=== PATIENT | male | born 1975 | race Caucasian/White ===

== ENCOUNTER → 2020-01-31 | Outpatient (CLI) | payer BC, SELFPAY ==
[2020-01-30 16:23] VITALS: BMI 22.6
== END | disposition home or self-care (01) ==
PROVIDERS: Referring Provider Physician Assistant; Visit Provider Physician Assistant
DX: R31.9 Hematuria, unspecified (principal)
CPT/HCPCS: 87077; 87086; 87088; 87186

== ENCOUNTER 2022-05-28 07:07 | Emergency (ER) | payer BC, SELFPAY ==
[2022-05-28 07:08] VITALS: BP 165/107; PULSE 105; RESP 16; TEMP 36.3; O2SAT 99; BMI 23.8
--- NOTE | 2022-05-28 07:16 | CT_ITS ---
STUDY: CT ABDOMEN AND PELVIS WITHOUT CONTRAST REASON FOR EXAM: Male, 46 years old. Kidney Stone RADIATION DOSAGE (If Supplied By Facility): CTDIvol = ( 7.62 ) mGy, DLP = ( 409.10 ) mGycm TECHNIQUE: Transaxial images were obtained from the dome of the diaphragm to the symphysis pubis without oral contrast, and without intravenous contrast. Sagittal and coronal images were reconstructed. Individualized dose optimization techniques were used for this CT. COMPARISON: None. FINDINGS: The visualized lung bases are unremarkable. The visualized portions of the heart are within normal limits. The lack of intravenous contrast limits evaluation of solid visceral organs. Normal liver. Normal gallbladder and extrahepatic biliary system. Normal spleen. Normal pancreas. Normal bilateral adrenal glands. There are nonobstructing right renal calculi measuring up to 3 mm. There is left-sided hydroureteronephrosis secondary to a 3 mm calculus within the distal ureter. There are nonobstructing left renal calculi measuring up to 3 mm. There are left renal cysts. Normal visualized stomach. Normal small intestine. There are multiple colonic diverticula consistent with diverticulosis. The appendix is visualized and appears normal. Normal abdominal aorta. Normal inferior vena cava. Normal retroperitoneum. Normal urinary bladder. There is a small umbilical hernia containing fat. There are diffuse degenerative changes of the visualized lumbar spine. CT/Abdomen/Pelvis without Cont IMPRESSION: Left hydroureteronephrosis secondary to a 3 mm calculus within the distal ureter. Bilateral nonobstructing renal calculi measuring up to 3 mm. Colonic diverticulosis. Degenerative changes of the lumbar spine. Electronically Signed: Terri Solano MD at 8:05 EDT ,
[2022-05-28 07:26] LABS: Absolute Lymphocyte Count 1.07 X10^3/uL (0.83-4.51); Absolute Neutrophil Count 4.3 X10^3/uL (2.0-7.7); Basophil# 0.05 X10^3/uL; Basophil% 0.8 % (0-1); Eosinophil# 0.24 X10^3/uL; Eosinophils% 3.8 % (0-5); Lymphocyte # 1.07 X10^3/ul (0.83-4.51); Lymphocyte % 16.9 % (19-41); Mean Corpuscular Hgb 30.5 pg (27.0-32.0); Mean Corpuscular Volume 89.5 fL (80-94); Mean Platelet Vol. 9.9 fl (6.2-12.0); Monocyte# 0.71 X10^3/uL; Monocyte% 11.2 % (0-10); NRBC Flagged by Analyzer 0 % (0-5); Neutrophil # 4.26 X10^3/uL (2.7-7.7); Neutrophil % 67.1 % (47-70); Platelet Count 250 K/mm3 (150-450); RBC Distribution Width CV 12.7 % (11.6-14.6); RBC Distribution Width SD 41.7 fl (35.1-43.9); Red Blood Count 5.25 M/mm3 (4.6-6.2); White Blood Count 6.3 K/mm3 (4.4-11.0)
[2022-05-28] MEDS: 0.9% Normal Saline 1,000 ML 250 ML IV (07:26)
[2022-05-28] MEDS: Ketorolac 15 MG/ML Vial IV (07:27)
[2022-05-28] MEDS: Ondansetron 4 MG/2 ML Vial IV (07:27)
--- NOTE | 2022-05-28 07:27 | EDS_ITS ---
HPI History of Present Illness Chief Complaint: Flank Pain Detail of Chief Complaint: Acute flank pain that started at 0600. Informant: patient and spouse/S.O. Onset/Context/Timing Onset: Days (Initially intermittent. Patient reports passing nothing stones past 40 hours) Context: Sudden Onset Timing: Intermittent and Waxes and wanes Quality: Sharp Location: Flank Current Severity: Moderate Maximum Severity: Severe Worsened by: Nothing Relieved by: Improves to be low he is on [place] for Associated Symptoms Associated Symptoms: Nausea and vomiting, urgency and dark-colored urine Narrative Narrative: Patient 46-year-old male with history of renal/ureteral calculi. His last ER visit was 4 hours ago. informed that he has passed 9 small stones over the past 40 hours. He does not have a urologist. He does report subjective fever with chills. He does endorse nausea and vomiting. He denies diarrhea. He denies dysuria or decreased urine output. There is no history of trauma. He has not noted a rash. He states this is similar to his prior kidney stones. His pain is located on the left side. It does radiate to the inguinal/groin region. Prior similar symptoms: Yes Recent Illness/Hospitalization: No PFSH PFS Medical History Kidney stones Knee fracture, left Home Medications ondansetron 4 mg disintegrating tablet 4 mg PO Q8H PRN PRN Nausea #10 tabs 05/28/22 [Rx Last Taken Unknown] oxycodone-acetaminophen 5 mg-325 mg tablet 1 tab PO Q6H PRN PRN pain 5 days #20 TABLETS 05/28/22 [Rx Last Taken Unknown] Allergy/AdvReac Type Severity Reaction Status Date / Time acetaminophen [From Vicodin] Allergy Upset Verified 05/28/22 07:10 Stomach hydrocodone [From Vicodin] Allergy Upset Verified 05/28/22 07:10 Stomach Social History (Updated 05/28/22 @ 07:[address] Williams Rodriguez MD) household members: spouse Smoking Status: Never smoker alcohol intake: never substance use type: does not use ROS ROS ED Constitutional Constitutional ED: Reports chills, fever(s) and subjective; Denies sweats or weight loss Eyes Eyes: Denies blurry vision, change in vision or diplopia ENT ENT ED: Denies ear pain, rhinorrhea or sore throat Cardiovascular Cardiovascular: Denies chest pain, palpitations or racing heartbeat Respiratory/Chest Respiratory/Chest: Denies cough, dyspnea or dyspnea on exertion Gastrointestinal Gastrointestinal: Reports abdominal pain and nausea; Denies diarrhea or melena Genitourinary Genitourinary ED: Reports urinary frequency and other Details: Patient does endorse urgency and dark-colored urine. ; Denies dysuria Musculoskeletal Musculoskeletal: Reports back pain; Denies arthralgias, myalgias or neck pain Integumentary Denies Abrasions or rash Neurologic Neurologic: Denies headache(s), paresthesias or weakness Hematologic/Lymphatic Hematologic/Lymphatic: Reports none EXAM Physical Exam Const Vital Signs: 05/28/22 07:08 Temperature 97.4 F L Temperature Source Temporal Pulse Rate 105 H Respiratory Rate 16 Blood Pressure 165/107 H Blood Pressure Mean 126 Pulse Ox 99 Oxygen Delivery Method Room Air Positive well nourished and well developed Constitutional Narrative: Patient appears uncomfortable. General Appearance ED: well developed; Negative for cyanotic, diaphoretic, NAD or pallor HEENT Reports moist mucous membranes HEENT Narrative: Head is atraumatic normocephalic. Ears normal. Nares patent. Mucosa is moist. Uvula is midline. There is no deviation tongue with protrusion. There is no erythema or exudate the posterior pharynx. Eyes PERRL and EOMs intact bilaterally General Eye ED: Negative for pale conjunctiva or scleral icterus Neck no lymphadenopathy, supple and no JVD Resp normal respiratory effort and clear to auscultation bilaterally Cardio regular rate, regular rhythm, S1 normal heart sound, S2 normal heart sound and no murmurs GI normal to inspection, nondistended, normoactive bowel sounds, non-tender, non- distended and no masses; Negative for hepatosplenomegaly Back/Spine General Back: CVA tenderness left Cervical Spine: Negative for cervical spine tenderness Thoracic Spine / Upper Back: Negative for thoracic spinal tenderness Lumbar Spine / Lower Back: Negative for lumbar spinal tenderness Extremity normal to inspection General Extremety ED: Negative for edema or tenderness General Extremity: Negative for edema Neuro oriented x3, CN's II-XII intact bilaterally and no sensory deficits noted Sensorium / Orientation: alert Psych mental status grossly normal Skin no rashes or lesions noted, no wounds and skin turgor normal General Skin Exam: Negative for jaundice or pallor MDM MDM MDM Narrative Medical decision making narrative: In light of the fact the patient's has passed 9 small stones in the past 40 hours and now has severe left flank pain with dark-colored urine concern patient has obstructing stone. Because he reports subjective fever with chills need to evaluate for infection. If he has infected urine with obstructing stone patient will need urgent urologic follow-up/admission. Therefore will obtain CT of the abdomen pelvis with out contrast. CBC was obtained to assess white count differential. Basic metabolic panel to assess renal function and calcium. UA to rule out urinary tract infection. Patient was medicated with IV Toradol and Zofran for his pain and nausea. Patient took a Percocet tablet at 0600. If there is no improvement will administer IV morphine. Patient's blood pressure is elevated. He does not have history of hypertension. Suspect this is due to his pain. Lab Data Attestation: I reviewed the patient's lab results. Lab results narrative: Creatinine is slightly elevated 1.40 with a GFR 58. Patient has been taking anti-inflammatories for his pain over the past several days. He was instructed to stop. He was instructed to follow-up with his primary care physician to have creatinine reassessed if unable to see Dr. Brown within the next 5 to 7 days. CBC and differential is normal. H&H is normal. Labs: Laboratory Results - last 24 hr 05/28/22 05/28/22 05/28/22 07:20 07:20 07:30 WBC 6.3 RBC 5.25 Hgb 16.0 Hct 47.0 MCV 89.5 MCH 30.5 MCHC 34.0 RDW Std Deviation 41.7 RDW Coeff of Giuseppe 12.7 Plt Count 250 MPV 9.9 Immature Gran % (Auto) 0.200 Neut % (Auto) 67.1 Lymph % (Auto) 16.9 L [place] % (Auto) 11.2 H Eos % (Auto) 3.8 Baso % (Auto) 0.8 Absolute Neuts (auto) 4.3 Absolute Lymphs (auto) 1.07 Nucleated RBC % 0 Sodium 139 Potassium 3.7 Chloride 104 Carbon Dioxide 27.0 Anion Gap 8 BUN 16 Creatinine 1.40 H Estim Creat Clear Calc 71.60 Est GFR (MDRD) Af Amer 70 Est GFR (MDRD) Non-Af 58 L BUN/Creatinine Ratio 11.4 Glucose 117 H Calcium 8.8 Urine Color Yellow Urine Clarity Clear Urine pH 5.0 Ur Specific [place] 1.025 Urine Protein 100 H Urine Glucose (UA) Normal Urine Ketones 150 A* Urine Occult Blood 150 H Urine Nitrite Negative Urine Bilirubin Negative Urine Urobilinogen Normal Ur Leukocyte Esterase Negative Urine RBC 0-5 SEEN Urine WBC 0-5 SEEN Ur Squamous Epith Cells 0 SEEN Urine Bacteria 0 SEEN Fine Granular Casts 0-5 SEEN Urine Mucus 0 SEEN Radiography Diagnostic Testing: Clinical Impression(s) from Imaging Studies Abdomen/Pelvis CT 05/28/22 07:16 IMPRESSION: Left hydroureteronephrosis secondary to a 3 mm calculus within the distal ureter. Bilateral nonobstructing renal calculi measuring up to 3 mm. Colonic diverticulosis. Degenerative changes of the lumbar spine. Electronically Signed: Terri Solano MD at 8:05 EDT Reading Location ID and State: [facility] / [place] Tel , Service support , Discharge Plan Triage Chief Complaint: Flank Pain ED Provider: Williams Rodriguez Dx/Rx/DC Orders Clinical Impression: Hydronephrosis concurrent with and due to calculi of kidney and ureter, Elevated serum creatinine, Dehydration, mild, Elevated blood pressure reading Instructions: ED Hypertension, To Be Confirmed, ED Renal Insufficiency, ED Kidney Stone w/ Colic Prescriptions: New oxycodone-acetaminophen [oxycodone-acetaminophen] 5-325 mg tablet 1 tab PO Q6H PRN PRN (Reason: pain) 5 Days Qty: 20 0RF ondansetron [ondansetron] 4 mg tablet,disintegrating 4 mg PO Q8H PRN PRN (Reason: Nausea) Qty: 10 0RF Primary Care Provider: Care Physician,No Primary Referrals: Nelson Brown MD [Med Staff - Active Staff] - 5-7 Days Carolyn Drake DO [Med Staff - Art Dealer] - 5-7 Days Care Physician,No Primary [Primary Care Provider] - Activity Restrictions/Additional Instructions: Return if you have a temperature greater than 100, unable to eat or drink anything or pain is not controlled by medication prescribed. Do not take any ibuprofen or Aleve because your creatinine is elevated. You are referred to Dr. Drake because you do not have a doctor and needs your blood pressure reassessed and additional blood work. Disposition Disposition: Home, Self Care
[2022-05-28 07:36] LABS: Bacteria 0 SEEN /hpf (None Seen); Mucous, Urine 0 SEEN /hpf (<or=2+); Squamous Epithelial Cells - UA 0 SEEN /hpf (0-5)
[2022-05-28 07:37] LABS: Color, Urine Yellow (Yellow); Glucose, Dipstick Normal (Normal); Leukocyte Esterase-Dipstick Negative /ul (Negative); Nitrite-Dipstick Negative (Negative); Occult Blood-Urine 150 /ul (Negative); Protein-Dipstick 100 mg/dl (Negative); Specific Gravity, Urine 1.025 (1.002-1.030); Urine Bilirubin Dipstick Negative (Negative); Urine Clarity Clear (Clear); Urine Urobilinogen Normal (Normal)
[2022-05-28 07:40] LABS: Ketone-Dipstick 150 mg/dl (Negative)
[2022-05-28 07:46] LABS: Red Blood Cells-Urine 0-5 SEEN /hpf (0-5); White Blood Cells 0-5 SEEN /hpf (0-5)
[2022-05-28 07:47] LABS: Fine Granular Cast- Urine 0-5 SEEN /lpf (0-5)
[2022-05-28 07:48] LABS: Anion Gap 8 (5-15); BUN 16 mg/dL (7-18); BUN/Creat Ratio 11.4 RATIO (10-20); Calcium,Total 8.8 mg/dL (8.5-10.1); Chloride 104 mmol/L (98-107); EST Glomerular Filtration Rate 58 mL/min (>60); Est Glom Filt Rate - Afr Amer 70 mL/min (>60); Glucose 117 mg/dL (74-106); Potassium 3.7 mmol/L (3.5-5.1); Sodium Level 139 mmol/L (136-145)
[2022-05-28 08:58] VITALS: BP 140/92; RESP 16; O2SAT 98
== END 2022-05-28 09:00 | disposition home or self-care (01) ==
PROVIDERS: Emergency Provider Emergency Medicine; Visit Provider Emergency Medicine
DX: N13.2 Hydronephrosis with renal and ureteral calculous obstruction (principal); R03.0 Elevated blood-pressure reading, without diagnosis of hypertension; E86.0 Dehydration; Z87.442 Personal history of urinary calculi
CPT/HCPCS: 74176; 80048; 81001; 85025; 96361; 96374; 96375; 99283; J7030; A4216; J2405

== ENCOUNTER → 2022-06-03 | Outpatient (CLI) | payer BC, SELFPAY ==
[2022-07-23 15:53] LABS: Source Not Provided
== END | disposition home or self-care (01) ==
LOC: LABSPEC 16:17
PROVIDERS: Visit Provider Urology
DX: N20.1 Calculus of ureter (principal)
CPT/HCPCS: 82360

== ENCOUNTER 2025-02-16 10:31 | Emergency (ER) | payer OTHER, SELFPAY ==
[2025-02-16 10:32] VITALS: BP 145/111; BP 156/105; PULSE 100; PULSE 107; RESP 20; RESP 22; TEMP 36.6; O2SAT 100; O2SAT 98; BMI 24.5
[2025-02-16 10:53] LABS: Absolute Neutrophil Count 10.5 X10^3/uL (2.0-7.7); Basophil# 0.04 X10^3/uL; Basophil% 0.4 % (0-1); Hematocrit 48.3 % (40-54); Lymphocyte % 3.5 % (19-41); Mean Corp Hgb Conc 35.2 g/dL (32-36); Mean Corpuscular Hgb 30.4 pg (27.0-32.0); Mean Corpuscular Volume 86.4 fL (80-94); Mean Platelet Vol. 10.1 fl (6.2-12.0); Monocyte# 0.43 X10^3/uL; Monocyte% 3.8 % (0-10); NRBC Flagged by Analyzer 0 % (0-5); Neutrophil # 10.47 X10^3/uL (2.7-7.7); Neutrophil % 92.2 % (47-70); POSITIVE DIFFERENTIAL YES; Platelet Count 241 K/mm3 (150-450); RBC Distribution Width CV 12.3 % (11.6-14.6); RBC Distribution Width SD 39.2 fl (35.1-43.9); Red Blood Count 5.59 M/mm3 (4.6-6.2); White Blood Count 11.4 K/mm3 (4.4-11.0)
[2025-02-16 11:37] LABS: ALB/GLOB Ratio 1.5 RATIO (0.9-2.4); AST(SGOT) 31 U/L (<=37); Alanine Aminotransfer ALT/SGPT 18 U/L (<=46); Albumin, Serum 4.6 g/dL (3.5-5.0); Alkaline Phosphatase 107 U/L (40-129); Anion Gap 15 (5-15); BUN 17 mg/dL (4-19); BUN/Creat Ratio 12.3 RATIO (10-20); Calcium,Total 8.9 mg/dL (7.6-11.0); Carbon Dioxide 22.7 mmol/L (21.0-32.0); Chloride 99 mmol/L (98-108); Creatinine, Serum 1.38 mg/dL (0.70-1.20); EST Glomerular Filtration Rate 62 (>60); Estimated Creatinine Clearance 70.29 ml/min (50-250); Globulin 3.1 g/dL (2.2-4.2); Glucose 138 mg/dL (70-99); Potassium 4.1 mmol/L (3.3-5.1); Protein, Total 7.7 g/dL (5.9-8.4); Sodium Level 137 mmol/L (133-145); Total Bilirubin 0.75 mg/dL (0.00-1.30)
--- NOTE | 2025-02-16 11:39 | EDS_ITS ---
HPI History of Present Illness Chief Complaint: Flank Pain Narrative Narrative: 49-year-old male who denies significant past medical history except for previous ureterolithiasis 5 years ago presents with right flank pain that feels similar to his previous kidney stone. He states he followed up with urology, and has not had a problem since. Around 1:00 this morning, approximately 10-1/2 hours ago, he experienced right flank pain. [place] like his pain was moving downward. He had a brief radiation to his right testicle. Since then he has been having nausea and vomiting. He vomited 9-10 times without any blood in his emesis. He has mild dysuria and pressure even after urinating. No exacerbating or alleviating factors. His pain was sudden onset. He attempted to take Excedrin for it but vomited his medication back up. He denies any hematuria, no fevers or chills. [facility] Medical History Kidney stones Knee fracture, left Home Medications ?Medication ?Instructions ?Recorded ?Last Taken ?Type ondansetron 4 mg disintegrating 4 mg PO Q8H PRN PRN Na usea #10 tabs 05/28/22 Unknown Rx tablet oxycodone-acetaminophen 5 mg-325 1 tab PO Q6H PRN PRN pain 5 days 05/28/22 Unknown Rx mg tablet #20 TABLETS ketorolac 10 mg tablet 10 mg PO TID PRN pain 5 days #15 02/16/25 Unknown Rx tabs oxycodone-acetaminophen 5 mg-325 1 tab PO Q6H PRN pain 3 days #12 02/16/25 Unknown Rx mg tablet (Percocet) tabs tamsulosin 0.4 mg capsule (Flomax) 0.4 mg PO DAILY #10 caps 02/16/25 Unknown Rx Allergy/AdvReac Type Severity Reaction Status Date / Time acetaminophen (From Vicodin) Allergy Upset Verified 02/16/25 10:32 Stomach hydrocodone (From Vicodin) Allergy Upset Verified 02/16/25 10:32 Stomach Social History household members: spouse Smoking Status: Never smoker alcohol intake: never substance use type: does not use ROS ROS ED ROS Narrative Review of systems positive for right flank pain similar to previous ureterolithiasis. Positive nausea and vomiting, no hematemesis. Mild dysuria. No hematuria. No fevers or chills. No exacerbating or alleviating factors to his pain. EXAM Physical Exam Narrative Exam Narrative: Afebrile. Vital signs noted. Nontoxic-appearing. Cardiovascular examination reveals mild tachycardia, lungs clear to auscultation bilaterally. Abdomen soft and nontender with normal active bowel sounds, no guarding or rebound. Neurological examination nonfocal, nonlateralizing. Able to ambulate to and from restroom. Const Vital Signs: 02/16/25 10:32 02/16/25 10:32 02/16/25 11:54 Temperature 98 F Temperature Source Temporal Pulse Rate 107 H 100 60 Respiratory Rate 20 H 22 H 16 Blood Pressure 145/111 H 156/105 H 162/97 H Blood Pressure Mean 122 122 118 Pulse Ox 98 100 100 Oxygen Delivery Method Room Air Room Air Room Air 02/16/25 12:00 02/16/25 13:00 02/16/25 14:17 Temperature 98.2 F Temperature Source Pulse Rate 74 78 72 Respiratory Rate 18 16 16 Blood Pressure 156/98 H 145/91 H 145/78 H Blood Pressure Mean 117 109 100 Pulse Ox 100 97 97 Oxygen Delivery Method Room Air Room Air MDM MDM MDM Narrative Medical decision making narrative: Differential diagnosis includes but vomited to ureterolithiasis versus pyelonephritis versus lower suspicion this history and physical does not support this. Review of his laboratory work shows slight elevation of his white count at 11.4 with hemoglobin slightly hemoconcentrated at 17.0, hematocrit 48.3, BUN of 17 and creatinine slightly elevated at 1.38. LFTs are grossly unremarkable. I do feel CT imaging is indicated. He was administered a bolus of normal saline as well as ketorolac, ondansetron, and morphine. Urinalysis was obtained and reviewed and while there is 50 glucose in 150 ketones, negative for nitrites with 0 WBCs. I do not feel antibiotics are indicated. Review of the CT radiology report does show a 2 mm obstructing stone at the ureterovesicular junction causing moderate hydronephrosis and ureteronephrosis. There is perinephric stranding present. Repeat examination at approximately 1350 shows him resting comfortably and his pain has improved significantly. At this point in time, I do feel he can be discharged with prescriptions for Toradol, Percocet, and Flomax to follow-up with urology as an outpatient. Return instructions to the emergency department were reviewed. Patient and his mother are comfortable with the plan. Disposition is discharged home in stable condition. History & Record Review Discussion w/independent historian: Patient Additional record(s) reviewed:: Prior ED visit (Seen for ureteral stone in 2021) Lab Data Attestation: I reviewed the patient's lab results. Labs: Laboratory Results - last 24 hr 02/16/25 02/16/25 10:45 11:56 WBC 11.4 H RBC 5.59 Hgb 17.0 H Hct 48.3 MCV 86.4 MCH 30.4 MCHC 35.2 RDW Std Deviation 39.2 RDW Coeff of Giuseppe 12.3 Plt Count 241 MPV 10.1 Immature Gran % (Auto) 0.100 Neut % (Auto) 92.2 H Lymph % (Auto) 3.5 L [place] % (Auto) 3.8 Eos % (Auto) 0.0 Baso % (Auto) 0.4 Absolute Neuts (auto) 10.5 H Absolute Lymphs (auto) 0.40 L Nucleated RBC % 0 Sodium 137 Potassium 4.1 Chloride 99 Carbon Dioxide 22.7 Anion Gap 15 BUN 17 Creatinine 1.38 H Estim Creat Clear Calc 70.29 Est GFR (MDRD) Non-Af 62 BUN/Creatinine Ratio 12.3 Glucose 138 H Calcium 8.9 Total Bilirubin 0.75 AST 31 ALT 18 Alkaline Phosphatase 107 Total Protein 7.7 Albumin 4.6 Globulin 3.1 Albumin/Globulin Ratio 1.5 Urine Color Yellow Urine Clarity Clear Urine pH 6.0 Ur Specific [place] 1.020 Urine Protein 100 H Urine Glucose (UA) 50 H Urine Ketones 150 A* Urine Occult Blood 25 H Urine Nitrite Negative Urine Bilirubin Negative Urine Urobilinogen Normal Ur Leukocyte Esterase Negative Urine RBC 0 SEEN Urine WBC 0 SEEN Ur Squamous Epith Cells 0 SEEN Urine Bacteria 0 SEEN Urine Mucus 0 SEEN Radiography Diagnostic Testing: Clinical Impression(s) from Imaging Studies Abdomen/Pelvis CT 02/16/25 12:33 IMPRESSION: 2 mm obstructive stone at the right UVJ with associated upstream moderate hydroureteronephrosis with extensive perinephric stranding. Prominent mesenteric lymph nodes with diffuse mesenteric stranding may reflect panniculitis. Reading Location: [facility] Discharge Plan Triage Chief Complaint: Flank Pain ED Provider: Hector Chacko Dx/Rx/DC Orders Clinical Impression: Ureterolithiasis, Right flank pain, Hydroureteronephrosis Instructions: ED Kidney Stone with Pain Prescriptions: New oxycodone-acetaminophen [Percocet] 5-325 mg tablet 1 tab PO Q6H PRN (Reason: pain) 3 Days Qty: 12 0RF ketorolac 10 mg tablet 10 mg PO TID PRN (Reason: pain) 5 Days Qty: 15 0RF tamsulosin [Flomax] 0.4 mg capsule 0.4 mg PO DAILY Qty: 10 0RF No Action oxycodone-acetaminophen [oxycodone-acetaminophen] 5-325 mg tablet 1 tab PO Q6H PRN PRN (Reason: pain) 5 Days Qty: 20 0RF ondansetron [ondansetron] 4 mg tablet,disintegrating 4 mg PO Q8H PRN PRN (Reason: Nausea) Qty: 10 0RF Primary Care Provider: Care Physician,No Primary Referrals: Nelson Brown MD [Med Staff - Active Staff] - 1 Week Care Physician,No Primary [Primary Care Provider] - Activity Restrictions/Additional Instructions: Medication as directed. Follow-up with urology within the next week. Return to the emergency department with fever, inability to take medications, increased pain while on medication, new or worsening symptoms. Print Language: Bahamian Disposition Disposition: Home, Self Care Discharge Date/Time: 02/16/25 14:18
[2025-02-16] MEDS: Ondansetron 4 MG/2 ML Vial IV (11:50)
[2025-02-16] MEDS: Morphine 4 MG/ML Syringe IV (11:50)
[2025-02-16] MEDS: Ketorolac 15 MG/ML Vial IV (11:50)
[2025-02-16] MEDS: 0.9% Normal Saline (1000mL) 1,000 ML 999 ML IV (11:51)
[2025-02-16 11:54] VITALS: BP 162/97; PULSE 60; RESP 16; O2SAT 100
[2025-02-16 12:00] VITALS: BP 156/98; PULSE 74; RESP 18; O2SAT 100
[2025-02-16 12:04] LABS: Bacteria 0 SEEN /hpf (None Seen); Mucous, Urine 0 SEEN /hpf (<or=2+); Red Blood Cells-Urine 0 SEEN /hpf (0-5); Squamous Epithelial Cells - UA 0 SEEN /hpf (0-5); White Blood Cells 0 SEEN /hpf (0-5)
[2025-02-16 12:11] LABS: Color, Urine Yellow (Yellow); Glucose, Dipstick 50 mg/dl (Normal); Leukocyte Esterase-Dipstick Negative /ul (Negative); Nitrite-Dipstick Negative (Negative); Occult Blood-Urine 25 /ul (Negative); Protein-Dipstick 100 mg/dl (Negative); Urine Bilirubin Dipstick Negative (Negative); Urine Clarity Clear (Clear); Urine Urobilinogen Normal (Normal)
[2025-02-16 12:18] LABS: Ketone-Dipstick 150 mg/dl (Negative)
--- OUTSIDE RECORDS SUMMARY | 2025-02-16 12:19 | XMS RPT_ITS | CCD ---
Author Organization [facility] Inform ion Partnership [facility] Care Team Providers Care Packager Name Role Phone Care Physician, No Primary Primary Care Unava ilable Nelson Brown Attending Unavailable Williams Rodriguez Attending Unavailable Care Physician, No Primary Primary Care Unava ilable Unavailable Primary Care Provider UnavailRadha Robles DO Primary Care Provider Allergies Allergy Classification Reported Allergen(s) Allergy Type Date of Onset Reaction(s) Facility (2 sources) Acetaminophen Drug Allergy 2 Upset Stomach [facility] Work Phone: (2 sources) HYDROcodone Drug Allergy 2 Upset Stomach [facility] Work Phone: (1 source) Acetaminophen Drug Allergy 2 [facility] Repository (1 source) HYDROcodone Drug Allergy 2 [facility] Repository (4 sources) Acetaminophen / HYDROcodone Drug Allergy 8 GI Upset [facility] Medications Current Medications Medication Drug Class(es) Dates Sig (Normalized) Sig (Original) acetaminophen 325 mg / oxyCODONE hydrochloride 5 mg oral tablet (2 sources) Opioid Agonist Start: 05-28-2022 take 1 tablet by mouth every six hours as needed Oxycodone-Acetami nophen Active 1 TABLET PO EVERY 6 HOURS NEEDED 22 01May 28, 2022 ondansetron 4 mg disintegrating oral tablet (2 sources) Serotonin-3 Receptor Antagonist Start: 05-28-2022 take 4 mg by mouth every eight hours as needed Ondansetron Active 4 MG PO EVERY 8 HOURS NEEDED May 28, 2022 12:00am Completed/Discontinued Medications Medication Drug Class(es) Dates Sig (Normalized) Sig (Original) [id number] 200 actuat albuterol 0.09 mg/actuat metered dose inhaler (5 sources) beta2-Adrenergic Agonist Start: 12-20-2022 take 2 puff(s) by inhalation every six hours as needed for wheezing albuterol HFA (PROVENTIL HFA, VENTOLIN HFA) 90 mcg/actuation inhaler Indications: Wheezing INHALE 2 PUFFS INSTRUCTED EVERY 6 HOURS NEEDED FOR WHEEZING/SHORTNES S OF BREATH. 8.5 Each 1 12/20/2022 Active Start: 09-20-2022 End: 12-20-2022 take 2 puff(s) by inhalation every six hours as needed for wheezing albuterol HFA (PROVENTIL HFA, VENTOLIN HFA) 90 mcg/actuation inhaler Indications: Wheezing Inhale 2 Puffs as instructed every 6 hours as needed for wheezing/shortness of breath. 18 g 1 09/20/2022 12/20/2022 Discontinued Start: 08-06-2022 take 2 puff(s) by in halation every six hours as needed for wheezing albuterol HFA (PROVENTIL HFA, VENTOLIN HFA) 90 mcg/actuation inhaler Indications: Wheezing Inhale 2 Puffs as instructed every 6 hours as needed for wheezing/shortness of breath. 18 g 1 08/06/2022 Active Comment on above: Inhale 2 Puffs as in structed every 6 hours as needed for wheezing/shortness of breath. breath-actuated 120 actuat beclomethasone dipropionate 0.04 mg/actuat metered dose inhaler (3 sources) Corticosteroid Start : 09-20 take 2 puff(s) by inhalation twice daily beclomethasone (QVAR REDIHALER) 40 mcg/actuation inhaler Inhale 2 Puffs as instructed twice daily. 1 Each 2 09/20/2022 Active Comment on above: Inhale 2 Puffs as in structed twice daily. Budesonide / formoterol (3 sources) Corticosteroid, beta2-Adrenergic Agonist Start : 10-07 take 2 puff(s) by inhalation twice daily budesonide-formotero l (SYMBICORT) 80-4.5 mcg/actuation inhaler Inhale 2 Puffs as instructed twice daily. 1 Each 0 10/07/2022 Active Comment on above: Inhale 2 Puffs as in structed twice daily. cetirizine HCl/pseudoephedrine (ZYRTEC-D ORAL) (1 source) cetirizine HCl/pseudoephedrine (ZYRTEC-D ORAL) Take by mouth. 0 Active Comment on above: Take by mouth. diphenhydrAMINE hydrochloride 25 mg oral tablet (1 source) Histamine-1 Receptor Antagonist take 1 tablet by mouth every six hours as needed diphenhydrAMINE (BENADRYL ALLERGY) 25 mg tablet Take 25 mg by mouth every 6 hours as needed. 0 Active Comment on above: Take 25 mg by mouth every 6 hours as needed. fluticasone propionate 0.05 mg/actuat metered dose nasal spray (4 sources) Corticosteroid Start : 08-06 take 1 spray(s) nasal route once daily fluticasone (FLONASE ALLERGY RELIEF) 50 mcg/actuation nasal spray Indications: Sinus congestion Use 1 [place] in each nostril once daily. 18.2 mL 1 08/06/2022 Active Comment on above: Use 1 [place] in each nostril once daily. naphazoline hydrochloride 0.25 mg/ml / pheniramine maleate 3 mg/ml ophthalmic solution (1 source) Start : 06-20 End: 08-06 naphazoline-pheniram ine eye drops (NAPHCON-A) 0.025-0.3 % ophthalmic solution Use 1 Drop in both eyes every 4 hours as needed. 1 Bottle 0 06/20/2016 08/06/2022 Discontinued (Course of therapy completed) Comment on above: Use 1 Drop in both e yes every 4 hours as needed. Problems Active Problems Problem Classification Problem Date Documented Date Episodic/Chronic Abdominal pain (1 source) Unspecified abdominal pain; Translations: [Unspecified abdominal pain] Onset: 06-01-2022 Episodic Calculus of urinary tract (1 source) Calculus of ureter; Translations: [Calculus of ureter] Onset: 06-09-2022 Episodic Fluid and electrolyte disorders (2 sources) Mild dehydration; Translations: [Dehydration] Episodic Genitourinary symptoms and ill-defined conditions (2 sources) Blood in urine; Translations: [Hematuria, unspecified] Episodic Osteoarthritis (4 sources) Osteoarthritis of left knee joint; Translations: [Unilateral primary osteoarthritis, left knee] Onset: 06-07-2012 06-07-2012 Chronic Other circulatory disease (2 sources) Elevated blood pressure; Translations: [Elevated blood-pressure reading, without diagnosis of hypertension] Episodic Other diseases of kidney and ureters (2 sources) Hydronephrosis co-occurrent and due to calculus of kidney and ureter; Translations: [Hydronephrosis with renal and ureteral calculous obstruction] Episodic Other lower respiratory disease (2 sources) Wheezing; Translations: [Wheezing] Episodic Other screening for suspected conditions (not mental disorders or infectious disease) (2 sources) Serum creatinine raised; Translations: [Other specified abnormal findings of blood chemistry] Episodic Other upper respiratory disease (1 source) Congestion of nasal sinus; Translations: [Nasal congestion] Episodic Past or Other Problems Problem Classification Problem Date Documented Da te Episodic/Chronic Contraceptive and procreative management (5 sources) Patient encounter status; Translations: [Encounter for sterilization] Onset: 12-29-2017 12-29-2017 Episodic Other circulatory disease (4 sources) Tightness in throat; Translations: [Other specified symptoms and signs involving the circulatory and respiratory systems] Onset: 04-24-2012 04-24-2012 Episodic Other non-traumatic joint disorders (4 sources) Pain in left knee; Translations: [Pain in joint, lower leg] Onset: 04-24-2012 04-24-2012 Episodic Results Test Name Value Interpretation Reference Range Facility [facility] 11-07-2023 [facility] Telephone ([facility]) ----- BRITTA SUTHERLAND ([id number]) 1975 M Date Time Provider Department 11/07/23 RADHA FLOYD [facility] During your visit today, we recorded the following information about you: Radha Mario 11/07/2023 5:22 PM Signed 1st attempt to reschedule Britta's 11/22/23 Dr. Floyd appointment, I left a voicemail and sent a [employer] message. Please note: He is not a new patient, he is established, and if he needs to discuss refills for asthma medications, he can see Annamaria sooner than Dr. Floyd's next available appointment, if he wishes. Radha FabianoIndio Avila 11/09/2023 8:58 AM Signed 2nd attempt left jamey Indio Tian 11/11/2023 9:43 AM Signed 3rd attempt,left VM Allergies As of Date: 11/07/2023 Noted Allergy Reaction HYDROCODONE-ACETAMINOPHEN 11/29/2017 8 - GI Upset Date Reviewed: 09/20/2022 Reviewed by: Maile Sneed MA - Fully Assessed Reason for Visit: Appointment [[id number]] Prescriptions as of 11/11/2023 - albuterol HFA (PROVENTIL HFA, VENTOLIN HFA) 90 mcg/actuation inhaler INHALE 2 PUFFS INSTRUCTED EVERY 6 HOURS NEEDED FOR WHEEZING/SHORTNESS OF BREATH. - budesonide-formoterol (SYMBICORT) 80-4.5 mcg/actuation inhaler Inhale 2 Puffs as instructed twice daily. - beclomethasone (QVAR REDIHALER) 40 mcg/actuation inhaler Inhale 2 Puffs as instructed twice daily. - fluticasone (FLONASE ALLERGY RELIEF) 50 mcg/actuation nasal spray Use 1 [place] in each nostril once daily. Problem List As Of Date 11/07/2023 Noted Resolved Throat Tightness [R09.89] 04/24/2012 Left knee pain [M25.562] 04/24/2012 Bodies, loose, joint, knee [M23.40] 05/26/2012 2012 Degenerative arthritis of left knee [M17.12] 06/07/2012 Encounter for sterilization [Z30.2] 12/29/2017 Encounter Status:Closed by INDIO TIAN on 11/09/23 Normal [facility] Calculi, Urinary w / Photoon 07-23-2022 COMMENT Normal [facility] Comment on above: Result Comment: Keri masters questions regarding Calculi Analysis contact [facility] at: [phone]. Performed By: #### L 3650.0100 #### [facility] [place], [address] Result Comment: Calc jeffery report will follow via computer, mail or erecting engineer delivery. Disclaimer Normal [facility] Comment on above: Result Comment: This test was developed and its performance characteristics determined by [employer]. It has not been cleared or approved by the Food and Drug Administration. Performed By: #### L 3650.0100 #### [facility] [address] [place], [address] PHOTO Normal [facility] Comment on above: Result Comment: Rosa Maria vance will follow under a separate cover. Performed By: #### L 0.0100 #### [facility] [address] [place], [address] . [facility] Comment on above: Result Comment: Perc entage (Represents the % composition) Performed By: #### L 0.0 #### [facility] [address] [place], [address] CA OXAL MONOHYD 100 % Normal [facility] Comment on above: Performed By: #### L 0.0100 #### [facility] [address] [place], [address] WEIGHT 8 mg [facility] Comment on above: Performed By: #### L 0.0100 #### [facility] [address] [place], [address] Color (U) Brown Normal [facility] Comment on above: Performed By: #### L 0.0100 #### [facility] [address] [place], [address] SIZE 3x3 mm Normal [facility] Comment on above: Result Comment: Veto medina piece received. Performed By: #### L 3650.0100 #### [facility] [address] [place], [address] SOURCE Not Provided [facility] Comment on above: Performed By: #### L 3650.0100 #### [facility] [address] [place], [address] Abdomen/Pelvis without Conto n 05-28-2022 Abdomen/Pelvis without Cont [facility] [address] [place] [address] Abdomen/Pelvis without Cont MR#: [id number] Acct: [id number] Name: BRITTA SUTHERLAND Rep #: [id number] : 1975 M 46 From: Terri Solano MD PCP: Care Physician,No Primary Status: REG ER Study: Abdomen/Pelvis without Cont Date of Exam: 05/07 11/24 Exam# [id number] Ordering Dr: Williams Rodriguez MD STUDY: CT ABDOMEN AND PELVIS WITHOUT CONTRAST REASON FOR EXAM: Male, 46 years old. Kidney Stone RADIATION DOSAGE (If Supplied By Facility): CTDIvol = ( 7.62 ) mGy, DLP = ( 409.10 ) mGycm TECHNIQUE: Transaxial images were obtained from the dome of the diaphragm to the symphysis pubis without oral contrast, and without intravenous contrast. Sagittal and coronal images were reconstructed. Individualized dose optimization techniques were used for this CT. COMPARISON: None. FINDINGS: The visualized lung bases are unremarkable. The visualized portions of the heart are within normal limits. The lack of intravenous contrast limits evaluation of solid visceral organs. Normal liver. Normal gallbladder and extrahepatic biliary system. Normal spleen. Normal pancreas. Normal bilateral adrenal glands. There are nonobstructing right renal calculi measuring up to 3 mm. There is left-sided hydroureteronephrosis secondary to a 3 mm calculus within the distal ureter. There are nonobstructing left renal calculi measuring up to 3 mm. There are left renal cysts. Normal visualized stomach. Normal small intestine. There are multiple colonic diverticula consistent with diverticulosis. The appendix is visualized and appears normal. Normal abdominal aorta. Normal inferior vena cava. Normal retroperitoneum. Normal urinary bladder. There is a small umbilical hernia containing fat. There are diffuse degenerative changes of the visualized lumbar spine. CT/Abdomen/Pelvis without Cont IMPRESSION: Left hydroureteronephrosis secondary to a 3 mm calculus within the distal ureter. Bilateral nonobstructing renal calculi measuring up to 3 mm. Colonic diverticulosis. Degenerative changes of the lumbar spine. Electronically Signed: Terri Solano MD at 8:05 EDT , CC: Dr. Williams Rodriguez MD; No Primary Care Physician Nurse Anesthesia Program Director: Signed Normal [facility] Absolute lymphocyte counton 05-28-2022 Lymphocytes Auto (Unsp spec) [#/Vol] 1.07 10*3/uL 0.83-4.51 [facility] Work Phone: Basic Metabolic Profile (BMP )on 05-28-2022 BUN/CRE 11.4 RATIO Normal 10-20 [facility] Comment on above: Performed By: #### L 100.0100, L500.2500 #### [facility] [address] [place], [address] CA,Total 8.8 mg/dL Normal 8.5-10.1 [facility] Comment on above: Performed By: #### L 100.0100, L500.2500 #### [facility] [address] [place], [address] Chloride [Moles/Vol] 104 mmol/L Normal 98-107 [facility] Comment on above: Performed By: #### L 100.0100, L500.2500 #### [facility] [address] [place], [address] CO2 [Moles/Vol] 27.0 mmol/L Normal 21.0-32.0 [facility] Comment on above: Performed By: #### L 100.0100, L500.2500 #### [facility] [address] [place], [address] Creatinine [Mass/Vol] 1.40 mg/dL High 0.70-1.30 [facility] Comment on above: Result Comment: The validity of the calculated GFR GFRAA in patients over 70 years has not been determined. Clinical correlation is essential. Performed By: #### L 100.0100, L500.2500 #### [facility] [address] [place], [address] ECRCL 71.60 ml/min Normal [facility] Comment on above: Performed By: #### L 100.0100, L500.2500 #### [facility] [address] [place], [address] EST GFR - AA 70 mL/min Normal >60 [facility] Comment on above: Result Comment: Afri can Barbadian GFR Calc Performed By: #### L 100.0100, L500.2500 #### [facility] [address] [place], [address] GAP 8 Normal 5-15 [facility] Comment on above: Performed By: #### L 100.0100, L500.2500 #### [facility] [address] [place], [address] GFR/1.73 sq M.predicted among non-blacks MDRD (S/P/Bld) [Vol rate/Area] 58 mL/min/{1.73_m2} Low >60 [facility] Comment on above: Result Comment: Non- GFR Calc Performed By: #### L 100.0100, L500.2500 #### [facility] [address] [place], [address] Glucose [Mass/Vol] 117 mg/dL High 74-106 [facility] Comment on above: Result Comment: Fast ing Glucose result from 100 to 125 mg/dL suggests IMPAIRED HOMEOSTASIS per A.D.A. criteria. Performed By: #### L 100.0100, L500.2500 #### [facility] [address] [place], [address] Potassium [Moles/Vol] 3.7 mmol/L Normal 3.5-5.1 [facility] Comment on above: Performed By: #### L 100.0100, L500.2500 #### [facility] [address] [place], [address] Sodium [Moles/Vol] 139 mmol/L Normal 136-145 [facility] Comment on above: Performed By: #### L 100.0100, L500.2500 #### [facility] [address] [place], [address] Urea nitrogen [Mass/Vol] 16 mg/dL Normal 7-18 [facility] Comment on above: Performed By: #### L 100.0100, L500.2500 #### [facility] [address] [place], [address] Basophil percentageon 05-28- 2021 Basophil percentage 0-5 SEEN /hpf 0-5 [facility] Work Phone: Basophils/100 WBC (Bld) 0.8 % 0-1 [facility] Work Phone: Chloride [Moles/Vol] 104 mmol/L 98-107 [facility] Work Phone: Eosinophils/100 WBC (Bld) 3.8 % 0-5 [facility] Work Phone: Glucose [Mass/Vol] 117 mg/dL 74-106 [facility] Work Phone: Comment on above: Fasting Glucose resu lt from 100 to 125 mg/dL suggests IMPAIRED HOMEOSTASIS per A.D.A. criteria. Neutrophils (Bld) [#/Vol] 4.3 10*3/uL 2.0-7.7 [facility] Work Phone: Neutrophils/100 WBC (Bld) 67.1 % 47-70 [facility] Work Phone: Potassium [Moles/Vol] 3.7 mmol/L 3.5-5.1 [facility] Work Phone: Sodium [Moles/Vol] 139 mmol/L 136-145 [facility] Work Phone: WBC (Bld) [#/Vol] 6.3 10*3/uL 4.4-11.0 [facility] Work Phone: Bilirubin Test strip Ql (U)o n 05-28-2022 Bilirubin Ql (U) Negative Negative [facility] Work Phone: Blood erythrocytes count (nu mber/volume)on 05-28-2022 RBC (Bld) [#/Vol] 5.25 10*6/uL 4.6-6.2 [facility] Work Phone: Blood hemoglobin measurement (mass/volume)on 05-28-2022 Hemoglobin (Bld) [Mass/Vol] 16.0 g/dL 13.0-16.5 [facility] Work Phone: Blood lymphocytes/100 leukoc yteson 05-28-2022 Lymphocytes/100 WBC (Bld) 16.9 % 19-41 [facility] Work Phone: Blood monocytes/100 leukocyt eson 05-28-2022 Monocytes/100 WBC (Bld) 11.2 % 0-10 [facility] Work Phone: Blood platelet mean volumeon 05-28-2022 Platelet mean volume (Bld) [Entitic vol] 9.9 fL 6.2-12.0 [facility] Work Phone: CBC W/Diff, Automatedon 05-07 Absolute Lymph 1.07 X10 3/uL Normal 0.83-4.51 [facility] Comment on above: Performed By: #### L 100.0100, L500.2500 #### [facility] [place], [address] Absolute Neut 4.3 X10 3/uL Normal 2.0-7.7 [facility] Comment on above: Performed By: #### L 100.0100, L500.2500 #### [facility] [address] [place], [address] Basophils/100 WBC (Bld) 0.8 % Normal 0-1 [facility] Comment on above: Performed By: #### L 100.0100, L500.2500 #### [facility] [address] [place], [address] Eosinophils/100 WBC (Bld) 3.8 % Normal 0-5 [facility] Comment on above: Performed By: #### L 100.0100, L500.2500 #### [facility] [address] [place], [address] Erythrocyte distribution width (RBC) [Ratio] 12.7 % Normal 11.6-14.6 [facility] Comment on above: Performed By: #### L 100.0100, L500.2500 #### [facility] [address] [place], [address] Hematocrit (Bld) [Volume fraction] 47.0 % Normal 40-54 [facility] Comment on above: Performed By: #### L 100.0100, L500.2500 #### [facility] [address] [place], [address] Hemoglobin (Bld) [Mass/Vol] 16.0 g/dL Normal 13.0-16.5 [facility] Comment on above: Performed By: #### L 100.0100, L500.2500 #### [facility] [address] [place], [address] IG% 0.200 Normal 0.0-0.9 [facility] Comment on above: Result Comment: IG% - Immature Granulocytes (promyelocytes, myelocytes and metamyelocytes) > 1% indicates that a LEFT SHIFT is Present. Performed By: #### L 100.0100, L500.2500 #### [facility] [address] [place], [address] Lymphocytes/100 WBC (Bld) 16.9 % Low 19-41 [facility] Comment on above: Performed By: #### L 100.0100, L500.2500 #### [facility] [address] [place], [address] MCH (RBC) [Entitic mass] 30.5 pg Normal 27.0-32.0 [facility] Comment on above: Performed By: #### L 100.0100, L500.2500 #### [facility] [address] [place], [address] MCHC (RBC) [Mass/Vol] 34.0 g/dL Normal 32-36 [facility] Comment on above: Performed By: #### L 100.0100, L500.2500 #### [facility] [address] [place], [address] MCV (RBC) [Entitic vol] 89.5 fL Normal 80-94 [facility] Comment on above: Performed By: #### L 100.0100, L500.2500 #### [facility] [address] [place], [address] Monocytes/100 WBC (Bld) 11.2 % High 0-10 [facility] Comment on above: Performed By: #### L 100.0100, L500.2500 #### [facility] [address] [place], [address] Neutrophils/100 WBC (Bld) 67.1 % Normal 47-70 [facility] Comment on above: Performed By: #### L 100.0100, L500.2500 #### [facility] [address] [place], [address] Nucleated RBC (Bld) [#/Vol] 0 10*3/uL Normal 0-5 [facility] Comment on above: Performed By: #### L 100.0100, L500.2500 #### [facility] [address] [place], [address] Platelet mean volume (Bld) [Entitic vol] 9.9 fL Normal 6.2-12.0 [facility] Comment on above: Performed By: #### L 100.0100, L500.2500 #### [facility] [address] [place], [address] Platelets (Bld) [#/Vol] 250 10*3/uL Normal 150-450 [facility] Comment on above: Performed By: #### L 100.0100, L500.2500 #### [facility] [address] [place], [address] RBC (Bld) [#/Vol] 5.25 10*6/uL Normal 4.6-6.2 [facility] Comment on above: Performed By: #### L 100.0100, L500.2500 #### [facility] [address] [place], [address] RDW SD 41.7 fl Normal 35.1-43.9 [facility] Comment on above: Performed By: #### L 100.0100, L500.2500 #### [facility] [address] [place], [address] WBC (Bld) [#/Vol] 6.3 10*3/uL Normal 4.4-11.0 [facility] Comment on above: Performed By: #### L 100.0100, L500.2500 #### [facility] [address] [place], [address] Determination of erythrocyte mean corpuscular volume (MCV)on 05-28-2022 MCV (RBC) [Entitic vol] 89.5 fL 80-94 [facility] Work Phone: Emergency Department Summary on 05-28-2022 Emergency Department Summary [facility] Medical Records Department [address] [place] [address] Emergency Department Summary 05/28/22 MR#: [id number] Acct: [id number] Name: BRITTA SUTHERLAND Rep #: [id number] : 1975 46 From: Williams Rodriguez MD PCP: Care Physician,No Primary Status:REG ER Location: ED HPI History of Present Illness Chief Complaint: Flank Pain Detail of Chief Complaint: Acute flank pain that started at 0600. Informant: patient and spouse/S.O. Onset/Context/Timing Onset: Days (Initially intermittent. Patient reports passing nothing stones past 40 hours) Context: Sudden Onset Timing: Intermittent and Waxes and wanes Quality: Sharp Location: Flank Current Severity: Moderate Maximum Severity: Severe Worsened by: Nothing Relieved by: Improves to be low he is on [place] for Associated Symptoms Associated Symptoms: Nausea and vomiting, urgency and dark-colored urine Narrative Narrative: Patient 46-year-old male with history of renal/ureteral calculi. His last ER visit was 4 hours ago. informed that he has passed 9 small stones over the past 40 hours. He does not have a urologist. He does report subjective fever with chills. He does endorse nausea and vomiting. He denies diarrhea. He denies dysuria or decreased urine output. There is no history of trauma. He has not noted a rash. He states this is similar to his prior kidney stones. His pain is located on the left side. It does radiate to the inguinal/groin region. Prior similar symptoms: Yes Recent Illness/Hospitalization: No PFSH PFSH Medical History Kidney stones Knee fracture, left Home Medications ondansetron 4 mg disintegrating tablet 4 mg PO Q8H PRN PRN Nausea #10 tabs 05/28/22 [Rx Last Taken Unknown] oxycodone-acetaminophen 5 mg-325 mg tablet 1 tab PO Q6H PRN PRN pain 5 days #20 TABLETS 05/28/22 [Rx Last Taken Unknown] Allergy/AdvReac Type Severity Reaction Status Date / Time acetaminophen [From Vicodin] Allergy Upset Verified 05/28/22 07:10 Stomach hydrocodone [From Vicodin] Allergy Upset Verified 05/28/22 07:10 Stomach Social History (Updated 05/28/22 @ 07:[address] Williams Rodriguez MD) household members: spouse Smoking Status: Never smoker alcohol intake: never substance use type: does not use ROS ROS ED Constitutional Constitutional ED: Reports chills, fever(s) and subjective; Denies sweats or weight loss Eyes Eyes: Denies blurry vision, change in vision or diplopia ENT ENT ED: Denies ear pain, rhinorrhea or sore throat Cardiovascular Cardiovascular: Denies chest pain, palpitations or racing heartbeat Respiratory/Chest Respiratory/Chest: Denies cough, dyspnea or dyspnea on exertion Gastrointestinal Gastrointestinal: Reports abdominal pain and nausea; Denies diarrhea or melena Genitourinary Genitourinary ED: Reports urinary frequency and other Details: Patient does endorse urgency and dark-colored urine. ; Denies dysuria Musculoskeletal Musculoskeletal: Reports back pain; Denies arthralgias, myalgias or neck pain Integumentary Denies Abrasions or rash Neurologic Neurologic: Denies headache(s), paresthesias or weakness Hematologic/Lymphatic Hematologic/Lymphatic: Reports none EXAM Physical Exam Const Vital Signs: 05/28/22 07:08 Temperature 97.4 F L Temperature Source Temporal Pulse Rate 105 H Respiratory Rate 16 Blood Pressure 165/107 H Blood Pressure Mean 126 Pulse Ox 99 Oxygen Delivery Method Room Air Positive well nourished and well developed Constitutional Narrative: Patient appears uncomfortable. General Appearance ED: well developed; Negative for cyanotic, diaphoretic, NAD or pallor HEENT Reports moist mucous membranes HEENT Narrative: Head is atraumatic normocephalic. Ears normal. Nares patent. Mucosa is moist. Uvula is midline. There is no deviation tongue with protrusion. There is no erythema or exudate the posterior pharynx. Eyes PERRL and EOMs intact bilaterally General Eye ED: Negative for pale conjunctiva or scleral icterus Neck no lymphadenopathy, supple and no JVD Resp normal respiratory effort and clear to auscultation bilaterally Cardio regular rate, regular rhythm, S1 normal heart sound, S2 normal heart sound and no murmurs GI normal to inspection, nondistended, normoactive bowel sounds, non-tender, non-distended and no masses; Negative for hepatosplenomegaly Back/Spine General Back: CVA tenderness left Cervical Spine: Negative for cervical spine tenderness Thoracic Spine / Upper Back: Negative for thoracic spinal tenderness Lumbar Spine / Lower Back: Negative for lumbar spinal tenderness Extremity normal to inspection General Extremety ED: Negative for edema or tenderness General Extremity: Negative for edema Neuro oriente (more content not included)... Normal [facility] Hematocrit Auto (Bld) [Volum e fraction]on 05-28-2022 Hematocrit (Bld) [Volume fraction] 47.0 % 40-54 [facility] Work Phone: Ketones Test strip Ql (U)on 05-28-2022 Ketones Ql (U) 150 mg/dl Negative [facility] Work Phone: Comment on above: CRITICAL VALUE *[id number] Jakob Toribio.RESULTS READ BACK BY SAME. Laboratory - Chemistry and C hemistry - challengeon 05-28-2022 CO2 [Moles/Vol] 27.0 mmol/L 21.0-32.0 [facility] Work Phone: Urea nitrogen/Creatinine [Mass ratio] 11.4 mg/mg 10-20 [facility] Work Phone: Laboratory - Hematology and Cell countson 05-28-2022 Erythrocyte distribution width (RBC) [Entitic vol] 41.7 fL 35.1-43.9 [facility] Work Phone: Erythrocyte distribution width (RBC) [Ratio] 12.7 % 11.6-14.6 [facility] Work Phone: Immature granulocytes/100 WBC (Bld) 0.200 % 0.0-0.9 [facility] Work Phone: Comment on above: IG% - Immature Granu locytes (promyelocytes, myelocytes and metamyelocytes) > 1% indicates that a LEFT SHIFT is Present. MCH (RBC) [Entitic mass] 30.5 pg 27.0-32.0 [facility] Work Phone: Nucleated RBC/100 WBC (Bld) [Ratio] 0 % 0-5 [facility] Work Phone: MCHC Auto (RBC) [Mass/Vol]on 05-28-2022 MCHC (RBC) [Mass/Vol] 34.0 g/dL 32-36 [facility] Work Phone: Mucus LM Ql (Urine sed)on Mucus Ql (Urine sed) 0 SEEN /hpf [facility] Work Phone: Nitrite Test strip Ql (U)on 05-28-2022 Nitrite Ql (U) Negative Negative [facility] Work Phone: No Panel Informationon 05-28 Estimated Creatinine Clearance Calc 71.60 ml/min [facility] Work Phone: Estimated GFR (MDRD) Amer 70 mL/min >60 [facility] Work Phone: Comment on above: GFR Calc Estimated GFR (MDRD) Non-Af Amer 58 mL/min >60 [facility] Work Phone: Comment on above: Non- GFR Calc Platelets bldon 05-28-2022 Platelets (Bld) [#/Vol] 250 10*3/uL 150-450 [facility] Work Phone: Protein Test strip Ql (U)on 05-28-2022 Protein Ql (U) 100 mg/dl Negative [facility] Work Phone: Serum or plasma calcium dayana urement (mass/volume)on 05-28-2022 Calcium [Mass/Vol] 8.8 mg/dL 8.5-10.1 [facility] Work Phone: Serum or plasma creatinine m easurement (mass/volume)on 05-28-2022 Creatinine [Mass/Vol] 1.40 mg/dL 0.70-1.30 [facility] Work Phone: Comment on above: The validity of the calculated GFR & GFRAA in patients over 70 years has not been determined. Clinical correlation is essential. Serum or plasma urea nitroge n measurement (mass/volume)on 05-28-2022 Urea nitrogen [Mass/Vol] 16 mg/dL 7-18 [facility] Work Phone: Squamous epithelial cells de tection in urine sediment by light microscopyon 05-28-2022 Epithelial cells.squamous LM Ql (Urine sed) 0 SEEN /hpf 0-5 [facility] Work Phone: Thin prep Papanicolaou smear with manual screeningon 05-28-2022 Thin prep Papanicolaou smear with manual screening 8 5-15 [facility] Work Phone: Urinalysis, Completeon 05-28 CAST,FINE GRAN 0-5 SEEN Normal 0-5 [facility] Comment on above: Order Comment: CLEAN CATCH Performed By: #### L [id number] #### [facility] [address] [place], [address] RBC 0-5 SEEN Normal 0-5 [facility] Comment on above: Order Comment: CLEAN CATCH Performed By: #### L [id number] #### [facility] [address] [place], [address] WBC 0-5 SEEN Normal 0-5 [facility] Comment on above: Order Comment: CLEAN CATCH Performed By: #### L [id number] #### [facility] [address] [place], [address] BACTERIA 0 SEEN Normal None Seen [facility] Comment on above: Order Comment: CLEAN CATCH Performed By: #### L [id number] #### [facility] [address] [place], [address] EPI,SQUAMOUS 0 SEEN Normal 0-5 [facility] Comment on above: Order Comment: CLEAN CATCH Performed By: #### L [id number] #### [facility] [address] [place], [address] Mucus Ql (Urine sed) 0 SEEN Normal [facility] Comment on above: Order Comment: CLEAN CATCH Performed By: #### L [id number] #### [facility] [place], [address] Urine blood detectionon 05-07 RBC Ql (U) 150 /ul Negative [facility] Work Phone: RBC Ql (U) 0-5 SEEN /hpf 0-5 [facility] Work Phone: Urine clarityon 05-28-2022 Clarity (U) Clear Clear [facility] Work Phone: Urine color determinationon 05-28-2022 Color (U) Yellow Yellow [facility] Work Phone: Urine glucose detectionon Glucose Ql (U) Normal mg/dl Normal [facility] Work Phone: Urine leukocyte esterase det ection by dipstickon 05-28-2022 Leukocyte esterase Test strip Ql (U) Negative Negative [facility] Work Phone: Urine pHon 05-28-2022 pH (U) 5.0 [pH] 5.0 - 8.0 [facility] Work Phone: Urine sediment bacteria coun t by microscopy (number/high power field)on 05-28-2022 Bacteria LM.HPF (Urine sed) [#/Area] 0 /[HPF] None Seen [facility] Work Phone: Urine sediment fine granular cast count by microscopy (number/low power field)on 05-28-2022 Fine Granular Casts LM.LPF (Urine sed) [#/Area] 0-5 SEEN /lpf 0-5 [facility] Work Phone: Urine specific gravity measu rementon 05-28-2022 Specific gravity (U) [Rel density] 1.025 1.002-1.030 [facility] Work Phone: Urobilinogen Auto test strip Ql (U)on 05-28-2022 Urobilinogen Ql (U) Normal mg/dl Normal [facility] Work Phone: [facility] BR[facility] ([id number]) 1975 MDate Time Provider Eavoqokfob76/26/18 LISETTE BELL During your visit today, we recorded the following information about you:Meseret Frazier Cma 07/31/2018 8:36 AM SignedPt's called for results of 07/21/18 post vas screening. Please advise.Meseret Bell DO, MBA 07/31/2018 4:53 PM SignedSpoke to patients , no sperm notedAllergies As of Date: 07/31/2018 Noted Allergy ReactionHYDROCODONE-ACETA MINOPHEN 11/29/2017 8 - GI UpsetDate Reviewed: 12/29/2017Reviewed by: Vilma Souza CMA - Fully AssessedReason for Visit: Results [95]Prescriptions as of 07/31/2018 Sig: NAPHAZOLINE 0.025 %-PHENIRAMI* Use 1 Drop in both eyes every* Patient not taking: Reported on 10/31/2017Problem List As Of Date 07/31/2018 Noted Resolved Throat Tightness [R68.89] INVALID FOR* Left knee pain [M25.562] INVALID FOR* Bodies, loose, joint, knee [M23.40] INVALID FOR*2012 Degenerative arthritis of left knee [M17.12] INVALID FOR* Encounter for sterilization [Z30.2] INVALID FOR* Status:Closed by LISETTE BELL on 07/31/18 [facility] Eh 05-11-2018 CNPN Telephone (AKURFL) BRITTA SUTHERLAND ([id number]) 1975 MDate Time Provider Department05/11/18 LISETTE BELL During your visit today, we recorded the following information about you:Shayna Jewel [facility] 05/11/2018 1:53 PM Signedpts called, she would like to know if he is ejaculating to much and that'swhy he still has some sperm showing?Please adviseChrisalex Bell DO, MBA 05/11/2018 2:09 PM SignedNo it is not from ejaculating too muchWe will have to wait the full 6 months from the vasectomy before making anydecisions or changesChrisalex Holloway [facility] 05/11/2018 4:18 PM SignedSpoke to pts and advised.Shayna Holloway CmaAllergies As of Date: 05/11/2018 Noted Allergy ReactionHYDROCODONE-ACETA MINOPHEN 11/29/2017 8 - GI UpsetDate Reviewed: 12/29/2017Reviewed by: Vilma Souza BROADCAST SUPERVISOR - Fully AssessedReason for Visit: question [Other]Prescriptions as of 05/11/2018 Sig: NAPHAZOLINE 0.025 %-PHENIRAMI* Use 1 Drop in both eyes every* Patient not taking: Reported on 10/31/2017Problem List As Of Date 05/11/2018 Noted Resolved Throat Tightness [R68.89] INVALID FOR* Left knee pain [M25.562] INVALID FOR* Bodies, loose, joint, knee [M23.40] INVALID FOR*2012 Degenerative arthritis of left knee [M17.12] INVALID FOR* Encounter for sterilization [Z30.2] INVALID FOR* Status:Closed by LISETTE BELL on 05/11/18 [facility] Eh 05-09-2018 CNPN Telephone (MICHAEL) BRITTA SUTHERLAND ([id number]) 1975 MDate Time Provider Department05/09/18 LISETTE BELL During your visit today, we recorded the following information about you:Shayna Holloway [facility] 05/09/2018 8:51 AM Signed----- Message from Lisette Bell sent at 05/09/2018 1:26 AM EDT -----Patient still has sperm present but they are not motile. I believe he is ok,but I will check with my colleagues in fertility department. Please let himAngelo Holloway [facility] 05/09/2018 9:19 AM SignedSpoke to pts and advised dr bell will speak with a fertilityspecialist that he knows and find out why sperm are still there.We will get back with them as soon as possible.Shayna Holloway [facility] 05/09/2018 4:31 PM SignedSpoke to , advised that you will call her this evening.Thanks,Shayna Bell DO, MBA 05/10/2018 9:24 AM AddendumI spoke to [place] recommend a repeat post as specimen in 6 months according to AUApostvasectomy guidelinesVasectomy was on 12/29/17.Will need to have recheck on or after 06/30/18 (6 months post vasectomy)The ideal result is <100,000 non-motile sperm on post vasectomy specimenI spoke to the patient's and the patient last night, recommendation is tocontinue protection/precautions at this time.Lisette Bell DO, MBAJayram Krishnan, DO, MBA 05/10/2018 9:24 AM SignedAddended by: LISETTE BELL on: 05/10/2018 09:24 AM Modules accepted: OrdersAllergies As of Date: 05/09/2018 Noted Allergy ReactionHYDROCODONE-ACETA MINOPHEN 11/29/2017 8 - GI UpsetDate Reviewed: 12/29/2017Reviewed by: Vilma Souza CMA - Fully AssessedReason for Visit: Results [95]Primary Visit Diagnosis:Encounter for sterilization [Z30.2]Order(s):POST VASEC SCREEN [SQSEPOST] Order #: [id number]: 1 FUTUREPrescriptions as of 05/09/2018 Sig: NAPHAZOLINE 0.025 %-PHENIRAMI* Use 1 Drop in both eyes every* Patient not taking: Reported on 10/31/2017Problem List As Of Date 05/09/2018 Noted Resolved Throat Tightness [R68.89] INVALID FOR* Left knee pain [M25.562] INVALID FOR* Bodies, loose, joint, knee [M23.40] INVALID FOR*2012 Degenerative arthritis of left knee [M17.12] INVALID FOR* Encounter for sterilization [Z30.2] INVALID FOR* Status:Closed by SHAYNA HOLLOWAY CMA on 05/09/18 [facility] CNPSveta 05-04-2018 CNPN Telephone (AKURFL) BRITTA SUTHERLAND ([id number]) 1975 MDate Time Provider Department05/04/18 LISETTE BELL During your visit today, we recorded the following information about you:Dora Ojeda Cma 05/04/2018 1:33 PM SignedPt called asking for semen analysis results from 05/01/18 - Pt went took lab -results in [facility] Lynette Bell DO, MBA 05/04/2018 3:43 PM SignedNo motile sperm seen. He has sperm present, but they are not motileTherefore he is clearedMayuri Huerta Cma 05/05/2018 8:38 AM SignedPt called the office. Notified.Mayuri Del Angel As of Date: 05/04/2018 Noted Allergy ReactionHYDROCODONE-ACETA MINOPHEN 11/29/2017 8 - GI UpsetDate Reviewed: 12/29/2017Reviewed by: Vilma Souza BROADCAST SUPERVISOR - Fully AssessedReason for Visit: Results [95]Prescriptions as of 05/04/2018 Sig: NAPHAZOLINE 0.025 %-PHENIRAMI* Use 1 Drop in both eyes every* Patient not taking: Reported on 10/31/2017Problem List As Of Date 05/04/2018 Noted Resolved Throat Tightness [R68.89] INVALID FOR* Left knee pain [M25.562] INVALID FOR* Bodies, loose, joint, knee [M23.40] INVALID FOR*2012 Degenerative arthritis of left knee [M17.12] INVALID FOR* Encounter for sterilization [Z30.2] INVALID FOR* Status:Closed by LISETTE BELL on 05/04/18 [facility] Vital Signs Date Time Vital Sign Value Performing Clinician Cecilia burdick 08-06-2022 14:41-0500 Body height 182.9 cm Annamaria Magallon DETAIL TECHNICIAN.TOWER CLEANER Work Phone: [facility] 08-06-2022 14:41-0500 Body temperature 97.7 [degF] Annamaria Garrisonter DETAIL TECHNICIAN.TOWER CLEANER Work Phone: [facility] 08-06-2022 14:41-0500 Body weight 78.16 kg Annamaria Sherita DETAIL TECHNICIAN.TOWER CLEANER Work Phone: [facility] 08-06-2022 14:41-0500 Diastolic blood pressure 92 mm[Hg] Annamaria Sherita DETAIL TECHNICIAN.TOWER CLEANER Work Phone: [facility] 08-06-2022 14:41-0500 Heart rate 100 /min Annamaria Sherita DETAIL TECHNICIAN.TOWER CLEANER Work Phone: [facility] 08-06-2022 14:41-0500 SaO2% (BldA) [Mass fraction] 95 % Annamaria Sherita DETAIL TECHNICIAN.TOWER CLEANER Work Phone: [facility] 08-06-2022 14:41-0500 Systolic blood pressure 127 mm[Hg] Annamaria Magallon DETAIL TECHNICIAN.TOWER CLEANER Work Phone: [facility] 05-28-2022 08:58-0400 Diastolic blood pressure 92 mm[Hg] [facility] Work Phone: 05-28-2022 08:58-0400 Respiratory rate 16 /min [facility] Work Phone: 05-28-2022 08:58-0400 SaO2% (BldA) [Mass fraction] 98 % [facility] Work Phone: 05-28-2022 08:58-0400 Systolic blood pressure 140 mm[Hg] [facility] Work Phone: 05-28-2022 07:08-0400 Body height 182.88 cm [facility] Work Phone: 05-28-2022 07:08-0400 Body mass index (BMI) [Ratio] 23.8 kg/m2 [facility] Work Phone: 05-28-2022 07:08-0400 Body temperature 97.4 [degF] [facility] Work Phone: 05-28-2022 07:08-0400 Body weight 79.83 kg [facility] Work Phone: 05-28-2022 07:08-0400 Heart rate 105 /min [facility] Work Phone: Encounters Encounter Date Encounter Type Care Provider Facility Start: 11-07-2023 Telephone encounter Radha Floyd DO Work Phone: [facility] Comment on above: Appointment Start: 12-19-2022 Refill Radha Everett [employer] Work Phone: [facility] Comment on above: Refill Request Start: 10-07-2022 Telephone encounter Radha Everett [employer] Phone: [facility] [place] Comment on above: Medication Problem Start: 08-06-2022 End: 08-06-2022 Patient encounter procedure Annamariadanuta Magallon APRN.CNP Work Phone: [facility] Comment on above: Wheezing (Primary Dx ); Sinus congestion; Encounter to establish care Start: 06-03-2022 End: 06-03-2022 Patient encounter procedure [facility], Specimen Start: 06-03-2022 End: 06-03-2022 ambulatory No Primary Care Physician [facility] Work Phone: Start: 05-28-2022 End: 05-28-2022 Emergency department patient visit Williams Rodriguez Facility:[facility] Start: 05-28-2022 End: 05-28-2022 Emergency department patient visit [facility] Procedures Date Procedure Procedure Detail Performing Clinician Start: 05-28-2022 CT of abdomen and pe lvis without contrast Plan of Treatment Date Care Activity Detail Author Start: 09-05-2023 Depression Assessment Depression Assessment [facility] Start: 05-06-2023 Influenza vaccination [facility] Start: 09-05-2022 DEPRESSION ASSESSMENT DEPRESSION ASSESSMENT [facility] Start: 05-06-2022 Influenza vaccination INFLUENZA (#1) [facility] Start: 09-05-2021 DEPRESSION ASSESSMENT DEPRESSION ASSESSMENT [facility] Start: 2019 COLOGUARD (FIT-DNA) COLOGUARD (FIT-DNA) [facility] Start: 2019 Colonoscopy COLONOSCOPY [facility] Start: 2019 COLORECTAL CANCER SCREENING COLORECTAL CANCER SCREENING [facility] Start: [address] COLONOGRAPHY [facility] Start: 2019 DIABETES SCREEN DIABETES SCREEN [facility] Start: 2019 Diabetes Screening Diabetes Screening [facility] Start: 2019 FECAL OCCULT BLOOD FECAL OCCULT BLOOD [facility] Start: 2019 Screening for malignant neoplasm of colon [facility] Start: 2019 SIGMOIDOSCOPY SIGMOIDOSCOPY [facility] Start: 2009 Lipid panel Lipid Screening [facility] Start: 2009 LIPID SCREEN LIPID SCREEN [facility] Start: 1993 Urine microalbumin profile [facility] Start: 1992 HEPATITIS C SCREENING HEPATITIS C SCREENING [facility] Start: 1992 Hepatitis C screening Hepatitis C Screening [facility] Start: 1992 HIV SCREENING HIV SCREENING [facility] Start: 1992 HIV screening HIV Screening [facility] Start: 02-14-1975 COVID-19 VACCINE (#1) COVID-19 VACCINE (#1) [facility] Start: 1975 HEPATITIS B (1 of 3 - 3-dose series) HEPATITIS B (1 of 3 - 3-dose series) [facility] Start: 1975 Hepatitis B Vaccine (1 of 3 - 3-dose series) Hepatitis B Vaccine (1 of 3 - 3-dose series) [facility] Calculus analysis [facility] Work Phone: Measurement of weigh t of calculus [facility] Work Phone: Origin of Stone [facility] Work Phone: Patient Education ED Hypertensio n, To Be Confirmed ED Renal Insufficiency ED Kidney Stone w/ Colic [facility] Work Phone: Patient referral [facility] Work Phone: Specimen color determination [facility] Work Phone: [facility] Immunizations Immunization Date Immunization Notes Care Provider Armando villalobos 10-31-2017 influenza virus vacc ine, unspecified formulation Radha Floyd DO Work Phone: [facility] Payers Date Payer Category Payer Self-pay [id number] 2022 Unknown [id number] 2015 Unknown [employer] PPO OOS [id number] 2015-Present [phone] [address] [place] [address] PPO [id number] Unknown [id number] Unknown [id number] Social History Date Type Detail Facility Start: 05-28-2022 Tobacco smoking stat us NHIS Unknown if ever smoked [facility] Work Phone: Start: 1975 Sex Assigned At Male W [facility] Work Phone: Start: 04-11-2012 Tobacco smoking stat us NHIS Never smoked tobacco [facility] Start: 04-11-2012 Tobacco use and exposure Smoke less tobacco non-user [facility] Start: 08-06-2022 End: 09-20-2022 Alcohol intake Current non-drinker of alcohol (finding) [facility] Start: 08-06-2022 History SDOH Alcohol Frequency 1 [facility] Start: 08-06-2022 History SDOH Alcohol Std Drinks 0 [facility] Start: 08-06-2022 History SDOH Social Connections Phone 2 [facility] Start: 08-06-2022 History SDOH Social Connections Get Together 3 [facility] Start: 08-06-2022 History SDOH Physica l Activity MPS 4 [facility] Start: 08-06-2022 History SDOH Financial 5 [facility] Start: 1975 Sex Assigned At Not on file [facility] Start: 07-27-2022 End: 08-06-2022 Exposure to SARS-CoV-2 (event) Not sure [facility] Start: 08-05-2022 End: 09-19-2022 History of Social function [facility] Start: 08-05-2022 End: 09-19-2022 Social connection and isolation panel [facility] Do you belong to any clubs or organizations such as scientology groups, unions, fraternal or athletic groups, or school groups? No [facility] Are you now , , , , never or living with a partner? [facility] How often to you hav e a drink containing alcohol? Never [facility] How many standard dr inks containing alcohol do you have on a typical day? Patient does not drink [facility] Do you feel stress - tense, restless, nervous, or anxious, or unable to sleep at night because your mind is troubled all the time - these days [OSQ] Only a little [facility] (I/We) worried semaj er (my/our) food would run out before (I/we) got money to buy more. Never true [facility] [facility] Clinical Notes 05-26-2012 to 11-09-2023 Telephone Encounter - Indio Tian - 11/09/2023 8:58 AM ESTTelephone Encounter - Radha Mario - 11/07/2023 5:21 PM ESTAddendum Note - Radha Floyd DO - 10/07/2022 1:40 PM EST Note Date & Type Note Facility 11-09-2023 Miscellaneous Notes Formattin g of this note might be different from the original. 2nd attempt left vm 1st attempt to reschedule Britta's 11/22/23 Dr. Floyd appointment, I left a voicemail and sent a [employer] message. Please note: He is not a new patient, he is established, and if he needs to discuss refills for asthma medications, he can see Annamaria sooner than Dr. Floyd's next available appointment, if he wishes. Radha Mario documented in this encounter [facility] 10-07-2022 Miscellaneous Notes Addended by: RADHA FLOYD on: 10/07/2022 01:40 PM Modules accepted: Orders Not sure if symbicort is cheaper but I called it in calling the QVAR is too expensive, is there an alternative that can be sent in? Thanks documented in this encounter [facility] 08-06-2022 History of Presen t illness Narrative Images from the original note were not included. This note was created using [employer]. Subjective Britta Sutherland is a 46 year old male. Patient presents with: Establish Care: Cough, wheezing, SOB, congestion Sinus congestion and wheezing for the last 6 months Continually worsened over the past 6 months Mother has same problems, she has been diagnosed with allergies and asthma Coughing up a scant amount of clear sputum Wheezing is worse in the evening but occurs throughout day Minimal sinus pressure C/o itchy, watery eyes that become red and irritated with rubbing Takes zyrtec most days, states it helps States all symptoms typically occur on a daily basis Denies fever or chills. No chest pain, heart palpitations or syncope. Is feeling better today. The history is provided by the patient and the spouse. No spanish language lecturer was used. Review of Systems Constitutional: Negative for appetite change, chills, diaphoresis, fatigue and fever. HENT: Positive for congestion, postnasal drip and sinus pressure. Negative for ear pain, rhinorrhea, sinus pain, sneezing and sore throat. Improved Eyes: Positive for redness and itching. Respiratory: Positive for cough, shortness of breath and wheezing. Negative for chest tightness. Improved Cardiovascular: Negative for chest pain, palpitations and leg swelling. Gastrointestinal: Negative for abdominal pain, blood in stool, constipation, diarrhea, nausea and vomiting. Genitourinary: Negative. Musculoskeletal: Negative. Skin: Negative for rash. Neurological: Negative for dizziness, syncope, weakness, light-headedness, numbness and headaches. Hematological: Negative. Psychiatric/Behavioral: Negative for dysphoric mood, self-injury, sleep disturbance and suicidal ideas. The patient is not nervous/anxious. All other systems reviewed and are negative. Objective BP 127/92 Pulse 100 Temp 36.5 C (97.7 F) (Tympanic) Ht 182.9 cm (6') Wt 78.2 kg (172 lb 4.8 oz) SpO2 95% BMI 23.37 kg/m History reviewed. No pertinent past medical history. PAST SURGICAL HISTORY Procedure Laterality Date PAST SURGICAL HISTORY OF wisdom teeth extracted PAST SURGICAL HISTORY OF Left 2012 left knee surgery Current Outpatient Medications on File Prior to Visit Medication Sig cetirizine HCl/pseudoephedrine (ZYRTEC-D ORAL) Take by mouth. diphenhydrAMINE (BENADRYL ALLERGY) 25 mg tablet Take 25 mg by mouth every 6 hours as needed. naphazoline-pheniramine eye drops (NAPHCON-A) 0.025-0.3 % ophthalmic solution Use 1 Drop in both eyes every 4 hours as needed. (Patient not taking: No sig reported) No current facility-administered medications on file prior to visit. Physical Exam Vitals and nursing note reviewed. Constitutional: General: He is awake. He is not in acute distress. Appearance: Normal appearance. He is well-developed and normal weight. He is not ill-appearing. HENT: Head: Normocephalic. Right Ear: Hearing, ear canal and external ear normal. No swelling or tenderness. A middle ear effusion is present. There is no impacted cerumen. Tympanic membrane is not perforated, erythematous or bulging. Left Ear: Hearing, ear canal and external ear normal. No swelling or tenderness. A middle ear effusion is present. There is no impacted cerumen. Tympanic membrane is not perforated, erythematous or bulging. Ears: Comments: Cloudy fluid behind bilateral TM Nose: Nose normal. No congestion or rhinorrhea. Mouth/Throat: Lips: [place]. Mouth: Mucous membranes are moist. Pharynx: Oropharynx is clear. Uvula midline. Eyes: General: Lids are normal. Extraocular Movements: Extraocular movements intact. Conjunctiva/sclera: Conjunctivae normal. Pupils: Pupils are equal, round, and reactive to light. Cardiovascular: Rate and Rhythm: Normal rate and regular rhythm. Pulses: Normal pulses. Heart sounds: Normal heart sounds. Pulmonary: Effort: Pulmonary effort is normal. No respiratory distress. Breath sounds: No decreased air movement. Wheezing present. No decreased breath sounds, rhonchi or rales. Comments: Intermittent inspiratory wheezes in all lung babb. Moving good air Musculoskeletal: General: No swelling. Normal range of motion. Cervical back: Full passive range of motion without pain and normal range of motion. Right lower leg: No edema. Left lower leg: No edema. Lymphadenopathy: Cervical: No cervical adenopathy. Skin: General: Skin is warm. Capillary Refill: Capillary refill takes less than 2 seconds. Findings: No rash. Neurological: General: No focal deficit present. Mental Status: He is alert and oriented to person, place, and time. Mental status is at baseline. Cranial Nerves: No cranial nerve deficit. Sensory: Sensation is intact. No sensory deficit. Motor: Motor function is intact. No weakness. Coordination: Coordination is intact. Gait: Gait is intact. Gait normal. Psychiatric: Attention and Perception: Attention and perception normal. Mood and Affect: Mood and affect normal. Speech: Speech normal. Behavior: Behavior normal. Behavior is cooperative. Thought Content: Thought content normal. Thought content does not include homicidal or suicidal ideation. Cognition and Memory: Cognition and memory normal. Judgment: Judgment normal. ASSESSMENT/PLAN: 1. Wheezing - ICD9: 786.07, ICD10: R06.2 (primary diagnosis) - ALBUTEROL SULFATE HFA 90 MCG/ACTUATION AEROSOL INHALER, discussed use and side effects - ED if severe, discussed red flag symptoms and when to be evaluated in the ED. Pt VU. 2. Sinus congestion - ICD9: 478.19, ICD10: R09.81 - Continue taking zyrtec daily - FLUTICASONE PROPIONATE 50 MCG/ACTUATION NASAL SPRAY,SUSPENSION, discussed use and side effects 3. Encounter to establish care - ICD9: V65.8, ICD10: Z76.89 - establishing care with Dr. Floyd- appt made Follow up as needed or sooner if new or worsening symptoms. Terrance Russ TEACHING PROVIDER (Physician/PA/DETAIL TECHNICIAN) NOTE OF PERSONAL INVOLVEMENT IN CARE: I have personally seen and examined the patient and performed the medical decision-making components. I have reviewed the Advanced Practice Registered Nurse (DETAIL TECHNICIAN) Student's documentation and verified the findings in the note as written. Any additions or changes are noted in bold/italics. Signature: Annamaria Magallon CNP Date: 08/06/2022 Time: 4:11 PM documented in this encounter [facility] 05-26-2012 History of Past i llness Narrative Problem Noted Date Resolved Date Bodies, loose, joint, knee 05/26/201208/16 documented as of this encounter (statuses as of 08/06/2022) [facility] History of Past illness Narrative* Problem Noted Date Resolved Date Bodies, loose, joint, knee 05/26/201208/16 documented as of this encounter (statuses as of 10/07/2022) [facility] History of Past illness Narrative* Problem Noted Date Resolved Date Bodies, loose, joint, knee 05/26/201208/16 documented as of this encounter (statuses as of 12/20/2022) [facility] History of Past illness Narrative* Problem Noted Date Diagnosed Date Resolved Date Bodies, loose, joint, knee 05/26/2012 1 10/17/2011 documented as of this encounter (statuses as of 11/09/2023) [facility] noteNo assessment information availableWKind[facility] Work Phone: Evaluation note* Diagnosis Wheezing- Primary Sinus congestion Other diseases of nasal cavity and sinuses Encounter to establish care Other reasons for seeking consultation [facility]zing [facility] Additional Instructions Return if you have a temperature greater than 100, unable to eat or drink anything or pain is not controlled by medication prescribed. Do not take any ibuprofen or Aleve because your creatinine is elevated. You are referred to Dr. Drake because you do not have a doctor and needs your blood pressure reassessed and additional blood work.[facility] Work Phone: Summary Purpose Family History No Family History Records FoundNo Family History Records FoundNo Family History Records Found Advance Directives No Advanced Directives Records Found Advance Directive Response Recorded Date/ Time Living Will No May 28, 2022 7:11am Power of Civil Engineering Assistant No May 7:11am Chief Complaint and Reason for Visit Chief Complaint flank pain Additional Source Comments (unrecognized sect ion and content) No Status Records FoundNo Status Records FoundNo Status Records Found INFORMATION SOURCE (unrecogn ized section and content) DATE CREATED AUTHOR 08/14/2018 [facility] DATE CREATED AUTHOR AUTHOR'S ORGANIZ ATION 07/24/2022 [facility] DATE CREATED AUTHOR AUTHOR'S ORGANIZ ATION 11/12/2023 [facility] Goals (unrecognized section and content) Goals may be documented in a n alternate sectionGoals may be documented in an alternate section Source Comments (unrecognize d section and content) In the event this informatio n is protected by the Federal Confidentiality of Alcohol and Drug Abuse Patient Records regulations: The Federal rules restrict any use of the information to criminally investigate or prosecute any alcohol or drug abuse patient.[facility] the event this information is protected by the Federal Confidentiality of Alcohol and Drug Abuse Patient Records regulations: The Federal rules restrict any use of the information to criminally investigate or prosecute any alcohol or drug abuse patient.[facility] the event this information is protected by the Federal Confidentiality of Alcohol and Drug Abuse Patient Records regulations: The Federal rules restrict any use of the information to criminally investigate or prosecute any alcohol or drug abuse patient.[facility] the event this information is protected by the Federal Confidentiality of Alcohol and Drug Abuse Patient Records regulations: The Federal rules restrict any use of the information to criminally investigate or prosecute any alcohol or drug abuse patient.[facility] Reason for Visit (unrecogniz ed section and content) Reason Comments Establish Care Cough, wheezing, SOB , congestion Reason Comments Medication Problem Reason Comments Refill Request Reason Comments Appointment Care Teams (unrecognized sec tion and content) Packager Relationship Specialty Start Date End Date [place] DO Radha [address] [place] [address] PCP - General Family Medicine 11/07/23 FOR RECORDS PERTAINING TO PATIENTS WHO ARE OR HAVE BEEN ENROLLED IN A CHEMICAL DEPENDENCY/SUBSTANCEABUSE PROGRAM, SOME INFORMATION MAY BE OMITTED. This clinical summary was aggregated from multiple sources. Caution should be exercised in using it in the provision of clinical care. This summary normalizes information from multiple sources, and as a consequence, information in this document may materially change the coding, format and clinical context of patient data. In addition, data may be omitted in some cases. CLINICAL DECISIONS SHOULD BE BASED ON THE PRIMARY CLINICAL RECORDS. [facility] [employer] [facility]. provides no warranty or guarantee of the accuracy or completeness of information in this document.
--- NOTE | 2025-02-16 12:33 | CT_ITS ---
PROCEDURE: ABDOMEN/PELVIS WITHOUT CONT 02/16/2025 REASON FOR EXAM: KIDNEY STONE TECHNIQUE: ABDOMEN/PELVIS WITHOUT CONT Noncontrast technique limits evaluation of the abdominal and pelvic viscera. Coronal and Sagittal reconstruction series were provided. One or more dose reduction techniques were used (e.g., Automated exposure control, adjustment of the mA and/or kV according to patient size, use of iterative reconstruction technique). ORAL CONTRAST TYPE: None. COMPARISON: 05/28/2022 FINDINGS: Limited sections of the lung bases demonstrate no focal pulmonary mass. The liver, spleen, pancreas, and both adrenal glands demonstrate no acute findings. The gallbladder is unremarkable. The stomach is unremarkable. The aorta and IVC demonstrate no acute findings. There is no free air, free fluid or intestinal obstruction. The small bowel loops are not dilated. The appendix is not clearly identified, although there are no secondary signs of appendicitis. No bowel obstruction. The pelvic structures are intact. There is no solid pelvic mass. 2 mm obstructive stone at the right UVJ with associated upstream moderate hydroureteronephrosis with extensive perinephric stranding. Scattered tiny nonobstructive stones are noted within bilateral kidneys. 1.9 cm cyst and 3.8 cm cyst within the left kidney. Prominent mesenteric lymph nodes with diffuse mesenteric stranding may reflect panniculitis. The urinary bladder is partially distended. Visualized osseous structures demonstrate no acute abnormality. CT/Abdomen/Pelvis without Cont IMPRESSION: 2 mm obstructive stone at the right UVJ with associated upstream moderate hydro ureteronephrosis with extensive perinephric stranding. Prominent mesenteric lymph nodes with diffuse mesenteric stranding may reflect panniculitis. Reading Location: [id number]
[2025-02-16 13:00] VITALS: BP 145/91; PULSE 78; RESP 16; O2SAT 97
[2025-02-16] MEDS: 0.9% Normal Saline (1000mL) 1,000 ML 250 ML IV (13:24)
[2025-02-16 14:17] VITALS: BP 145/78; PULSE 72; RESP 16; TEMP 36.8; O2SAT 97
== END 2025-02-16 14:18 | disposition home or self-care (01) ==
PROVIDERS: Emergency Provider Emergency Medicine; Visit Provider Emergency Medicine
DX: N13.2 Hydronephrosis with renal and ureteral calculous obstruction (principal)
CPT/HCPCS: 74176; 80053; 81001; 85025; 96361; 96374; 96375; 99283; A4216; J2405

== ENCOUNTER 2025-03-20 07:33 | Emergency (ER) | payer OTHER, SELFPAY ==
[2025-03-20 07:33] VITALS: BP 165/108; PULSE 95; RESP 16; TEMP 36.3; O2SAT 99; BMI 24.5
--- NOTE | 2025-03-20 07:40 | CT_ITS ---
EXAM: CT Abdomen and Pelvis Without Intravenous Contrast CLINICAL INDICATION: KIDNEY STONE TECHNIQUE: Axial computed tomography images of the abdomen and pelvis without intravenous contrast. This CT exam was performed using one or more of the following dose reduction techniques: automated exposure control, adjustment of the mA and/or kV according to patient size, and/or use of iterative reconstruction technique. COMPARISON: CT Abdomen Pelvis dated 02/16/2025 small hiatal FINDINGS: LUNG BASES: Unremarkable. No mass. No consolidation. ABDOMEN: LIVER: Hepatomegaly with fatty infiltration. GALLBLADDER AND BILE DUCTS: Unremarkable. No calcified stones. No ductal dilation. PANCREAS: Unremarkable. No ductal dilation. SPLEEN: Unremarkable. No splenomegaly. ADRENALS: Unremarkable. No mass. KIDNEYS AND URETERS: Previously described obstructing 2 mm calculus in the right UVJ has passed. Near-complete resolution of the right hydroureteronephrosis. Decreased right perinephric fat stranding. Left renal cysts. STOMACH AND BOWEL: Unremarkable. No obstruction. No mucosal thickening. PELVIS: APPENDIX: No findings to suggest acute appendicitis. BLADDER: Unremarkable. No stones. REPRODUCTIVE: Unremarkable as visualized. ABDOMEN and PELVIS: INTRAPERITONEAL SPACE: Unremarkable. No free air. No significant fluid collection. BONES/JOINTS: No acute fracture. No dislocation. SOFT TISSUES: Unremarkable. VASCULATURE: Unremarkable. No abdominal aortic aneurysm. LYMPH NODES: Unremarkable. No enlarged lymph nodes. CT/Abdomen/Pelvis without Cont IMPRESSION: 1. Previously described obstructing 2 mm calculus in the right UVJ has passed. Near-complete resolution of the right hydroureteronephrosis. Decreased right perinephric fat stranding. 2. Hepatomegaly with fatty infiltration. Reading Location: [facility]
--- NOTE | 2025-03-20 07:40 | CT_ITS ---
EXAM: CT Abdomen and Pelvis Without Intravenous Contrast CLINICAL INDICATION: KIDNEY STONE TECHNIQUE: Axial computed tomography images of the abdomen and pelvis without intravenous contrast. This CT exam was performed using one or more of the following dose reduction techniques: automated exposure control, adjustment of the mA and/or kV according to patient size, and/or use of iterative reconstruction technique. COMPARISON: CT Abdomen Pelvis dated 02/16/2025 small hiatal FINDINGS: LUNG BASES: Unremarkable. No mass. No consolidation. ABDOMEN: LIVER: Hepatomegaly with fatty infiltration. GALLBLADDER AND BILE DUCTS: Unremarkable. No calcified stones. No ductal dilation. PANCREAS: Unremarkable. No ductal dilation. SPLEEN: Unremarkable. No splenomegaly. ADRENALS: Unremarkable. No mass. KIDNEYS AND URETERS: Previously described obstructing 2 mm calculus in the right UVJ has passed. Near-complete resolution of the right hydroureteronephrosis. Decreased right perinephric fat stranding. Left renal cysts. STOMACH AND BOWEL: Unremarkable. No obstruction. No mucosal thickening. PELVIS: APPENDIX: No findings to suggest acute appendicitis. BLADDER: Unremarkable. No stones. REPRODUCTIVE: Unremarkable as visualized. ABDOMEN and PELVIS: INTRAPERITONEAL SPACE: Unremarkable. No free air. No significant fluid collection. BONES/JOINTS: No acute fracture. No dislocation. SOFT TISSUES: Unremarkable. VASCULATURE: Unremarkable. No abdominal aortic aneurysm. LYMPH NODES: Unremarkable. No enlarged lymph nodes. CT/Abdomen/Pelvis without Cont IMPRESSION: 1. Previously described obstructing 2 mm calculus in the right UVJ has passed. Near-complete resolution of the right hydroureteronephrosis. Decreased right perinephric fat stranding. 2. Hepatomegaly with fatty infiltration. Reading Location[facility]
[2025-03-20 08:12] LABS: Mucous, Urine 0 SEEN /hpf (<or=2+); Squamous Epithelial Cells - UA 0 SEEN /hpf (0-5)
[2025-03-20 08:14] LABS: Hematocrit 45.1 % (40-54); Hemoglobin 15.5 g/dL (13.0-16.5); Immature Granulocytes Count 0.030 X10^3/uL (0.0-0.0); Mean Corp Hgb Conc 34.4 g/dL (32-36); Mean Corpuscular Volume 87.6 fL (80-94); Mean Platelet Vol. 9.9 fl (6.2-12.0); NRBC Flagged by Analyzer 0 % (0-5); Platelet Count 205 K/mm3 (150-450); RBC Distribution Width CV 12.3 % (11.6-14.6); RBC Distribution Width SD 39.5 fl (35.1-43.9); Red Blood Count 5.15 M/mm3 (4.6-6.2); White Blood Count 8.4 K/mm3 (4.4-11.0)
[2025-03-20 08:16] LABS: Color, Urine Yellow (Yellow); Glucose, Dipstick Normal (Normal); Ketone-Dipstick Negative (Negative); Leukocyte Esterase-Dipstick Negative /ul (Negative); Nitrite-Dipstick Negative (Negative); Occult Blood-Urine 150 /ul (Negative); Protein-Dipstick 15 mg/dl (Negative); Specific Gravity, Urine 1.015 (1.002-1.030); Urine Bilirubin Dipstick Negative (Negative)
[2025-03-20 08:30] LABS: Red Blood Cells-Urine 0-5 SEEN /hpf (0-5)
[2025-03-20 08:49] LABS: Anion Gap 10 (5-15); BUN 19 mg/dL (4-19); BUN/Creat Ratio 10.7 RATIO (10-20); Calcium,Total 8.5 mg/dL (7.6-11.0); Carbon Dioxide 25.2 mmol/L (21.0-32.0); Chloride 102 mmol/L (98-108); Estimated Creatinine Clearance 54.19 ml/min (50-250); Glucose 113 mg/dL (70-99); Potassium 4.1 mmol/L (3.3-5.1)
--- NOTE | 2025-03-20 09:14 | EX.ED.DYSGE1 ---
HPI History of Present Illness Chief Complaint: Flank Pain Detail of Chief Complaint: Left flank pain that is moved to the right lower back near the posterior ozuna Informant: patient Onset/Context/Timing Onset: Days (Approximately 1.5 days ago) Context: Sudden Onset Timing: Continuous and Waxes and wanes Quality: Pain Location: Left posterior iliac spine Current Severity: 8/10 Maximum Severity: Severe Worsened by: Nothing Relieved by: Better with oxycodone that he was prescribed with prior stone Associated Symptoms Associated Symptoms: No fever or chills. No vomiting. No urinary symptoms other than urgency Narrative Narrative: Patient is a 49-year-old male. He has history of renal and ureterolithiasis. He was seen here approximately 1 month ago. He was noted to have an obstructing right ureteral stone with hydronephrosis on the right. He was referred to Dr. Brown. He not follow-up with Dr. Brown since he passed it. He was prescribed Zofran and oxycodone. He also was prescribed ketorolac and Flomax. Patient's only past medical history is renal/ureteral stone. He has no other history. Is not have a doctor. He denies fever, chills night sweats. He denies abdominal pain. He denies vomiting or diarrhea. He denies testicular pain or swelling. Prior similar symptoms: Yes Recent Illness/Hospitalization: No PFSH PFSH Medical History Kidney stones Knee fracture, left Home Medications ?Medication ?Instructions ?Recorded ?Last Taken ?Type oxycodone-acetaminophen 5 mg-325 1 tab PO Q6H PRN pain 3 days #12 02/16/25 Unknown Rx mg tablet (Percocet) tabs oxycodone-acetaminophen 5 mg-325 1 tab PO Q6H PRN PRN pain 5 days 03/20/25 Unknown Rx mg tablet #20 TABLETS Allergy/AdvReac Type Severity Reaction Status Date / Time acetaminophen (From Vicodin) Allergy Upset Verified 03/20/25 07:36 Stomach hydrocodone (From Vicodin) Allergy Upset Verified 03/20/25 07:36 Stomach Social History household members: spouse Smoking Status: Never smoker alcohol intake: never substance use type: does not use ROS ROS ED Constitutional Constitutional ED: Denies chills, fever(s), subjective or sweats Cardiovascular Cardiovascular: Denies chest pain or palpitations Respiratory/Chest Respiratory/Chest: Denies cough, dyspnea or dyspnea on exertion Gastrointestinal Gastrointestinal: Reports nausea; Denies abdominal pain, diarrhea or vomiting Genitourinary Genitourinary ED: Reports other Details: Urgency ; Denies dysuria, hematuria or urinary frequency Musculoskeletal Musculoskeletal: Reports back pain; Denies arthralgias or myalgias Integumentary Denies rash Neurologic Neurologic: Denies paresthesias Hematologic/Lymphatic Hematologic/Lymphatic: Reports systems reviewed and no addt'l complaints, except as documented EXAM Physical Exam Const Vital Signs: 03/20/25 07:33 03/20/25 09:33 Temperature 97.4 F L Temperature Source Temporal Pulse Rate 95 87 Respiratory Rate 16 16 Blood Pressure 165/108 H 134/95 H Blood Pressure Mean 127 108 Pulse Ox 99 99 Oxygen Delivery Method Room Air Room Air Positive well nourished and well developed Constitutional Narrative: Patient appears uncomfortable. General Appearance ED: well developed; Negative for pallor HEENT Reports moist mucous membranes HEENT Narrative: Head is atraumatic no cephalic. Ears normal. Nares patent Eyes PERRL and EOMs intact bilaterally General Eye ED: Negative for scleral icterus Neck no lymphadenopathy, supple and no JVD Chest Wall inspection of chest normal and palpation of chest normal Resp normal respiratory effort and clear to auscultation bilaterally Cardio regular rate, regular rhythm, S1 normal heart sound, S2 normal heart sound and no murmurs GI normal to inspection, nondistended, normoactive bowel sounds, non-tender, non-distended and no masses; Negative for hepatosplenomegaly Back/Spine no CVA tenderness Back/Spine Narrative: Inspection of the back is normal. Extremity normal to inspection Neuro oriented x3 and CN's II-XII intact bilaterally Sensorium / Orientation: alert Psych mental status grossly normal Skin no rashes or lesions noted, no wounds and skin turgor normal General Skin Exam: Negative for jaundice or pallor MDM MDM MDM Narrative Medical decision making narrative: Differential diagnosis is renal ureterolithiasis, need to rule out infection, prior records indicate patient has bilateral stones in his kidneys. Doubt this to be musculoskeletal. Since he is on no anticoagulant doubt retroperitoneal hematoma. Blood work was obtained since his last creatinine was elevated. Prior to reviewing his prior records he was medicated with 15 mg acuter [place]. History & Record Review Additional record(s) reviewed:: Prior ED visit and Prior labs Lab Data Attestation: I reviewed the patient's lab results. Lab results narrative: CBC is unremarkable. BMP is remarkable for BUN of 19 and a creatinine of 1.79 with an estimated GFR 46. Urinalysis is remarkable for occult blood and 0-5 RBCs otherwise negative. Labs: Laboratory Results - last 24 hr 03/20/25 08:02 WBC 8.4 RBC 5.15 Hgb 15.5 Hct 45.1 MCV 87.6 MCH 30.1 MCHC 34.4 RDW Std Deviation 39.5 RDW Coeff of Giuseppe 12.3 Plt Count 205 MPV 9.9 Immature Gran % (Auto) 0.400 Neut % (Auto) 78.2 H Lymph % (Auto) 9.1 L [place] % (Auto) 9.8 Eos % (Auto) 2.0 Baso % (Auto) 0.5 Absolute Neuts (auto) 6.6 Absolute Lymphs (auto) 0.76 L Nucleated RBC % 0 Sodium 138 Potassium 4.1 Chloride 102 Carbon Dioxide 25.2 Anion Gap 10 BUN 19 Creatinine 1.79 H Estim Creat Clear Calc 54.19 Est GFR (MDRD) Non-Af 46 L BUN/Creatinine Ratio 10.7 Glucose 113 H Calcium 8.5 Urine Color Yellow Urine Clarity Clear Urine pH 6.0 Ur Specific [place] 1.015 Urine Protein 15 H Urine Glucose (UA) Normal Urine Ketones Negative Urine Occult Blood 150 H Urine Nitrite Negative Urine Bilirubin Negative Urine Urobilinogen Normal Ur Leukocyte Esterase Negative Urine RBC 0-5 SEEN Urine WBC 0-5 SEEN Ur Squamous Epith Cells 0 SEEN Urine Bacteria 0 SEEN Urine Mucus 0 SEEN Radiography Diagnostic Testing: Clinical Impression(s) from Imaging Studies Abdomen/Pelvis CT 03/20/25 07:40 IMPRESSION: 1. Previously described obstructing 2 mm calculus in the right UVJ has passed. Near-complete resolution of the right hydroureteronephrosis. Decreased right perinephric fat stranding. 2. Hepatomegaly with fatty infiltration. Reading Location: [facility] Review of CT reveals bilateral renal calculi. He has an obstructing distal left ureteral stone. Awaiting formal read by radiologist. Patient was made aware of his laboratory salts and CAT scan results. He was made aware that I am awaiting for radiology read. He states his pain has resolved. Treatment and Re-Evaluation :: Patient was made aware results. He was referred to arsalan anderson to follow-up for his elevated blood pressure and elevated creatinine and Dr. Brown regarding the obstructing ureteral stone. Discharge Plan Triage Chief Complaint: Flank Pain ED Provider: Williams Rodriguez Dx/Rx/DC Orders Clinical Impression: Hydronephrosis with urinary obstruction due to ureteral calculus, Bilateral renal stones, Acute renal insufficiency, Elevated blood-pressure reading without diagnosis of hypertension Instructions: ED Hypertension, To Be Confirmed, ED Renal Insufficiency, ED Kidney Stone with Pain Prescriptions: New oxycodone-acetaminophen 5-325 mg tablet 1 tab PO Q6H PRN PRN (Reason: pain) 5 Days Qty: 20 0RF No Action oxycodone-acetaminophen [Percocet] 5-325 mg tablet 1 tab PO Q6H PRN (Reason: pain) 3 Days Qty: 12 0RF Primary Care Provider: Care Physician,No Primary Referrals: Yousuf Woods MD [Med Staff - Active Staff] - 1 Week Nelson Brown MD [Med Staff - Active Staff] - 5-7 Days Care Physician,No Primary [Primary Care Provider] - Activity Restrictions/Additional Instructions: You need to follow-up with Dr. Woods to evaluate your blood pressure and kidney function. You are referred to Dr. Brown for follow-up regarding your kidney stones and obstructing ureteral stone. Print Language: Yakut Disposition Disposition: Home, Self Care
[2025-03-20 09:33] VITALS: BP 134/95; PULSE 87; RESP 16; O2SAT 99
[2025-03-20 10:47] VITALS: BP 136/94; PULSE 84; RESP 16; TEMP 36.7; O2SAT 100
--- OUTSIDE RECORDS SUMMARY | 2025-03-20 18:58 | XMS RPT_ITS | CCD ---
Author Organization [facility] Care Team Providers Care Lead Miner Name Role Phone Unavailable Primary Care Provider Unavailabl e Radha Floyd DO Primary Care Provider [phone] Care Physician, No Primary Primary Care Provider Unavailable Hector Chacko MD Emergency Provider Hector Chacko Attending Unavailable Care Physician, No Primary Primary Care Unava ilable Hector Chacko MD Attending Provider Dr. Williams Rodriguez MD Emergency Provider [phone] Allergies Allergy Classification Reported Allergen(s) Allergy Type Date of Onset Reaction(s) Facility (4 sources) Acetaminophen Drug Allergy 2 Upset Stomach [facility] (4 sources) HYDROcodone Drug Allergy 2 Upset Stomach [facility] (4 sources) Acetaminophen / HYDROcodone Drug Allergy 8 GI Upset [facility] (1 source) Acetaminophen Drug Allergy 5 [facility] (1 source) HYDROcodone Drug Allergy 5 [facility] Medications Current Medications Medication Drug Class(es) Dates Sig (Normalized) Sig (Original) acetaminophen 325 mg / oxyCODONE hydrochloride 5 mg oral tablet (7 sources) Opioid Agonist Start: 03-20-2025 take 1 tablet by mouth every six hours as needed for pain Oxycodone-Acetaminop hen 5-325 mg tablet Active 1 {tbl} PO EVERY 6 HOURS NEEDED as needed for pain 20 5 0 March 20, 2025 Hydronephrosis with urinary obstruction due to ureteral calculus Acute renal insufficiency Hydronephrosis with renal and ureteral calculous obstruction Disorder of kidney and ureter, unspecified Start: 05-28-2022 End: 03-20-2025 take 1 tablet by mouth every six hours as needed for pain Oxycodone-Acetaminophen (Percocet) 5-325 mg tablet Active 1 {tbl} PO EVERY 6 HOURS as needed for pain 12 3 0 February 16, 2025 Hydroureteronephrosis Calculus of ureter Unspecified hydronephrosis Calculus of ureter Start: 05-28-2022 take 1 tablet by vivek th every six hours as needed Oxycodone-Acetaminophen Active 1 TABLET PO EVERY 6 HOURS NEEDED 20 5 May 28, 2022 Completed/Discontinued Medications Medication Drug Class(es) Dates Sig (Normalized) Sig (Original) [id number] 200 actuat albuterol 0.09 mg/actuat metered dose [...] nasal spray Indications: Sinus congestion Use 1 [place] in each nostril once daily. 18.2 mL 1 08/06/2022 Active Comment on above: Use 1 [place] in each nostril once daily. ketorolac tromethamine 10 mg oral tablet (2 sources) Nonsteroidal Anti-inflammatory Drug, Cyclooxygenase Inhibitor Start : 02-16 End: 03-20 take 1 tablet by mouth three times daily as needed for pain Ketorolac 10 mg tablet Discontinued 10 mg PO THREE TIMES A DAY as needed for pain 15 5 0 February 16, 2025 12:00am March 20, 2025 8:00am naphazoline hydrochloride 0.25 mg/ml / pheniramine maleate 3 mg/ml ophthalmic solution (1 source) Start : 06-20 End: 08-06 naphazoline-pheniram ine eye drops (NAPHCON-A) 0.025-0.3 % ophthalmic solution Use 1 Drop in both eyes every 4 hours as needed. 1 Bottle 0 06/20/2016 08/06/2022 Discontinued (Course of therapy completed) Comment on above: Use 1 Drop in both e yes every 4 hours as needed. ondansetron 4 mg disintegrating oral tablet (4 sources) Serotonin-3 Receptor Antagonist Start : 05-28 End: 03-20 take 1 tablet by mouth every eight hours as needed for nausea Ondansetron 4 mg tablet,disintegratin g Discontinued 4 mg PO EVERY 8 HOURS NEEDED as needed for Nausea May 28, 2022 12:00am March 20, 2025 8:00am tamsulosin hydrochloride 0.4 mg oral capsule (2 sources) alpha-Adrenergic Brandon Start : 02-16 End: 03-20 take 1 capsule by mouth once daily Tamsulosin (Flomax) 0.4 mg capsule Discontinued 0.4 mg PO DAILY February 16, 2025 12:00am March 20, 2025 8:01am Problems Active Problems Problem Classification Problem Date Documented Date Episodic/Chronic Abdominal pain (3 sources) Right flank pain; Translations: [Unspecified abdominal pain] Onset: 02-16-2025 Episodic Calculus of urinary tract (3 sources) Ureteric stone; Translations: [Calculus of ureter] 02-16-2025 Episodic Fluid and electrolyte disorders (4 sources) Mild dehydration; Translations: [Dehydration] 06-05-2022 Episodic Genitourinary symptoms and ill-defined conditions (4 sources) Blood in urine; Translations: [Hematuria, unspecified] 01-30-2020 Episodic Osteoarthritis (4 sources) Osteoarthritis of left knee joint; Translations: [Unilateral primary osteoarthritis, left knee] Onset: 2 06-07-2012 Chronic Other circulatory disease (4 sources) Elevated blood pressure; Translations: [Elevated blood-pressure reading, without diagnosis of hypertension] 06-05-2022 Episodic Other circulatory disease (1 source) Elevated blood-pressure reading without diagnosis of hypertension; Translations: [Elevated blood-pressure reading, without diagnosis of hypertension] 03-20-2025 Episodic Other diseases of kidney and ureters (4 sources) Hydronephrosis co-occurrent and due to calculus of kidney and ureter; Translations: [Hydronephrosis with renal and ureteral calculous obstruction] 06-05-2022 Episodic Other diseases of kidney and ureters (2 sources) Hydroureteronephrosis ; Translations: [Unspecified hydronephrosis] 02-16-2025 Episodic Other diseases of kidney and ureters (1 source) Acute renal insufficiency; Translations: [Disorder of kidney and ureter, unspecified] 03-20-2025 Episodic Other diseases of kidney and ureters (1 source) Hydronephrosis with renal and ureteral calculous obstruction; Translations: [Hydronephrosis with urinary obstruction due to ureteral calculus] 03-20-2025 Episodic Other lower respiratory disease (2 sources) Wheezing; Translations: [Wheezing] Episodic Other screening for suspected conditions (not mental disorders or infectious disease) (4 sources) Serum creatinine raised; Translations: [Other specified abnormal findings of blood chemistry] 06-05-2022 Episodic Other upper respiratory disease (1 source) [...] Test Name Value Interpretation Reference Range Facility Absolute lymphocyte countOrd ered By: Williams Rodriguez on 03-20-2025 Lymphocytes Auto (Unsp spec) [#/Vol] 0.76 10*3/uL Low 0.83-4.51 [facility] Absolute neutrophil countOrd ered By: Williams Rodriguez on 03-20-2025 Neutrophils (Bld) [#/Vol] 6.6 10*3/uL 2.0-7.7 [facility] Anion gap in Serum or Plasma Ordered By: Williams Rodriguez on 03-20-2025 Anion gap [Moles/Vol] 10 mmol/L 5-15 [facility] Automated lymphocyte count a s percentage of total leukocytesOrdered By: Williams Rodriguez on 03-20-2025 Lymphocytes/100 WBC Auto (Unsp spec) 9.1 % Low 19-41 [facility] BUN/creatinine ratioOrdered By: Williamsjr Rodriguez on 03-20-2025 Urea nitrogen/Creatinine [Mass ratio] 10.7 mg/mg 10-20 [facility] Basophil percentageOrdered B y: Williams Rodriguez on 03-20-2025 Basophils/100 WBC (Bld) 0.5 % 0-1 [facility] Bilirubin Test strip Ql (U)O rdered By: Williams Rodriguez on 03-20-2025 Bilirubin Ql (U) Negative Negative [facility] Carbon dioxide, total [Moles /volume] in Central venous bloodOrdered By: Williams Rodriguez on 03-20-2025 CO2 [Moles/Vol] 25.2 mmol/L 21.0-32.0 [facility] Chloride assayOrdered By: jr Rodriguez on 03-20-2025 Chloride [Moles/Vol] 102 mmol/L 98-108 [facility] Eosinophil percentageOrdered By: Williamsjr Rodriguez on 03-20-2025 Eosinophils/100 WBC (Bld) 2.0 % 0-5 [facility] Erythrocyte distribution wid th ratioOrdered By: Williamsjr Rodriguez on 03-20-2025 Erythrocyte distribution width (RBC) [Ratio] 12.3 % 11.6-14.6 [facility] Erythrocyte distribution wid th standard deviationOrdered By: Williamsjr Rodriguez on 03-20-2025 Erythrocyte distribution width (RBC) [Ratio] 39.5 fl 35.1-43.9 [facility] Glomerular filtration rate ( GFR) estimation/1.73 sq m using serum, plasma, or whole bOrdered By: Williamsjr Rodriguez on 03-20-2025 GFR/1.73 sq M.predicted among non-blacks MDRD (S/P/Bld) [Vol rate/Area] 46 mL/min/{1.73_m2} Low >60 [facility] Comment on above: mL/min/1.73m2 CKD-EP I Creatinine Equation (2020) Hematocrit Auto (Bld) [Volum e fraction]Ordered By: Williams Rodriguez on 03-20-2025 Hematocrit (Bld) [Volume fraction] 45.1 % 40-54 [facility] Hemoglobin measurementOrdere d By: Williams Rodriguez on 03-20-2025 Hemoglobin (Bld) [Mass/Vol] 15.5 g/dL 13.0-16.5 [facility] Immature granulocytes/100 WB C Auto (Bld)Ordered By: Williams Rodriguez on 03-20-2025 Immature granulocytes/100 WBC (Bld) 0.400 % 0.0-0.9 [facility] Comment on above: IG% - Immature Granu locytes (promyelocytes, myelocytes and metamyelocytes) > 1% indicates that a LEFT SHIFT is Present. Ketones Test strip Ql (U)Ord ered By: Williams Rodriguez on 03-20-2025 Ketones Ql (U) Negative Negative [facility] MCV (mean corpuscular volume ) determinationOrdered By: Williams Rodriguez on 03-20-2025 MCV (RBC) [Entitic vol] 87.6 fL 80-94 [facility] Mean corpuscular hemoglobin (MCH) determinationOrdered By: Williams Rodriguez on 03-20-2025 MCH (RBC) [Entitic mass] 30.1 pg 27.0-32.0 [facility] Mean corpuscular hemoglobin concentration (MCHC) determinationOrdered By: Williams Rodriguez on 03-20-2025 MCHC (RBC) [Mass/Vol] 34.4 g/dL 32-36 [facility] Mean platelet volume determi nationOrdered By: Williams Rodriguez on 03-20-2025 Platelet mean volume (Bld) [Entitic vol] 9.9 fL 6.2-12.0 [facility] Microscopic analysis of urin e for red blood cells (RBC)Ordered By: Williams Rodriguez on 03-20-2025 Microscopic analysis of urine for red blood cells (RBC) 0-5 SEEN /hpf 0-5 [facility] Monocyte percentageOrdered B y: Williams Rodriguez on 03-20-2025 Monocytes/100 WBC (Bld) 9.8 % 0-10 [facility] Mucus LM Ql (Urine sed)Order ed By: Williams Rodriguez on 03-20-2025 Mucus Ql (Urine sed) 0 SEEN /hpf [facility] Neutrophil percentageOrdered By: Williams Rodriguez on 03-20-2025 Neutrophils/100 WBC (Bld) 78.2 % High 47-70 [facility] Nitrite Test strip Ql (U)Ord ered By: Williams Rodriguez on 03-20-2025 Nitrite Ql (U) Negative Negative [facility] Nucleated red blood cell per centageOrdered By: Williams Rodriguez on 03-20-2025 Nucleated RBC/100 WBC (Bld) [Ratio] 0 % 0-5 [facility] Platelet countOrdered By: Dangelo Rodriguez on 03-20-2025 Platelets (Bld) [#/Vol] 205 10*3/uL 150-450 [facility] Potassium measurement (mass/ volume)Ordered By: Williams Rodriguez on 03-20-2025 Potassium (Unsp spec) [Mass/Vol] 4.1 mmol/L 3.3-5.1 [facility] Protein Test strip Ql (U)Ord ered By: Williams Rodriguez on 03-20-2025 Protein Ql (U) 15 mg/dl High Negative [facility] RBC Auto (Bld) [#/Vol]Ordere d By: Williams Rodriguez on 03-20-2025 RBC (Bld) [#/Vol] 5.15 10*6/uL 4.6-6.2 [facility] Serum creatinine measurement (mass/volume)Ordered By: Williams Rodriguez on 03-20-2025 Creatinine [Mass/Vol] 1.79 mg/dL High 0.70-1.20 [facility] Serum glucose measurement (m ass/volume)Ordered By: Williams Rodriguez on 03-20-2025 Glucose [Mass/Vol] 113 mg/dL High 70-99 [facility] Serum or plasma calcium dayana urement (mass/volume)Ordered By: Williams Rodriguez on 03-20-2025 Calcium [Mass/Vol] 8.5 mg/dL 7.6-11.0 [facility] Serum or plasma urea nitroge n measurement (mass/volume)Ordered By: Williams Rodriguez on 03-20-2025 Urea nitrogen [Mass/Vol] 19 mg/dL 4-19 [facility] Sodium levelOrdered By: Williams Rodriguez on 03-20-2025 Sodium [Moles/Vol] 138 mmol/L 133-145 [facility] Squamous epithelial cells de tection in urine sediment by light microscopyOrdered By: Williams Rodriguez on 03-20-2025 Epithelial cells.squamous LM Ql (Urine sed) 0 SEEN /hpf 0-5 [facility] Urine clarityOrdered By: Williams Rodriguez on 03-20-2025 Clarity (U) Clear Clear [facility] Urine color determinationOrd ered By: Williams Rodriguez on 03-20-2025 Color (U) Yellow Yellow [facility] Urine glucose detectionOrder ed By: Williams Rodriguez on 03-20-2025 Glucose Ql (U) Normal mg/dl Normal [facility] Urine leukocyte esterase det ection by dipstickOrdered By: Williams Rodriguez on 03-20-2025 Leukocyte esterase Test strip Ql (U) Negative Negative [facility] Urine pHOrdered By: Williams norris on 03-20-2025 pH (U) 6.0 [pH] 5.0 - 8.0 [facility] Urine sediment bacteria coun t by microscopy (number/high power field)Ordered By: Williams Rodriguez on 03-20-2025 Bacteria LM.HPF (Urine sed) [#/Area] 0 /[HPF] None Seen [facility] Urine specific gravity measu rementOrdered By: Williams Rodriguez on 03-20-2025 Specific gravity (U) [Rel density] 1.015 1.002-1.030 [facility] Urine urobilinogen measureme ntOrdered By: Williams Rodriguez on 03-20-2025 Urobilinogen Ql (U) Normal mg/dl Normal [facility] White blood cell (WBC) count Ordered By: Williams Rodriguez on 03-20-2025 WBC (Bld) [#/Vol] 8.4 10*3/uL 4.4-11.0 [facility] White blood cell countOrdere d By: Williams Rodriguez on 03-20-2025 White blood cell count 0-5 SEEN /hpf 0-5 [facility] Abdomen/Pelvis without Conto n 02-16-2025 Abdomen/Pelvis without Cont [facility] [address] [place] [address] Abdomen/Pelvis without Cont MR#: [id number] Acct: [id number] Name: BRITTA SUTHERLAND Rep #: [id number] : 1975 M 49 From: [facility] PCP: Care Physician,No Primary Status: REG ER Study: Abdomen/Pelvis without Cont Date of Exam: 02/03 12/28 Exam# [id number] Ordering Dr: Hector Chacko MD PROCEDURE: ABDOMEN/PELVIS WITHOUT CONT 02/16/2025 REASON FOR EXAM: KIDNEY STONE TECHNIQUE: ABDOMEN/PELVIS WITHOUT CONT Noncontrast technique limits evaluation of the abdominal and pelvic viscera. Coronal and Sagittal reconstruction series were provided. One or more dose reduction techniques were used (e.g., Automated exposure control, adjustment of the mA and/or kV according to patient size, use of iterative reconstruction technique). ORAL CONTRAST TYPE: None. COMPARISON: 05/28/2022 FINDINGS: Limited sections of the lung bases demonstrate no focal pulmonary mass. The liver, spleen, pancreas, and both adrenal glands demonstrate no acute findings. The gallbladder is unremarkable. The stomach is unremarkable. The aorta and IVC demonstrate no acute findings. There is no free air, free fluid or intestinal obstruction. The small bowel loops are not dilated. The appendix is not clearly identified, although there are no secondary signs of appendicitis. No bowel obstruction. The pelvic structures are intact. There is no solid pelvic mass. 2 mm obstructive stone at the right UVJ with associated upstream moderate hydroureteronephrosis with extensive perinephric stranding. Scattered tiny nonobstructive stones are noted within bilateral kidneys. 1.9 cm cyst and 3.8 cm cyst within the left kidney. Prominent mesenteric lymph nodes with diffuse mesenteric stranding may reflect panniculitis. The urinary bladder is partially distended. Visualized osseous structures demonstrate no acute abnormality. CT/Abdomen/Pelvis without Cont IMPRESSION: 2 mm obstructive stone at the right UVJ with associated upstream moderate hydroureteronephrosis with extensive perinephric stranding. Prominent mesenteric lymph nodes with diffuse mesenteric stranding may reflect panniculitis. Reading Location: [facility] CC: Dr. Hector Chacko MD; No Primary Care Physician [employer] Pro: Signed Normal [facility] Absolute lymphocyte countOrd ered By: ED PROVIDER on 02-16-2025 Lymphocytes Auto (Unsp spec) [#/Vol] 0.40 10*3/uL Low 0.83-4.51 [facility] Absolute neutrophil countOrd ered By: ED PROVIDER on 02-16-2025 Neutrophils (Bld) [#/Vol] 10.5 10*3/uL High 2.0-7.7 [facility] Anion gap in Serum or Plasma Ordered By: Hector Chacko on 02-16-2025 Anion gap [Moles/Vol] 15 mmol/L 5-15 [facility] Automated lymphocyte count a s percentage of total leukocytesOrdered By: ED PROVIDER on 02-16-2025 Lymphocytes/100 WBC Auto (Unsp spec) 3.5 % Low 19-41 [facility] BUN/creatinine ratioOrdered By: Hector Chacko on 02-16-2025 Urea nitrogen/Creatinine [Mass ratio] 12.3 mg/mg 10-20 [facility] Basophil percentageOrdered B y: ED PROVIDER on 02-16-2025 Basophils/100 WBC (Bld) 0.4 % 0-1 [facility] Bilirubin Test strip Ql (U)O rdered By: Hector Chacko on 02-16-2025 Bilirubin Ql (U) Negative Negative [facility] Bilirubin, totalOrdered By: Hector Chacko on 02-16-2025 Bilirubin [Mass/Vol] 0.75 mg/dL 0.00-1.30 [facility] CBC W/Diff, Automatedon 02-03 Absolute Lymph 0.40 X10 3/uL Low 0.83-4.51 [facility] Comment on above: Performed By: #### L 100.0100, L500.4050 #### [facility] [address] [place], [address] Absolute Neut 10.5 X10 3/uL High 2.0-7.7 [facility] Comment on above: Performed By: #### L 100.0100, L500.4050 #### [facility] [address] [place], [address] Basophils/100 WBC (Bld) 0.4 % Normal 0-1 [facility] Comment on above: Performed By: #### L 100.0100, L500.4050 #### [facility] [address] [place], [address] Eosinophils/100 WBC (Bld) 0.0 % Normal 0-5 [facility] Comment on above: Performed By: #### L 100.0100, L500.4050 #### [facility] [address] [place], [address] Erythrocyte distribution width (RBC) [Ratio] 12.3 % Normal 11.6-14.6 [facility] Comment on above: Performed By: #### L 100.0100, L500.4050 #### [facility] [address] [place], [address] Hematocrit (Bld) [Volume fraction] 48.3 % Normal 40-54 [facility] Comment on above: Performed By: #### L 100.0100, L500.4050 #### [facility] [address] [place], [address] Hemoglobin (Bld) [Mass/Vol] 17.0 g/dL High 13.0-16.5 [facility] Comment on above: Performed By: #### L 100.0100, L500.4050 #### [facility] [address] [place], [address] IG% 0.100 Normal 0.0-0.9 [facility] Comment on above: Result Comment: IG% - Immature Granulocytes (promyelocytes, myelocytes and metamyelocytes) > 1% indicates that a LEFT SHIFT is Present. Performed By: #### L 100.0100, L500.4050 #### [facility] [address] [place], [address] Lymphocytes/100 WBC (Bld) 3.5 % Low 19-41 [facility] Comment on above: Performed By: #### L 100.0100, L500.4050 #### [facility] [address] [place], [address] MCH (RBC) [Entitic mass] 30.4 pg Normal 27.0-32.0 [facility] Comment on above: Performed By: #### L 100.0100, L500.4050 #### [facility] [address] [place], [address] MCHC (RBC) [Mass/Vol] 35.2 g/dL Normal 32-36 [facility] Comment on above: Performed By: #### L 100.0100, L500.4050 #### [facility] [address] [place], [address] MCV (RBC) [Entitic vol] 86.4 fL Normal 80-94 [facility] Comment on above: Performed By: #### L 100.0100, L500.4050 #### [facility] [address] [place], [address] Monocytes/100 WBC (Bld) 3.8 % Normal 0-10 [facility] Comment on above: Performed By: #### L 100.0100, L500.4050 #### [facility] [address] [place], [address] Neutrophils/100 WBC (Bld) 92.2 % High 47-70 [facility] Comment on above: Performed By: #### L 100.0100, L500.4050 #### [facility] [address] [place], [address] Nucleated RBC (Bld) [#/Vol] 0 10*3/uL Normal 0-5 [facility] Comment on above: Performed By: #### L 100.0100, L500.4050 #### [facility] [address] [place], [address] Platelet mean volume (Bld) [Entitic vol] 10.1 fL Normal 6.2-12.0 [facility] Comment on above: Performed By: #### L 100.0100, L500.4050 #### [facility] [address] [place], [address] Platelets (Bld) [#/Vol] 241 10*3/uL Normal 150-450 [facility] Comment on above: Performed By: #### L 100.0100, L500.4050 #### [facility] [address] [place], [address] RBC (Bld) [#/Vol] 5.59 10*6/uL Normal 4.6-6.2 [facility] Comment on above: Performed By: #### L 100.0100, L500.4050 #### [facility] [address] [place], [address] RDW SD 39.2 fl Normal 35.1-43.9 [facility] Comment on above: Performed By: #### L 100.0100, [id number] #### [facility] [address] [place], [address] WBC (Bld) [#/Vol] 11.4 10*3/uL High 4.4-11.0 [facility] Comment on above: Performed By: #### L 100.0100, L500.4050 #### [facility] [address] [place], [address] Carbon dioxide, total [Moles /volume] in Central venous bloodOrdered By: Hector Chacko on 02-16-2025 CO2 [Moles/Vol] 22.7 mmol/L 21.0-32.0 [facility] Chloride assayOrdered By: Delonte Chacko on 02-16-2025 Chloride [Moles/Vol] 99 mmol/L 98-108 [facility] Comprehensive Metabolic Prof ilon 02-16-2025 Albumin [Mass/Vol] 4.6 g/dL Normal 3.5-5.0 [facility] Comment on above: Performed By: #### L 100.0100, L500.4050 #### [facility] [address] [place], [address] Albumin/Globulin [Mass ratio] 1.5 {ratio} Normal 0.9-2.4 [facility] Comment on above: Performed By: #### L 100.0100, L500.4050 #### [facility] [address] [place], [address] ALK PHOS 107 U/L Normal 40-129 [facility] Comment on above: Performed By: #### L 100.0100, L500.4050 #### [facility] [address] [place], [address] ALT [Catalytic activity/Vol] 18 U/L Normal <=46 [facility] Comment on above: Performed By: #### L 100.0100, L500.4050 #### [facility] [address] [place], [address] AST [Catalytic activity/Vol] 31 U/L Normal <=37 [facility] Comment on above: Performed By: #### L 100.0100, L500.4050 #### [facility] [address] [place], [address] Bilirubin [Mass/Vol] 0.75 mg/dL Normal 0.00-1.30 [facility] Comment on above: Performed By: #### L 100.0100, L500.4050 #### [facility] [address] [place], [address] BUN/CRE 12.3 RATIO Normal 10-20 [facility] Comment on above: Performed By: #### L 100.0100, L500.4050 #### [facility] [address] [place], [address] Calcium [Mass/Vol] 8.9 mg/dL Normal 7.6-11.0 [facility] Comment on above: Performed By: #### L 100.0100, [id number] #### [facility] [address] [place], [address] Chloride [Moles/Vol] 99 mmol/L Normal 98-108 [facility] Comment on above: Performed By: #### L 100.0100, [id number] #### [facility] [address] [place], [address] CO2 [Moles/Vol] 22.7 mmol/L Normal 21.0-32.0 [facility] Comment on above: Performed By: #### L 100.0100, [id number] #### [facility] [address] [place], [address] Creatinine [Mass/Vol] 1.38 mg/dL High 0.70-1.20 [facility] [facility] Comment on above: Performed By: #### L 100.0100, L500.4050 #### [facility] [address] [place], [address] ECRCL 70.29 ml/min Normal 50-250 [facility] Comment on above: Performed By: #### L 100.0100, L500.4050 #### [facility] [address] [place], [address] GAP 15 Normal 5-15 [facility] Comment on above: Performed By: #### L 100.0100, L500.4050 #### [facility] [address] [place], [address] GFR/1.73 sq M.predicted among non-blacks MDRD (S/P/Bld) [Vol rate/Area] 62 mL/min/{1.73_m2} Normal >60 [facility] Comment on above: Result Comment: mL/m in/1.73m2 CKD-EPI Creatinine Equation (2020) Performed By: #### L 100.0100, L500.4050 #### [facility] [address] [place], [address] Globulin (S) [Mass/Vol] 3.1 g/dL Normal 2.2-4.2 [facility] Comment on above: Performed By: #### L 100.0100, L500.4050 #### [facility] [address] [place], [address] Glucose [Mass/Vol] 138 mg/dL High 70-99 [facility] Comment on above: Performed By: #### L 100.0100, L500.4050 #### [facility] [address] [place], [address] Potassium [Moles/Vol] 4.1 mmol/L Normal 3.3-5.1 [facility] Comment on above: Performed By: #### L 100.0100, L500.4050 #### [facility] [address] [place], [address] Sodium [Moles/Vol] 137 mmol/L Normal 133-145 [facility] Comment on above: Performed By: #### L 100.0100, L500.4050 #### [facility] [address] [place], [address] T PROT 7.7 g/dL Normal 5.9-8.4 [facility] Comment on above: Performed By: #### L 100.0100, L500.4050 #### [facility] [address] [place], [address] Urea nitrogen [Mass/Vol] 17 mg/dL Normal 4-19 [facility] Comment on above: Performed By: #### L 100.0100, L500.4050 #### [facility] [address] [place], [address] Emergency Department Summary on 02-16-2025 Emergency Department Summary [facility] Medical Records Department [address] [place] [address] Emergency Department Summary 02/16/25 MR#: [id number] Acct: [id number] Name: BRITTA SUTHERLAND Rep #: [id number] : 1975 49 From: Hector Chacko MD PCP: Care Physician,No Primary Status:DEP ER Location: ED HPI History of Present Illness Chief Complaint: Flank Pain Narrative Narrative: 49-year-old male who denies significant past medical history except for previous ureterolithiasis 5 years ago presents with right flank pain that feels similar to his previous kidney stone. He states he followed up with urology, and has not had a problem since. Around 1:00 this morning, approximately 10-1/2 hours ago, he experienced right flank pain. [place] like his pain was moving downward. He had a brief radiation to his right testicle. Since then he has been having nausea and vomiting. He vomited 9-10 times without any blood in his emesis. He has mild dysuria and pressure even after urinating. No exacerbating or alleviating factors. His pain was sudden onset. He attempted to take Excedrin for it but vomited his medication back up. He denies any hematuria, no fevers or chills. [facility] Medical History Kidney stones Knee fracture, left Home Medications ???Medication ???Instructions ???Recorded ???Last Taken ???Type ondansetron 4 mg disintegrating 4 mg PO Q8H PRN PRN Nausea #10 tab s 05/28/22 Unknown Rx tablet oxycodone-acetaminophen 5 mg-325 1 tab PO Q6H PRN PRN pain 5 days 0 05/28/22 Unknown Rx mg tablet #20 TABLETS ketorolac 10 mg tablet 10 mg PO TID PRN pain 5 days #15 0 02/16/25 Unknown Rx tabs oxycodone-acetaminophen 5 mg-325 1 tab PO Q6H PRN pain 3 days #12 0 02/16/25 Unknown Rx mg tablet (Percocet) tabs tamsulosin 0.4 mg capsule (Flomax) 0.4 mg PO DAILY #10 caps 5 Unknown Rx Allergy/AdvReac Type Severity Reaction Status Date / Time acetaminophen (From Vicodin) Allergy Upset Verified 02/16/25 10:32 Stomach hydrocodone (From Vicodin) Allergy Upset Verified 02/16/25 10:32 Stomach Social History household members: spouse Smoking Status: Never smoker alcohol intake: never substance use type: does not use ROS ROS ED ROS Narrative Review of systems positive for right flank pain similar to previous ureterolithiasis. Positive nausea and vomiting, no hematemesis. Mild dysuria. No hematuria. No fevers or chills. No exacerbating or alleviating factors to his pain. EXAM Physical Exam Narrative Exam Narrative: Afebrile. Vital signs noted. Nontoxic-appearing. Cardiovascular examination reveals mild tachycardia, lungs clear to auscultation bilaterally. Abdomen soft and nontender with normal active bowel sounds, no guarding or rebound. Neurological examination nonfocal, nonlateralizing. Able to ambulate to and from restroom. Const Vital Signs: 02/16/25 10:32 02/16/25 10:32 02/16/25 11:54 Temperature 98 F Temperature Source Temporal Pulse Rate 107 H 100 60 Respiratory Rate 20 H 22 H 16 Blood Pressure 145/111 H 156/105 H 162/97 H Blood Pressure Mean 122 122 118 Pulse Ox 98 100 100 Oxygen Delivery Method Room Air Room Air Room Air 02/16/25 12:00 02/16/25 13:00 02/16/25 14:17 Temperature 98.2 F Temperature Source Pulse Rate 74 78 72 Respiratory Rate 18 16 16 Blood Pressure 156/98 H 145/91 H 145/78 H Blood Pressure Mean 117 109 100 Pulse Ox 100 97 97 Oxygen Delivery Method Room Air Room Air MDM MDM MDM Narrative Medical decision making narrative: Differential diagnosis includes but vomited to ureterolithiasis versus pyelonephritis versus lower suspicion this history and physical does not support this. Review of his laboratory work shows slight elevation of his white count at 11.4 with hemoglobin slightly hemoconcentrated at 17.0, hematocrit 48.3, BUN of 17 and creatinine slightly elevated at 1.38. LFTs are grossly unremarkable. I do feel CT imaging is indicated. He was administered a bolus of normal saline as well as ketorolac, ondansetron, and morphine. Urinalysis was obtained and reviewed and while there is 50 glucose in 150 ketones, negative for nitrites with 0 WBCs. I do not feel antibiotics are indicated. Review of the CT radiology report does show a 2 mm obstructing stone at the ureterovesicular junction causing moderate hydronephrosis and ureteronephrosis. There is perinephric stranding present. Repeat examination at approximately 1350 shows him resting comfortably and his pain has improved significantly. At this point in time, I do feel he can be discharged with prescriptions for Toradol, Percocet, and Flomax to follow-up with urology as an outpatient. Return instruct (more content not included)... Normal [facility] Eosinophil percentageOrdered By: ED PROVIDER on 02-16-2025 Eosinophils/100 WBC (Bld) 0.0 % 0-5 [facility] Erythrocyte distribution wid th ratioOrdered By: ED PROVIDER on 02-16-2025 Erythrocyte distribution width (RBC) [Ratio] 12.3 % 11.6-14.6 [facility] Erythrocyte distribution wid th standard deviationOrdered By: ED PROVIDER on 02-16-2025 Erythrocyte distribution width (RBC) [Ratio] 39.2 fl 35.1-43.9 [facility] Glomerular filtration rate ( GFR) estimation/1.73 sq m using serum, plasma, or whole bOrdered By: Hector Chacko on 02-16-2025 GFR/1.73 sq M.predicted among non-blacks MDRD (S/P/Bld) [Vol rate/Area] 62 mL/min/{1.73_m2} >60 [facility] Comment on above: mL/min/1.73m2 CKD-EP I Creatinine Equation (2020) Hematocrit Auto (Bld) [Volum e fraction]Ordered By: ED PROVIDER on 02-16-2025 Hematocrit (Bld) [Volume fraction] 48.3 % 40-54 [facility] Hemoglobin measurementOrdere d By: ED PROVIDER on 02-16-2025 Hemoglobin (Bld) [Mass/Vol] 17.0 g/dL High 13.0-16.5 [facility] Immature granulocytes/100 WB C Auto (Bld)Ordered By: ED PROVIDER on 02-16-2025 Immature granulocytes/100 WBC (Bld) 0.100 % 0.0-0.9 [facility] Comment on above: IG% - Immature Granu locytes (promyelocytes, myelocytes and metamyelocytes) > 1% indicates that a LEFT SHIFT is Present. Ketones Test strip Ql (U)Ord ered By: Hector Chacko on 02-16-2025 Ketones Ql (U) 150 mg/dl Abnormal Negative [facility] Comment on above: CRITICAL VALUE *H Laboratory - Chemistry and C hemistry - challengeOrdered By: Hector Chacko on 02-16-2025 AST [Catalytic activity/Vol] 31 U/L <38 [facility] MCV (mean corpuscular volume ) determinationOrdered By: ED PROVIDER on 02-16-2025 MCV (RBC) [Entitic vol] 86.4 fL 80-94 [facility] Mean corpuscular hemoglobin (MCH) determinationOrdered By: ED PROVIDER on 02-16-2025 MCH (RBC) [Entitic mass] 30.4 pg 27.0-32.0 [facility] Mean corpuscular hemoglobin concentration (MCHC) determinationOrdered By: ED PROVIDER on 02-16-2025 MCHC (RBC) [Mass/Vol] 35.2 g/dL 32-36 [facility] Mean platelet volume determi nationOrdered By: ED PROVIDER on 02-16-2025 Platelet mean volume (Bld) [Entitic vol] 10.1 fL 6.2-12.0 [facility] Microscopic analysis of urin e for red blood cells (RBC)Ordered By: Hector Chacko on 02-16-2025 Microscopic analysis of urine for red blood cells (RBC) 0 SEEN /hpf 0-5 [facility] Monocyte percentageOrdered B y: ED PROVIDER on 02-16-2025 Monocytes/100 WBC (Bld) 3.8 % 0-10 [facility] Mucus LM Ql (Urine sed)Order ed By: Hector Chacko on 02-16-2025 Mucus Ql (Urine sed) 0 SEEN /hpf [facility] Neutrophil percentageOrdered By: ED PROVIDER on 02-16-2025 Neutrophils/100 WBC (Bld) 92.2 % High 47-70 [facility] Nitrite Test strip Ql (U)Ord ered By: Hector Chacko on 02-16-2025 Nitrite Ql (U) Negative Negative [facility] Nucleated red blood cell per centageOrdered By: ED PROVIDER on 02-16-2025 Nucleated RBC/100 WBC (Bld) [Ratio] 0 % 0-5 [facility] Platelet countOrdered By: ED PROVIDER on 02-16-2025 Platelets (Bld) [#/Vol] 241 10*3/uL 150-450 [facility] Potassium measurement (mass/ volume)Ordered By: Hector Chacko on 02-16-2025 Potassium (Unsp spec) [Mass/Vol] 4.1 mmol/L 3.3-5.1 [facility] Protein Test strip Ql (U)Ord ered By: Hector Chacko on 02-16-2025 Protein Ql (U) 100 mg/dl High Negative [facility] RBC Auto (Bld) [#/Vol]Ordere d By: ED PROVIDER on 02-16-2025 RBC (Bld) [#/Vol] 5.59 10*6/uL 4.6-6.2 [facility] Serum creatinine measurement (mass/volume)Ordered By: Hector Chacko on 02-16-2025 Creatinine [Mass/Vol] 1.38 mg/dL High 0.70-1.20 [facility] Serum globulin measurementOr dered By: Hector Chacko on 02-16-2025 Globulin (S) [Mass/Vol] 3.1 g/dL 2.2-4.2 [facility] Serum glucose measurement (m ass/volume)Ordered By: Hector Chacko on 02-16-2025 Glucose [Mass/Vol] 138 mg/dL High 70-99 [facility] Serum or plasma alanine roper otransferase (ALT) measurementOrdered By: Hector Chacko on 02-16-2025 ALT [Catalytic activity/Vol] 18 U/L <47 [facility] Serum or plasma albumin dayana urement (mass/volume)Ordered By: Hector Chacko on 02-16-2025 Albumin [Mass/Vol] 4.6 g/dL 3.5-5.0 [facility] Serum or plasma albumin/glob ulin mass ratioOrdered By: Hector Chacko on 02-16-2025 Albumin/Globulin [Mass ratio] 1.5 {ratio} 0.9-2.4 [facility] Serum or plasma alkaline juli sphatase measurementOrdered By: Hector Chacko on 02-16-2025 ALP [Catalytic activity/Vol] 107 U/L 40-129 [facility] Serum or plasma calcium dayana urement (mass/volume)Ordered By: Hector Chacko on 02-16-2025 Calcium [Mass/Vol] 8.9 mg/dL 7.6-11.0 [facility] Serum or plasma urea nitroge n measurement (mass/volume)Ordered By: Hector Chacko on 02-16-2025 Urea nitrogen [Mass/Vol] 17 mg/dL 4-19 [facility] Sodium levelOrdered By: Hector Chacko on 02-16-2025 Sodium [Moles/Vol] 137 mmol/L 133-145 [facility] Squamous epithelial cells de tection in urine sediment by light microscopyOrdered By: Hector Chacko on 02-16-2025 Epithelial cells.squamous LM Ql (Urine sed) 0 SEEN /hpf 0-5 [facility] Total proteinOrdered By: Preeti Chacko on 02-16-2025 Protein [Mass/Vol] 7.7 g/dL 5.9-8.4 [facility] Urinalysis, Completeon 02-16 BACTERIA 0 SEEN Normal None Seen [facility] Comment on above: Order Comment: CRITI ADY VALUE CALLED TO bladimir kwong 02/16/25 [place]. RESULTS READ BACK BY same. BUSINESS QUALITY ASSURANCE ANALYST TO SPECIFY Performed By: #### L 400.0001 #### [facility] [address] [place], [address] EPI,SQUAMOUS 0 SEEN Normal 0-5 [facility] Comment on above: Order Comment: CRITI ADY VALUE CALLED TO bladimir kwong 02/16/25 1218 Erin Michaels. RESULTS READ BACK BY same. BUSINESS QUALITY ASSURANCE ANALYST TO SPECIFY Performed By: #### L 400.0001 #### [facility] [address] [place], [address] Mucus Ql (Urine sed) 0 SEEN Normal [facility] Comment on above: Order Comment: CRITI ADY VALUE CALLED TO bladimir [facility] 02/16/25 1218 Erinmonika Michaels. RESULTS READ BACK BY same. BUSINESS QUALITY ASSURANCE ANALYST TO SPECIFY Performed By: #### L 400.0001 #### [facility] [address] [place], [address] RBC 0 SEEN Normal 0-5 [facility] Comment on above: Order Comment: [facility] 1218 Erin Brando. RESULTS READ BACK BY same. BUSINESS QUALITY ASSURANCE ANALYST TO SPECIFY Performed By: #### L 400.0001 #### [facility] [address] [place], [address] WBC 0 SEEN Normal 0-5 [facility] Comment on above: Order Comment: [facility]I ADY VALUE [facility] Erin Michaels. RESULTS READ BACK BY same. BUSINESS QUALITY ASSURANCE ANALYST TO SPECIFY Performed By: #### L 400.0001 #### [facility] [address] [place], [address] Urine clarityOrdered By: Preeti Chacko on 02-16-2025 Clarity (U) Clear Clear [facility] Urine color determinationOrd ered By: Hector Chacko on 02-16-2025 Color (U) Yellow Yellow [facility] Urine glucose detectionOrder ed By: Hector Chacko on 02-16-2025 Glucose Ql (U) 50 mg/dl High Normal [facility] Urine leukocyte esterase det ection by dipstickOrdered By: Hector Chacko on 02-16-2025 Leukocyte esterase Test strip Ql (U) Negative Negative [facility] Urine pHOrdered By: Hector dahl on 02-16-2025 pH (U) 6.0 [pH] 5.0 - 8.0 [facility] Urine sediment bacteria coun t by microscopy (number/high power field)Ordered By: Hector Chacko on 02-16-2025 Bacteria LM.HPF (Urine sed) [#/Area] 0 /[HPF] None Seen [facility] Urine specific gravity measu rementOrdered By: Hector Chacko on 02-16-2025 Specific gravity (U) [Rel density] 1.020 1.002-1.030 [facility] Urine urobilinogen measureme ntOrdered By: Hector Chacko on 02-16-2025 Urobilinogen Ql (U) Normal mg/dl Normal [facility] White blood cell (WBC) count Ordered By: ED PROVIDER on 02-16-2025 WBC (Bld) [#/Vol] 11.4 10*3/uL High 4.4-11.0 [facility] White blood cell countOrdere d By: Hector Chacko on 02-16-2025 White blood cell count 0 SEEN /hpf 0-5 [facility] CNPNon 11-07-2023 CNPN Telephone (MedabilWADS) -------- BRITTA SUTHERLAND ([id number]) 1975 M Date Time Provider Department 11/07/23 RADHA FLOYD FMWADS During your visit today, we recorded the following information about you: Radha Mario 11/07/2023 5:22 PM Signed 1st attempt to reschedule Britta's 11/22/23 Dr. Floyd appointment, I left a voicemail and sent a [place] [employer] message. Please note: He is not a new patient, he is established, and if he needs to discuss refills for asthma medications, he can see Annamaria sooner than Dr. Floyd's next available appointment, if he wishes. Indio Donnelly 11/09/2023 8:58 AM Signed 2nd attempt left Indio Gil 11/11/2023 9:43 AM Signed 3rd attempt,left VM Allergies As of Date: 11/07/2023 Noted Allergy Reaction HYDROCODONE-ACETAMINOPHE N 11/29/2017 8 - GI Upset Date Reviewed: [...] RELIEF) 50 mcg/actuation nasal spray Use 1 [place] in each nostril once daily. Problem List As Of Date 11/07/2023 Noted Resolved Throat Tightness [R09.89] 04/24/2012 Left knee pain [M25.562] 04/24/2012 Bodies, loose, joint, knee [M23.40] 05/26/2012 2012 Degenerative arthritis of left knee [M17.12] 06/07/2012 Encounter for sterilization [Z30.2] 12/29/2017 Encounter Status:Closed by INDIO TIAN on 11/09/23 Normal [facility] Absolute lymphocyte counton 05-28-2022 Lymphocytes Auto (Unsp spec) [#/Vol] 1.07 10*3/uL 0.83-4.51 [facility] Work Phone: Basophil percentageon 2021 Basophil percentage 0-5 SEEN /hpf 0-5 [facility] Work Phone: Basophils/100 WBC (Bld) 0.8 % 0-1 [facility] Work Phone: Chloride [Moles/Vol] 104 mmol/L 98-107 [facility] Work Phone: Eosinophils/100 WBC (Bld) 3.8 % 0-5 [facility] Work Phone: Glucose [Mass/Vol] 117 mg/dL 74-106 [facility] Work Phone: Comment on above: Fasting Glucose resu lt from 100 to 125 mg/dL suggests IMPAIRED HOMEOSTASIS per A.D.A. criteria. Neutrophils (Bld) [#/Vol] 4.3 10*3/uL 2.0-7.7 [facility] Work Phone: Neutrophils/100 WBC (Bld) 67.1 % 47-70 [facility] Work Phone: Potassium [Moles/Vol] 3.7 mmol/L 3.5-5.1 [facility] Work Phone: Sodium [Moles/Vol] 139 mmol/L 136-145 [facility] Work Phone: WBC (Bld) [#/Vol] 6.3 10*3/uL 4.4-11.0 [facility] Work Phone: Bilirubin Test strip Ql (U)o n 05-28-2022 Bilirubin Ql (U) Negative Negative [facility] Work Phone: Blood erythrocytes count (nu mber/volume)on 05-28-2022 RBC (Bld) [#/Vol] 5.25 10*6/uL 4.6-6.2 [facility] Work Phone: [phone] Blood hemoglobin measurement (mass/volume)on 05-28-2022 Hemoglobin (Bld) [Mass/Vol] 16.0 g/dL 13.0-16.5 [facility] Work Phone: Blood lymphocytes/100 leukoc yteson 05-28-2022 Lymphocytes/100 WBC (Bld) 16.9 % 19-41 [facility] Work Phone: Blood monocytes/100 leukocyt eson 05-28-2022 Monocytes/100 WBC (Bld) 11.2 % 0-10 [facility] Work Phone: Blood platelet mean volumeon 05-28-2022 Platelet mean volume (Bld) [Entitic vol] 9.9 fL 6.2-12.0 [facility] Work Phone: Determination of erythrocyte mean corpuscular volume (MCV)on 05-28-2022 MCV (RBC) [Entitic vol] 89.5 fL 80-94 [facility] Work Phone: Hematocrit Auto (Bld) [Volum e fraction]on 05-28-2022 Hematocrit (Bld) [Volume fraction] 47.0 % 40-54 [facility] Work Phone: Ketones Test strip Ql (U)on 05-28-2022 Ketones Ql (U) 150 mg/dl Negative [facility] Work Phone: Comment on above: CRITICAL VALUE * 0739 Jakob Toribio.RESULTS READ BACK BY SAME. Laboratory - Chemistry and C hemistry - challengeon 05-28-2022 CO2 [Moles/Vol] 27.0 mmol/L 21.0-32.0 [facility] Work Phone: Urea nitrogen/Creatinine [Mass ratio] 11.4 mg/mg 10-20 [facility] Work Phone: Laboratory - Hematology and Cell countson 05-28-2022 Erythrocyte distribution width (RBC) [Entitic vol] 41.7 fL 35.1-43.9 [facility] Work Phone: Erythrocyte distribution width (RBC) [Ratio] 12.7 % 11.6-14.6 [facility] Work Phone: Immature granulocytes/100 WBC (Bld) 0.200 % 0.0-0.9 [facility] Work Phone: Comment on above: IG% - Immature Granu locytes (promyelocytes, myelocytes and metamyelocytes) > 1% indicates that a LEFT SHIFT is Present. MCH (RBC) [Entitic mass] 30.5 pg 27.0-32.0 [facility] Work Phone: Nucleated RBC/100 WBC (Bld) [Ratio] 0 % 0-5 [facility] Work Phone: MCHC Auto (RBC) [Mass/Vol]on 05-28-2022 MCHC (RBC) [Mass/Vol] 34.0 g/dL 32-36 [facility] Work Phone: Mucus LM Ql (Urine sed)on Mucus Ql (Urine sed) 0 SEEN /hpf [facility] Work Phone: Nitrite Test strip Ql (U)on 05-28-2022 Nitrite Ql (U) Negative Negative [facility] Work Phone: No Panel Informationon 05-28 Estimated Creatinine Clearance Calc 71.60 ml/min [facility] Work Phone: Estimated GFR (MDRD) Amer 70 mL/min >60 [facility] Work Phone: Comment on above: GFR Calc Estimated GFR (MDRD) Non-Af Amer 58 mL/min >60 [facility] Work Phone: Comment on above: Non- GFR Calc Platelets bldon 05-28-2022 Platelets (Bld) [#/Vol] 250 10*3/uL 150-450 [facility] Work Phone: Protein Test strip Ql (U)on 05-28-2022 Protein Ql (U) 100 mg/dl Negative [facility] Work Phone: Serum or plasma calcium dayana urement (mass/volume)on 05-28-2022 Calcium [Mass/Vol] 8.8 mg/dL 8.5-10.1 [facility] Work Phone: Serum or plasma creatinine m easurement (mass/volume)on 05-28-2022 Creatinine [Mass/Vol] 1.40 mg/dL 0.70-1.30 [facility] Work Phone: Comment on above: The validity of the calculated GFR & GFRAA in patients over 70 years has not been determined. Clinical correlation is essential. Serum or plasma urea nitroge n measurement (mass/volume)on 05-28-2022 Urea nitrogen [Mass/Vol] 16 mg/dL 7-18 [facility] Work Phone: Squamous epithelial cells de tection in urine sediment by light microscopyon 05-28-2022 Epithelial cells.squamous LM Ql (Urine sed) 0 SEEN /hpf 0-5 [facility] Work Phone: Thin prep Papanicolaou smear with manual screeningon 05-28-2022 Thin prep Papanicolaou smear with manual screening 8 5-15 [facility] Work Phone: Urine blood detectionon 05-07 RBC Ql (U) 150 /ul Negative [facility] Work Phone: [phone] RBC Ql (U) 0-5 SEEN /hpf 0-5 [facility] Work Phone: [phone] Urine clarityon 05-28-2022 Clarity (U) Clear Clear [facility] Work Phone: [phone] Urine color determinationon 05-28-2022 Color (U) Yellow Yellow [facility] Work Phone: Urine glucose detectionon Glucose Ql (U) Normal mg/dl Normal [facility] Work Phone: Urine leukocyte esterase det ection by dipstickon 05-28-2022 Leukocyte esterase Test strip Ql (U) Negative Negative [facility] Work Phone: Urine pHon 05-28-2022 pH (U) 5.0 [pH] 5.0 - 8.0 [facility] Work Phone: Urine sediment bacteria coun t by microscopy (number/high power field)on 05-28-2022 Bacteria LM.HPF (Urine sed) [#/Area] 0 /[HPF] None Seen [facility] Work Phone: Urine sediment fine granular cast count by microscopy (number/low power field)on 05-28-2022 Fine Granular Casts LM.LPF (Urine sed) [#/Area] 0-5 SEEN /lpf 0-5 [facility] Work Phone: Urine specific gravity measu rementon 05-28-2022 Specific gravity (U) [Rel density] 1.025 1.002-1.030 [facility] Work Phone: Urobilinogen Auto test strip Ql (U)on 05-28-2022 Urobilinogen Ql (U) Normal mg/dl Normal [facility] Work Phone: CNPNon 07-31-2018 CNPN Telephone (UROLAE) Kike SUTHERLAND ([id number]) 1975 MDate Time Provider Adittpteop23/26/18 LISETTE BELL During your visit today, we recorded the following information about you:Meseret Frazier Cma 07/31/2018 8:36 AM SignedPt's called for results of 07/21/18 post vas screening. Please advise.Meseret Bell DO, MBA 07/31/2018 4:53 PM SignedSpoke to patients , no sperm notedAllergies As of Date: 07/31/2018 Noted Allergy ReactionHYDROCODONE-ACET AMINOPHEN 11/29/2017 8 - GI UpsetDate Reviewed: 12/29/2017Reviewed [...] FOR* Status:Closed by LISETTE BELL on 07/31/18 [facility] Eh 05-11-2018 CNPN Telephone (AKURFHira) Kike SUTHERLAND ([id number]) 1975 MDate Time Provider Department05/11/18 LISETTE BELL During your visit today, we recorded the following information about you:Shayna Jewel [facility] 05/11/2018 1:53 PM Signedpts called, she would like to know if he is ejaculating to much and that'swhy he still has some sperm showing?Please adviseChrisalex Bell DO, MBA 05/11/2018 2:09 PM SignedNo it is not from ejaculating too muchWe will have to wait the full 6 months from the vasectomy before making anydecisions or changesChrisalex Holloway [facility] 05/11/2018 4:18 PM SignedSpoke to pts and advised.Shayna Jewel CmaAllergies As of Date: 05/11/2018 Noted Allergy ReactionHYDROCODONE-ACET AMINOPHEN 11/29/2017 8 - GI UpsetDate Reviewed: 12/29/2017Reviewed by: Vilma Souza [facility] - Fully AssessedReason for Visit: question [Other]Prescriptions [...] FOR* Status:Closed by LISETTE BELL on 05/11/18 [facility] Eh 05-09-2018 CNPN Telephone (AKURFL) Kike SUTHERLAND ([id number]) 1975 MDate Time Provider Department05/09/18 LISETTE BELL During your visit today, we recorded the following information about you:Shayna Holloway [facility] 05/09/2018 8:51 AM Signed----- Message from Lisette Bell sent at 05/09/2018 1:26 AM EDT -----Patient still has sperm present but they are not motile. I believe he is ok,but I will check with my colleagues in fertility department. Please let himknowDeirdre Holloway [facility] 05/09/2018 9:19 AM SignedSpoke to pts and advised dr bell will speak with a fertilityspecialist that he knows and find out why sperm are still there.We will get back with them as soon as possible.Shayna Holloway [facility] 05/09/2018 4:31 PM SignedSpoke to , advised that you will call her this evening.Thanks,Shayna Bell DO, MBA 05/10/2018 9:24 AM AddendumI spoke to fertility dept in [facility] recommend a repeat post as specimen in [...] OrdersAllergies As of Date: 05/09/2018 Noted Allergy ReactionHYDROCODONE-ACET AMINOPHEN 11/29/2017 8 - GI UpsetDate Reviewed: 12/29/2017Reviewed by: Vilma Souza CMA - Fully AssessedReason for Visit: Results [95]Primary Visit Diagnosis:Encounter for sterilization [Z30.2]Order(s):POST VASEC SCREEN [SQSEPOST] Order #: [id number]: 1 FUTUREPrescriptions as of 05/09/2018 Sig: NAPHAZOLINE [...] Status:Closed by SHAYNA HOLLOWAY CMA on 05/09/18 [facility] Eh 05-04-2018 CNPN Telephone (AKDINH) Kike SUTHERLAND ([id number]) 1975 MDate Time Provider Department05/04/18 LISETTE BELL During your visit today, we recorded the following information about you:Dora Ojeda Cma 05/04/2018 1:33 PM SignedPt called asking for semen analysis results from 05/01/18 - Pt went took lab -results in [facility] Lynette Bell DO, MBA 05/04/2018 3:43 PM SignedNo motile sperm seen. He has sperm present, but they are not motileTherefore he is clearedMayuri Huerta Cma 05/05/2018 8:38 AM SignedPt called the office. Notified.Mayuri Bradley CmaAllergies As of Date: 05/04/2018 Noted Allergy ReactionHYDROCODONE-ACET AMINOPHEN 11/29/2017 8 - GI UpsetDate Reviewed: 12/29/2017Reviewed by: Vilma Souza BIBLICAL LANGUAGES PROFESSOR - Fully AssessedReason for Visit: Results [95]Prescriptions [...] FOR* Status:Closed by LISETTE BELL on 05/04/18 Normal [facility] Vital Signs Date Time Vital Sign Value Performing Clinician Cecilia burdick 03-20-2025 10:47-0400 Body temperature 98.1 [degF] No Primary Care Physician [facility] 03-20-2025 10:47-0400 Diastolic blood pressure 94 mm[Hg] No Primary Care Physician [facility] 03-20-2025 10:47-0400 Heart rate 84 /min No Primary Care Physician [facility] 03-20-2025 10:47-0400 Respiratory rate 16 /min No Primary Care Physician [facility] 03-20-2025 10:47-0400 SaO2% (BldA) [Mass fraction] 100 % No Primary Care Physician [facility] 03-20-2025 10:47-0400 Systolic blood pressure 136 mm[Hg] No Primary Care Physician [facility] 03-20-2025 07:33-0400 Body height 182.88 cm No Primary Care Physician [facility] 03-20-2025 07:33-0400 Body mass index (BMI) [Ratio] 24.5 kg/m2 No Primary Care Physician [facility] 03-20-2025 07:33-0400 Body weight 81.87 kg No Primary Care Physician [facility] 02-16-2025 14:17-0400 Body temperature 98.2 [degF] No Primary Care Physician [facility] 02-16-2025 14:17-0400 Diastolic blood pressure 78 mm[Hg] No Primary Care Physician [facility] 02-16-2025 14:17-0400 Heart rate 72 /min No Primary Care Physician [facility] 02-16-2025 14:17-0400 Respiratory rate 16 /min No Primary Care Physician [facility] 02-16-2025 14:17-0400 SaO2% (BldA) [Mass fraction] 97 % No Primary Care Physician [facility] 02-16-2025 14:17-0400 Systolic blood pressure 145 mm[Hg] No Primary Care Physician [facility] 02-16-2025 10:32-0400 Body height 182.88 cm No Primary Care Physician [facility] 02-16-2025 10:32-0400 Body mass index (BMI) [Ratio] 24.5 kg/m2 No Primary Care Physician [facility] 02-16-2025 10:32-0400 Body weight 82.1 kg No Primary Care Physician [facility] 08-06-2022 14:41-0500 Body height 182.9 cm Annamaria Magallon INDUSTRIAL RADIOGRAPHER.ALGOLOGY TEACHER Work Phone: [facility] 08-06-2022 14:41-0500 Body temperature 97.7 [degF] Annamaria Sherita INDUSTRIAL RADIOGRAPHER.ALGOLOGY TEACHER Work Phone: [facility] 08-06-2022 14:41-0500 Body weight 78.16 kg Annamaria Sherita INDUSTRIAL RADIOGRAPHER.ALGOLOGY TEACHER Work Phone: [facility] 08-06-2022 14:41-0500 Diastolic blood pressure 92 mm[Hg] Annamaria Sherita INDUSTRIAL RADIOGRAPHER.ALGOLOGY TEACHER Work Phone: [facility] 08-06-2022 14:41-0500 Heart rate 100 /min Annamaria Sherita INDUSTRIAL RADIOGRAPHER.ALGOLOGY TEACHER Work Phone: [facility] 08-06-2022 14:41-0500 SaO2% (BldA) [Mass fraction] 95 % Annamaria Magallon INDUSTRIAL RADIOGRAPHER.ALGOLOGY TEACHER Work Phone: [facility] 08-06-2022 14:41-0500 Systolic blood pressure 127 mm[Hg] Annamaria Magallon INDUSTRIAL RADIOGRAPHER.ALGOLOGY TEACHER Work Phone: [facility] 05-28-2022 08:58-0400 Diastolic blood pressure 92 mm[Hg] [facility] Work Phone: 05-28-2022 08:58-0400 Respiratory rate 16 /min [facility] Work Phone: 05-28-2022 08:58-0400 SaO2% (BldA) [Mass fraction] 98 % [facility] Work Phone: 05-28-2022 08:58-0400 Systolic blood pressure 140 mm[Hg] [facility] Work Phone: 05-28-2022 07:08-0400 Body height 182.88 cm [facility] Work Phone: 05-28-2022 07:08-0400 Body mass index (BMI) [Ratio] 23.8 kg/m2 [facility] Work Phone: 05-28-2022 07:08-0400 Body temperature 97.4 [degF] [facility] Work Phone: 05-28-2022 07:08-0400 Body weight 79.83 kg [facility] Work Phone: 05-28-2022 07:08-0400 Heart rate 105 /min [facility] Work Phone: Encounters Encounter Date Encounter Type Care Provider Facility Start: 03-20-2025 End: 03-20-2025 Emergency department patient visit No Primary Care Physician -Emergency Department Work Phone: Start: 02-16-2025 End: 02-16-2025 Emergency department patient visit No Primary Care Physician -Emergency Department Work Phone: Start: 11-07-2023 Telephone encounter Radha Floyd DO Work Phone: Family Medicine Comment on above: Appointment Start: 12-19-2022 Refill Radha Floyd DO Work Phone: [facility] [place] Comment on above: Refill Request Start: 10-07-2022 Telephone encounter Radha Floyd DO Work Phone: [facility] Comment on above: Medication Problem Start: 08-06-2022 End: 08-06-2022 Patient encounter procedure Annamaria Magallon INDUSTRIAL RADIOGRAPHER.ALGOLOGY TEACHER Work Phone: Family Medicine Comment on above: Wheezing (Primary Dx ); Sinus congestion; Encounter to establish care Start: 06-03-2022 End: 06-03-2022 ambulatory [facility] Work Phone: Start: 06-03-2022 End: 06-03-2022 Patient encounter procedure [facility]-Laboratory, Specimen Start: 05-28-2022 End: 05-28-2022 Emergency department patient visit [facility]-Emergency Department Procedures Date Procedure Procedure Detail Performing Clinician Start: 03-20-2025 Estimated creatinine clearance No Primary Care Physician Start: 03-20-2025 Urnls dip stick/tabl et reagent auto microscopy No Primary Care Physician Start: 03-20-2025 CT of abdomen and pe lvis without contrast No Primary Care Physician Start: 02-16-2025 CT of abdomen and pe lvis without contrast No Primary Care Physician Start: 02-16-2025 Urnls dip stick/tabl et reagent auto microscopy No Primary Care Physician Start: 02-16-2025 Estimated creatinine clearance No Primary Care Physician Start: 05-28-2022 CT of abdomen and pe lvis without contrast Plan of Treatment Date Care Activity Detail Author Start: 03-20-2025 [facility] Start: 02-16-2025 [facility] Start: 09-05-2023 Depression Assessment Depression Assessment [facility] Start: 05-06-2023 Influenza vaccination [facility] Start: 09-05-2022 DEPRESSION ASSESSMENT DEPRESSION ASSESSMENT [facility] Start: 05-06-2022 Influenza vaccination INFLUENZA (#1) [facility] Start: 09-05-2021 DEPRESSION ASSESSMENT DEPRESSION ASSESSMENT [facility] Start: 2019 COLOGUARD (FIT-DNA) COLOGUARD (FIT-DNA) [facility] Start: 2019 Colonoscopy COLONOSCOPY [facility] Start: 2019 COLORECTAL CANCER SCREENING COLORECTAL CANCER SCREENING [facility] Start: [address] COLONOGRAPHY [facility] Start: 2019 DIABETES SCREEN DIABETES SCREEN [facility] Start: 2019 Diabetes Screening Diabetes Screening [facility] Start: 2019 FECAL OCCULT BLOOD FECAL OCCULT BLOOD [facility] Start: 2019 Screening for malignant neoplasm of colon [facility] Start: 2019 SIGMOIDOSCOPY SIGMOIDOSCOPY [facility] Start: 2009 Lipid panel Lipid Screening [facility] Start: 2009 LIPID SCREEN LIPID SCREEN [facility] Start: 1993 Urine microalbumin profile [facility] Start: 1992 HEPATITIS C SCREENING HEPATITIS C SCREENING [facility] Start: 1992 Hepatitis C screening Hepatitis C Screening [facility] Start: 1992 HIV SCREENING HIV SCREENING [facility] Start: 1992 HIV screening HIV Screening [facility] Start: 02-14-1975 COVID-19 VACCINE (#1) COVID-19 VACCINE (#1) [facility] Start: 1974 HEPATITIS B (1 of 3 - 3-dose series) HEPATITIS B (1 of 3 - 3-dose series) [facility] Start: 1974 Hepatitis B Vaccine (1 of 3 - 3-dose series) Hepatitis B Vaccine (1 of 3 - 3-dose series) [facility] Calculus analysis [facility] Work Phone: Measurement of weigh t of calculus [facility] Work Phone: Origin of [facility] Work Phone: Patient Education [facility] Work Phone: Patient referral [facility] Work Phone: Specimen color determination [facility] Work Phone: [facility] Immunizations Immunization Date Immunization Notes Care Provider Armando villalobos 10-31-2017 influenza virus vacc ine, unspecified formulation Radha Floyd DO Work Phone: [facility] Payers Date Payer Category Payer Private Health Insurance [id number] 2025 Self-pay [id number] 2015 Unknown [employer] BLUE CARD PPO OOS [id number] 2015-Present [phone] [address] [place] [address] PPO [id number] Unknown [id number] Unknown [id number] Social History Date Type Detail Facility Start: 05-28-2022 Tobacco smoking stat us DCIS Unknown if ever smoked [facility] Work Phone: Start: 1975 Sex Assigned At Male W [facility] Start: 04-11-2012 End: 03-20-2025 Tobacco smoking status DCIS Never smoked tobacco [facility] Start: 04-11-2012 Tobacco use and exposure Smoke less tobacco non-user [facility] Start: 08-06-2022 End: 09-20-2022 Alcohol intake Current non-drinker of alcohol (finding) [facility] Start: 08-06-2022 History SDOH Alcohol Frequency 1 [facility] Start: 08-06-2022 History SDOH Alcohol Std Drinks 0 [facility] Start: 08-06-2022 History SDOH Social Connections Phone 2 [facility] Start: 08-06-2022 History SDOH Social Connections Get Together 3 [facility] Start: 08-06-2022 History SDOH Physica l Activity MPS 4 [facility] Start: 08-06-2022 History SDOH Financial 5 [facility] Start: 1975 Sex Assigned At Not on file [facility] Start: 07-27-2022 End: 08-06-2022 Exposure to SARS-CoV-2 (event) Not sure [facility] Start: 08-05-2022 End: 09-19-2022 History of Social function [facility] Start: 08-05-2022 End: 09-19-2022 Social connection and isolation panel [facility] Do you belong to any clubs or organizations such as roman catholic groups, unions, fraternal or athletic groups, or school groups? No [facility] Are you now , , , , never or living with a partner? [facility] How often to you hav e a drink containing alcohol? Never [facility] How many standard dr inks containing alcohol do you have on a typical day? Patient does not drink [facility] Do you feel stress - tense, restless, nervous, or anxious, or unable to sleep at night because your mind is troubled all the time - these days [OSQ] Only a little [facility] (I/We) worried [facility] (my/our) food would run out before (I/we) got money to buy more. Never true [facility] Clinical Notes 05-26-2012 to 03-20-2025 Telephone Encounter - CheyenneJassithony - 11/09/2023 8:58 AM ESTTelephone Encounter - Radha Mario - 11/07/2023 5:21 PM ESTAddendum Note - Radha Floyd DO - 10/07/2022 1:40 PM EST Note Date & Type Note Facility 03-20-2025 Discharge summary [facility] 03-20-2025 Radiology Diagnostic study note [facility] Imaging Services [address], [place] [address] Abdomen/Pelvis without Cont MR#: [id number] Acct: [id number] Name: BRITTA SUTHERLAND Rep #: [id number] : 1975 M 49 From: Renata Rajan MD PCP: Care Physician,No Primary Status: REG ER Study:Abdomen/Pelvis without Cont Date of Exa m: 03/20/25 Exam# [id number] Ordering Dr: Dangelo Rodriguez MD EXAM: CT Abdomen and Pelvis Without Intravenous Contrast CLINICAL INDICATION: KIDNEY STONE TECHNIQUE: Axial computed tomography images of the abdomen and pelvis without intravenous contrast. This CT exam was performed using one or more of the following dose reduction techniques: automated exposure control, adjustment of the mA and/or kV according to patient size, and/or use of iterative reconstruction technique. COMPARISON: CT Abdomen Pelvis dated 02/16/2025 small hiatal FINDINGS: LUNG BASES: Unremarkable. No mass. No consolidation. ABDOMEN: LIVER: Hepatomegaly with fatty infiltration. GALLBLADDER AND BILE DUCTS: Unremarkable. No calcified stones. No ductal dilation. PANCREAS: Unremarkable. No ductal dilation. SPLEEN: Unremarkable. No splenomegaly. ADRENALS: Unremarkable. No mass. KIDNEYS AND URETERS: Previously described obstructing 2 mm calculus in the right UVJ has passed. Near-complete resolution of the right hydroureteronephrosis. Decreased right perinephric fat stranding. Left renal cysts. STOMACH AND BOWEL: Unremarkable. No obstruction. No mucosal thickening. PELVIS: APPENDIX: No findings to suggest acute appendicitis. BLADDER: Unremarkable. No stones. REPRODUCTIVE: Unremarkable as visualized. ABDOMEN and PELVIS: INTRAPERITONEAL SPACE: Unremarkable. No free air. No significant fluid collection. BONES/JOINTS: No acute fracture. No dislocation. SOFT TISSUES: Unremarkable. VASCULATURE: Unremarkable. No abdominal aortic aneurysm. LYMPH NODES: Unremarkable. No enlarged lymph nodes. CT/Abdomen/Pelvis without Cont IMPRESSION: 1. Previously described obstructing 2 mm calculus in the right UVJ has passed. Near-complete resolution of the right hydroureteronephrosis. Decreased right perinephric fat stranding. 2. Hepatomegaly with fatty infiltration. Reading Location: [facility] CC: Dr. Williams Rodriguez MD; No Primary Care Physician ~ [employer] Pro: Signed [facility] 02-16-2025 Radiology Diagnostic study note [facility] Imaging Services [address] [place] [address] Abdomen/Pelvis without Cont MR#: [id number] Acct: [id number] Name: BRITTA SUTHERLAND Rep #: [id number] : 1975 M 49 From: Kemi Bonilla MD PCP: Care Physician,No Primary Status: REG ER Study:Abdomen/Pelvis without Cont Date of Exa m: 02/16/25 Exam# [id number] Ordering Dr: Hector Chacko MD PROCEDURE: ABDOMEN/PELVIS WITHOUT CONT 02/16/2025 REASON FOR EXAM: KIDNEY STONE TECHNIQUE: ABDOMEN/PELVIS WITHOUT CONT Noncontrast technique limits evaluation of the abdominal and pelvic viscera. Coronal and Sagittal reconstruction series were provided. One or more dose reduction techniques were used (e.g., Automated exposure control, adjustment of the mA and/or kV according to patient size, use of iterative reconstruction technique). ORAL CONTRAST TYPE: None. COMPARISON: 05/28/2022 FINDINGS: Limited sections of the lung bases demonstrate no focal pulmonary mass. The liver, spleen, pancreas, and both adrenal glands demonstrate no acute findings. The gallbladder is unremarkable. The stomach is unremarkable. The aorta and IVC demonstrate no acute findings. There is no free air, free fluid or intestinal obstruction. The small bowel loops are not dilated. The appendix is not clearly identified, although there are no secondary signs ofappendicitis. No bowel obstruction. The pelvic structures are intact. There is no solid pelvic mass. 2 mm obstructive stone at the right UVJ with associated upstream moderate hydroureteronephrosis with extensive perinephric stranding. Scattered tiny nonobstructive stones are noted within bilateral kidneys. 1.9 cm cyst and 3.8 cm cyst within the left kidney. Prominent mesenteric lymph nodes with diffuse mesenteric stranding may reflect panniculitis. The urinary bladder is partially distended. Visualized osseous structures demonstrate no acute abnormality. CT/Abdomen/Pelvis without Cont IMPRESSION: 2 mm obstructive stone at the right UVJ with associated upstream moderate hydroureteronephrosis with extensive perinephric stranding. Prominent mesenteric lymph nodes with diffuse mesenteric stranding may reflect panniculitis. Reading Location: [id number] CC: Dr. Hector Chacko MD; No Primary Care Physician ~ [employer] Pro: Signed [facility] 11-09-2023 Miscellaneous Notes 2nd attempt left vm 1st attempt to reschedule Britta's 11/22/23 Dr. Floyd appointment, I left a voicemail and sent a [place] Orders message. Please note: He is not a new patient, he is established, and if he needs to discuss refills for asthma medications, he can see Annamaria sooner than Dr. Floyd's next available appointment, if he wishes. Radha Mario documented in this encounter [facility] 10-07-2022 Miscellaneous Notes Addended by: RADHA FLOYD on: 10/07/2022 01:40 PM Modules accepted: Orders Not sure if symbicort is cheaper but I called it in calling the QVAR is too expensive, is there an alternative that can be sent in? Thanks documented in this encounter [facility] 08-06-2022 History of Present illness Narrative Images from the original note were not included. This note was created using [employer] IO[employer]. Subjective Britta Sutherland is a 46 year [...] by the patient and the spouse. No fine arts instructor was used. Review of Systems Constitutional: Negative [...] normal. No congestion or rhinorrhea. Mouth/Throat: Lips: Toast. Mouth: Mucous membranes are moist. Pharynx: Oropharynx [...] Z76.89 - establishing care with Dr. Floyd- ralpht made Follow up as needed or sooner if new or worsening symptoms. Terrance Russ TEACHING PROVIDER (Physician/PA/INDUSTRIAL RADIOGRAPHER) NOTE OF PERSONAL INVOLVEMENT IN CARE: I have personally seen and examined the patient and performed the medical decision-making components. I have reviewed the Advanced Practice Registered Nurse (INDUSTRIAL RADIOGRAPHER) Student's documentation and verified the findings in the note as written. Any additions or changes are noted in bold/italics. Signature: Annamaria Magallon CNP Date: 08/06/2022 Time: 4:11 PM documented in this encounter [facility] 05-26-2012 History of Past i llness Narrative Problem Noted Date Resolved Date Bodies, loose, joint, knee 05/26/201208/16 documented as of this encounter (statuses as of 08/06/2022) [facility]09-[facility]-2012 History of Past illness Narrative* Problem Noted Date Resolved Date Bodies, loose, joint, knee 05/26/201208/16 documented as of this encounter (statuses as of 10/07/2022) [facility] History of Past illness Narrative* Problem Noted Date Resolved Date Bodies, loose, joint, knee 05/26/201208/16 documented as of this encounter (statuses as of 12/20/2022) [facility] History of Past illness Narrative* Problem Noted Date Diagnosed Date Resolved Date Bodies, loose, joint, knee 05/26/2012 1 10/17/2011 documented as of this encounter (statuses as of 11/09/2023) [facility] Author Williams Rodriguez [facility] Note Date/Time March 20, 2025 10:2 7am [facility] Medical Records Department [address] [place] [address] Emergency Department Summary 03/20/25 MR#: [id number] Acct: [id number] Name: BRITTA SUTHERLAND Rep #:[id number] : 1975 49 From: Williams Rodriguez MD PCP: Care Physician,No Primary Status :REG ER Location: ED HPI History of Present Illness Chief Complaint: Flank Pain Detail of Chief Complaint: Left flank pain that is moved to the right lower backnear the posterior ozuna Informant: patient Onset/Context/Timing Onset: Days (Approximately 1.5 days ago) Context: Sudden Onset Timing: Continuous and Waxes and wanes Quality: Pain Location: Left posterior iliac spine Current Severity: 8/10 Maximum Severity: Severe Worsened by: Nothing Relieved by: Better with oxycodone that he was prescribed with prior stone Associated Symptoms Associated Symptoms: No fever or chills. No vomiting. No urinary symptoms other than urgency Narrative Narrative: Patient is a 49-year-old male. He has history of renal and ureterolithiasis. He was seen here approximately 1 month ago. He was noted to have an obstructingright ureteral stone with hydronephrosis on the right. He was referred to Dr. Brown. He not follow-up with Dr. Brown since he passed it. He was prescribedZofran and oxycodone. He also was prescribed ketorolac and Flomax. Patient's only past medical history is renal/ureteral stone. He has no other history. Isnot have a doctor. He denies fever, chills night sweats. He denies abdominal pain. He denies vomiting or diarrhea. He denies testicular pain or swelling. Prior similar symptoms: Yes Recent Illness/Hospitalization: No PFSH PFSH Medical History Kidney stones Knee fracture, left Home Medications ?Medication ?Instructions ?Recorded ?Last Taken ?Type oxycodone-acetaminophen 5 mg-325 1 tab PO Q6H PRN pain 3 days #12 02/16/25 Unknown Rx mg tablet (Percocet) tabs oxycodone-acetaminophen 5 mg-325 1 tab PO Q6H PRN PRN pain 5 days 03/20/25 Unknown Rx mg tablet #20 TABLETS Allergy/AdvReac Type Severity Reaction Status Date / Time acetaminophen (From Vicodin) Allergy Upset Verified 03/20/25 07:36 Stomach hydrocodone (From Vicodin) Allergy Upset Verified 03/20/25 07:36 Stomach Social History household members: spouse Smoking Status: Never smoker alcohol intake: never substance use type: does not use ROS ROS ED Constitutional Constitutional ED: Denies chills, fever(s), subjective or sweats Cardiovascular Cardiovascular: Denies chest pain or palpitations Respiratory/Chest Respiratory/Chest: Denies cough, dyspnea or dyspnea on exertion Gastrointestinal Gastrointestinal: Reports nausea; Denies abdominal pain, diarrhea or vomiting Genitourinary Genitourinary ED: Reports other Details: Urgency ; Denies dysuria, hematuria or urinary frequency Musculoskeletal Musculoskeletal: Reports back pain; Denies arthralgias or myalgias Integumentary Denies rash Neurologic Neurologic: Denies paresthesias Hematologic/Lymphatic Hematologic/Lymphatic: Reports systems reviewed and no addt'l complaints, exceptas documented EXAM Physical Exam Const Vital Signs: 03/20/25 07:33 03/20/25 09:33 Temperature 97.4 F L Temperature Source Temporal Pulse Rate 95 87 Respiratory Rate 16 16 Blood Pressure 165/108 H 134/95 H Blood Pressure Mean 127 108 Pulse Ox 99 99 Oxygen Delivery Method Room Air Room Air Positive well nourished and well developed Constitutional Narrative: Patient appears uncomfortable. General Appearance ED: well developed; Negative for pallor HEENT Reports moist mucous membranes HEENT Narrative: Head is atraumatic no cephalic. Ears normal. Nares patent Eyes PERRL and EOMs intact bilaterally General Eye ED: Negative for scleral icterus Neck no lymphadenopathy, supple and no JVD Chest Wall inspection of chest normal and palpation of chest normal Resp normal respiratory effort and clear to auscultation bilaterally Cardio regular rate, regular rhythm, S1 normal heart sound, S2 normal heart sound and no murmurs GI normal to inspection, nondistended, normoactive bowel sounds, non-tender, non-distended and no masses; Negative for hepatosplenomegaly Back/Spine no CVA tenderness Back/Spine Narrative: Inspection of the back is normal. Extremity normal to inspection Neuro oriented x3 and CN's II-XII intact bilaterally Sensorium / Orientation: alert Psych mental status grossly normal Skin no rashes or lesions noted, no wounds and skin turgor normal General Skin Exam: Negative for jaundice or pallor MDM MDM MDM Narrative Medical decision making narrative: Differential diagnosis is renal ureterolithiasis, need to rule out infection, prior records indicate patient has bilateral stones in his kidneys. Doubt this to be musculoskeletal. Since he is on no anticoagulant doubt retroperitoneal hematoma. Blood work was obtained since his last creatinine was elevated. Prior to reviewing his prior records he was medicated with 15 mg acuter Wolak. History & Record Review Additional record(s) reviewed:: Prior ED visit and Prior labs Lab Data Attestation: I reviewed the patient's lab results. Lab results narrative: CBC is unremarkable. BMP is remarkable for BUN of 19 and a creatinine of 1.79 with an estimated GFR 46. Urinalysis is remarkable for occult blood and 0-5 RBCs otherwise negative. Labs: Laboratory Results - last 24 hr 03/20/25 08:02 WBC 8.4 RBC 5.15 Hgb 15.5 Hct 45.1 MCV 87.6 MCH 30.1 MCHC 34.4 RDW Std Deviation 39.5 RDW Coeff of Giuseppe 12.3 Plt Count 205 MPV 9.9 Immature Gran % (Auto) 0.400 Neut % (Auto) 78.2 H Lymph % (Auto) 9.1 L Caroline % (Auto) 9.8 Eos % (Auto) 2.0 Baso % (Auto) 0.5 Absolute Neuts (auto) 6.6 Absolute Lymphs (auto) 0.76 L Nucleated RBC % 0 Sodium 138 Potassium 4.1 Chloride 102 Carbon Dioxide 25.2 Anion Gap 10 BUN 19 Creatinine 1.79 H Estim Creat Clear Calc 54.19 Est GFR (MDRD) Non-Af 46 L BUN/Creatinine Ratio 10.7 Glucose 113 H Calcium 8.5 Urine Color Yellow Urine Clarity Clear Urine pH 6.0 Ur Specific Barnard 1.015 Urine Protein 15 H Urine Glucose (UA) Normal Urine Ketones Negative Urine Occult Blood 150 H Urine Nitrite Negative Urine Bilirubin Negative Urine Urobilinogen Normal Ur Leukocyte Esterase Negative Urine RBC 0-5 SEEN Urine WBC 0-5 SEEN Ur Squamous Epith Cells 0 SEEN Urine Bacteria 0 SEEN Urine Mucus 0 SEEN Radiography Diagnostic Testing: Clinical Impression(s) from Imaging Studies Abdomen/Pelvis CT 03/20/25 07:40 IMPRESSION: 1. Previously described obstructing 2 mm calculus in the right UVJ has passed. Near-complete resolution of the right hydroureteronephrosis. Decreased right perinephric fat stranding. 2. Hepatomegaly with fatty infiltration. Reading Location: [facility] Review of CT reveals bilateral renal calculi. He has an obstructing distal leftureteral stone. Awaiting formal read by radiologist. Patient was made aware ofhis laboratory salts and CAT scan results. He was made aware that I am awaitingfor radiology read. He states his pain has resolved. Treatment and Re-Evaluation :: Patient was made aware results. He was referred to arsalan anderson to follow-up for his elevated blood pressure and elevated creatinine and Dr. Brown regarding the obstructing ureteral stone. Discharge Plan Triage Chief Complaint: Flank Pain ED Provider: Williams Rodriguez Dx/Rx/DC Orders Clinical Impression: Hydronephrosis with urinary obstruction due to ureteral calculus, Bilateral renal stones, Acute renal insufficiency, Elevated blood-pressure reading withoutdiagnosis of hypertension Instructions: ED Hypertension, To Be Confirmed, ED Renal Insufficiency, ED Kidney Stone with Pain Prescriptions: New oxycodone-acetaminophen 5-325 mg tablet 1 tab PO Q6H PRN PRN (Reason: pain) 5 Days Qty: 20 0RF No Action oxycodone-acetaminophen [Percocet] 5-325 mg tablet 1 tab PO Q6H PRN (Reason: pain) 3 Days Qty: 12 0RF Primary Care Provider: Care Physician,No Primary Referrals: Yousuf Woods MD [Med Staff - Active Staff] - 1 Week Nelson Brown MD [Med Staff - Active Staff] - 5-7 Days Care Physician,No Primary [Primary Care Provider] - Activity Restrictions/Additional Instructions: You need to follow-up with Dr. Woods to evaluate your blood pressure and kidneyfunction. You are referred to Dr. Brown for follow-up regarding your kidney stones and obstructing ureteral stone. Print Language: Icelandic Disposition Disposition: Home, Self Care What to do if you have Problems For any increased pain, shortness of breath, bleeding, nausea or vomiting, chestpain, or any unexpected problems, contact your Primary Care Provider. Call [facility] ([phone]) or report to the closest Emergency Room. Call 911 if necessary. 03/20/25 1027 <Electronically signed by Williams Rodriguez MD> Cosigner Signature (if applicable): CC: No Primary Care Physician ~ Signed [facility] Work Phone: Evaluation noteNo assessment information available [facility] Work Phone: Evaluation note* Diagnosis Wheezing- Primary Sinus congestion Other diseases of nasal cavity and sinuses Encounter to establish care Other reasons for seeking consultation [facility] Discharge instructions Additional Instructions Return if you have a temperature greater than 100, unable to eat or drink anything or pain is not controlled by medication prescribed. Do not take any ibuprofen or Aleve because your creatinine is elevated. You are referred to Dr. Drake because you do not have a doctor and needs your blood pressure reassessed and additional blood work.[facility] Work Phone: Hospital Discharge instructions Additional Instructions Medication as directed. Follow-up with urology within the next week. Return to the emergency department with fever, inability to take medications, increased pain while on medication, new or worsening symptoms.[facility] Work Phone: Hospital Discharge instructionsAdditional Instructions You need to follow-up with Dr. Woods to evaluate your blood pressure and kidney function. You are referred to Dr. Brown for follow-up regarding your kidney stones and obstructing ureteral stone.[facility] Work Phone: Reason for referral (narrative)No reason for referral information availableWReg[facility] Work Phone: Summary Purpose Family History No Family History Records FoundNo Family History Records FoundNo Family History Records Found Advance Directives Advance Directive Response Recorded Date/ Time Living Will No May 28, 2022 7:11am Power of Patient Portal Concierge No May 7:11am Advance Directive Response Recorded Date/ Time Do you have a Healthcare Power of Patient Portal Concierge? No February 16, 2025 12:00pm Advance Directive Response Recorded Date/ Time Do you have a Healthcare Power of Patient Portal Concierge? No February 16, 2025 12:00pm Do you have a Healthcare Power of Patient Portal Concierge? No March 20, 2025 7:59am Chief Complaint and Reason for Visit Chief Complaint flank pain Chief Complaint Admit Date FLANK February 16, 2025 10:3 1am Chief Complaint Admit Date FLANK February 16, 2025 10:3 1am flank March 20, 2025 7:33 am Additional Source Comments (unrecognized sect ion and content) No Status Records FoundNo Status Records FoundNo Status Records Found INFORMATION SOURCE (unrecogn ized section and content) DATE CREATED AUTHOR 08/14/2018 [facility] DATE CREATED AUTHOR AUTHOR'S ORGANIZ ATION 11/12/2023 [facility] DATE CREATED AUTHOR AUTHOR'S ORGANIZ ATION 02/25/2025 [facility] Goals (unrecognized section and content) Goals may be documented in a n alternate sectionGoals may be documented in an alternate sectionGoals may be documented in an alternate sectionGoals may be documented in an alternate section Source Comments (unrecognize d section and content) In the event this informatio n is protected by the Federal Confidentiality of Alcohol and Drug Abuse Patient Records regulations: The Federal rules restrict any use of the information to criminally investigate or prosecute any alcohol or drug abuse patient.[facility] the event this information is protected by the Federal Confidentiality of Alcohol and Drug Abuse Patient Records regulations: The Federal rules restrict any use of the information to criminally investigate or prosecute any alcohol or drug abuse patient.[facility] Hospital[facility] the event this information is protected by the Federal Confidentiality of Alcohol and Drug Abuse Patient Records regulations: The Federal rules restrict any use of the information to criminally investigate or prosecute any alcohol or drug abuse patient.[facility] Hospital[facility] the event this information is protected by the Federal Confidentiality of Alcohol and Drug Abuse Patient Records regulations: The Federal rules restrict any use of the information to criminally investigate or prosecute any alcohol or drug abuse patient.[facility] Reason for Visit (unrecogniz ed section and content) Reason Comments Establish Care Cough, wheezing, SOB , congestion Reason Comments Medication Problem Reason Comments Refill Request Reason Comments Appointment Care Teams (unrecognized sec tion and content) Lead Miner Relationship Specialty Start Date End Date Radha Floyd DO [address] [place] [address] [place] [address] PCP - General Family Medicine 11/07/23 Team Status: Active Member Role Status Dates No Primary Care Physician Primary Care Provider Active Team Status: Inactive Member Role Status Dates No Primary Care Physician Primary Care Provider Active Start: February 16, 2025 End: February 16, 2025 Hector Chacko MD Emergency Provider Active Star t: February 16, 2025 End: February 16, 2025 Team Status: Active Member Role/Relationship Status Dates No Primary Care Physician Primary Care Provider Active Team Status: Inactive Member Role/Relationship Status Dates No Primary Care Physician Primary Care Provider Active Start: February 16, 2025 End: February 16, 2025 Hector Chacko MD Attending Provider Active Star t: February 16, 2025 End: February 16, 2025 Hector Chacko MD Emergency Provider Active Star t: February 16, 2025 End: February 16, 2025 Team Status: Inactive Member Role/Relationship Status Dates No Primary Care Physician Primary Care Provider Active Start: March 20, 2025 End: March 20, 2025 Dr. Williams Rodriguez MD Emergency Provider Active Sta rt: March 20, 2025 End: March 20, 2025 FOR RECORDS PERTAINING TO PATIENTS WHO ARE [...] BE BASED ON THE PRIMARY CLINICAL RECORDS. [facility] [employer] [facility]. provides no warranty or guarantee of the accuracy or completeness of information in this document.
--- OUTSIDE RECORDS SUMMARY | 2025-03-20 18:58 | XMS RPT_ITS | CCD ---
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 Williams Rodriguez MD Emergency Provider Allergies Allergy Classification Reported Allergen(s) Allergy Type Date of Onset Reaction(s) Facility (4 sources) Acetaminophen Drug Allergy 2 Upset Stomach [facility] (4 sources) HYDROcodone Drug Allergy 2 Upset Stomach [facility] (4 sources) Acetaminophen / HYDROcodone Drug Allergy 8 GI Upset [facility] (1 source) Acetaminophen Drug Allergy 5 [facility] Repository (1 source) HYDROcodone Drug Allergy 5 [facility] Repository Medications Current Medications Medication Drug Class(es) [...] Drug Class(es) Dates Sig (Normalized) Sig (Original) [id number] 200 actuat albuterol 0.09 mg/actuat metered dose [...] spray Indications: Sinus congestion Use 1 [place] in each nostril once daily. 18.2 mL 1 08/06/2022 Active Comment on above: Use 1 [place] in each nostril once daily. ketorolac tromethamine [...] (Unsp spec) [#/Vol] 0.76 10*3/uL Low 0.83-4.51 [facility] Absolute neutrophil countOrd ered By: Williams Rodriguez on 03-20-2025 Neutrophils (Bld) [#/Vol] 6.6 10*3/uL 2.0-7.7 [facility] Anion gap in Serum or Plasma Ordered By: Williams Rodriguez on 03-20-2025 Anion gap [Moles/Vol] 10 mmol/L 5-15 [facility] Automated lymphocyte count a s percentage of total leukocytesOrdered By: Williams Rodriguez on 03-20-2025 Lymphocytes/100 WBC Auto (Unsp spec) 9.1 % Low 19-41 [facility] BUN/creatinine ratioOrdered By: Williamsjr Rodriguez on 03-20-2025 Urea nitrogen/Creatinine [Mass ratio] 10.7 mg/mg 10-20 [facility] Basophil percentageOrdered B y: Williams Rodriguez on 03-20-2025 Basophils/100 WBC (Bld) 0.5 % 0-1 [facility] Bilirubin Test strip Ql (U)O rdered By: Williams Rodriguez on 03-20-2025 Bilirubin Ql (U) Negative Negative [facility] Carbon dioxide, total [Moles /volume] in Central venous bloodOrdered By: Williams Rodriguez on 03-20-2025 CO2 [Moles/Vol] 25.2 mmol/L 21.0-32.0 [facility] Chloride assayOrdered By: jr Rodriguez on 03-20-2025 Chloride [Moles/Vol] 102 mmol/L 98-108 [facility] Eosinophil percentageOrdered By: Williamsjr Rodriguez on 03-20-2025 Eosinophils/100 WBC (Bld) 2.0 % 0-5 [facility] Erythrocyte distribution wid th ratioOrdered By: Williamsjr Rodriguez on 03-20-2025 Erythrocyte distribution width (RBC) [Ratio] 12.3 % 11.6-14.6 [facility] Erythrocyte distribution wid th standard deviationOrdered By: Williamsjr Rodriguez on 03-20-2025 Erythrocyte distribution width (RBC) [Ratio] 39.5 fl 35.1-43.9 [facility] Glomerular filtration rate ( GFR) estimation/1.73 sq m using serum, plasma, or whole bOrdered By: Williamsjr Rodriguez on 03-20-2025 GFR/1.73 sq M.predicted among non-blacks MDRD (S/P/Bld) [Vol rate/Area] 46 mL/min/{1.73_m2} Low >60 [facility] Comment on above: mL/min/1.73m2 CKD-EP I Creatinine Equation (2020) Hematocrit Auto (Bld) [Volum e fraction]Ordered By: Williams Rodriguez on 03-20-2025 Hematocrit (Bld) [Volume fraction] 45.1 % 40-54 [facility] Hemoglobin measurementOrdere d By: Williams Rodriguez on 03-20-2025 Hemoglobin (Bld) [Mass/Vol] 15.5 g/dL 13.0-16.5 [facility] Immature granulocytes/100 WB C Auto (Bld)Ordered By: Williams Rodriguez on 03-20-2025 Immature granulocytes/100 WBC (Bld) 0.400 % 0.0-0.9 [facility] Comment on above: IG% - Immature Granu locytes (promyelocytes, myelocytes and metamyelocytes) > 1% indicates that a LEFT SHIFT is Present. Ketones Test strip Ql (U)Ord ered By: Williams Rodriguez on 03-20-2025 Ketones Ql (U) Negative Negative [facility] MCV (mean corpuscular volume ) determinationOrdered By: Williams Rodriguez on 03-20-2025 MCV (RBC) [Entitic vol] 87.6 fL 80-94 [facility] Mean corpuscular hemoglobin (MCH) determinationOrdered By: Williams Rodriguez on 03-20-2025 MCH (RBC) [Entitic mass] 30.1 pg 27.0-32.0 [facility] Mean corpuscular hemoglobin concentration (MCHC) determinationOrdered By: Williams Rodriguez on 03-20-2025 MCHC (RBC) [Mass/Vol] 34.4 g/dL 32-36 [facility] Mean platelet volume determi nationOrdered By: Williams Rodriguez on 03-20-2025 Platelet mean volume (Bld) [Entitic vol] 9.9 fL 6.2-12.0 [facility] Microscopic analysis of urin e for red blood cells (RBC)Ordered By: Williams Rodriguez on 03-20-2025 Microscopic analysis of urine for red blood cells (RBC) 0-5 SEEN /hpf 0-5 [facility] Monocyte percentageOrdered B y: Williams Rodriguez on 03-20-2025 Monocytes/100 WBC (Bld) 9.8 % 0-10 [facility] Mucus LM Ql (Urine sed)Order ed By: Williams Rodriguez on 03-20-2025 Mucus Ql (Urine sed) 0 SEEN /hpf [facility] Neutrophil percentageOrdered By: Williams Rodriguez on 03-20-2025 Neutrophils/100 WBC (Bld) 78.2 % High 47-70 [facility] Nitrite Test strip Ql (U)Ord ered By: Williams Rodriguez on 03-20-2025 Nitrite Ql (U) Negative Negative [facility] Nucleated red blood cell per centageOrdered By: Williams Rodriguez on 03-20-2025 Nucleated RBC/100 WBC (Bld) [Ratio] 0 % 0-5 [facility] Platelet countOrdered By: Dangelo Rodriguez on 03-20-2025 Platelets (Bld) [#/Vol] 205 10*3/uL 150-450 [facility] Potassium measurement (mass/ volume)Ordered By: Williams Rodriguez on 03-20-2025 Potassium (Unsp spec) [Mass/Vol] 4.1 mmol/L 3.3-5.1 [facility] Protein Test strip Ql (U)Ord ered By: Williams Rodriguez on 03-20-2025 Protein Ql (U) 15 mg/dl High Negative [facility] RBC Auto (Bld) [#/Vol]Ordere d By: Williams Rodriguez on 03-20-2025 RBC (Bld) [#/Vol] 5.15 10*6/uL 4.6-6.2 [facility] Serum creatinine measurement (mass/volume)Ordered By: Williams Rodriguez on 03-20-2025 Creatinine [Mass/Vol] 1.79 mg/dL High 0.70-1.20 [facility] Serum glucose measurement (m ass/volume)Ordered By: Williams Rodriguez on 03-20-2025 Glucose [Mass/Vol] 113 mg/dL High 70-99 [facility] Serum or plasma calcium dayana urement (mass/volume)Ordered By: Williams Rodriguez on 03-20-2025 Calcium [Mass/Vol] 8.5 mg/dL 7.6-11.0 [facility] Serum or plasma urea nitroge n measurement (mass/volume)Ordered By: Williams Rodriguez on 03-20-2025 Urea nitrogen [Mass/Vol] 19 mg/dL 4-19 [facility] Sodium levelOrdered By: Williams Rodriguez on 03-20-2025 Sodium [Moles/Vol] 138 mmol/L 133-145 [facility] Squamous epithelial cells de tection in urine sediment by light microscopyOrdered By: Williams Rodriguez on 03-20-2025 Epithelial cells.squamous LM Ql (Urine sed) 0 SEEN /hpf 0-5 [facility] Urine clarityOrdered By: Williams Rodriguez on 03-20-2025 Clarity (U) Clear Clear [facility] Urine color determinationOrd ered By: Williams Rodriguez on 03-20-2025 Color (U) Yellow Yellow [facility] Urine glucose detectionOrder ed By: Williams Rodriguez on 03-20-2025 Glucose Ql (U) Normal mg/dl Normal [facility] Urine leukocyte esterase det ection by dipstickOrdered By: Williams Rodriguez on 03-20-2025 Leukocyte esterase Test strip Ql (U) Negative Negative [facility] Urine pHOrdered By: Williams norris on 03-20-2025 pH (U) 6.0 [pH] 5.0 - 8.0 [facility] Urine sediment bacteria coun t by microscopy (number/high power field)Ordered By: Williams Rodriguez on 03-20-2025 Bacteria LM.HPF (Urine sed) [#/Area] 0 /[HPF] None Seen [facility] Urine specific gravity measu rementOrdered By: Williams Rodriguez on 03-20-2025 Specific gravity (U) [Rel density] 1.015 1.002-1.030 [facility] Urine urobilinogen measureme ntOrdered By: Williams Rodriguez on 03-20-2025 Urobilinogen Ql (U) Normal mg/dl Normal [facility] White blood cell (WBC) count Ordered By: Williams Rodriguez on 03-20-2025 WBC (Bld) [#/Vol] 8.4 10*3/uL 4.4-11.0 [facility] White blood cell countOrdere d By: Williams Rodriguez on 03-20-2025 White blood cell count 0-5 SEEN /hpf 0-5 [facility] Abdomen/Pelvis without Conto n 02-16-2025 Abdomen/Pelvis without Cont [facility] Services [address] [place] [address] Abdomen/Pelvis without Cont MR#: [id number] Acct: [id number] Name: BRITTA SUTHERLAND Rep #: [id number] : 1975 M 49 From: Vane Stokes PCP: Care Physician,No Primary Status: REG ER Study: Abdomen/Pelvis without Cont Date of Exam: 02/03 12/28 Exam# [id number] Ordering Dr: Hector Chacko MD PROCEDURE: ABDOMEN/PELVIS [...] mesenteric stranding may reflect panniculitis. Reading Location: [facility] CC: Dr. Hector Chacko MD; No Primary Care Physician Day Care Home Mother: Signed Normal [facility] Absolute lymphocyte countOrd ered By: ED PROVIDER on 02-16-2025 Lymphocytes Auto (Unsp spec) [#/Vol] 0.40 10*3/uL Low 0.83-4.51 [facility] Absolute neutrophil countOrd ered By: ED PROVIDER on 02-16-2025 Neutrophils (Bld) [#/Vol] 10.5 10*3/uL High 2.0-7.7 [facility] Anion gap in Serum or Plasma Ordered By: Hector Chacko on 02-16-2025 Anion gap [Moles/Vol] 15 mmol/L 5-15 [facility] Automated lymphocyte count a s percentage of total leukocytesOrdered By: ED PROVIDER on 02-16-2025 Lymphocytes/100 WBC Auto (Unsp spec) 3.5 % Low 19-41 [facility] BUN/creatinine ratioOrdered By: Hector Chacko on 02-16-2025 Urea nitrogen/Creatinine [Mass ratio] 12.3 mg/mg 10-20 [facility] Basophil percentageOrdered B y: ED PROVIDER on 02-16-2025 Basophils/100 WBC (Bld) 0.4 % 0-1 [facility] Bilirubin Test strip Ql (U)O rdered By: Hector Chacko on 02-16-2025 Bilirubin Ql (U) Negative Negative [facility] Bilirubin, totalOrdered By: Hector Chacko on 02-16-2025 Bilirubin [Mass/Vol] 0.75 mg/dL 0.00-1.30 [facility] CBC W/Diff, Automatedon 02-03 Absolute Lymph 0.40 X10 3/uL Low 0.83-4.51 [facility] Comment on above: Performed By: #### L 100.0100, L500.4050 #### [facility] [address] [place], [address] Absolute Neut 10.5 X10 3/uL High 2.0-7.7 [facility] Comment on above: Performed By: #### L 100.0100, L500.4050 #### [facility] [address] [place], [address] Basophils/100 WBC (Bld) 0.4 % Normal 0-1 [facility] Comment on above: Performed By: #### L 100.0100, L500.4050 #### [facility] [address] [place], [address] Eosinophils/100 WBC (Bld) 0.0 % Normal 0-5 [facility] Comment on above: Performed By: #### L 100.0100, L500.4050 #### [facility] [address] [place], [address] Erythrocyte distribution width (RBC) [Ratio] 12.3 % Normal 11.6-14.6 [facility] Comment on above: Performed By: #### L 100.0100, L500.4050 #### [facility] [address] [place], [address] Hematocrit (Bld) [Volume fraction] 48.3 % Normal 40-54 [facility] Comment on above: Performed By: #### L 100.0100, L500.4050 #### [facility] [address] [place], [address] Hemoglobin (Bld) [Mass/Vol] 17.0 g/dL High 13.0-16.5 [facility] Comment on above: Performed By: #### L 100.0100, L500.4050 #### [facility] [address] [place], [address] IG% 0.100 Normal 0.0-0.9 [facility] Comment on above: Result Comment: IG% - Immature Granulocytes (promyelocytes, myelocytes and metamyelocytes) > 1% indicates that a LEFT SHIFT is Present. Performed By: #### L 100.0100, L500.4050 #### [facility] [address] [place], [address] Lymphocytes/100 WBC (Bld) 3.5 % Low 19-41 [facility] Comment on above: Performed By: #### L 100.0100, L500.4050 #### [facility] [address] [place], [address] MCH (RBC) [Entitic mass] 30.4 pg Normal 27.0-32.0 [facility] Comment on above: Performed By: #### L 100.0100, L500.4050 #### [facility] [address] [place], [address] MCHC (RBC) [Mass/Vol] 35.2 g/dL Normal 32-36 [facility] Comment on above: Performed By: #### L 100.0100, L500.4050 #### [facility] [address] [place], [address] MCV (RBC) [Entitic vol] 86.4 fL Normal 80-94 [facility] Comment on above: Performed By: #### L 100.0100, L500.4050 #### [facility] [address] [place], [address] Monocytes/100 WBC (Bld) 3.8 % Normal 0-10 [facility] Comment on above: Performed By: #### L 100.0100, L500.4050 #### [facility] [address] [place], [address] Neutrophils/100 WBC (Bld) 92.2 % High 47-70 [facility] Comment on above: Performed By: #### L 100.0100, L500.4050 #### [facility] [address] [place], [address] Nucleated RBC (Bld) [#/Vol] 0 10*3/uL Normal 0-5 [facility] Comment on above: Performed By: #### L 100.0100, L500.4050 #### [facility] [address] [place], [address] Platelet mean volume (Bld) [Entitic vol] 10.1 fL Normal 6.2-12.0 [facility] Comment on above: Performed By: #### L 100.0100, L500.4050 #### [facility] [address] [place], [address] Platelets (Bld) [#/Vol] 241 10*3/uL Normal 150-450 [facility] Comment on above: Performed By: #### L 100.0100, L500.4050 #### [facility] [address] [place], [address] RBC (Bld) [#/Vol] 5.59 10*6/uL Normal 4.6-6.2 [facility] Comment on above: Performed By: #### L 100.0100, L500.4050 #### [facility] [address] [place], [address] RDW SD 39.2 fl Normal 35.1-43.9 [facility] Comment on above: Performed By: #### L 100.0100, L500.4050 #### [facility] [address] [place], [address] WBC (Bld) [#/Vol] 11.4 10*3/uL High 4.4-11.0 [facility] Comment on above: Performed By: #### L 100.0100, L500.4050 #### [facility] [address] [place], [address] Carbon dioxide, total [Moles /volume] in Central venous bloodOrdered By: Hector Chacko on 02-16-2025 CO2 [Moles/Vol] 22.7 mmol/L 21.0-32.0 [facility] Chloride assayOrdered By: Delonte Chacko on 02-16-2025 Chloride [Moles/Vol] 99 mmol/L 98-108 [facility] Comprehensive Metabolic Prof ilon 02-16-2025 Albumin [Mass/Vol] 4.6 g/dL Normal 3.5-5.0 [facility] Comment on above: Performed By: #### L 100.0100, L500.4050 #### [facility] [address] [place], [address] Albumin/Globulin [Mass ratio] 1.5 {ratio} Normal 0.9-2.4 [facility] Comment on above: Performed By: #### L 100.0100, L500.4050 #### [facility] [address] [place], [address] ALK PHOS 107 U/L Normal 40-129 [facility] Comment on above: Performed By: #### L 100.0100, L500.4050 #### [facility] [address] [place], [address] ALT [Catalytic activity/Vol] 18 U/L Normal <=46 [facility] Comment on above: Performed By: #### L 100.0100, L500.4050 #### [facility] [address] [place], [address] AST [Catalytic activity/Vol] 31 U/L Normal <=37 [facility] Comment on above: Performed By: #### L 100.0100, L500.4050 #### [facility] [address] [place], [address] Bilirubin [Mass/Vol] 0.75 mg/dL Normal 0.00-1.30 [facility] Comment on above: Performed By: #### L 100.0100, L500.4050 #### [facility] [address] [place], [address] BUN/CRE 12.3 RATIO Normal 10-20 [facility] Comment on above: Performed By: #### L 100.0100, L500.4050 #### [facility] [address] [place], [address] Calcium [Mass/Vol] 8.9 mg/dL Normal 7.6-11.0 [facility] Comment on above: Performed By: #### L 100.0100, L500.4050 #### [facility] [address] [place], [address] Chloride [Moles/Vol] 99 mmol/L Normal 98-108 [facility] Comment on above: Performed By: #### L 100.0100, L500.4050 #### [facility] [address] [place], [address] CO2 [Moles/Vol] 22.7 mmol/L Normal 21.0-32.0 [facility] Comment on above: Performed By: #### L 100.0100, L500.4050 #### [facility] [address] [place], [address] Creatinine [Mass/Vol] 1.38 mg/dL High 0.70-1.20 [facility] Comment on above: Performed By: #### L 100.0100, L500.4050 #### [facility] [address] [place], [address] ECRCL 70.29 ml/min Normal 50-250 [facility] Comment on above: Performed By: #### L 100.0100, L500.4050 #### [facility] [address] [place], [address] GAP 15 Normal 5-15 [facility] Comment on above: Performed By: #### L 100.0100, L500.4050 #### [facility] [address] [place], [address] GFR/1.73 sq M.predicted among non-blacks MDRD (S/P/Bld) [Vol rate/Area] 62 mL/min/{1.73_m2} Normal >60 [facility] Comment on above: Result Comment: mL/m in/1.73m2 CKD-EPI Creatinine Equation (2020) Performed By: #### L 100.0100, L500.4050 #### [facility] [address] [place], [address] Globulin (S) [Mass/Vol] 3.1 g/dL Normal 2.2-4.2 [facility] Comment on above: Performed By: #### L 100.0100, L500.4050 #### [facility] [address] [place], [address] Glucose [Mass/Vol] 138 mg/dL High 70-99 [facility] Comment on above: Performed By: #### L 100.0100, L500.4050 #### [facility] [address] [place], [address] Potassium [Moles/Vol] 4.1 mmol/L Normal 3.3-5.1 [facility] Comment on above: Performed By: #### L 100.0100, L500.4050 #### [facility] [address] [place], [address] Sodium [Moles/Vol] 137 mmol/L Normal 133-145 [facility] Comment on above: Performed By: #### L 100.0100, L500.4050 #### [facility] [address] [place], [address] T PROT 7.7 g/dL Normal 5.9-8.4 [facility] Comment on above: Performed By: #### L 100.0100, L500.4050 #### [facility] [address] [place], [address] Urea nitrogen [Mass/Vol] 17 mg/dL Normal 4-19 [facility] Comment on above: Performed By: #### L 100.0100, L500.4050 #### [facility] [address] [place], [address] Emergency Department Summary on 02-16-2025 Emergency Department Summary [facility] Medical Records Department [address] [place] [address] Emergency Department Summary 02/16/25 MR#: [id number] Acct: [id number] Name: BRITTA SUTHERLAND Rep #: [id number] : 1975 49 From: Hector Chacko MD [...] hours ago, he experienced right flank pain. [place] like his pain was moving downward. He [...] denies any hematuria, no fevers or chills. [facility] Medical History Kidney stones Knee fracture, left [...] Return instruct (more content not included)... Normal [facility] Eosinophil percentageOrdered By: ED PROVIDER on 02-16-2025 Eosinophils/100 WBC (Bld) 0.0 % 0-5 [facility] Erythrocyte distribution wid th ratioOrdered By: ED PROVIDER on 02-16-2025 Erythrocyte distribution width (RBC) [Ratio] 12.3 % 11.6-14.6 [facility] Erythrocyte distribution wid th standard deviationOrdered By: ED PROVIDER on 02-16-2025 Erythrocyte distribution width (RBC) [Ratio] 39.2 fl 35.1-43.9 [facility] Glomerular filtration rate ( GFR) estimation/1.73 sq m using serum, plasma, or whole bOrdered By: Hector Chacko on 02-16-2025 GFR/1.73 sq M.predicted among non-blacks MDRD (S/P/Bld) [Vol rate/Area] 62 mL/min/{1.73_m2} >60 [facility] Comment on above: mL/min/1.73m2 CKD-EP I Creatinine Equation (2020) Hematocrit Auto (Bld) [Volum e fraction]Ordered By: ED PROVIDER on 02-16-2025 Hematocrit (Bld) [Volume fraction] 48.3 % 40-54 [facility] Hemoglobin measurementOrdere d By: ED PROVIDER on 02-16-2025 Hemoglobin (Bld) [Mass/Vol] 17.0 g/dL High 13.0-16.5 [facility] Immature granulocytes/100 WB C Auto (Bld)Ordered By: ED PROVIDER on 02-16-2025 Immature granulocytes/100 WBC (Bld) 0.100 % 0.0-0.9 [facility] Comment on above: IG% - Immature Granu locytes (promyelocytes, myelocytes and metamyelocytes) > 1% indicates that a LEFT SHIFT is Present. Ketones Test strip Ql (U)Ord ered By: Hector Chacko on 02-16-2025 Ketones Ql (U) 150 mg/dl Abnormal Negative [facility] Comment on above: CRITICAL VALUE *H Laboratory - Chemistry and C hemistry - challengeOrdered By: Hector Chacko on 02-16-2025 AST [Catalytic activity/Vol] 31 U/L <38 [facility] MCV (mean corpuscular volume ) determinationOrdered By: ED PROVIDER on 02-16-2025 MCV (RBC) [Entitic vol] 86.4 fL 80-94 [facility] Mean corpuscular hemoglobin (MCH) determinationOrdered By: ED PROVIDER on 02-16-2025 MCH (RBC) [Entitic mass] 30.4 pg 27.0-32.0 [facility] Mean corpuscular hemoglobin concentration (MCHC) determinationOrdered By: ED PROVIDER on 02-16-2025 MCHC (RBC) [Mass/Vol] 35.2 g/dL 32-36 [facility] Mean platelet volume determi nationOrdered By: ED PROVIDER on 02-16-2025 Platelet mean volume (Bld) [Entitic vol] 10.1 fL 6.2-12.0 [facility] Microscopic analysis of urin e for red blood cells (RBC)Ordered By: Hector Chacko on 02-16-2025 Microscopic analysis of urine for red blood cells (RBC) 0 SEEN /hpf 0-5 [facility] Monocyte percentageOrdered B y: ED PROVIDER on 02-16-2025 Monocytes/100 WBC (Bld) 3.8 % 0-10 [facility] Mucus LM Ql (Urine sed)Order ed By: Hector Chacko on 02-16-2025 Mucus Ql (Urine sed) 0 SEEN /hpf [facility] Neutrophil percentageOrdered By: ED PROVIDER on 02-16-2025 Neutrophils/100 WBC (Bld) 92.2 % High 47-70 [facility] Nitrite Test strip Ql (U)Ord ered By: Hector Chacko on 02-16-2025 Nitrite Ql (U) Negative Negative [facility] Nucleated red blood cell per centageOrdered By: ED PROVIDER on 02-16-2025 Nucleated RBC/100 WBC (Bld) [Ratio] 0 % 0-5 [facility] Platelet countOrdered By: ED PROVIDER on 02-16-2025 Platelets (Bld) [#/Vol] 241 10*3/uL 150-450 [facility] Potassium measurement (mass/ volume)Ordered By: Hector Chacko on 02-16-2025 Potassium (Unsp spec) [Mass/Vol] 4.1 mmol/L 3.3-5.1 [facility] Protein Test strip Ql (U)Ord ered By: Hector Chacko on 02-16-2025 Protein Ql (U) 100 mg/dl High Negative [facility] RBC Auto (Bld) [#/Vol]Ordere d By: ED PROVIDER on 02-16-2025 RBC (Bld) [#/Vol] 5.59 10*6/uL 4.6-6.2 [facility] Serum creatinine measurement (mass/volume)Ordered By: Hector Chacko on 02-16-2025 Creatinine [Mass/Vol] 1.38 mg/dL High 0.70-1.20 [facility] Serum globulin measurementOr dered By: Hector Chacko on 02-16-2025 Globulin (S) [Mass/Vol] 3.1 g/dL 2.2-4.2 [facility] Serum glucose measurement (m ass/volume)Ordered By: Hector Chacko on 02-16-2025 Glucose [Mass/Vol] 138 mg/dL High 70-99 [facility] Serum or plasma alanine roper otransferase (ALT) measurementOrdered By: Hector Chcako on 02-16-2025 ALT [Catalytic activity/Vol] 18 U/L <47 [facility] Serum or plasma albumin dayana urement (mass/volume)Ordered By: Hector Chacko on 02-16-2025 Albumin [Mass/Vol] 4.6 g/dL 3.5-5.0 [facility] Serum or plasma albumin/glob ulin mass ratioOrdered By: Hector Chacko on 02-16-2025 Albumin/Globulin [Mass ratio] 1.5 {ratio} 0.9-2.4 [facility] Serum or plasma alkaline juli sphatase measurementOrdered By: Hector Chacko on 02-16-2025 ALP [Catalytic activity/Vol] 107 U/L 40-129 [facility] Serum or plasma calcium dayana urement (mass/volume)Ordered By: Hector Chacko on 02-16-2025 Calcium [Mass/Vol] 8.9 mg/dL 7.6-11.0 [facility] Serum or plasma urea nitroge n measurement (mass/volume)Ordered By: Hector Chacko on 02-16-2025 Urea nitrogen [Mass/Vol] 17 mg/dL 4-19 [facility] Sodium levelOrdered By: Hector Chacko on 02-16-2025 Sodium [Moles/Vol] 137 mmol/L 133-145 [facility] Squamous epithelial cells de tection in urine sediment by light microscopyOrdered By: Hector Chacko on 02-16-2025 Epithelial cells.squamous LM Ql (Urine sed) 0 SEEN /hpf 0-5 [facility] Total proteinOrdered By: Preeti Chacko on 02-16-2025 Protein [Mass/Vol] 7.7 g/dL 5.9-8.4 [facility] Urinalysis, Completeon 02-16 BACTERIA 0 SEEN Normal None Seen [facility] Comment on above: Order Comment: CRITI ADY VALUE CALLED TO bladimir kwong 02/16/25 Ho Michaels. RESULTS READ BACK BY same. GUNNER'S MATE G TO SPECIFY Performed By: #### L [id number] #### [facility] [address] [place], [address] EPI,SQUAMOUS 0 SEEN Normal 0-5 [facility] Comment on above: Order Comment: CRITI ADY VALUE CALLED TO bladimir kwong 02/16/25 1218 Erin Michaels. RESULTS READ BACK BY same. GUNNER'S MATE G TO SPECIFY Performed By: #### L [id number] #### [facility] [address] [place], [address] Mucus Ql (Urine sed) 0 SEEN Normal [facility] Comment on above: Order Comment: CRITI ADY VALUE CALLED TO bladimir [facility] 02/16/25 1218 Erinmonika Michaels. RESULTS READ BACK BY same. GUNNER'S MATE G TO SPECIFY Performed By: #### L [id number] #### [facility] [address] [place], [address] RBC 0 SEEN Normal 0-5 [facility] Comment on above: Order Comment: CRITI [facility] 1218 Erin Brando. RESULTS READ BACK BY same. GUNNER'S MATE G TO SPECIFY Performed By: #### L [id number] #### [facility] [address] [place], [address] WBC 0 SEEN Normal 0-5 [facility] Comment on above: Order Comment: CRITI ADY VALUE [facility] 02/16[facility]25 [facility] Erin Michaels. RESULTS READ BACK BY same. GUNNER'S MATE G TO SPECIFY Performed By: #### L [id number] #### [facility] [address] [place], [address] Urine clarityOrdered By: Preeti Chacko on 02-16-2025 Clarity (U) Clear Clear [facility] Urine color determinationOrd ered By: Hector Chacko on 02-16-2025 Color (U) Yellow Yellow [facility] Urine glucose detectionOrder ed By: Hector Chacko on 02-16-2025 Glucose Ql (U) 50 mg/dl High Normal [facility] Urine leukocyte esterase det ection by dipstickOrdered By: Hector Chacko on 02-16-2025 Leukocyte esterase Test strip Ql (U) Negative Negative [facility] Urine pHOrdered By: Hector dahl on 02-16-2025 pH (U) 6.0 [pH] 5.0 - 8.0 [facility] Urine sediment bacteria coun t by microscopy (number/high power field)Ordered By: Hector Chacko on 02-16-2025 Bacteria LM.HPF (Urine sed) [#/Area] 0 /[HPF] None Seen [facility] Urine specific gravity measu rementOrdered By: Hector Chacko on 02-16-2025 Specific gravity (U) [Rel density] 1.020 1.002-1.030 [facility] Urine urobilinogen measureme ntOrdered By: Hector Chacko on 02-16-2025 Urobilinogen Ql (U) Normal mg/dl Normal [facility] White blood cell (WBC) count Ordered By: ED PROVIDER on 02-16-2025 WBC (Bld) [#/Vol] 11.4 10*3/uL High 4.4-11.0 [facility] White blood cell countOrdere d By: Hector Chacko on 02-16-2025 White blood cell count 0 SEEN /hpf 0-5 [facility] CNPNon 11-07-2023 CNPN Telephone ([employer]) -------- BRITTA SUTHERLAND ([id number]) 1975 M Date Time Provider Department 11/07/23 RADHA FLOYD FMWADS During your visit today, we recorded the following information about you: Radha Mario 11/07/2023 5:22 PM Signed 1st attempt to reschedule Britta's 11/22/23 Dr. Floyd appointment, I left a voicemail and sent a [employer] message. Please note: He is not a [...] 50 mcg/actuation nasal spray Use 1 [place] in each nostril once daily. Problem List As Of Date 11/07/2023 Noted Resolved Throat Tightness [R09.89] 04/24/2012 Left knee pain [M25.562] 04/24/2012 Bodies, loose, joint, knee [M23.40] 05/26/2012 2012 Degenerative arthritis of left knee [M17.12] 06/07/2012 Encounter for sterilization [Z30.2] 12/29/2017 Encounter Status:Closed by INDIO TIAN on 11/09/23 Normal [facility] Absolute lymphocyte counton 05-28-2022 Lymphocytes Auto (Unsp spec) [#/Vol] 1.07 10*3/uL 0.83-4.51 [facility] Work Phone: Basophil percentageon 2021 Basophil percentage 0-5 SEEN /hpf 0-5 [facility] Work Phone: [phone] Basophils/100 WBC (Bld) 0.8 % 0-1 [facility] Work Phone: Chloride [Moles/Vol] 104 mmol/L 98-107 [facility]: [phone] Eosinophils/100 WBC (Bld) 3.8 % 0-5 [facility] Work Phone: Glucose [Mass/Vol] 117 mg/dL 74-106 [facility] Work Phone: [phone] Comment on above: Fasting Glucose resu lt from 100 to 125 mg/dL suggests IMPAIRED HOMEOSTASIS per A.D.A. criteria. Neutrophils (Bld) [#/Vol] 4.3 10*3/uL 2.0-7.7 [facility] Work Phone: Neutrophils/100 WBC (Bld) 67.1 % 47-70 [facility] Work Phone: Potassium [Moles/Vol] 3.7 mmol/L 3.5-5.1 [facility] Work Phone: Sodium [Moles/Vol] 139 mmol/L 136-145 [facility] Work Phone: WBC (Bld) [#/Vol] 6.3 10*3/uL 4.4-11.0 [facility] Work Phone: Bilirubin Test strip Ql (U)o n 05-28-2022 Bilirubin Ql (U) Negative Negative [facility] Work Phone: Blood erythrocytes count (nu mber/volume)on 05-28-2022 RBC (Bld) [#/Vol] 5.25 10*6/uL 4.6-6.2 [facility] Work Phone: Blood hemoglobin measurement (mass/volume)on 05-28-2022 Hemoglobin (Bld) [Mass/Vol] 16.0 g/dL 13.0-16.5 [facility] Work Phone: Blood lymphocytes/100 leukoc yteson 05-28-2022 Lymphocytes/100 WBC (Bld) 16.9 % 19-41 [facility] Work Phone: Blood monocytes/100 leukocyt eson 05-28-2022 Monocytes/100 WBC (Bld) 11.2 % 0-10 [facility] Work Phone: Blood platelet mean volumeon 05-28-2022 Platelet mean volume (Bld) [Entitic vol] 9.9 fL 6.2-12.0 [facility] Work Phone: Determination of erythrocyte mean corpuscular volume (MCV)on 05-28-2022 MCV (RBC) [Entitic vol] 89.5 fL 80-94 [facility] Work Phone: Hematocrit Auto (Bld) [Volum e fraction]on 05-28-2022 Hematocrit (Bld) [Volume fraction] 47.0 % 40-54 [facility] Work Phone: Ketones Test strip Ql (U)on 05-28-2022 Ketones Ql (U) 150 mg/dl Negative [facility] Work Phone: Comment on above: CRITICAL VALUE * 0739 Jakob Toribio.RESULTS READ BACK BY SAME. Laboratory - Chemistry and C hemistry - challengeon 05-28-2022 CO2 [Moles/Vol] 27.0 mmol/L 21.0-32.0 [facility] Work Phone: Urea nitrogen/Creatinine [Mass ratio] 11.4 mg/mg 10-20 [facility] Work Phone: Laboratory - Hematology and Cell countson 05-28-2022 Erythrocyte distribution width (RBC) [Entitic vol] 41.7 fL 35.1-43.9 [facility] Work Phone: Erythrocyte distribution width (RBC) [Ratio] 12.7 % 11.6-14.6 [facility] Work Phone: Immature granulocytes/100 WBC (Bld) 0.200 % 0.0-0.9 [facility] Work Phone: Comment on above: IG% - Immature Granu locytes (promyelocytes, myelocytes and metamyelocytes) > 1% indicates that a LEFT SHIFT is Present. MCH (RBC) [Entitic mass] 30.5 pg 27.0-32.0 [facility] Work Phone: Nucleated RBC/100 WBC (Bld) [Ratio] 0 % 0-5 [facility] Work Phone: MCHC Auto (RBC) [Mass/Vol]on 05-28-2022 MCHC (RBC) [Mass/Vol] 34.0 g/dL 32-36 [facility] Work Phone: Mucus LM Ql (Urine sed)on Mucus Ql (Urine sed) 0 SEEN /hpf [facility] Work Phone: Nitrite Test strip Ql (U)on 05-28-2022 Nitrite Ql (U) Negative Negative [facility] Work Phone: No Panel Informationon 05-28 Estimated Creatinine Clearance Calc 71.60 ml/min [facility] Work Phone: Estimated GFR (MDRD) Amer 70 mL/min >60 [facility] Work Phone: Comment on above: GFR Calc Estimated GFR (MDRD) Non-Af Amer 58 mL/min >60 [facility] Work Phone: Comment on above: Non- GFR Calc Platelets bldon 05-28-2022 Platelets (Bld) [#/Vol] 250 10*3/uL 150-450 [facility] Work Phone: Protein Test strip Ql (U)on 05-28-2022 Protein Ql (U) 100 mg/dl Negative [facility] Work Phone: Serum or plasma calcium dayana urement (mass/volume)on 05-28-2022 Calcium [Mass/Vol] 8.8 mg/dL 8.5-10.1 [facility] Work Phone: Serum or plasma creatinine m easurement (mass/volume)on 05-28-2022 Creatinine [Mass/Vol] 1.40 mg/dL 0.70-1.30 [facility] Work Phone: Comment on above: The validity of the calculated GFR & GFRAA in patients over 70 years has not been determined. Clinical correlation is essential. Serum or plasma urea nitroge n measurement (mass/volume)on 05-28-2022 Urea nitrogen [Mass/Vol] 16 mg/dL 7-18 [facility] Work Phone: Squamous epithelial cells de tection in urine sediment by light microscopyon 05-28-2022 Epithelial cells.squamous LM Ql (Urine sed) 0 SEEN /hpf 0-5 [facility] Work Phone: Thin prep Papanicolaou smear with manual screeningon 05-28-2022 Thin prep Papanicolaou smear with manual screening 8 5-15 [facility] Work Phone: Urine blood detectionon 05-07 RBC Ql (U) 150 /ul Negative [facility] Work Phone: RBC Ql (U) 0-5 SEEN /hpf 0-5 [facility] Work Phone: Urine clarityon 05-28-2022 Clarity (U) Clear Clear [facility] Work Phone: Urine color determinationon 05-28-2022 Color (U) Yellow Yellow [facility] Work Phone: Urine glucose detectionon Glucose Ql (U) Normal mg/dl Normal [facility] Work Phone: Urine leukocyte esterase det ection by dipstickon 05-28-2022 Leukocyte esterase Test strip Ql (U) Negative Negative [facility] Work Phone: Urine pHon 05-28-2022 pH (U) 5.0 [pH] 5.0 - 8.0 [facility] Work Phone: Urine sediment bacteria coun t by microscopy (number/high power field)on 05-28-2022 Bacteria LM.HPF (Urine sed) [#/Area] 0 /[HPF] None Seen [facility] Work Phone: Urine sediment fine granular cast count by microscopy (number/low power field)on 05-28-2022 Fine Granular Casts LM.LPF (Urine sed) [#/Area] 0-5 SEEN /lpf 0-5 [facility] Work Phone: [phone] Urine specific gravity measu rementon 05-28-2022 Specific gravity (U) [Rel density] 1.025 1.002-1.030 [facility] Work Phone: Urobilinogen Auto test strip Ql (U)on 05-28-2022 Urobilinogen Ql (U) Normal mg/dl Normal [facility] Work Phone: CNPNon 07-31-2018 CNPN Telephone (UROLAE) Kike SUTHERLAND ([id number]) 1975 MDate Time Provider Rqrifrwtdx67/26/18 LISETTE BELL During your visit today, we [...] FOR* Status:Closed by LISETTE BELL on 07/31/18 [facility] Eh 05-11-2018 CNPN Telephone (AKURFHira) Kike SUTHERLAND ([id number]) 1975 MDate Time Provider Department05/11/18 LISETTE BELL During your visit today, we recorded the following information about you:Shayna Jewel [facility] 05/11/2018 1:53 PM Signedpts called, she would like to know if he is ejaculating to much and that'swhy he still has some sperm showing?Please adviseChrisalex Bell DO, MBA 05/11/2018 2:09 PM SignedNo it is not from ejaculating too muchWe will have to wait the full 6 months from the vasectomy before making anydecisions or changesChrisalex Holloway [facility] 05/11/2018 4:18 PM SignedSpoke to pts and advised.Shayna Jewel CmaAllergies As of Date: 05/11/2018 Noted Allergy ReactionHYDROCODONE-ACET AMINOPHEN 11/29/2017 8 - GI UpsetDate Reviewed: 12/29/2017Reviewed by: Vilma Souza [facility] - Fully AssessedReason for Visit: question [Other]Prescriptions [...] FOR* Status:Closed by LISETTE BELL on 05/11/18 [facility] Eh 05-09-2018 CNPN Telephone (AKURFL) Kike SUTHERLAND ([id number]) 1975 MDate Time Provider Department05/09/18 LISETTE BELL During your visit today, we recorded the following information about you:Shayna Holloway [facility] 05/09/2018 8:51 AM Signed----- Message from Lisette Bell sent at 05/09/2018 1:26 AM EDT -----Patient still has sperm present but they are not motile. I believe he is ok,but I will check with my colleagues in fertility department. Please let himknowDeirdre Holloway [facility] 05/09/2018 9:19 AM SignedSpoke to pts and advised dr bell will speak with a fertilityspecialist that he knows and find out why sperm are still there.We will get back with them as soon as possible.Shayna Holloway [facility] 05/09/2018 4:31 PM SignedSpoke to , advised that you will call her this evening.Thanks,Shayna Bell DO, MBA 05/10/2018 9:24 AM AddendumI spoke to fertility dept in [facility] recommend a repeat post as [...] sterilization [Z30.2]Order(s):POST VASEC SCREEN [SQSEPOST] Order #: [id number]: 1 FUTUREPrescriptions as of 05/09/2018 Sig: NAPHAZOLINE [...] Status:Closed by SHAYNA HOLLOWAY CMA on 05/09/18 [facility] Eh 05-04-2018 CNPN Telephone (AKDINH) Kike SUTHERLAND ([id number]) 1975 MDate Time Provider Department05/04/18 LISETTE BELL During your visit today, we recorded the following information about you:Dora Ojeda Cma 05/04/2018 1:33 PM SignedPt called asking for semen analysis results from 05/01/18 - Pt went took lab -results in [facility] Lynette Bell DO, MBA 05/04/2018 3:43 PM SignedNo motile sperm seen. He has sperm present, but they are not motileTherefore he is clearedMayuri Huerta Cma 05/05/2018 8:38 AM SignedPt called the office. Notified.Mayuri Bradley CmaAllergies As of Date: 05/04/2018 Noted Allergy ReactionHYDROCODONE-ACET AMINOPHEN 11/29/2017 8 - GI UpsetDate Reviewed: 12/29/2017Reviewed by: Vilma Souza DATA CONTROL CLERK - Fully AssessedReason for Visit: Results [95]Prescriptions [...] Status:Closed by LISETTE BELL on 05/04/18 Normal [facility] Vital Signs Date Time Vital Sign Value Performing Clinician Cecilia burdick 03-20-2025 10:47-0400 Body temperature 98.1 [degF] No Primary Care Physician [facility] 03-20-2025 10:47-0400 Diastolic blood pressure 94 mm[Hg] No Primary Care Physician [facility] 03-20-2025 10:47-0400 Heart rate 84 /min No Primary Care Physician [facility] 03-20-2025 10:47-0400 Respiratory rate 16 /min No Primary Care Physician [facility] 03-20-2025 10:47-0400 SaO2% (BldA) [Mass fraction] 100 % No Primary Care Physician [facility] 03-20-2025 10:47-0400 Systolic blood pressure 136 mm[Hg] No Primary Care Physician [facility] 03-20-2025 07:33-0400 Body height 182.88 cm No Primary Care Physician [facility] 03-20-2025 07:33-0400 Body mass index (BMI) [Ratio] 24.5 kg/m2 No Primary Care Physician [facility] 03-20-2025 07:33-0400 Body weight 81.87 kg No Primary Care Physician [facility] 02-16-2025 14:17-0400 Body temperature 98.2 [degF] No Primary Care Physician [facility] 02-16-2025 14:17-0400 Diastolic blood pressure 78 mm[Hg] No Primary Care Physician [facility] 02-16-2025 14:17-0400 Heart rate 72 /min No Primary Care Physician [facility] 02-16-2025 14:17-0400 Respiratory rate 16 /min No Primary Care Physician [facility] 02-16-2025 14:17-0400 SaO2% (BldA) [Mass fraction] 97 % No Primary Care Physician [facility] 02-16-2025 14:17-0400 Systolic blood pressure 145 mm[Hg] No Primary Care Physician [facility] 02-16-2025 10:32-0400 Body height 182.88 cm No Primary Care Physician [facility] 02-16-2025 10:32-0400 Body mass index (BMI) [Ratio] 24.5 kg/m2 No Primary Care Physician [facility] 02-16-2025 10:32-0400 Body weight 82.1 kg No Primary Care Physician [facility] 08-06-2022 14:41-0500 Body height 182.9 cm Annamaria Magallon [employer] Work Phone: [facility] 08-06-2022 14:41-0500 Body temperature 97.7 [degF] Annamaria Sherita [employer] ARTIST Work Phone: [facility] 08-06-2022 14:41-0500 Body weight 78.16 kg Annamaria Sherita [employer]VOC[employer] ARTIST Work Phone: [facility] 08-06-2022 14:41-0500 Diastolic blood pressure 92 mm[Hg] Annamaria Sherita [employer]VOCAL ARTIST Work Phone: [facility] 08-06-2022 14:41-0500 Heart rate 100 /min Annamaria Sherita [employer]VOCAL ARTIST Work Phone: [facility] 08-06-2022 14:41-0500 SaO2% (BldA) [Mass fraction] 95 % Annamaria Magallon [employer] ARTIST Work Phone: [facility] 08-06-2022 14:41-0500 Systolic blood pressure 127 mm[Hg] Annamaria Magallon [employer] ARTIST Work Phone: [facility] 05-28-2022 08:58-0400 Diastolic blood pressure 92 mm[Hg] [facility] Work Phone: 05-28-2022 08:58-0400 Respiratory rate 16 /min [facility] Work Phone: 05-28-2022 08:58-0400 SaO2% (BldA) [Mass fraction] 98 % [facility] Work Phone: 05-28-2022 08:58-0400 Systolic blood pressure 140 mm[Hg] [facility] Work Phone: 05-28-2022 07:08-0400 Body height 182.88 cm [facility] Work Phone: 05-28-2022 07:08-0400 Body mass index (BMI) [Ratio] 23.8 kg/m2 [facility] Work Phone: 05-28-2022 07:08-0400 Body temperature 97.4 [degF] [facility] Work Phone: 05-28-2022 07:08-0400 Body weight 79.83 kg [facility] Work Phone: 05-28-2022 07:08-0400 Heart rate 105 /min [facility] Work Phone: Encounters Encounter Date Encounter [...] 12-19-2022 Refill Radha Floyd DO Work Phone: [facility] [place] Comment on above: Refill Request Start: 10-07-2022 Telephone encounter Radha Floyd DO Work Phone: [facility] Comment on above: Medication Problem Start: 08-06-2022 End: 08-06-2022 Patient encounter procedure Annamaria Magallon [employer] Work Phone: [facility] Medicine Comment on above: Wheezing (Primary Dx ); Sinus congestion; Encounter to establish care Start: 06-03-2022 End: 06-03-2022 ambulatory [facility] Work Phone: Start: 06-03-2022 End: 06-03-2022 Patient encounter procedure [facility]-Laboratory, Specimen Start: 05-28-2022 End: 05-28-2022 Emergency department patient visit [facility]Emergency Department Procedures Date Procedure Procedure Detail Performing [...] Date Care Activity Detail Author Start: 03-20-2025 [facility] Start: 02-16-2025 [facility] Start: 09-05-2023 Depression Assessment Depression Assessment [facility] Start: 05-06-2023 Influenza vaccination [facility] Start: 09-05-2022 DEPRESSION ASSESSMENT DEPRESSION ASSESSMENT [facility] Start: 05-06-2022 Influenza vaccination INFLUENZA (#1) [facility] Start: 09-05-2021 DEPRESSION ASSESSMENT DEPRESSION ASSESSMENT [facility] Start: 2019 COLOGUARD (FIT-DNA) COLOGUARD (FIT-DNA) [facility] Start: 2019 Colonoscopy COLONOSCOPY [facility] Start: 2019 COLORECTAL CANCER SCREENING COLORECTAL CANCER SCREENING [facility] Start: [address] COLONOGRAPHY [facility] Start: 2019 DIABETES SCREEN DIABETES SCREEN [facility] Start: 2019 Diabetes Screening Diabetes Screening [facility] Start: 2019 FECAL OCCULT BLOOD FECAL OCCULT BLOOD [facility] Start: 2019 Screening for malignant neoplasm of colon [facility] Start: 2019 SIGMOIDOSCOPY SIGMOIDOSCOPY [facility] Start: 2009 Lipid panel Lipid Screening [facility] Start: 2009 LIPID SCREEN LIPID SCREEN [facility] Start: 1993 Urine microalbumin profile [facility] Start: 1992 HEPATITIS C SCREENING HEPATITIS C SCREENING [facility] Start: 1992 Hepatitis C screening Hepatitis C Screening [facility] Start: 1992 HIV SCREENING HIV SCREENING [facility] Start: 1992 HIV screening HIV Screening [facility] Start: 02-14-1975 COVID-19 VACCINE (#1) COVID-19 VACCINE (#1) [facility] Start: 1974 HEPATITIS B (1 of 3 - 3-dose series) HEPATITIS B (1 of 3 - 3-dose series) [facility] Start: 1974 Hepatitis B Vaccine (1 of 3 - 3-dose series) Hepatitis B Vaccine (1 of 3 - 3-dose series) [facility] Calculus analysis [facility] Work Phone: Measurement of weigh t of calculus [facility] Work Phone: Origin of [facility] Work Phone: Patient Education [facility] Work Phone: Patient referral [facility] Work Phone: Specimen color determination [facility] Work Phone: [facility] Immunizations Immunization Date Immunization Notes Care Provider Armando villalobos 10-31-2017 influenza virus vacc ine, unspecified formulation Radha Floyd DO Work Phone: [facility] Payers Date Payer Category Payer Private Health Insurance [id number] 2025 Self-pay [id number] 2015 Unknown [employer] BLUE CARD PPO OOS [id number] 2015-Present [phone] [address] [place] [address] PPO [id number] Unknown [id number] Social History Date Type Detail Facility Start: 05-28-2022 Tobacco smoking stat us WAIS Unknown if ever smoked [facility] Work Phone: Start: 1975 Sex Assigned At Male [facility] Start: 04-11-2012 End: 03-20-2025 Tobacco smoking status WAIS Never smoked tobacco [facility] Start: 04-11-2012 Tobacco use and exposure Smoke less tobacco non-user [facility] Start: 08-06-2022 End: 09-20-2022 Alcohol intake Current non-drinker of alcohol (finding) [facility] Start: 08-06-2022 History SDOH Alcohol Frequency 1 [facility] Start: 08-06-2022 History SDOH Alcohol Std Drinks 0 [facility] Start: 08-06-2022 History SDOH Social Connections Phone 2 [facility] Start: 08-06-2022 History SDOH Social Connections Get Together 3 [facility] Start: 08-06-2022 History SDOH Physica l Activity MPS 4 [facility] Start: 08-06-2022 History SDOH Financial 5 [facility] Start: 1975 Sex Assigned At Not on file [facility] Start: 07-27-2022 End: 08-06-2022 Exposure to SARS-CoV-2 (event) Not sure [facility] Start: 08-05-2022 End: 09-19-2022 History of Social function [facility] Start: 08-05-2022 End: 09-19-2022 Social connection and isolation panel [facility] Do you belong to any clubs or organizations such as presybeterian groups, unions, fraternal or athletic groups, or school groups? No [facility] Are you now , , , , never or living with a partner? [facility] How often to you hav e a drink containing alcohol? Never [facility] How many standard dr inks containing alcohol do you have on a typical day? Patient does not drink [facility] Do you feel stress - tense, restless, nervous, or anxious, or unable to sleep at night because your mind is troubled all the time - these days [OSQ] Only a little [facility] (I/We) worried [facility] (my/our) food would run out before (I/we) got money to buy more. Never true [facility] Clinical Notes 05-26-2012 to 03-20-2025 Telephone Encounter - CheyenneJassithony - 11/09/2023 8:58 AM ESTTelephone Encounter - Radha Mario - 11/07/2023 5:21 PM ESTAddendum Note - Radha Floyd DO - 10/07/2022 1:40 PM EST Note Date & Type Note Facility 03-20-2025 Discharge summary [facility] 03-20-2025 Radiology Diagnostic study note [facility] Imaging Services [address], [place] [address] Abdomen/Pelvis without Cont MR#: [id number] Acct: [id number] Name: BRITTA SUTHERLAND Rep #: [id number] : 1975 M 49 From: Renata Rajan MD PCP: Care Physician,No Primary Status: REG ER Study:Abdomen/Pelvis without Cont Date of Exa m: 03/20/25 Exam# [id number] Ordering Dr: Dangelo Rodriguez MD EXAM: CT [...] 2. Hepatomegaly with fatty infiltration. Reading Location: [facility] CC: Dr. Williams Rodriguez MD; No Primary Care Physician ~ Day Care Home Mother: Signed [facility] 02-16-2025 Radiology Diagnostic study note [facility] Imaging Services [address] [place] [address] Abdomen/Pelvis without Cont MR#: [id number] Acct: [id number] Name: BRITTA SUTHERLAND Rep #: [id number] : 1975 M 49 From: Kemi Bonilla MD PCP: Care Physician,No Primary Status: REG ER Study:Abdomen/Pelvis without Cont Date of Exa m: 02/16/25 Exam# [id number] Ordering Dr: Hector Chacko MD PROCEDURE: ABDOMEN/PELVIS [...] mesenteric stranding may reflect panniculitis. Reading Location: [id number] CC: Dr. Hector Chacko MD; No Primary Care Physician ~ Day Care Home Mother: Signed [facility] 11-09-2023 Miscellaneous Notes 2nd attempt left vm 1st attempt to reschedule Britta's 11/22/23 Dr. Floyd appointment, I left a voicemail and sent a Metooo message. Please note: He is not a new patient, he is established, and if he needs to discuss refills for asthma medications, he can see Annamaria sooner than Dr. Floyd's next available appointment, if he wishes. Radha Mario documented in this encounter [facility] 10-07-2022 Miscellaneous Notes Addended by: RADHA FLOYD on: 10/07/2022 01:40 PM Modules accepted: Orders Not sure if symbicort is cheaper but I called it in calling the QVAR is too expensive, is there an alternative that can be sent in? Thanks documented in this encounter [facility] 08-06-2022 History of Present illness Narrative Images from the original note were not included. This note was created using [employer]. Subjective Britta Sutherland is a 46 year [...] by the patient and the spouse. No speech language assistant was used. Review of Systems Constitutional: Negative [...] normal. No congestion or rhinorrhea. Mouth/Throat: Lips: [place]. Mouth: Mucous membranes are moist. Pharynx: Oropharynx [...] or worsening symptoms. Terrance Russ TEACHING PROVIDER (Physician/PA/ARMATURE CONNECTOR) NOTE OF PERSONAL INVOLVEMENT IN CARE: I have personally seen and examined the patient and performed the medical decision-making components. I have reviewed the Advanced Practice Registered Nurse (ARMATURE CONNECTOR) Student's documentation and verified the findings in the note as written. Any additions or changes are noted in bold/italics. Signature: Annamaria Magallon CNP Date: 08/06/2022 Time: 4:11 PM documented in this encounter [facility] 05-26-2012 History of Past i llness Narrative Problem Noted Date Resolved Date Bodies, loose, joint, knee 05/26/201208/16 documented as of this encounter (statuses as of 08/06/2022) [facility] History of Past illness Narrative* Problem Noted Date Resolved Date Bodies, loose, joint, knee 05/26/201208/16 documented as of this encounter (statuses as of 10/07/2022) [facility] History of Past illness Narrative* Problem Noted Date Resolved Date Bodies, loose, joint, knee 05/26/201208/16 documented as of this encounter (statuses as of 12/20/2022) [facility] History of Past illness Narrative* Problem Noted Date Diagnosed Date Resolved Date Bodies, loose, joint, knee 05/26/2012 1 10/17/2011 documented as of this encounter (statuses as of 11/09/2023) [facility] Author Williams Rodriguez [facility] Note Date/Time March 20, 2025 10:2 7am [facility] Medical Records Department [address] [place] [address] Emergency Department Summary 03/20/25 MR#: [id number] Acct: [id number] Name: BRITTA SUTHERLAND Rep #:[id number] : 1975 49 From: Williams Rodriguez MD [...] 78.2 H Lymph % (Auto) 9.1 L [place] % (Auto) 9.8 Eos % (Auto) 2.0 [...] Clarity Clear Urine pH 6.0 Ur Specific [place] 1.015 Urine Protein 15 H Urine Glucose [...] 2. Hepatomegaly with fatty infiltration. Reading Location: [facility] Review of CT reveals bilateral renal calculi. [...] stones and obstructing ureteral stone. Print Language: Maori Disposition Disposition: Home, Self Care What to do if you have Problems For any increased pain, shortness of breath, bleeding, nausea or vomiting, chestpain, or any unexpected problems, contact your Primary Care Provider. Call [facility] ([phone]) or report to the closest Emergency Room. Call 911 if necessary. 03/20/25 1027 <Electronically signed by Williams Rodriguez MD> Cosigner Signature (if applicable): CC: No Primary Care Physician ~ Signed [facility] Work Phone: Evaluation noteNo assessment information available [facility] Work Phone: Evaluation note* Diagnosis Wheezing- Primary Sinus congestion Other diseases of nasal cavity and sinuses Encounter to establish care Other reasons for seeking consultation documented [facility] this encounter [facility] Diagnosis Wheezing [facility] Dis[facility] instructions Additional Instructions Return if you have a temperature greater than 100, unable to eat or drink anything or pain is not controlled by medication prescribed. Do not take any ibuprofen or Aleve because your creatinine is elevated. You are referred to Dr. Drake because you do not have a doctor and needs your blood pressure reassessed and additional blood work.[facility] Work Phone: Hospital Discharge instructions Additional Instructions Medication as directed. Follow-up with urology within the next week. Return to the emergency department with fever, inability to take medications, increased pain while on medication, new or worsening symptoms.[facility] Work Phone: Hospital Discharge instructionsAdditional Instructions You need to follow-up with Dr. Woods to evaluate your blood pressure and kidney function. You are referred to Dr. Brown for follow-up regarding your kidney stones and obstructing ureteral stone.[facility] Work Phone: Reason for referral (narrative)No reason for referral information availableWKind[facility] Work Phone: Summary Purpose Family History No Family History Records FoundNo Family History Records FoundNo Family History Records Found Advance Directives Advance Directive Response Recorded Date/ Time Living Will No May 28, 2022 7:11am Power of Leadite Worker No May 7:11am Advance Directive Response Recorded Date/ Time Do you have a Healthcare Power of Leadite Worker? No February 16, 2025 12:00pm Advance Directive Response Recorded Date/ Time Do you have a Healthcare Power of Leadite Worker? No February 16, 2025 12:00pm Do you have a Healthcare Power of Leadite Worker? No March 20, 2025 7:59am Chief Complaint [...] section and content) DATE CREATED AUTHOR 08/14/2018 [facility] DATE CREATED AUTHOR AUTHOR'S ORGANIZ ATION 11/12/2023 [facility] DATE CREATED AUTHOR AUTHOR'S ORGANIZ ATION 02/25/2025 [facility] Goals (unrecognized section and content) Goals [...] or prosecute any alcohol or drug abuse patient.[facility] Hospital[facility] the event this information is protected by the Federal Confidentiality of Alcohol and Drug Abuse Patient Records regulations: The Federal rules restrict any use of the information to criminally investigate or prosecute any alcohol or drug abuse patient.[facility] HospitalIn the event this information is protected by the Federal Confidentiality of Alcohol and Drug Abuse Patient Records regulations: The Federal rules restrict any use of the information to criminally investigate or prosecute any alcohol or drug abuse patient.[facility] HospitalIn the event this information is protected by the Federal Confidentiality of Alcohol and Drug Abuse Patient Records regulations: The Federal rules restrict any use of the information to criminally investigate or prosecute any alcohol or drug abuse patient.[facility] Reason for Visit (unrecogniz ed section and content) Reason Comments Establish Care Cough, wheezing, SOB , congestion Reason Comments Medication Problem Reason Comments Refill Request Reason Comments Appointment Care Teams (unrecognized sec tion and content) 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 [facility] [employer] [facility]. provides no warranty or guarantee of the accuracy or completeness of information in this document.
== END 2025-03-20 10:48 | disposition home or self-care (01) ==
PROVIDERS: Emergency Provider Emergency Medicine; Visit Provider Emergency Medicine
DX: N13.2 Hydronephrosis with renal and ureteral calculous obstruction (principal); R03.0 Elevated blood-pressure reading, without diagnosis of hypertension; M54.50 Low back pain, unspecified; Z79.899 Other long term (current) drug therapy
CPT/HCPCS: 74176; 80048; 81001; 85025; 96374; 99283; A4216

== ENCOUNTER 2025-03-24 04:53 | Emergency (ER) | payer OTHER, SELFPAY ==
[2025-03-24 04:54] VITALS: BP 158/112; PULSE 112; RESP 18; TEMP 36.8; O2SAT 98; BMI 23.9
--- NOTE | 2025-03-24 05:37 | EX.ED.DYSGE1 ---
HPI History of Present Illness Chief Complaint: Flank Pain Informant: patient Narrative Narrative: 49-year-old male was seen here about 4 days ago for similar pain, told he may have a kidney stone, he states the pain continues. He is having episodes of pain and states currently the pain is gone. It is mostly focused in his left low back, sometimes he feels it in his lower mid abdomen. He states he has been nauseated, has had some subjective chills unclear if his had any fevers or not, he denies any dysuria or gross hematuria. No testicular pain. No vomiting. No coughing or shortness of breath. Sometimes the pain is in his left side. No more pain on the right he had a stone a couple months ago there. [facility] Medical History Kidney stones Knee fracture, left Home Medications ?Medication ?Instructions ?Recorded ?Last Taken ?Type oxycodone-acetaminophen 5 mg-325 1 tab PO Q6H PRN pain 3 days #12 02/16/25 03/23/25 Rx mg tablet (Percocet) tabs dicyclomine 20 mg tablet 20 mg PO Q6H PRN PRN abdominal 03/24/25 Unknown Rx discomfort #12 tabs ondansetron 8 mg disintegrating 8 mg PO Q8H PRN nausea and 03/24/25 Unknown Rx tablet vomiting #12 tabs sulfamethoxazole 800 1 tab PO BID #14 TABLETS 03/24/25 Unknown Rx mg-trimethoprim 160 mg tablet Allergy/AdvReac Type Severity Reaction Status Date / Time acetaminophen (From Vicodin) Allergy Upset Verified 03/24/25 04:53 Stomach hydrocodone (From Vicodin) Allergy Upset Verified 03/24/25 04:53 Stomach Social History household members: spouse Smoking Status: Never smoker alcohol intake: never substance use type: does not use ROS ROS ED Constitutional Constitutional ED: Denies chills or fever(s) Eyes Eyes: Denies change in vision or diplopia ENT ENT ED: Denies rhinorrhea or sore throat Cardiovascular Cardiovascular: Denies chest pain or palpitations Respiratory/Chest Respiratory/Chest: Denies cough or dyspnea Gastrointestinal Gastrointestinal: Reports abdominal pain and nausea; Denies diarrhea or vomiting Genitourinary Genitourinary ED: Denies dysuria or hematuria Musculoskeletal Musculoskeletal: Reports back pain; Denies neck pain Integumentary Denies abscess or rash Neurologic Neurologic: Denies headache(s), paresthesias or weakness Psychiatric Psychiatric: Denies anxiety or suicidal thoughts EXAM Physical Exam Const Vital Signs: 03/24/25 04:54 Temperature 98.3 F Temperature Source Temporal Pulse Rate 112 H Respiratory Rate 18 Blood Pressure 158/112 H Blood Pressure Mean 127 Pulse Ox 98 Oxygen Delivery Method Room Air Positive well nourished and well developed General Appearance ED: well developed and NAD HEENT Reports moist mucous membranes normocephalic and atraumatic Eyes PERRL and EOMs intact bilaterally Neck full ROM and supple Resp normal respiratory effort and clear to auscultation bilaterally Cardio regular rate, regular rhythm and no murmurs GI non-tender and non-distended Auscultation: normoactive bowel sounds Palpation: soft Back/Spine no CVA tenderness General Back: other FROM Extremity normal to inspection General Extremety ED: Negative for edema, pulses abnormal or tenderness General Extremity: Negative for edema or pulses abnormal Neuro oriented x3, CN's II-XII intact bilaterally and no sensory deficits noted Sensorium / Orientation: awake and alert Motor Exam: strength 5/5 throughout Skin no rashes or lesions noted and no wounds MDM MDM MDM Narrative Medical decision making narrative: I reviewed the patient's ED chart from 4 days ago, his CT resulted showing no ureterolithiasis or obstructive uropathy and resolution of the stone in the ureter on the right, and no nephrolithiasis. I discussed this with the patient and he seemed confused as this is contrary to what he was told, but I also reviewed the images, and I agree with this interpretation that there are some renal cysts but no evidence of nephrolithiasis, hydronephrosis, or ureterolithiasis. He states he was taking oxycodone but after an hour and a half he would still be having severe pain so he stopped taking that and he stopped taking NSAIDs because his creatinine was elevated. He has not been able to follow-up yet it is Tuesday morning/Tuesday night. He states his urine is discolored and a little orange. Unclear if this is blood or if this is pyelonephritis he is developing, I do not think he needs another repeat CT scan so I am doing blood work and a urinalysis. Currently asymptomatic. Repeating the patient's renal function, it is improved a little. He should still avoid NSAIDs for now. Given his complaints of possible fevers and some chills, I repeated urinalysis which shows 100 leukocyte esterase but 0-5 white blood cells no bacteria. I am sending this for culture and will Rx a short course of antibiotics just in case. Looking back it is CT, it is conceivable that he has a small left UVJ stone just without hydronephrosis which we discussed with him and in February he did have a small left nephrolith that appeared to be gone on the March CT. I do not think it is indicated to repeat his CT, and given that he also states he was having some lower abdominal discomfort that went away after passing flatus, his abdominal pain could be GI related and not due to ureterolithiasis, so I prescribed him dicyclomine to use as needed in addition to some Zofran, and if he actually does have a UVJ stone, it is very small and I would expect him to be able to pass it at some point. I reassured him, since he is not septic and does not have a leukocytosis and has a small UVJ stone at worst, it is still safe to undergo expectant management and follow-up. History & Record Review Additional record(s) reviewed:: Prior ED visit and Other (prior CT abd/pelv) Lab Data Attestation: I reviewed the patient's lab results. Labs: Laboratory Results - last 24 hr 03/24/25 03/24/25 05:44 05:49 WBC 8.7 RBC 4.97 Hgb 15.0 Hct 43.8 MCV 88.1 MCH 30.2 MCHC 34.2 RDW Std Deviation 39.4 RDW Coeff of Giuseppe 12.2 Plt Count 238 MPV 9.9 Immature Gran % (Auto) 0.100 Neut % (Auto) 77.6 H Lymph % (Auto) 9.9 L [place] % (Auto) 10.3 H Eos % (Auto) 1.6 Baso % (Auto) 0.5 Absolute Neuts (auto) 6.8 Absolute Lymphs (auto) 0.86 Nucleated RBC % 0 Sodium 137 Potassium 4.0 Chloride 100 Carbon Dioxide 23.7 Anion Gap 13 BUN 16 Creatinine 1.66 H Estim Creat Clear Calc 58.43 Est GFR (MDRD) Non-Af 50 L BUN/Creatinine Ratio 9.5 L Glucose 116 H Calcium 9.2 Urine Color Yellow Urine Clarity Clear Urine pH 6.0 Ur Specific [place] 1.020 Urine Protein 100 H Urine Glucose (UA) Normal Urine Ketones 50 H Urine Occult Blood 250 H Urine Nitrite Negative Urine Bilirubin Negative Urine Urobilinogen Normal Ur Leukocyte Esterase 100 H Urine RBC 0-5 SEEN Urine WBC 0-5 SEEN Ur Squamous Epith Cells 0 SEEN Urine Bacteria RARE Urine Mucus 0 SEEN Discharge Plan Triage Chief Complaint: Flank Pain ED Provider: Stanley Emanuel Dx/Rx/DC Orders Clinical Impression: Left flank pain, Chills, Intermittent lower abdominal pain Instructions: Abdominal Pain Prescriptions: New dicyclomine 20 mg tablet 20 mg PO Q6H PRN PRN (Reason: abdominal discomfort) Qty: 12 0RF sulfamethoxazole-trimethoprim 800-160 mg tablet 1 tab PO BID Qty: 14 0RF ondansetron 8 mg tablet,disintegrating 8 mg PO Q8H PRN (Reason: nausea and vomiting) Qty: 12 0RF No Action oxycodone-acetaminophen [Percocet] 5-325 mg tablet 1 tab PO Q6H PRN (Reason: pain) 3 Days Qty: 12 0RF Primary Care Provider: Care Physician,No Primary Referrals: Nelson Brown MD [Med Staff - Active Staff] - 10-14 Days if not better Print Language: Slovak Disposition Disposition: Home, Self Care
--- OUTSIDE RECORDS SUMMARY | 2025-03-24 05:39 | XMS RPT_ITS | CCD ---
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 Williams Rodriguez MD Emergency Provider Care Physician, No Primary Primary Care Unava ilable Hector Chacko Attending Unavailable Care Physician, No Primary Primary Care Unava ilable Williams Rodriguez Attending Unavailable Allergies Allergy Classification Reported Allergen(s) Allergy Type Date of Onset Reaction(s) Facility (4 sources) Acetaminophen Drug Allergy 2 Upset Stomach [facility] (4 sources) HYDROcodone Drug Allergy 2 Upset Stomach [facility] (4 sources) Acetaminophen / HYDROcodone Drug Allergy 8 GI Upset [facility] (1 source) Acetaminophen Drug Allergy 5 [facility] Repository (1 source) HYDROcodone Drug Allergy 5 [facility] Repository Medications Current Medications Medication Drug Class(es) [...] Drug Class(es) Dates Sig (Normalized) Sig (Original) [id number] actuat albuterol 0.09 mg/actuat metered dose [...] nasal spray Indications: Sinus congestion Use 1 Driscoll in each nostril once daily. 18.2 mL 1 08/06/2022 Active Comment on above: Use 1 Driscoll in each nostril once daily. ketorolac tromethamine [...] flank pain; Translations: [Unspecified abdominal pain] Onset: 5 02-16-2025 Episodic Calculus of urinary tract (3 [...] of kidney and ureters (2 sources) Hydronephrosis with renal and ureteral calculous obstruction; Translations: [Hydronephrosis with urinary obstruction due to ureteral calculus] Onset: 5 03-20-2025 Episodic Other diseases of kidney and ureters (1 source) Disorder of kidney and ureter, unspecified; Translations: [Disorder of kidney and ureter, unspecified] Onset: Episodic Other lower respiratory disease (2 sources) [...] Test Name Value Interpretation Reference Range Facility Abdomen/Pelvis without Conto n 03-20-2025 Abdomen/Pelvis without Cont [facility] Imaging Services [address] [place], [place] [id number] Abdomen/Pelvis without Cont MR#: [id number] Acct: [id number] Name: BRITTA SUTHERLAND Rep #: [id number] : 1975 M 49 From: Mo Rajan MD PCP: Care Physician,No Primary Status: REG ER Study: Abdomen/Pelvis without Cont Date of Exam: 03/05 02/27 Exam# [id number] Ordering Dr: Williams Rodriguez MD EXAM: CT Abdomen and Pelvis [...] 2. Hepatomegaly with fatty infiltration. Reading Location: [facility] CC: Dr. Williams Rodriguez MD; No Primary Care Physician Road Monkey: Signed Normal [facility] Absolute lymphocyte countOrd ered By: Williams Rodriguez on 03-20-2025 Lymphocytes Auto (Unsp spec) [#/Vol] 0.76 10*3/uL Low 0.83-4.51 [facility] Absolute neutrophil countOrd ered By: Williamsjr Rodriguez on 03-20-2025 Neutrophils (Bld) [#/Vol] 6.6 10*3/uL 2.0-7.7 [facility] Anion gap in Serum or Plasma Ordered By: Williamsjr Rodriguez on 03-20-2025 Anion gap [Moles/Vol] 10 mmol/L 5- [facility] Automated lymphocyte count a s percentage of total leukocytesOrdered By: Williams Rodriguez on 03-20-2025 Lymphocytes/100 WBC Auto (Unsp spec) 9.1 % Low 19-41 [facility] BUN/creatinine ratioOrdered By: Williams Rodriguez on 03-20-2025 Urea nitrogen/Creatinine [Mass ratio] 10.7 mg/mg 10- [facility] Basic Metabolic Profile (BMP )on 03-20-2025 BUN/CRE 10.7 RATIO Normal - [facility] Comment on above: Performed By: #### L 100.0100, L500.2500 #### [facility] Laboratory [address] [place], [address] Calcium [Mass/Vol] 8.5 mg/dL Normal 7.6-11.0 [facility] Comment on above: Performed By: #### L 100.0100, L500.2500 #### [facility] Laboratory [address] [place], [address] Chloride [Moles/Vol] 102 mmol/L Normal 98-108 [facility] Comment on above: Performed By: #### L 100.0100, L500.2500 #### [facility] [address] [place], [address] CO2 [Moles/Vol] 25.2 mmol/L Normal 21.0-32.0 [facility] Comment on above: Performed By: #### L 100.0100, L500.2500 #### [facility] [address] [place], [address] Creatinine [Mass/Vol] 1.79 mg/dL High 0.70-1.20 [facility] Comment on above: Performed By: #### L 100.0100, L500.2500 #### [facility] Laboratory [address] [place], [address] ECRCL 54.19 ml/min Normal 50-250 [facility] Comment on above: Performed By: #### L 100.0100, L500.2500 #### [facility] Laboratory [address] [place], [address] GAP 10 Normal 5-15 [facility] Comment on above: Performed By: #### L 100.0100, L500.2500 #### [facility] [address] [place], [address] GFR/1.73 sq M.predicted among non-blacks MDRD (S/P/Bld) [Vol rate/Area] 46 mL/min/{1.73_m2} Low >60 [facility] Comment on above: Result Comment: mL/m in/1.73m2 CKD-EPI Creatinine Equation (2020) Performed By: #### L 100.0100, L500.2500 #### [facility] Laboratory [address] [place], [address] Glucose [Mass/Vol] 113 mg/dL High 70-99 [facility] Comment on above: Performed By: #### L 100.0100, L500.2500 #### [facility] [address] [place], [address] Potassium [Moles/Vol] 4.1 mmol/L Normal 3.3-5.1 [facility] Comment on above: Performed By: #### L 100.0100, L500.2500 #### [facility] [address] [place], [address] Sodium [Moles/Vol] 138 mmol/L Normal 133-145 [facility] Comment on above: Performed By: #### L 100.0100, L500.2500 #### [facility] [address] [place], [address] Urea nitrogen [Mass/Vol] 19 mg/dL Normal 4-19 [facility] Comment on above: Performed By: #### L 100.0100, L500.2500 #### [facility] [address] [place], [address] Basophil percentageOrdered B y: Williams Rodriguez on 03-20-2025 Basophils/100 WBC (Bld) 0.5 % 0-1 [facility] Bilirubin Test strip Ql (U)O rdered By: Williams Rodriguez on 03-20-2025 Bilirubin Ql (U) Negative Negative [facility] CBC W/Diff, Automatedon 03-05 Absolute Lymph 0.76 X10 3/uL Low 0.83-4.51 [facility] Comment on above: Performed By: #### L 100.0100, L500.2500 #### [facility] [address] [place], [address] Absolute Neut 6.6 X10 3/uL Normal 2.0-7.7 [facility] Comment on above: Performed By: #### L 100.0100, L500.2500 #### [facility] [address] [place], [address] Basophils/100 WBC (Bld) 0.5 % Normal 0-1 [facility] Comment on above: Performed By: #### L 100.0100, L500.2500 #### [facility] [address] [place], [address] Eosinophils/100 WBC (Bld) 2.0 % Normal 0-5 [facility] Comment on above: Performed By: #### L 100.0100, L500.2500 #### [facility] [address] [place], [address] Erythrocyte distribution width (RBC) [Ratio] 12.3 % Normal 11.6-14.6 [facility] Comment on above: Performed By: #### L 100.0100, L500.2500 #### [facility] [address] [place], [address] Hematocrit (Bld) [Volume fraction] 45.1 % Normal 40-54 [facility] Comment on above: Performed By: #### L 100.0100, L500.2500 #### [facility] [address] [place], [address] Hemoglobin (Bld) [Mass/Vol] 15.5 g/dL Normal 13.0-16.5 [facility] Comment on above: Performed By: #### L 100.0100, L500.2500 #### [facility] [address] [place], [address] IG% 0.400 Normal 0.0-0.9 [facility] Comment on above: Result Comment: IG% - Immature Granulocytes (promyelocytes, myelocytes and metamyelocytes) > 1% indicates that a LEFT SHIFT is Present. Performed By: #### L 100.0100, L500.2500 #### [facility] [address] [place], [address] Lymphocytes/100 WBC (Bld) 9.1 % Low 19-41 [facility] Comment on above: Performed By: #### L 100.0100, L500.2500 #### [facility] [address] [place], [address] MCH (RBC) [Entitic mass] 30.1 pg Normal 27.0-32.0 [facility] Comment on above: Performed By: #### L 100.0100, L500.2500 #### [facility] Laboratory [address] [place], [address] MCHC (RBC) [Mass/Vol] 34.4 g/dL Normal 32-36 [facility] Comment on above: Performed By: #### L 100.0100, L500.2500 #### [facility] [address] [place], [address] MCV (RBC) [Entitic vol] 87.6 fL Normal 80-94 [facility] Comment on above: Performed By: #### L 100.0100, L500.2500 #### [facility] [address] [place], [address] Monocytes/100 WBC (Bld) 9.8 % Normal 0-10 [facility] Comment on above: Performed By: #### L 100.0100, L500.2500 #### [facility] [address] [place], [address] Neutrophils/100 WBC (Bld) 78.2 % High 47-70 [facility] Comment on above: Performed By: #### L 100.0100, L500.2500 #### [facility] [address] [place], [address] Nucleated RBC (Bld) [#/Vol] 0 10*3/uL Normal 0-5 [facility] Comment on above: Performed By: #### L 100.0100, L500.2500 #### [facility] [address] [place], [address] Platelet mean volume (Bld) [Entitic vol] 9.9 fL Normal 6.2-12.0 [facility] Comment on above: Performed By: #### L 100.0100, L500.2500 #### [facility] Laboratory [address] [place], [address] Platelets (Bld) [#/Vol] 205 10*3/uL Normal 150-450 [facility] Comment on above: Performed By: #### L 100.0100, L500.2500 #### [facility] Laboratory [address] [place], [address] RBC (Bld) [#/Vol] 5.15 10*6/uL Normal 4.6-6.2 [facility] Comment on above: Performed By: #### L 100.0100, L500.2500 #### [facility] [address] [place], [address] RDW SD 39.5 fl Normal 35.1-43.9 [facility] Comment on above: Performed By: #### L 100.0100, L500.2500 #### [facility] Laboratory [address] [place], [address] WBC (Bld) [#/Vol] 8.4 10*3/uL Normal 4.4-11.0 [facility] Comment on above: Performed By: #### L 100.0100, L500.2500 #### [facility] Laboratory [address] [place], [address] Carbon dioxide, total [Moles /volume] in Central venous bloodOrdered By: Williams Rodriguez on 03-20-2025 CO2 [Moles/Vol] 25.2 mmol/L 21.0-32.0 [facility] Chloride assayOrdered By: Dangelo Rodriguez on 03-20-2025 Chloride [Moles/Vol] 102 mmol/L 98-108 [facility] Emergency Department Summary on 03-20-2025 Emergency Department Summary [facility] Medical Records Department [address] [place] [address] Emergency Department Summary 03/20/25 MR#: [id number] Acct: [id number] Name: BRITTA SUTHERLAND Rep #: [id number] : 1975 49 From: Williams Rodriguez MD PCP: Care Physician,No Primary Status:REG ER Location: ED HPI History of Present Illness Chief Complaint: Flank Pain Detail of Chief Complaint: Left flank pain that is moved to the right lower back near the posterior ozuna Informant: patient Onset/Context/Timing Onset: [...] ago. He was noted to have an obstructing right ureteral stone with hydronephrosis on the right. He was referred to Dr. Brown. He not follow-up with Dr. Brown since he passed it. He was prescribed Zofran and oxycodone. He also was prescribed ketorolac and Flomax. Patient's only past medical history is renal/ureteral stone. He has no other history. Is not have a doctor. He denies fever, chills night sweats. He denies abdominal pain. He denies vomiting or diarrhea. He denies testicular pain or swelling. Prior similar symptoms: Yes Recent Illness/Hospitalization: No PFSH PFS Medical History Kidney stones Knee fracture, left Home Medications ???Medication ???Instructions ???Recorded ???Last Taken ???Type oxycodone-acetaminophen 5 mg-325 1 tab PO Q6H PRN pain 3 days #12 0 02/16/25 Unknown Rx mg tablet (Percocet) tabs oxycodone-acetaminophen 5 mg-325 1 tab PO Q6H PRN PRN pain 5 days 0 03/20/25 Unknown Rx mg tablet #20 TABLETS [...] Reports systems reviewed and no addt'l complaints, except as documented EXAM Physical Exam Const Vital Signs: [...] Narrative Medical decision making narrative: Differential diagnosis (more content not included)... Normal [facility] Eosinophil percentageOrdered By: Williamsjr Rodriguez on 03-20-2025 Eosinophils/100 WBC (Bld) 2.0 % 0-5 [facility] Erythrocyte distribution wid th ratioOrdered By: Williamsjr Rodriguez on 03-20-2025 Erythrocyte distribution width (RBC) [Ratio] 12.3 % 11.6-14.6 [facility] Erythrocyte distribution wid th standard deviationOrdered By: Williamsjr Rodriguez on 03-20-2025 Erythrocyte distribution width (RBC) [Ratio] 39.5 fl 35.1-43.9 [facility] Glomerular filtration rate ( GFR) estimation/1.73 sq m using serum, plasma, or whole bOrdered By: Williamsjr Rodriguez on 03-20-2025 GFR/1.73 sq M.predicted among non-blacks MDRD (S/P/Bld) [Vol rate/Area] 46 mL/min/{1.73_m2} Low >60 [facility] Comment on above: mL/min/1.73m2 CKD-EP I Creatinine Equation (2020) Hematocrit Auto (Bld) [Volum e fraction]Ordered By: Williamsjr Rodriguez on 03-20-2025 Hematocrit (Bld) [Volume fraction] 45.1 % 40-54 [facility] Hemoglobin measurementOrdere d By: Williams Rodriguez on 03-20-2025 Hemoglobin (Bld) [Mass/Vol] 15.5 g/dL 13.0-16.5 [facility] Immature granulocytes/100 WB C Auto (Bld)Ordered By: Williamsjr Rodriguez 03-20-2025 Immature granulocytes/100 WBC (Bld) 0.400 % 0.0-0.9 [facility] Comment on above: IG% - Immature Granu locytes (promyelocytes, myelocytes and metamyelocytes) > 1% indicates that a LEFT SHIFT is Present. Ketones Test strip Ql (U)Ord ered By: Williams Rodriguez 03-20-2025 Ketones Ql (U) Negative Negative [facility] MCV (mean corpuscular volume ) determinationOrdered By: Williams Rodriguez 03-20-2025 MCV (RBC) [Entitic vol] 87.6 fL 80-94 [facility] Mean corpuscular hemoglobin (MCH) determinationOrdered By: Williamsjr Rodriguez 03-20-2025 MCH (RBC) [Entitic mass] 30.1 pg 27.0-32.0 [facility] Mean corpuscular hemoglobin concentration (MCHC) determinationOrdered By: Williamsjr Rodriguez 03-20-2025 MCHC (RBC) [Mass/Vol] 34.4 g/dL 32-36 [facility] Mean platelet volume determi nationOrdered By: Williams Rodriguez on 03-20-2025 Platelet mean volume (Bld) [Entitic vol] 9.9 fL 6.2-12.0 [facility] Microscopic analysis of urin e for red blood cells (RBC)Ordered By: Williams Rodriguez on 03-20-2025 Microscopic analysis of urine for red blood cells (RBC) 0-5 SEEN /hpf 0-5 [facility] Monocyte percentageOrdered B y: Williams Rodriguez on 03-20-2025 Monocytes/100 WBC (Bld) 9.8 % 0-10 [facility] Mucus LM Ql (Urine sed)Order ed By: Williams Rodriguez on 03-20-2025 Mucus Ql (Urine sed) 0 SEEN /hpf [facility] Neutrophil percentageOrdered By: Williams Rodriguez on 03-20-2025 Neutrophils/100 WBC (Bld) 78.2 % High 47-70 [facility] Nitrite Test strip Ql (U)Ord ered By: Williams Rodriguez on 03-20-2025 Nitrite Ql (U) Negative Negative [facility] Nucleated red blood cell per centageOrdered By: Williams Rodriguez on 03-20-2025 Nucleated RBC/100 WBC (Bld) [Ratio] 0 % 0-5 [facility] Platelet countOrdered By: Dangelo Rodriguez on 03-20-2025 Platelets (Bld) [#/Vol] 205 10*3/uL 150-450 [facility] Potassium measurement (mass/ volume)Ordered By: Williams Rodriguez on 03-20-2025 Potassium (Unsp spec) [Mass/Vol] 4.1 mmol/L 3.3-5.1 [facility] Protein Test strip Ql (U)Ord ered By: Williams Rodriguez on 03-20-2025 Protein Ql (U) 15 mg/dl High Negative [facility] RBC Auto (Bld) [#/Vol]Ordere d By: Williams Rodriguez on 03-20-2025 RBC (Bld) [#/Vol] 5.15 10*6/uL 4.6-6.2 [facility] Serum creatinine measurement (mass/volume)Ordered By: Williams Rodriguez on 03-20-2025 Creatinine [Mass/Vol] 1.79 mg/dL High 0.70-1.20 [facility] Serum glucose measurement (m ass/volume)Ordered By: Williams Rodriguez on 03-20-2025 Glucose [Mass/Vol] 113 mg/dL High 70-99 [facility] Serum or plasma calcium dayana urement (mass/volume)Ordered By: Williamsjr Rodriguez on 03-20-2025 Calcium [Mass/Vol] 8.5 mg/dL 7.6-11.0 [facility] Serum or plasma urea nitroge n measurement (mass/volume)Ordered By: Williamsjr Rodriguez on 03-20-2025 Urea nitrogen [Mass/Vol] 19 mg/dL 4-19 [facility] Sodium levelOrdered By: [facility] on 03-20-2025 Sodium [Moles/Vol] 138 mmol/L 133-145 [facility] Squamous epithelial cells de tection in urine sediment by light microscopyOrdered By: Williamsjr Rodriguez on 03-20-2025 Epithelial cells.squamous LM Ql (Urine sed) 0 SEEN /hpf 0-5 [facility] Urinalysis, Completeon 03-20 RBC 0-5 SEEN Normal 0-5 [facility] Comment on above: Order Comment: CLEAN CATCH Performed By: #### L 400.0001 #### [facility] Laboratory [address] [place], [place], [id number] ([address] WBC 0-5 SEEN Normal 0-5 [facility] Comment on above: Order Comment: CLEAN CATCH Performed By: #### L 400.0001 #### [facility] Laboratory [address] [place], [address] BACTERIA 0 SEEN Normal None Seen [facility] Comment on above: Order Comment: CLEAN CATCH Performed By: #### L 400.0001 #### [facility] [address] [place], [address] EPI,SQUAMOUS 0 SEEN Normal 0-5 [facility] Comment on above: Order Comment: CLEAN CATCH Performed By: #### L 400.0001 #### [facility] [address] [place], [place], [id number] Mucus Ql (Urine sed) 0 SEEN Normal [facility] Comment on above: Order Comment: CLEAN CATCH Performed By: #### L 400.0001 #### [facility] [address] [place], [place], [address] Urine clarityOrdered By: Williamsjr Rodriguez on 03-20-2025 Clarity (U) Clear Clear [facility] Urine color determinationOrd ered By: Williams Rodriguez on 03-20-2025 Color (U) Yellow Yellow [facility] Urine glucose detectionOrder ed By: Williams Rodriguez on 03-20-2025 Glucose Ql (U) Normal mg/dl Normal [facility] Urine leukocyte esterase det ection by dipstickOrdered By: Williamsjr Rodriguez on 03-20-2025 Leukocyte esterase Test strip Ql (U) Negative Negative [facility] Urine pHOrdered By: Williamsjr norris on 03-20-2025 pH (U) 6.0 [pH] 5.0 - 8.0 [facility] Urine sediment bacteria coun t by microscopy (number/high power field)Ordered By: Williamsjr Rodriguez on 03-20-2025 Bacteria LM.HPF (Urine sed) [#/Area] 0 /[HPF] None Seen [facility] Urine specific gravity measu rementOrdered By: Williams Rodriguez on 03-20-2025 Specific gravity (U) [Rel density] 1.015 1.002-1.030 [facility] Urine urobilinogen measureme ntOrdered By: Williamsjr Rodriguez on 03-20-2025 Urobilinogen Ql (U) Normal mg/dl Normal [facility] White blood cell (WBC) count Ordered By: Williamsjr Rodriguez on 03-20-2025 WBC (Bld) [#/Vol] 8.4 10*3/uL 4.4-11.0 [facility] White blood cell countOrdere d By: Williams Rodriguez on 03-20-2025 White blood cell count 0-5 SEEN /hpf 0-5 [facility] Abdomen/Pelvis without Conto n 02-16-2025 Abdomen/Pelvis without Cont [facility] Imaging Services [address] [place] [address] Abdomen/Pelvis without Cont MR#: [id number] Acct: [id number] Name: BRITTA SUTHERLAND Rep #: [id number] : 1975 M 49 From: Vane Stokes PCP: Care Physician,No Primary Status: REG ER Study: Abdomen/Pelvis without Cont Date of Exam: 02/03 12/28 Exam# [id number] Ordering Dr: Hector Chacko MD PROCEDURE: ABDOMEN/PELVIS [...] mesenteric stranding may reflect panniculitis. Reading Location: [facility] CC: Dr. Hector Chacko MD; No Primary Care Physician Road Monkey: Signed Normal [facility] Absolute lymphocyte countOrd ered By: ED PROVIDER on 02-16-2025 Lymphocytes Auto (Unsp spec) [#/Vol] 0.40 10*3/uL Low 0.83-4.51 [facility] Absolute neutrophil countOrd ered By: ED PROVIDER on 02-16-2025 Neutrophils (Bld) [#/Vol] 10.5 10*3/uL High 2.0-7.7 [facility] Anion gap in Serum or Plasma Ordered By: Hector Chacko on 02-16-2025 Anion gap [Moles/Vol] 15 mmol/L 5-15 [facility] Automated lymphocyte count a s percentage of total leukocytesOrdered By: ED PROVIDER on 02-16-2025 Lymphocytes/100 WBC Auto (Unsp spec) 3.5 % Low 19-41 [facility] BUN/creatinine ratioOrdered By: Hector Chacko on 02-16-2025 Urea nitrogen/Creatinine [Mass ratio] 12.3 mg/mg 10-20 [facility] Basophil percentageOrdered B y: ED PROVIDER on 02-16-2025 Basophils/100 WBC (Bld) 0.4 % 0-1 [facility] Bilirubin Test strip Ql (U)O rdered By: Hector Chacko on 02-16-2025 Bilirubin Ql (U) Negative Negative [facility] Bilirubin, totalOrdered By: Hector Chacko on 02-16-2025 Bilirubin [Mass/Vol] 0.75 mg/dL 0.00-1.30 [facility] CBC W/Diff, Automatedon 02-03 Absolute Lymph 0.40 X10 3/uL Low 0.83-4.51 [facility] Comment on above: Performed By: #### L 100.0100, L500.4050 #### [facility] Laboratory [address] [place], [address] Absolute Neut 10.5 X10 3/uL High 2.0-7.7 [facility] Comment on above: Performed By: #### L 100.0100, L500.4050 #### [facility] Laboratory [address] [place], [address] Basophils/100 WBC (Bld) 0.4 % Normal 0-1 [facility] Comment on above: Performed By: #### L 100.0100, L500.4050 #### [facility] Laboratory [address] [place], [address] Eosinophils/100 WBC (Bld) 0.0 % Normal 0-5 [facility] Comment on above: Performed By: #### L 100.0100, L500.4050 #### [facility] Laboratory [address] [place], [address] Erythrocyte distribution width (RBC) [Ratio] 12.3 % Normal 11.6-14.6 [facility] Comment on above: Performed By: #### L 100.0100, L500.4050 #### [facility] Laboratory [address] [place], [address] Hematocrit (Bld) [Volume fraction] 48.3 % Normal 40-54 [facility] Comment on above: Performed By: #### L 100.0100, L500.4050 #### [facility] Laboratory [address] [place], [address] Hemoglobin (Bld) [Mass/Vol] 17.0 g/dL High 13.0-16.5 [facility] Comment on above: Performed By: #### L 100.0100, L500.4050 #### [facility] Laboratory [address] [place], [address] IG% 0.100 Normal 0.0-0.9 [facility] Comment on above: Result Comment: IG% - Immature Granulocytes (promyelocytes, myelocytes and metamyelocytes) > 1% indicates that a LEFT SHIFT is Present. Performed By: #### L 100.0100, L500.4050 #### [facility] Laboratory [address] [place], [address] Lymphocytes/100 WBC (Bld) 3.5 % Low 19-41 [facility] Comment on above: Performed By: #### L 100.0100, L500.4050 #### [facility] Laboratory [address] [place], [address] MCH (RBC) [Entitic mass] 30.4 pg Normal 27.0-32.0 [facility] Comment on above: Performed By: #### L 100.0100, L500.4050 #### [facility] Laboratory [address] [place], [address] MCHC (RBC) [Mass/Vol] 35.2 g/dL Normal 32-36 [facility] Comment on above: Performed By: #### L 100.0100, L500.4050 #### [facility] Laboratory [address] [place], [address] MCV (RBC) [Entitic vol] 86.4 fL Normal 80-94 [facility] Comment on above: Performed By: #### L 100.0100, L500.4050 #### [facility] Laboratory [address] [place], [address] Monocytes/100 WBC (Bld) 3.8 % Normal 0-10 [facility] Comment on above: Performed By: #### L 100.0100, L500.4050 #### [facility] Laboratory [address] [place], [address] Neutrophils/100 WBC (Bld) 92.2 % High 47-70 [facility] Comment on above: Performed By: #### L 100.0100, L500.4050 #### [facility] Laboratory [address] [place], [address] Nucleated RBC (Bld) [#/Vol] 0 10*3/uL Normal 0-5 [facility] Comment on above: Performed By: #### L 100.0100, L500.4050 #### [facility] Laboratory [address] [place], [address] Platelet mean volume (Bld) [Entitic vol] 10.1 fL Normal 6.2-12.0 [facility] Comment on above: Performed By: #### L 100.0100, L500.4050 #### [facility] Laboratory [address] [place], [address] Platelets (Bld) [#/Vol] 241 10*3/uL Normal 150-450 [facility] Comment on above: Performed By: #### L 100.0100, L500.4050 #### [facility] Laboratory [address] [place], [address] RBC (Bld) [#/Vol] 5.59 10*6/uL Normal 4.6-6.2 [facility] Comment on above: Performed By: #### L 100.0100, L500.4050 #### [facility] Laboratory [address] [place], [address] RDW SD 39.2 fl Normal 35.1-43.9 [facility] Comment on above: Performed By: #### L 100.0100, L500.4050 #### [facility] Laboratory [address] [place], [address] WBC (Bld) [#/Vol] 11.4 10*3/uL High 4.4-11.0 [facility] Comment on above: Performed By: #### L 100.0100, L500.4050 #### [facility] Laboratory [address] [place], [address] Carbon dioxide, total [Moles /volume] in Central venous bloodOrdered By: Hector Chacko on 02-16-2025 CO2 [Moles/Vol] 22.7 mmol/L 21.0-32.0 [facility] Chloride assayOrdered By: Delonte Chacko on 02-16-2025 Chloride [Moles/Vol] 99 mmol/L 98-108 [facility] Comprehensive Metabolic Prof ilon 02-16-2025 Albumin [Mass/Vol] 4.6 g/dL Normal 3.5-5.0 [facility] Comment on above: Performed By: #### L 100.0100, L500.4050 #### [facility] Laboratory [address] [place], [address] Albumin/Globulin [Mass ratio] 1.5 {ratio} Normal 0.9-2.4 [facility] Comment on above: Performed By: #### L 100.0100, L500.4050 #### [facility] Laboratory [address] [place], [address] ALK PHOS 107 U/L Normal 40-129 [facility] Comment on above: Performed By: #### L 100.0100, L500.4050 #### [facility] Laboratory [address] [place], [address] ALT [Catalytic activity/Vol] 18 U/L Normal <=46 [facility] Comment on above: Performed By: #### L 100.0100, L500.4050 #### [facility] Laboratory [address] [place], [address] AST [Catalytic activity/Vol] 31 U/L Normal <=37 [facility] Comment on above: Performed By: #### L 100.0100, L500.4050 #### [facility] Laboratory [address] [place], [address] Bilirubin [Mass/Vol] 0.75 mg/dL Normal 0.00-1.30 [facility] Comment on above: Performed By: #### L 100.0100, L500.4050 #### [facility] Laboratory [address] [place], [address] BUN/CRE 12.3 RATIO Normal 10-20 [facility] Comment on above: Performed By: #### L 100.0100, L500.4050 #### [facility] Laboratory [address] [place], [address] Calcium [Mass/Vol] 8.9 mg/dL Normal 7.6-11.0 [facility] Comment on above: Performed By: #### L 100.0100, L500.4050 #### [facility] Laboratory [address] [place], [address] Chloride [Moles/Vol] 99 mmol/L Normal 98-108 [facility] Comment on above: Performed By: #### L 100.0100, L500.4050 #### [facility] Laboratory [address] [place], [address] CO2 [Moles/Vol] 22.7 mmol/L Normal 21.0-32.0 [facility] Comment on above: Performed By: #### L 100.0100, L500.4050 #### [facility] Laboratory [address] [place], [address] Creatinine [Mass/Vol] 1.38 mg/dL High 0.70-1.20 [facility] Comment on above: Performed By: #### L 100.0100, L500.4050 #### [facility] Laboratory [address] [place], [address] ECRCL 70.29 ml/min Normal 50-250 [facility] Comment on above: Performed By: #### L 100.0100, L500.4050 #### [facility] Laboratory [address] [place], [address] GAP 15 Normal 5-15 [facility] Comment on above: Performed By: #### L 100.0100, L500.4050 #### [facility] Laboratory [address] [place], [address] GFR/1.73 sq M.predicted among non-blacks MDRD (S/P/Bld) [Vol rate/Area] 62 mL/min/{1.73_m2} Normal >60 [facility] Comment on above: Result Comment: mL/m in/1.73m2 CKD-EPI Creatinine Equation (2020) Performed By: #### L 100.0100, L500.4050 #### [facility] Laboratory [address] [place], [address] Globulin (S) [Mass/Vol] 3.1 g/dL Normal 2.2-4.2 [facility] Comment on above: Performed By: #### L 100.0100, L500.4050 #### [facility] Laboratory [address] [place], [address] Glucose [Mass/Vol] 138 mg/dL High 70-99 [facility] Comment on above: Performed By: #### L 100.0100, L500.4050 #### [facility] Laboratory [address] [place], [address] Potassium [Moles/Vol] 4.1 mmol/L Normal 3.3-5.1 [facility] Comment on above: Performed By: #### L 100.0100, L500.4050 #### [facility] Laboratory [address] [place], [address] Sodium [Moles/Vol] 137 mmol/L Normal 133-145 [facility] Comment on above: Performed By: #### L 100.0100, L500.4050 #### [facility] Laboratory [address] [place], [address] T PROT 7.7 g/dL Normal 5.9-8.4 [facility] Comment on above: Performed By: #### L 100.0100, L500.4050 #### [facility] Laboratory [address] [place], [address] Urea nitrogen [Mass/Vol] 17 mg/dL Normal 4-19 [facility] Comment on above: Performed By: #### L 100.0100, L500.4050 #### [facility] Laboratory [address] [place], [address] Emergency Department Summary on 02-16-2025 Emergency Department Summary [facility] Medical Records Department [address] [place] [address] Emergency Department Summary 02/16/25 MR#: [id number] Acct: [id number] Name: BRITTA SUTHERLAND Rep #: [id number] : 1975 49 From: Hector Chacko MD [...] hours ago, he experienced right flank pain. [place] like his pain was moving downward. He [...] denies any hematuria, no fevers or chills. [facility] Medical History Kidney stones Knee fracture, left [...] Return instruct (more content not included)... Normal [facility] Eosinophil percentageOrdered By: ED PROVIDER on 02-16-2025 Eosinophils/100 WBC (Bld) 0.0 % 0-5 [facility] Erythrocyte distribution wid th ratioOrdered By: ED PROVIDER on 02-16-2025 Erythrocyte distribution width (RBC) [Ratio] 12.3 % 11.6-14.6 [facility] Erythrocyte distribution wid th standard deviationOrdered By: ED PROVIDER on 02-16-2025 Erythrocyte distribution width (RBC) [Ratio] 39.2 fl 35.1-43.9 [facility] Glomerular filtration rate ( GFR) estimation/1.73 sq m using serum, plasma, or whole bOrdered By: Hector Chacko on 02-16-2025 GFR/1.73 sq M.predicted among non-blacks MDRD (S/P/Bld) [Vol rate/Area] 62 mL/min/{1.73_m2} >60 [facility] Comment on above: mL/min/1.73m2 CKD-EP I Creatinine Equation (2020) Hematocrit Auto (Bld) [Volum e fraction]Ordered By: ED PROVIDER on 02-16-2025 Hematocrit (Bld) [Volume fraction] 48.3 % 40-54 [facility] Hemoglobin measurementOrdere d By: ED PROVIDER on 02-16-2025 Hemoglobin (Bld) [Mass/Vol] 17.0 g/dL High 13.0-16.5 [facility] Immature granulocytes/100 WB C Auto (Bld)Ordered By: ED PROVIDER on 02-16-2025 Immature granulocytes/100 WBC (Bld) 0.100 % 0.0-0.9 [facility] Comment on above: IG% - Immature Granu locytes (promyelocytes, myelocytes and metamyelocytes) > 1% indicates that a LEFT SHIFT is Present. Ketones Test strip Ql (U)Ord ered By: Hector Chacko on 02-16-2025 Ketones Ql (U) 150 mg/dl Abnormal Negative [facility] Comment on above: CRITICAL VALUE *H Laboratory - Chemistry and C hemistry - challengeOrdered By: Hector Chacko on 02-16-2025 AST [Catalytic activity/Vol] 31 U/L <38 [facility] MCV (mean corpuscular volume ) determinationOrdered By: ED PROVIDER on 02-16-2025 MCV (RBC) [Entitic vol] 86.4 fL 80-94 [facility] Mean corpuscular hemoglobin (MCH) determinationOrdered By: ED PROVIDER on 02-16-2025 MCH (RBC) [Entitic mass] 30.4 pg 27.0-32.0 [facility] Mean corpuscular hemoglobin concentration (MCHC) determinationOrdered By: ED PROVIDER on 02-16-2025 MCHC (RBC) [Mass/Vol] 35.2 g/dL 32-36 [facility] Mean platelet volume determi nationOrdered By: ED PROVIDER on 02-16-2025 Platelet mean volume (Bld) [Entitic vol] 10.1 fL 6.2-12.0 [facility] Microscopic analysis of urin e for red blood cells (RBC)Ordered By: Hector Chacko on 02-16-2025 Microscopic analysis of urine for red blood cells (RBC) 0 SEEN /hpf 0-5 [facility] Monocyte percentageOrdered B y: ED PROVIDER on 02-16-2025 Monocytes/100 WBC (Bld) 3.8 % 0-10 [facility] Mucus LM Ql (Urine sed)Order ed By: Hector Chacko on 02-16-2025 Mucus Ql (Urine sed) 0 SEEN /hpf [facility] Neutrophil percentageOrdered By: ED PROVIDER on 02-16-2025 Neutrophils/100 WBC (Bld) 92.2 % High 47-70 [facility] Nitrite Test strip Ql (U)Ord ered By: Hector Chacko on 02-16-2025 Nitrite Ql (U) Negative Negative [facility] Nucleated red blood cell per centageOrdered By: ED PROVIDER on 02-16-2025 Nucleated RBC/100 WBC (Bld) [Ratio] 0 % 0-5 [facility] Platelet countOrdered By: ED PROVIDER on 02-16-2025 Platelets (Bld) [#/Vol] 241 10*3/uL 150-450 [facility] Potassium measurement (mass/ volume)Ordered By: Hector Chacko on 02-16-2025 Potassium (Unsp spec) [Mass/Vol] 4.1 mmol/L 3.3-5.1 [facility] Protein Test strip Ql (U)Ord ered By: Hector Chacko on 02-16-2025 Protein Ql (U) 100 mg/dl High Negative [facility] RBC Auto (Bld) [#/Vol]Ordere d By: ED PROVIDER on 02-16-2025 RBC (Bld) [#/Vol] 5.59 10*6/uL 4.6-6.2 [facility] Serum creatinine measurement (mass/volume)Ordered By: Hector Chacko on 02-16-2025 Creatinine [Mass/Vol] 1.38 mg/dL High 0.70-1.20 [facility] Serum globulin measurementOr dered By: Hector Chacko on 02-16-2025 Globulin (S) [Mass/Vol] 3.1 g/dL 2.2-4.2 [facility] Serum glucose measurement (m ass/volume)Ordered By: Hector Chacko on 02-16-2025 Glucose [Mass/Vol] 138 mg/dL High 70-99 [facility] Serum or plasma alanine roper otransferase (ALT) measurementOrdered By: Hector Chacko on 02-16-2025 ALT [Catalytic activity/Vol] 18 U/L <47 [facility] Serum or plasma albumin dayana urement (mass/volume)Ordered By: Hector Chacko on 02-16-2025 Albumin [Mass/Vol] 4.6 g/dL 3.5-5.0 [facility] Serum or plasma albumin/glob ulin mass ratioOrdered By: Hector Chacko on 02-16-2025 Albumin/Globulin [Mass ratio] 1.5 {ratio} 0.9-2.4 [facility] Serum or plasma alkaline juli sphatase measurementOrdered By: Hector Chacko on 02-16-2025 ALP [Catalytic activity/Vol] 107 U/L 40-129 [facility] Serum or plasma calcium dayana urement (mass/volume)Ordered By: Hector Chacko on 02-16-2025 Calcium [Mass/Vol] 8.9 mg/dL 7.6-11.0 [facility] Serum or plasma urea nitroge n measurement (mass/volume)Ordered By: Hector Chacko on 02-16-2025 Urea nitrogen [Mass/Vol] 17 mg/dL 4-19 [facility] Sodium levelOrdered By: Hector Chacko on 02-16-2025 Sodium [Moles/Vol] 137 mmol/L 133-145 [facility] Squamous epithelial cells de tection in urine sediment by light microscopyOrdered By: Hector Chacko on 02-16-2025 Epithelial cells.squamous LM Ql (Urine sed) 0 SEEN /hpf 0-5 [facility] Total proteinOrdered By: Preeti Chacko on 02-16-2025 Protein [Mass/Vol] 7.7 g/dL 5.9-8.4 [facility] Urinalysis, Completeon 02-16 BACTERIA 0 SEEN Normal None Seen [facility] Comment on above: Order Comment: CRITI ADY VALUE CALLED TO bladimir kwong 02/16/25 Ho Michaels. RESULTS READ BACK BY same. AUTOMOTIVE SERVICE PORTER TO SPECIFY Performed By: #### L 400.0001 #### [facility] Laboratory [address] [place], [place], [id number] EPI,SQUAMOUS 0 SEEN Normal 0-5 [facility] Comment on above: Order Comment: CRITI ADY VALUE CALLED TO bladimir kwong 02/16/25 Yaniv8 Erin Michaels. RESULTS READ BACK BY same. AUTOMOTIVE SERVICE PORTER TO SPECIFY Performed By: #### L 400.0001 #### [facility] Laboratory [address] [place], [address] Mucus Ql (Urine sed) 0 SEEN Normal [facility] Comment on above: Order Comment: CRITI ADY VALUE CALLED TO bladimir [facility] 02/16/25 1218 Erinmonika Michaels. RESULTS READ BACK BY same. AUTOMOTIVE SERVICE PORTER TO SPECIFY Performed By: #### L 400.0001 #### [facility] Laboratory [address] [place], [address] RBC 0 SEEN Normal 0-5 [facility] Comment on above: Order Comment: [facility] 1218 Erinmonika Michaels. RESULTS READ BACK BY same. AUTOMOTIVE SERVICE PORTER TO SPECIFY Performed By: #### L 400.0001 #### [facility] Laboratory [address] [place], [address] WBC 0 SEEN Normal 0-5 [facility] Comment on above: Order Comment: CRITI ADY VALUE [facility]25 1218 Erin Michaels. RESULTS READ BACK BY same. AUTOMOTIVE SERVICE PORTER TO SPECIFY Performed By: #### L 400.0001 #### [facility] Laboratory [address] [place], [address] Urine clarityOrdered By: Preeti Chacko on 02-16-2025 Clarity (U) Clear Clear [facility] Urine color determinationOrd ered By: Hector Chacko on 02-16-2025 Color (U) Yellow Yellow [facility] Urine glucose detectionOrder ed By: Hector Chacko on 02-16-2025 Glucose Ql (U) 50 mg/dl High Normal [facility] Urine leukocyte esterase det ection by dipstickOrdered By: Hector Chacko on 02-16-2025 Leukocyte esterase Test strip Ql (U) Negative Negative [facility] Urine pHOrdered By: Hector dahl on 02-16-2025 pH (U) 6.0 [pH] 5.0 - 8.0 [facility] Urine sediment bacteria coun t by microscopy (number/high power field)Ordered By: Hector Chacko on 02-16-2025 Bacteria LM.HPF (Urine sed) [#/Area] 0 /[HPF] None Seen [facility] Urine specific gravity measu rementOrdered By: Hector Chacko on 02-16-2025 Specific gravity (U) [Rel density] 1.020 1.002-1.030 [facility] Urine urobilinogen measureme ntOrdered By: Hector Chacko on 02-16-2025 Urobilinogen Ql (U) Normal mg/dl Normal [facility] White blood cell (WBC) count Ordered By: ED PROVIDER on 02-16-2025 WBC (Bld) [#/Vol] 11.4 10*3/uL High 4.4-11.0 [facility] White blood cell countOrdere d By: Hector Chacko on 02-16-2025 White blood cell count 0 SEEN /hpf 0-5 [facility] CNPNon 11-07-2023 CNPN Telephone ([facility]) -------- BRITTA SUTHERLAND ([id number]) 1975 M Date Time Provider Department 11/07/23 RADHA FLOYD FMWADS During your visit today, we recorded the following information about you: Radha Mario 11/07/2023 5:22 PM Signed 1st attempt to reschedule Britta's 11/22/23 Dr. Floyd appointment, I left a voicemail and sent a [employer] message. Please note: He is not a [...] RELIEF) 50 mcg/actuation nasal spray Use 1 Driscoll in each nostril once daily. Problem List As Of Date 11/07/2023 Noted Resolved Throat Tightness [R09.89] 04/24/2012 Left knee pain [M25.562] 04/24/2012 Bodies, loose, joint, knee [M23.40] 05/26/2012 2012 Degenerative arthritis of left knee [M17.12] 06/07/2012 Encounter for sterilization [Z30.2] 12/29/2017 Encounter Status:Closed by INDIO TIAN on 11/09/23 Normal [facility] Absolute lymphocyte counton 05-28-2022 Lymphocytes Auto (Unsp spec) [#/Vol] 1.07 10*3/uL 0.83-4.51 [facility] Work Phone: Basophil percentageon 2021 Basophil percentage 0-5 SEEN /hpf 0-5 [facility] Work Phone: [phone] Basophils/100 WBC (Bld) 0.8 % 0-1 [facility] Work Phone: Chloride [Moles/Vol] 104 mmol/L 98-107 [facility] Work [facility]: Eosinophils/100 WBC (Bld) 3.8 % 0-5 [facility] Work Phone: Glucose [Mass/Vol] 117 mg/dL 74-106 [facility] Work Phone: Comment on above: Fasting Glucose resu lt from 100 to 125 mg/dL suggests IMPAIRED HOMEOSTASIS per A.D.A. criteria. Neutrophils (Bld) [#/Vol] 4.3 10*3/uL 2.0-7.7 [facility] Work Phone: Neutrophils/100 WBC (Bld) 67.1 % 47-70 [facility] Work Phone: [phone] Potassium [Moles/Vol] 3.7 mmol/L 3.5-5.1 [facility] Work Phone: Sodium [Moles/Vol] 139 mmol/L 136-145 [facility] Work Phone: WBC (Bld) [#/Vol] 6.3 10*3/uL 4.4-11.0 [facility] Work Phone: [phone] Bilirubin Test strip Ql (U)o n 05-28-2022 Bilirubin Ql (U) Negative Negative [facility] Work Phone: Blood erythrocytes count (nu mber/volume)on 05-28-2022 RBC (Bld) [#/Vol] 5.25 10*6/uL 4.6-6.2 [facility] Work Phone: Blood hemoglobin measurement (mass/volume)on 05-28-2022 Hemoglobin (Bld) [Mass/Vol] 16.0 g/dL 13.0-16.5 [facility] Work Phone: Blood lymphocytes/100 leukoc yteson 05-28-2022 Lymphocytes/100 WBC (Bld) 16.9 % 19-41 [facility] Work Phone: Blood monocytes/100 leukocyt eson 05-28-2022 Monocytes/100 WBC (Bld) 11.2 % 0-10 [facility] Work Phone: Blood platelet mean volumeon 05-28-2022 Platelet mean volume (Bld) [Entitic vol] 9.9 fL 6.2-12.0 [facility] Work Phone: Determination of erythrocyte mean corpuscular volume (MCV)on 05-28-2022 MCV (RBC) [Entitic vol] 89.5 fL 80-94 [facility] Work Phone: Hematocrit Auto (Bld) [Volum e fraction]on 05-28-2022 Hematocrit (Bld) [Volume fraction] 47.0 % 40-54 [facility] Work Phone: Ketones Test strip Ql (U)on 05-28-2022 Ketones Ql (U) 150 mg/dl Negative [facility] Work Phone: Comment on above: CRITICAL VALUE * 0739 Jakob Toribio.RESULTS READ BACK BY SAME. Laboratory - Chemistry and C hemistry - challengeon 05-28-2022 CO2 [Moles/Vol] 27.0 mmol/L 21.0-32.0 [facility] Work Phone: Urea nitrogen/Creatinine [Mass ratio] 11.4 mg/mg 10-20 [facility] Work Phone: Laboratory - Hematology and Cell countson 05-28-2022 Erythrocyte distribution width (RBC) [Entitic vol] 41.7 fL 35.1-43.9 [facility] Work Phone: Erythrocyte distribution width (RBC) [Ratio] 12.7 % 11.6-14.6 [facility] Work Phone: Immature granulocytes/100 WBC (Bld) 0.200 % 0.0-0.9 [facility] Work Phone: Comment on above: IG% - Immature Granu locytes (promyelocytes, myelocytes and metamyelocytes) > 1% indicates that a LEFT SHIFT is Present. MCH (RBC) [Entitic mass] 30.5 pg 27.0-32.0 [facility] Work Phone: Nucleated RBC/100 WBC (Bld) [Ratio] 0 % 0-5 [facility] Work Phone: MCHC Auto (RBC) [Mass/Vol]on 05-28-2022 MCHC (RBC) [Mass/Vol] 34.0 g/dL 32-36 [facility] Work Phone: Mucus LM Ql (Urine sed)on Mucus Ql (Urine sed) 0 SEEN /hpf [facility] Work Phone: Nitrite Test strip Ql (U)on 05-28-2022 Nitrite Ql (U) Negative Negative [facility] Work Phone: No Panel Informationon 05-28 Estimated Creatinine Clearance Calc 71.60 ml/min [facility] Work Phone: Estimated GFR (MDRD) Amer 70 mL/min >60 [facility] Work Phone: Comment on above: GFR Calc Estimated GFR (MDRD) Non-Af Amer 58 mL/min >60 [facility] Work Phone: Comment on above: Non- GFR Calc Platelets bldon 05-28-2022 Platelets (Bld) [#/Vol] 250 10*3/uL 150-450 [facility] Work Phone: Protein Test strip Ql (U)on 05-28-2022 Protein Ql (U) 100 mg/dl Negative [facility] Work Phone: Serum or plasma calcium dayana urement (mass/volume)on 05-28-2022 Calcium [Mass/Vol] 8.8 mg/dL 8.5-10.1 [facility] Work Phone: Serum or plasma creatinine m easurement (mass/volume)on 05-28-2022 Creatinine [Mass/Vol] 1.40 mg/dL 0.70-1.30 [facility] Work Phone: Comment on above: The validity of the calculated GFR & GFRAA in patients over 70 years has not been determined. Clinical correlation is essential. Serum or plasma urea nitroge n measurement (mass/volume)on 05-28-2022 Urea nitrogen [Mass/Vol] 16 mg/dL 7-18 [facility] Work Phone: Squamous epithelial cells de tection in urine sediment by light microscopyon 05-28-2022 Epithelial cells.squamous LM Ql (Urine sed) 0 SEEN /hpf 0-5 [facility] Work Phone: Thin prep Papanicolaou smear with manual screeningon 05-28-2022 Thin prep Papanicolaou smear with manual screening 8 5-15 [facility] Work Phone: Urine blood detectionon 05-07 RBC Ql (U) 150 /ul Negative [facility] Work Phone: RBC Ql (U) 0-5 SEEN /hpf 0-5 [facility] Work Phone: Urine clarityon 05-28-2022 Clarity (U) Clear Clear [facility] Work Phone: Urine color determinationon 05-28-2022 Color (U) Yellow Yellow [facility] Work Phone: Urine glucose detectionon Glucose Ql (U) Normal mg/dl Normal [facility] Work Phone: Urine leukocyte esterase det ection by dipstickon 05-28-2022 Leukocyte esterase Test strip Ql (U) Negative Negative [facility] Work Phone: Urine pHon 05-28-2022 pH (U) 5.0 [pH] 5.0 - 8.0 [facility] Work Phone: Urine sediment bacteria coun t by microscopy (number/high power field)on 05-28-2022 Bacteria LM.HPF (Urine sed) [#/Area] 0 /[HPF] None Seen [facility] Work Phone: Urine sediment fine granular cast count by microscopy (number/low power field)on 05-28-2022 Fine Granular Casts LM.LPF (Urine sed) [#/Area] 0-5 SEEN /lpf 0-5 [facility] Work Phone: Urine specific gravity measu rementon 05-28-2022 Specific gravity (U) [Rel density] 1.025 1.002-1.030 [facility] Work Phone: Urobilinogen Auto test strip Ql (U)on 05-28-2022 Urobilinogen Ql (U) Normal mg/dl Normal [facility] Work Phone: CNPNon 07-31-2018 CNPN Telephone (UROLAE) Kike SUTHERLAND ([id number]) 1975 MDate Time Provider [id number]/26/18 LISETTE BELL During your visit today, we [...] by LISETTE BELL on 07/31/18 [facility] Eh 05-11-2018 CNPN Telephone (AKURFL) Kike SUTHERLAND ([id number]) 1975 MDate Time Provider Department05/11/18 LISETTE BELL During your visit today, we recorded the following information about you:Shayna Jewel [facility] 05/11/2018 1:53 PM Signedpts called, she would like to know if he is ejaculating to much and that'swhy he still has some sperm showing?Please adviseChrisalex Bell DO, MBA 05/11/2018 2:09 PM SignedNo it is not from ejaculating too muchWe will have to wait the full 6 months from the vasectomy before making anydecisions or changesChrisalex Holloway [facility] 05/11/2018 4:18 PM SignedSpoke to pts and advised.Shayna Jewel CmaAllergies As of Date: 05/11/2018 Noted Allergy ReactionHYDROCODONE-ACET AMINOPHEN 11/29/2017 8 - GI UpsetDate Reviewed: 12/29/2017Reviewed by: Vilma Souza [facility] - Fully AssessedReason for Visit: question [Other]Prescriptions [...] FOR* Status:Closed by LISETTE BELL on 05/11/18 Normal [facility] CNPNon 05-09-2018 CNPN Telephone (AKURFL) Kike SUTHERLAND ([id number]) 1975 MDate Time Provider Department05/09/18 LISETTE BELL During your visit today, we recorded the following information about you:Shayna Holloway [facility] 05/09/2018 8:51 AM Signed----- Message from Lisette Bell sent at 05/09/2018 1:26 AM EDT -----Patient still has sperm present but they are not motile. I believe he is ok,but I will check with my colleagues in fertility department. Please let himknowDeirdre Holloway [facility] 05/09/2018 9:19 AM SignedSpoke to pts and advised dr bell will speak with a fertilityspecialist that he knows and find out why sperm are still there.We will get back with them as soon as possible.Shayna Holloway [facility] 05/09/2018 4:31 PM SignedSpoke to , advised that you will call her this evening.Thanks,Shayna Bell DO, MBA 05/10/2018 9:24 AM [place] specimen in 6 months according to AUApostvasectomy guidelinesVasectomy was on 12/29/17.Will need to have recheck on or after 06/30/18 (6 months post vasectomy)The ideal result is <100,000 non-motile sperm on post vasectomy specimenI spoke to the patient's and the patient last night, recommendation is tocontinue protection/precautions at this time.Lsiette Bell DO, MBAJayram Krishnan, DO, MBA 05/10/2018 9:24 AM SignedAddended by: LISETTE BELL on: 05/10/2018 09:24 AM Modules accepted: OrdersAllergies As of Date: 05/09/2018 Noted Allergy ReactionHYDROCODONE-ACET AMINOPHEN 11/29/2017 8 - GI UpsetDate Reviewed: 12/29/2017Reviewed by: Vilma Souza CMA - Fully AssessedReason for Visit: Results [95]Primary Visit Diagnosis:Encounter for sterilization [Z30.2]Order(s):POST VASEC SCREEN [SQSEPOST] Order #: [id number]: 1 FUTUREPrescriptions as of 05/09/2018 Sig: NAPHAZOLINE [...] SHAYNA HOLLOWAY CMA on 05/09/18 [facility] Eh 05-04-2018 DONAVANN Telephone (AKURFL) Kike SUTHERLAND ([id number]) 1975 MDate Time Provider Department05/04/18 LISETTE BELL During your visit today, we recorded the following information about you:Dora Ojeda Cma 05/04/2018 1:33 PM SignedPt called asking for semen analysis results from 05/01/18 - Pt went took lab -results in [facility] Lynette Bell DO, MBA 05/04/2018 3:43 PM SignedNo motile sperm seen. He has sperm present, but they are not motileTherefore he is clearedMayuri Huerta Cma 05/05/2018 8:38 AM SignedPt called the office. Notified.Mayuri Huerta CmaAllergies As of Date: 05/04/2018 Noted Allergy ReactionHYDROCODONE-ACET AMINOPHEN 11/29/2017 8 - GI UpsetDate Reviewed: 12/29/2017Reviewed by: Vilma Souza [employer] F[employer]ILITIES RENTAL MANAGER - Fully AssessedReason for Visit: Results [95]Prescriptions [...] Status:Closed by LISETTE BELL on 05/04/18 Normal [facility] Vital Signs Date Time Vital Sign Value Performing Clinician Cecilia burdick 03-20-2025 10:47-0400 Body temperature 98.1 [degF] No Primary Care Physician [facility] 03-20-2025 10:47-0400 Diastolic blood pressure 94 mm[Hg] No Primary Care Physician [facility] 03-20-2025 10:47-0400 Heart rate 84 /min No Primary Care Physician [facility] 03-20-2025 10:47-0400 Respiratory rate 16 /min No Primary Care Physician [facility] 03-20-2025 10:47-0400 SaO2% (BldA) [Mass fraction] 100 % No Primary Care Physician [facility] 03-20-2025 10:47-0400 Systolic blood pressure 136 mm[Hg] No Primary Care Physician [facility] 03-20-2025 07:33-0400 Body height 182.88 cm No Primary Care Physician [facility] 03-20-2025 07:33-0400 Body mass index (BMI) [Ratio] 24.5 kg/m2 No Primary Care Physician [facility] 03-20-2025 07:33-0400 Body weight 81.87 kg No Primary Care Physician [facility] 02-16-2025 14:17-0400 Body temperature 98.2 [degF] No Primary Care Physician [facility] 02-16-2025 14:17-0400 Diastolic blood pressure 78 mm[Hg] No Primary Care Physician [facility] 02-16-2025 14:17-0400 Heart rate 72 /min No Primary Care Physician [facility] 02-16-2025 14:17-0400 Respiratory rate 16 /min No Primary Care Physician [facility] 02-16-2025 14:17-0400 SaO2% (BldA) [Mass fraction] 97 % No Primary Care Physician [facility] 02-16-2025 14:17-0400 Systolic blood pressure 145 mm[Hg] No Primary Care Physician [facility] 02-16-2025 10:32-0400 Body height 182.88 cm No Primary Care Physician [facility] 02-16-2025 10:32-0400 Body mass index (BMI) [Ratio] 24.5 kg/m2 No Primary Care Physician [facility] 02-16-2025 10:32-0400 Body weight 82.1 kg No Primary Care Physician [facility] 08-06-2022 14:41-0500 Body height 182.9 cm Annamaria Magallon [employer] Work Phone: [facility] 08-06-2022 14:41-0500 Body temperature 97.7 [degF] Annamaria Sherita [employer] INTER[employer]ER[employer] Work Phone: [facility] 08-06-2022 14:41-0500 Body weight 78.16 kg Annamaria Sherita [employer] INTERCEPT CONTROLLER[employer] Work Phone: [facility] 08-06-2022 14:41-0500 Diastolic blood pressure 92 mm[Hg] Annamaria Sherita [employer] INTERCEPT CONTROLLER[employer] Work Phone: [facility] 08-06-2022 14:41-0500 Heart rate 100 /min Annamaria Sherita [employer] INTERCEPT [employer] Work Phone: [facility] 08-06-2022 14:41-0500 SaO2% (BldA) [Mass fraction] 95 % Annamaria Magallon [employer] INTER[employer] Work Phone: [facility] 08-06-2022 14:41-0500 Systolic blood pressure 127 mm[Hg] Annamaria Magallon [employer] INTERCEPT [employer] Work Phone: [facility] 05-28-2022 08:58-0400 Diastolic blood pressure 92 mm[Hg] [facility] Work Phone: 05-28-2022 08:58-0400 Respiratory rate 16 /min [facility] Work Phone: 05-28-2022 08:58-0400 SaO2% (BldA) [Mass fraction] 98 % [facility] Work Phone: 05-28-2022 08:58-0400 Systolic blood pressure 140 mm[Hg] [facility] Work Phone: 05-28-2022 07:08-0400 Body height 182.88 cm [facility] Work Phone: 05-28-2022 07:08-0400 Body mass index (BMI) [Ratio] 23.8 kg/m2 [facility] Work Phone: 05-28-2022 07:08-0400 Body temperature 97.4 [degF] [facility] Work Phone: 05-28-2022 07:08-0400 Body weight 79.83 kg [facility] Work Phone: 05-28-2022 07:08-0400 Heart rate 105 /min [facility] Work Phone: Encounters Encounter Date Encounter [...] 12-19-2022 Refill Radha Floyd DO Work Phone: [facility] [place] Comment on above: Refill Request Start: 10-07-2022 Telephone encounter Radha Floyd DO Work Phone: [facility] Comment on above: Medication Problem Start: 08-06-2022 End: 08-06-2022 Patient encounter procedure Annamaria Magallon [employer] Work Phone: Family Medicine Comment on above: Wheezing (Primary Dx ); Sinus congestion; Encounter to establish care Start: 06-03-2022 End: 06-03-2022 ambulatory [facility] Work Phone: Start: 06-03-2022 End: 06-03-2022 Patient encounter procedure [facility]-Laboratory, Specimen Start: 05-28-2022 End: 05-28-2022 Emergency department patient visit [facility]Emergency Department Procedures Date Procedure Procedure Detail Performing [...] Date Care Activity Detail Author Start: 03-20-2025 [facility] Start: 02-16-2025 [facility] Start: 09-05-2023 Depression Assessment Depression Assessment [facility] Start: 05-06-2023 Influenza vaccination [facility] Start: 09-05-2022 DEPRESSION ASSESSMENT DEPRESSION ASSESSMENT [facility] Start: 05-06-2022 Influenza vaccination INFLUENZA (#1) [facility] Start: 09-05-2021 DEPRESSION ASSESSMENT DEPRESSION ASSESSMENT [facility] Start: 2019 COLOGUARD (FIT-DNA) COLOGUARD (FIT-DNA) [facility] Start: 2019 Colonoscopy COLONOSCOPY [facility] Start: 2019 COLORECTAL CANCER SCREENING COLORECTAL CANCER SCREENING [facility] Start: [address] COLONOGRAPHY [facility] Start: 2019 DIABETES SCREEN DIABETES SCREEN [facility] Start: 2019 Diabetes Screening Diabetes Screening [facility] Start: 2019 FECAL OCCULT BLOOD FECAL OCCULT BLOOD [facility] Start: 2019 Screening for malignant neoplasm of colon [facility] Start: 2019 SIGMOIDOSCOPY SIGMOIDOSCOPY [facility] Start: 2009 Lipid panel Lipid Screening [facility] Start: 2009 LIPID SCREEN LIPID SCREEN [facility] Start: 1993 Urine microalbumin profile [facility] Start: 1992 HEPATITIS C SCREENING HEPATITIS C SCREENING [facility] Start: 1992 Hepatitis C screening Hepatitis C Screening [facility] Start: 1992 HIV SCREENING HIV SCREENING [facility] Start: 1992 HIV screening HIV Screening [facility] Start: 02-14-1975 COVID-19 VACCINE (#1) COVID-19 VACCINE (#1) [facility] Start: 1975 HEPATITIS B (1 of 3 - 3-dose series) HEPATITIS B (1 of 3 - 3-dose series) [facility] Start: 1974 Hepatitis B Vaccine (1 of 3 - 3-dose series) Hepatitis B Vaccine (1 of 3 - 3-dose series) [facility] Calculus analysis [facility] Work Phone: Measurement of weigh t of calculus [facility] Work Phone: [facility] Work Phone: Patient Education [facility] Work Phone: Patient referral [facility] Work Phone: Specimen color determination [facility] Work Phone: [facility] Immunizations Immunization Date Immunization Notes Care Provider Armando villalobos 10-31-2017 influenza virus vacc ine, unspecified formulation Radha Floyd DO Work Phone: [facility] Payers Date Payer Category Payer Private Health Insurance [id number] 2025 Self-pay [id number] 2015 Unknown [employer] PPO OOS [id number] 2015-Present [phone] [address] [place] [address] PPO [id number] Unknown [id number] Unknown [id number] Unknown [id number] Social History Date Type Detail Facility Start: 05-28-2022 Tobacco smoking stat [facility] Unknown if ever smoked [facility] Work Phone: Start: 1975 Sex Assigned At Male [facility] Start: 04-11-2012 End: 03-20-2025 Tobacco smoking status VAIS Never smoked tobacco [facility] Start: 04-11-2012 Tobacco use and exposure Smoke less tobacco non-user [facility] Start: 08-06-2022 End: 09-20-2022 Alcohol intake Current non-drinker of alcohol (finding) [facility] Start: 08-06-2022 History SDOH Alcohol Frequency 1 [facility] Start: 08-06-2022 History SDOH Alcohol Std Drinks 0 [facility] Start: 08-06-2022 History SDOH Social Connections Phone 2 [facility] Start: 08-06-2022 History SDOH Social Connections Get Together 3 [facility] Start: 08-06-2022 History SDOH Physica l Activity MPS 4 [facility] Start: 08-06-2022 History SDOH Financial 5 [facility] Start: 1975 Sex Assigned At Not on file [facility] Start: 07-27-2022 End: 08-06-2022 Exposure to SARS-CoV-2 (event) Not sure [facility] Start: 08-05-2022 End: 09-19-2022 History of Social function [facility] Start: 08-05-2022 End: 09-19-2022 Social connection and isolation panel [facility] Do you belong to any clubs or organizations such as adventist groups, unions, fraternal or athletic groups, or school groups? No [facility] Are you now , , , , never or living with a partner? [facility] How often to you hav e a drink containing alcohol? Never [facility] How many standard dr inks containing alcohol do you have on a typical day? Patient does not drink [facility] Do you feel stress - tense, restless, nervous, or anxious, or unable to sleep at night because your mind is troubled all the time - these days [OSQ] Only a little [facility] (I/We) worried the [facility] (my/our) food would run out before (I/we) got money to buy more. Never true [facility] Clinical Notes 05-26-2012 to 03-20-2025 Telephone Encounter - Indio Tian - 11/09/2023 8:58 AM ESTTelephone Encounter - Radha Mario - 11/07/2023 5:21 PM ESTAddendum Note - Radha Floyd DO - 10/07/2022 1:40 PM EST Note Date & Type Note Facility 03-20-2025 Discharge summary [facility] 03-20-2025 Radiology Diagnostic study note [facility] Imaging Services [address] [place] [address] Abdomen/Pelvis without Cont MR#: [id number] Acct: [id number] Name: BRITTA SUTHERLAND Rep #: [id number] : 1975 M 49 From: Renata Rajan MD PCP: Care Physician,No Primary Status: REG ER Study:Abdomen/Pelvis without Cont Date of Exa m: 03/20/25 Exam# [id number] Ordering Dr: Dangelo Rodriguez MD EXAM: CT [...] 2. Hepatomegaly with fatty infiltration. Reading Location: [facility] CC: Dr. Williams Rodriguez MD; No Primary Care Physician ~ Road Monkey: Signed [facility] 02-16-2025 Radiology Diagnostic study note [facility] Imaging Services [address] [place] [address] Abdomen/Pelvis without Cont MR#: [id number] Acct: [id number] Name: BRITTA SUTHERLAND Rep #: [id number] : 1975 M 49 From: Kemi Bonilla MD PCP: Care Physician,No Primary Status: REG ER Study:Abdomen/Pelvis without Cont Date of Exa m: 02/16/25 Exam# [id number] Ordering Dr: Hector Chacko MD PROCEDURE: ABDOMEN/PELVIS [...] mesenteric stranding may reflect panniculitis. Reading Location: [id number] CC: Dr. Hector Chacko MD; No Primary Care Physician ~ Road Monkey: Signed [facility] 11-09-2023 Miscellaneous Notes 2nd attempt left vm 1st attempt to reschedule Britta's 11/22/23 Dr. Floyd appointment, I left a voicemail and sent a [employer] message. Please note: He is not a new patient, he is established, and if he needs to discuss refills for asthma medications, he can see Annamaria sooner than Dr. Floyd's next available appointment, if he wishes. Radha Mario documented in this encounter [facility] 10-07-2022 Miscellaneous Notes Addended by: RADHA FLOYD on: 10/07/2022 01:40 PM Modules accepted: Orders Not sure if symbicort is cheaper but I called it in calling the QVAR is too expensive, is there an alternative that can be sent in? Thanks documented in this encounter [facility] 08-06-2022 History of Present illness Narrative Images from the original note were not included. This note was created using Skadooshriter. Subjective Britta Sutherland is a 46 year [...] by the patient and the spouse. No world language teacher was used. Review of Systems Constitutional: Negative [...] normal. No congestion or rhinorrhea. Mouth/Throat: Lips: [place]. Mouth: Mucous membranes are moist. Pharynx: Oropharynx [...] or worsening symptoms. Terrance Russ TEACHING PROVIDER (Physician/PA/AIR INTERCEPT CONTROLLER) NOTE OF PERSONAL INVOLVEMENT IN CARE: I have personally seen and examined the patient and performed the medical decision-making components. I have reviewed the Advanced Practice Registered Nurse (AIR INTERCEPT CONTROLLER) Student's documentation and verified the findings in the note as written. Any additions or changes are noted in bold/italics. Signature: Annamaria Magallon CNP Date: 08/06/2022 Time: 4:11 PM documented in this encounter [facility] 05-26-2012 History of Past i llness Narrative Problem Noted Date Resolved Date Bodies, loose, joint, knee 05/26/201208/16 documented as of this encounter (statuses as of 08/06/2022) [facility]09-[facility]-2012 History of Past illness Narrative* Problem Noted Date Resolved Date Bodies, loose, joint, knee 05/26/201208/16 documented as of this encounter (statuses as of 10/07/2022) [facility] History of Past illness Narrative* Problem Noted Date Resolved Date Bodies, loose, joint, knee 05/26/201208/16 documented as of this encounter (statuses as of 12/20/2022) [facility] History of Past illness Narrative* Problem Noted Date Diagnosed Date Resolved Date Bodies, loose, joint, knee 05/26/2012 1 10/17/2011 documented as of this encounter (statuses as of 11/09/2023) [facility] Williams Rodriguez [facility] Note Date/Time March 20, 2025 10:2 7am [facility] Medical Records Department [address] [place] [address] Emergency Department Summary 03/20/25 MR#: [id number] Acct: [id number] Name: BRITTA SUTHERLAND Rep #:[id number] : 1975 49 From: Williams Rodriguez MD [...] 78.2 H Lymph % (Auto) 9.1 L [place] % (Auto) 9.8 Eos % (Auto) 2.0 [...] Clarity Clear Urine pH 6.0 Ur Specific [place] 1.015 Urine Protein 15 H Urine Glucose [...] 2. Hepatomegaly with fatty infiltration. Reading Location: [facility] Review of CT reveals bilateral renal [...] stones and obstructing ureteral stone. Print Language: Yoruba Disposition Disposition: Home, Self Care What to do if you have Problems For any increased pain, shortness of breath, bleeding, nausea or vomiting, chestpain, or any unexpected problems, contact your Primary Care Provider. Call [facility] ([phone]) or report to the closest Emergency Room. Call 911 if necessary. 03/20/25 1027 <Electronically signed by Williams Rodriguez MD> Cosigner Signature (if applicable): CC: No Primary Care Physician ~ Signed [facility] Work Phone: Evaluation noteNo assessment information available [facility] Work Phone: Evaluation note* Diagnosis Wheezing- Primary Sinus congestion Other diseases of nasal cavity and sinuses Encounter to establish care Other reasons for seeking consultation documented in this encounter [facility]ezing [facility] Additional Instructions Return if you have a temperature greater than 100, unable to eat or drink anything or pain is not controlled by medication prescribed. Do not take any ibuprofen or Aleve because your creatinine is elevated. You are referred to Dr. Drake because you do not have a doctor and needs your blood pressure reassessed and additional blood work.[facility] Work Phone: Hospital Discharge instructions Additional Instructions Medication as directed. Follow-up with urology within the next week. Return to the emergency department with fever, inability to take medications, increased pain while on medication, new or worsening symptoms.[facility] Work Phone: Hospital Discharge instructionsAdditional Instructions You need to follow-up with Dr. Woods to evaluate your blood pressure and kidney function. You are referred to Dr. Brown for follow-up regarding your kidney stones and obstructing ureteral stone.[facility] Work Phone: Reason for referral (narrative)No reason for referral information availableWOhioHealth [facility] Work Phone: Summary Purpose Family History No Family History Records FoundNo Family History Records FoundNo Family History Records Found Advance Directives No Advanced Directives Records Found Advance Directive Response Recorded Date/ Time Living Will No May 28, 2022 7:11am Power of [employer] Logger No May 7:11am Advance Directive Response Recorded Date/ Time Do you have a Healthcare Power of [employer] Logger? No February 16, 2025 12:00pm Advance Directive Response Recorded Date/ Time Do you have a Healthcare Power of [employer] Logger? No February 16, 2025 12:00pm Do you have a Healthcare Power of [employer] Logger? No March 20, 2025 7:59am Chief Complaint [...] and content) DATE CREATED AUTHOR 08/14/2018 [facility] DATE CREATED AUTHOR AUTHOR'S ORGANIZ ATION 11/12/2023 [facility] DATE CREATED AUTHOR AUTHOR'S ORGANIZ ATION 03/23/2025 [facility] Goals (unrecognized section and content) Goals [...] or prosecute any alcohol or drug abuse patient.[facility] the event this information is protected by the Federal Confidentiality of Alcohol and Drug Abuse Patient Records regulations: The Federal rules restrict any use of the information to criminally investigate or prosecute any alcohol or drug abuse patient.[facility] the event this information is protected by the Federal Confidentiality of Alcohol and Drug Abuse Patient Records regulations: The Federal rules restrict any use of the information to criminally investigate or prosecute any alcohol or drug abuse patient.[facility] the event this information is protected by the Federal Confidentiality of Alcohol and Drug Abuse Patient Records regulations: The Federal rules restrict any use of the information to criminally investigate or prosecute any alcohol or drug abuse patient.[facility] Reason for Visit (unrecogniz ed section and content) Reason Comments Establish Care Cough, wheezing, SOB , congestion Reason Comments Medication Problem Reason Comments Refill Request Reason Comments Appointment Care Teams (unrecognized sec tion and content) [employer] Relationship Specialty Start Date End Date Radha Floyd DO [address] [place], [place] [id number] PCP - General Family Medicine 11/07/23 Team [...] BE BASED ON THE PRIMARY CLINICAL RECORDS. [employer] provides no warranty or guarantee of the accuracy or completeness of information in this document.
[2025-03-24 05:54] LABS: Mucous, Urine 0 SEEN /hpf (<or=2+); Squamous Epithelial Cells - UA 0 SEEN /hpf (0-5)
[2025-03-24 05:57] LABS: Color, Urine Yellow (Yellow); Glucose, Dipstick Normal (Normal); Ketone-Dipstick 50 mg/dl (Negative); Leukocyte Esterase-Dipstick 100 /ul (Negative); Nitrite-Dipstick Negative (Negative); Occult Blood-Urine 250 /ul (Negative); Protein-Dipstick 100 mg/dl (Negative); Specific Gravity, Urine 1.020 (1.002-1.030); Urine Bilirubin Dipstick Negative (Negative)
[2025-03-24 05:57] LABS: Hematocrit 43.8 % (40-54); Hemoglobin 15.0 g/dL (13.0-16.5); Immature Granulocytes Count 0.010 X10^3/uL (0.0-0.0); Mean Corp Hgb Conc 34.2 g/dL (32-36); Mean Corpuscular Volume 88.1 fL (80-94); Mean Platelet Vol. 9.9 fl (6.2-12.0); NRBC Flagged by Analyzer 0 % (0-5); Platelet Count 238 K/mm3 (150-450); RBC Distribution Width CV 12.2 % (11.6-14.6); RBC Distribution Width SD 39.4 fl (35.1-43.9); Red Blood Count 4.97 M/mm3 (4.6-6.2); White Blood Count 8.7 K/mm3 (4.4-11.0)
[2025-03-24 06:05] LABS: Red Blood Cells-Urine 0-5 SEEN /hpf (0-5)
[2025-03-24 06:23] LABS: Anion Gap 13 (5-15); BUN 16 mg/dL (4-19); BUN/Creat Ratio 9.5 RATIO (10-20); Calcium,Total 9.2 mg/dL (7.6-11.0); Carbon Dioxide 23.7 mmol/L (21.0-32.0); Chloride 100 mmol/L (98-108); Estimated Creatinine Clearance 58.43 ml/min (50-250); Glucose 116 mg/dL (70-99); Potassium 4.0 mmol/L (3.3-5.1)
[2025-03-24 06:53] VITALS: BP 146/99; PULSE 86; RESP 18; O2SAT 99
[2025-03-24 07:14] VITALS: BP 146/99; PULSE 86; RESP 18; TEMP 36.7; O2SAT 99
== END 2025-03-24 07:28 | disposition home or self-care (01) ==
PROVIDERS: Emergency Provider Emergency Medicine; Visit Provider Emergency Medicine
DX: R10.32 Left lower quadrant pain (principal); N28.1 Cyst of kidney, acquired; R68.83 Chills (without fever)
CPT/HCPCS: 80048; 81001; 85025; 87086; 99283; A4216

== ENCOUNTER → 2025-06-20 | Outpatient (CLI) | payer OTHER, SELFPAY ==
--- OUTSIDE RECORDS SUMMARY | 2025-06-20 16:34 | XMS RPT_ITS | CCD ---
Author Organization [facility] Care Team Providers Care Top Cager Name Role Phone Unavailable Primary Care Provider Unavailabl e Angealycia Susan CIFUENTES Primary Care Provider [phone] Care Physician, No Primary Primary Care Provider Unavailable Hector Chacko MD Emergency Provider Hector Chacko MD Attending Provider Dr. Williams Rodriguez MD Emergency Provider [phone] Stanley Emanuel MD Emergency Provider Dr. Williams Rodriguez MD Attending Provider Care Physician, No Primary Referring Provider Un available Adrian WIRE PULLER-CEstelita Attending Provider Care Physician, No Primary Primary Care Unava ilable Hector Chacko Attending Unavailable Care Physician, No Primary Primary Care Unava ilable Williams Rodriguez Attending Unavailable Care Physician, No Primary Primary Care Unava ilable Stanley Emanuel Attending Unavailable UngEstelita middleton Attending Unavailable Care Physician, No Primary Referring Unava ilable Care Physician, No Primary Primary Care Unava ilable Allergies Allergy Classification Reported Allergen(s) Allergy Type Date of Onset Reaction(s) Facility (6 sources) Acetaminophen Drug Allergy 2 Upset Stomach [facility] (6 sources) HYDROcodone Drug Allergy 2 Upset Stomach [facility] (4 sources) Acetaminophen / HYDROcodone Drug Allergy 8 GI Upset [facility] (1 source) Acetaminophen Drug Allergy 5 [facility] (1 source) HYDROcodone Drug Allergy 5 [facility] Medications Completed/Discontinued Medications Medication Drug Class(es) Dates Sig (Normalized) Sig (Original) acetaminophen 325 mg / oxyCODONE hydrochloride 5 mg oral tablet (13 sources) Opioid Agonist Start: 05-28-2022 End: 03-24-2025 Oxycodone-Acetaminoph en 5-325 mg tablet Discontinued 1 {tbl} PO EVERY 6 HOURS NEEDED as needed for pain March 20, 2025 March 24, 2025 4:53am Hydronephrosis with urinary obstruction due to ureteral calculus Acute renal insufficiency Hydronephrosis with renal and ureteral calculous obstruction Disorder of kidney and ureter, unspecified Start: 05-28-2022 take 1 tablet by vivek th every six hours as needed Oxycodone-Acetaminophen Active 1 TABLET PO EVERY 6 HOURS NEEDED 22 01May 28, 2022 [id number] 200 actuat albuterol 0.09 mg/actuat metered dose inhaler (5 sources) beta2-Adrenergic Agonist Start: 12-20-2022 take 2 puff(s) by inhalation every six hours as needed for wheezing albuterol HFA (PROVENTIL HFA, VENTOLIN HFA) 90 mcg/actuation inhaler Indications: Wheezing INHALE 2 PUFFS INSTRUCTED EVERY 6 HOURS NEEDED FOR WHEEZING/SHORTNESS OF BREATH. 8.5 Each 1 12/20/2022 Active [...] Active Comment on above: Take by mouth. dicyclomine hydrochloride 20 mg oral tablet (2 sources) Anticholinergic Start : 03-24 End: 03-29 take 1 tablet by mouth every six hours as needed Dicyclomine 20 mg tablet Discontinued 20 mg PO EVERY 6 HOURS NEEDED as needed for abdominal discomfort 12 0 March 24, 2025 12:00am March 29, 2025 3:27pm diphenhydrAMINE hydrochloride 25 mg oral tablet (1 [...] nasal spray Indications: Sinus congestion Use 1 [place] in each nostril once daily. 18.2 mL 1 08/06/2022 Active Comment on above: Use 1 [place] in each nostril once daily. ketorolac tromethamine 10 mg oral tablet (4 sources) Nonsteroidal Anti-inflammatory Drug, Cyclooxygenase Inhibitor Start [...] yes every 4 hours as needed. ondansetron 8 mg disintegrating oral tablet (8 sources) Serotonin-3 Receptor Antagonist Start : 03-24 End: 03-29 take 1 tablet by mouth every eight hours as needed for nausea and vomiting Ondansetron 8 mg tablet,disintegratin g Discontinued 8 mg PO Q8H as needed for nausea and vomiting 12 0 March 24, 2025 12:00am March 29, 2025 3:28pm Start: 05-28-2022 End: 03-20-2025 take 1 tablet by mouth every eight hours as needed for nausea Ondansetron 4 mg tablet,disintegrating Discontinued 4 mg PO EVERY 8 HOURS NEEDED as needed for Nausea 10 May 28, 2022 12:00am March 20, 2025 8:00am sulfamethoxazole 800 mg / trimethoprim 160 mg oral tablet (2 sources) Dihydrofolate Reductase Inhibitor Antibacterial, Sulfonamide Antimicrobial Start: 03-24-2025 End: 03-29-2025 Sulfamethoxazole-Trimethopri m 800-160 mg tablet Discontinued 1 {tbl} PO TWICE A DAY 14 March 24, 2025 12:00am March 29, 2025 3:27pm tamsulosin hydrochloride 0.4 mg oral capsule (4 sources) alpha-Adrenergic Brandon Start: 02-16-2025 End: 03-20-2025 take 1 capsule by mouth once daily Tamsulosin (Flomax) 0.4 mg capsule Discontinued 0.4 mg PO DAILY 10 February 16, 2025 12:00am March 20, 2025 8:01am Problems Active Problems Problem Classification Problem Date Documented Date Episodic/Chronic Abdominal pain (9 sources) Right flank pain; Translations: [Unspecified abdominal pain] Onset: 02-16-2025 Episodic Allergic reactions (1 source) Allergic condition; Translations: [Allergy, unspecified, initial encounter] 03-29-2025 Episodic Asthma (1 source) Asthma; Translations: [Unspecified asthma, uncomplicated] 03-29-2025 Chronic Calculus of urinary tract (7 sources) Ureteric stone; Translations: [Calculus of ureter] 02-16-2025 Episodic Disorders of lipid metabolism (1 source) Hyperlipidemia; Translations: [Hyperlipidemia, unspecified] 03-29-2025 Chronic Essential hypertension (1 source) Hypertensive disorder; Translations: [Essential (primary) hypertension] 03-29-2025 Chronic Fluid and electrolyte disorders (6 sources) Mild dehydration; Translations: [Dehydration] 06-05-2022 Episodic Genitourinary symptoms and ill-defined conditions (6 sources) Blood in urine; Translations: [Hematuria, unspecified] 01-30-2020 Episodic Osteoarthritis (4 sources) Osteoarthritis of left knee joint; Translations: [Unilateral primary osteoarthritis, left knee] Onset: 2 06-07-2012 Chronic Other circulatory disease (6 sources) Elevated blood pressure; Translations: [Elevated blood-pressure reading, without diagnosis of hypertension] 06-05-2022 Episodic Other circulatory disease (3 sources) Elevated blood-pressure reading without diagnosis of hypertension; Translations: [Elevated blood-pressure reading, without diagnosis of hypertension] 03-20-2025 Episodic Other diseases of kidney and ureters (6 sources) Hydronephrosis co-occurrent and due to calculus of kidney and ureter; Translations: [Hydronephrosis with renal and ureteral calculous obstruction] 06-05-2022 Episodic Other diseases of kidney and ureters (4 sources) Hydroureteronephrosis ; Translations: [Unspecified hydronephrosis] 02-16-2025 Episodic Other diseases of kidney and ureters (3 sources) Acute renal insufficiency; Translations: [Disorder of kidney and ureter, unspecified] 03-20-2025 Episodic Other diseases of kidney and ureters (3 sources) Hydronephrosis with renal and ureteral calculous obstruction; Translations: [Hydronephrosis with urinary obstruction due to ureteral calculus] 03-20-2025 Episodic Other lower respiratory disease (2 sources) Wheezing; Translations: [Wheezing] Episodic Other screening for suspected conditions (not mental disorders or infectious disease) (6 sources) Serum creatinine raised; Translations: [Other specified abnormal findings of blood chemistry] 06-05-2022 Episodic Other upper respiratory disease (1 source) Congestion of nasal sinus; Translations: [Nasal congestion] Episodic Residual codes; unclassified (2 sources) Chill; Translations: [Chills (without fever)] 03-24-2025 Episodic Past or Other Problems Problem Classification [...] Test Name Value Interpretation Reference Range Facility Internal Medicine Office Vis itoamara 03-29-2025 Internal Medicine Office Visit [facility] [address] [place] [address] OFFICE VISIT Date of Service: 03/29/25 MR#: [id number] Acct: [id number] Name: BRITTA SUTHERLAND Rep #: [id number] : 1975 Provider: JOSE marmolejo Age/Sex: 49/M Location: [facility] Status: Signed Intake Vital Signs 03/20/25 07:33 03/24/25 04:54 03/29/25 15:29 Height 6 ft 6 ft 6 ft Weight: 173 lb BMI 23.4 BP 126/74 H Blood Pressure Location Lt brachial Position Sitting Respiration 16 Pulse 95 Pulse Source Monitor Temp 96.9 F L Temp Source Temporal Pulse Oximetry (%) 98 Oxygen Delivery Method room air Intake Visit Reasons: [facility] FOLLOW UP - EST IN Chief Complaint: [facility] er kidney stones Door To Door Fundraising Collector Required: No Accompanied by: Self Is patient in pain?: No Allergies acetaminophen (From Vicodin) Allergy (Verified 03/29/25 15:11) Upset Stomach hydrocodone (From Vicodin) Allergy (Verified 03/29/25 15:11) Upset Stomach Medications ???Medication ???Instructions ???Recorded ???Confirmed ???Type oxycodone-acetaminophen 5 mg-325 1 tab PO Q6H PRN pain 3 days #12 0 02/16/25 03/29/25 Rx mg tablet (Percocet) tabs Nurse's Note: passed kidney stones and feeling much relief [facility] Medical History Hyperlipidemia Hypertension Allergies Asthma Kidney stones Knee fracture, left Surgical History H/O vasectomy Family History Other Arthritis Asthma CVA (cerebral vascular accident) Social History (Updated 03/29/25 @ 15:26 by Ariela Renee) adopted: No household members: spouse housing: house service: No current occupational status: employed 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 ) pets and animals: Yes pets and animals: turtle(s) leisure activities: volunteer work and other history of recent travel: Yes out of state: Yes out of country: No sexually active: Yes do you think of yourself as: straight/heterosexual current gender identity: male Smoking Status: Never smoker alcohol intake: never substance use type: does not use diet: low carbohydrate well-balanced diet: rarely or never caffeine: No eating out: 4 or more times/week during the past year weight has: remained stable what type of physical activity do you participate in: none and walking How many days of moderate to strenuous exercise, like a brisk walk, did you do in the last 7 days: 2 frequency: 1-2 times per week duration: 15-30 minutes/day jett/pentecostalism: Jewish seatbelt use: always do you feel safe at home: Yes HPI HPI Chief Complaint: [facility] stones Details: BRITTA SUTHERLAND, is a 49 M who presents to the office today for follow-up from hospital emergency department visit on 03/24/2025. Patient was seen for kidney stones. Patient has history of kidney stones with seeing urology in the past. Previous kidney stone was mostly calcium in composition. Today patient denies any pain denies difficulty urinating denies frequency urgency or dysuria. No nausea vomiting diarrhea. No chest pain no shortness of breath no abdominal pain no diarrhea. Patient's main concern is regarding diet as he states conflicting information from some of the discharge paperwork and information that he has independently looked at on the Internet. ROS Const Constitutional: No body ache, excessive sweating, fatigue, fever(s), frequent falls, headache(s), snoring, weakness, weight change, sleep problems or change in appetite Eyes Eyes: No blurry vision, change in vision, eye pain or Light sensitivity ENT ENT: No abnormal hearing, ear or mastoid pain, tinnitus, nasal congestion, headache(s), neck pain or sore throat Resp Respiratory: No cough, shortness of breath, snoring or wheezing Cardio Cardiology: No chest pain at rest, chest pain with exertion, excessive sweating, shortness of breath, dyspnea on exertion, lightheadedness, orthopnea or palpitations Gastro GI: No abdominal pain, change in bowel habits, constipation, cramping, diarrhea, nausea/dyspepsia or vomiting Genitourinary Male: No burning urination, painful urination, urinary incontinence, urinary frequency or blood in urine Musc Musculoskeletal: No abnormal gait, joint pain, back pain, limited range of motion, neck pain, numbness, stiffness, tingling or Arthritis Skin Skin: No dry skin, redness, lesions, itchy eyes, rash or wounds Neuro Neurology: No abnormal gait, abnormal hearing, abnormal speech, dizziness, weakness, frequent falls, headache(s), memory loss, numbness or tingling Psych Psychiatric: No anxiety, No change in appetite, No depression, No memory loss and No Thoughts of harming yourself/Oth (more content not included)... Normal [facility] Urine Cultureon 03-25-2025 URC Culture exhibits no growth. Normal [facility] Comment on above: Performed By: #### M [id number] #### [facility] [address], [address] Absolute lymphocyte countOrd ered By: Stnaley Emanuel on 03-24-2025 Lymphocytes Auto (Unsp spec) [#/Vol] 0.86 10*3/uL 0.83-4.51 [facility] Absolute neutrophil countOrd ered By: Stanley Emanuel on 03-24-2025 Neutrophils (Bld) [#/Vol] 6.8 10*3/uL 2.0-7.7 [facility] Anion gap in Serum or Plasma Ordered By: Stanley Emanule on 03-24-2025 Anion gap [Moles/Vol] 13 mmol/L 5-15 [facility] Automated lymphocyte count a s percentage of total leukocytesOrdered By: Stanley Emanuel on 03-24-2025 Lymphocytes/100 WBC Auto (Unsp spec) 9.9 % Low 19-41 [facility] BUN/creatinine ratioOrdered By: Stanley Emanuel on 03-24-2025 Urea nitrogen/Creatinine [Mass ratio] 9.5 mg/mg Low 10- [facility] Basic Metabolic Profile (BMP )on 03-24-2025 BUN/CRE 9.5 RATIO Low 10- [facility] Comment on above: Performed By: #### L 100.0100, L500.2500 #### [facility] [address] [place], [address] Calcium [Mass/Vol] 9.2 mg/dL Normal 7.6-11.0 [facility] Comment on above: Performed By: #### L 100.0100, L500.2500 #### [facility] [address] [place], [address] Chloride [Moles/Vol] 100 mmol/L Normal 98-108 [facility] Comment on above: Performed By: #### L 100.0100, L500.2500 #### [facility] [address] [place], [address] CO2 [Moles/Vol] 23.7 mmol/L Normal 21.0-32.0 [facility] Comment on above: Performed By: #### L 100.0100, L500.2500 #### [facility] [address] [place], [address] Creatinine [Mass/Vol] 1.66 mg/dL High 0.70-1.20 [facility] Comment on above: Performed By: #### L 100.0100, L500.2500 #### [facility] [address] [place], [address] ECRCL 58.43 ml/min Normal 50-250 [facility] Comment on above: Performed By: #### L 100.0100, L500.2500 #### [facility] [address] [place], [address] GAP 13 Normal 5-15 [facility] Comment on above: Performed By: #### L 100.0100, L500.2500 #### [facility] [address] [place], [address] GFR/1.73 sq M.predicted among non-blacks MDRD (S/P/Bld) [Vol rate/Area] 50 mL/min/{1.73_m2} Low >60 [facility] Comment on above: Result Comment: mL/m in/1.73m2 CKD-EPI Creatinine Equation (2020) Performed By: #### L 100.0100, L500.2500 #### [facility] [address] [place], [address] Glucose [Mass/Vol] 116 mg/dL High 70-99 [facility] Comment on above: Performed By: #### L 100.0100, L500.2500 #### [facility] [address] [place], [address] Potassium [Moles/Vol] 4.0 mmol/L Normal 3.3-5.1 [facility] Comment on above: Performed By: #### L 100.0100, L500.2500 #### [facility] [address] [place], [address] Sodium [Moles/Vol] 137 mmol/L Normal 133-145 [facility] Comment on above: Performed By: #### L 100.0100, L500.2500 #### [facility] [address] [place], [address] Urea nitrogen [Mass/Vol] 16 mg/dL Normal 4-19 [facility] Comment on above: Performed By: #### L 100.0100, L500.2500 #### [facility] [address] [place], [address] Basophil percentageOrdered B y: Stanley Adelfo on 03-24-2025 Basophils/100 WBC (Bld) 0.5 % 0-1 [facility] Bilirubin Test strip Ql (U)O rdered By: Stanley Emanuel on 03-24-2025 Bilirubin Ql (U) Negative Negative [facility] CBC W/Diff, Automatedon 03-06 Absolute Lymph 0.86 X10 3/uL Normal 0.83-4.51 [facility] Comment on above: Performed By: #### L 100.0100, L500.2500 #### [facility] [address] [place], [address] Absolute Neut 6.8 X10 3/uL Normal 2.0-7.7 [facility] Comment on above: Performed By: #### L 100.0100, L500.2500 #### [facility] [address] [place], [address] Basophils/100 WBC (Bld) 0.5 % Normal 0-1 [facility] Comment on above: Performed By: #### L 100.0100, L500.2500 #### [facility] [address] [place], [address] Eosinophils/100 WBC (Bld) 1.6 % Normal 0-5 [facility] Comment on above: Performed By: #### L 100.0100, L500.2500 #### [facility] [address] [place], [address] Erythrocyte distribution width (RBC) [Ratio] 12.2 % Normal 11.6-14.6 [facility] Comment on above: Performed By: #### L 100.0100, L500.2500 #### [facility] [address] [place], [address] Hematocrit (Bld) [Volume fraction] 43.8 % Normal 40-54 [facility] Comment on above: Performed By: #### L 100.0100, L500.2500 #### [facility] [address] [place], [address] Hemoglobin (Bld) [Mass/Vol] 15.0 g/dL Normal 13.0-16.5 [facility] Comment on above: Performed By: #### L 100.0100, L500.2500 #### [facility] [address] [place], [address] IG% 0.100 Normal 0.0-0.9 [facility] Comment on above: Result Comment: IG% - Immature Granulocytes (promyelocytes, myelocytes and metamyelocytes) > 1% indicates that a LEFT SHIFT is Present. Performed By: #### L 100.0100, L500.2500 #### [facility] [address] [place], [address] Lymphocytes/100 WBC (Bld) 9.9 % Low 19-41 [facility] Comment on above: Performed By: #### L 100.0100, L500.2500 #### [facility] [address] [place], [address] MCH (RBC) [Entitic mass] 30.2 pg Normal 27.0-32.0 [facility] Comment on above: Performed By: #### L 100.0100, L500.2500 #### [facility] [address] [place], [address] MCHC (RBC) [Mass/Vol] 34.2 g/dL Normal 32-36 [facility] Comment on above: Performed By: #### L 100.0100, L500.2500 #### [facility] [address] [place], [address] MCV (RBC) [Entitic vol] 88.1 fL Normal 80-94 [facility] Comment on above: Performed By: #### L 100.0100, L500.2500 #### [facility] [address] [place], [address] Monocytes/100 WBC (Bld) 10.3 % High 0-10 [facility] Comment on above: Performed By: #### L 100.0100, L500.2500 #### [facility] [address] [place], [address] Neutrophils/100 WBC (Bld) 77.6 % High 47-70 [facility] Comment on above: Performed By: #### L 100.0100, L500.2500 #### [facility] [address] [place], [address] Nucleated RBC (Bld) [#/Vol] 0 10*3/uL Normal 0-5 [facility] Comment on above: Performed By: #### L 100.0100, L500.2500 #### [facility] [address] [place], [address] Platelet mean volume (Bld) [Entitic vol] 9.9 fL Normal 6.2-12.0 [facility] Comment on above: Performed By: #### L 100.0100, L500.2500 #### [facility] [address] [place], [address] Platelets (Bld) [#/Vol] 238 10*3/uL Normal 150-450 [facility] Comment on above: Performed By: #### L 100.0100, L500.2500 #### [facility] [address] [place], [address] RBC (Bld) [#/Vol] 4.97 10*6/uL Normal 4.6-6.2 [facility] Comment on above: Performed By: #### L 100.0100, L500.2500 #### [facility] [address] [place], [address] RDW SD 39.4 fl Normal 35.1-43.9 [facility] Comment on above: Performed By: #### L 100.0100, L500.2500 #### [facility] [address] [place], [address] WBC (Bld) [#/Vol] 8.7 10*3/uL Normal 4.4-11.0 [facility] Comment on above: Performed By: #### L 100.0100, L500.2500 #### [facility] [address] [place], [address] Carbon dioxide, total [Moles /volume] in Central venous bloodOrdered By: Stanley Emanuel on 03-24-2025 CO2 [Moles/Vol] 23.7 mmol/L 21.0-32.0 [facility] Chloride assayOrdered By: Addison Emanuel on 03-24-2025 Chloride [Moles/Vol] 100 mmol/L 98-108 [facility] Emergency Department Summary on 03-24-2025 Emergency Department Summary [facility] Medical Records Department [address] [place] [address] Emergency Department Summary 03/24/25 MR#: [id number] Acct: [id number] Name: BRITTA SUTHERLAND Rep #: [id number] : 1975 49 From: Stanley Emanuel MD PCP: Care Physician,No Primary Status:DEP ER Location: ED HPI History of Present Illness Chief Complaint: Flank Pain Informant: patient Narrative Narrative: 49-year-old male was seen here about 4 days ago for similar pain, told he may have a kidney stone, he states the pain continues. He is having episodes of pain and states currently the pain is gone. It is mostly focused in his left low back, sometimes he feels it in his lower mid abdomen. He states he has been nauseated, has had some subjective chills unclear if his had any fevers or not, he denies any dysuria or gross hematuria. No testicular pain. No vomiting. No coughing or shortness of breath. Sometimes the pain is in his left side. No more pain on the right he had a stone a couple months ago there. [facility] Medical History Kidney stones Knee fracture, left Home Medications ???Medication ???Instructions ???Recorded ???Last Taken ???Type oxycodone-acetaminophen 5 mg-325 1 tab PO Q6H PRN pain 3 days #12 0 02/16/25 03/23/25 Rx mg tablet (Percocet) tabs dicyclomine 20 mg tablet 20 mg PO Q6H PRN PRN abdominal Unknown Rx discomfort #12 tabs ondansetron 8 mg disintegrating 8 mg PO Q8H PRN nausea and 5 Unknown Rx tablet vomiting #12 tabs sulfamethoxazole 800 1 tab PO BID #14 TABLETS 03/24/25 Unknown Rx mg-trimethoprim 160 mg tablet Allergy/AdvReac Type Severity Reaction Status Date / Time acetaminophen (From Vicodin) Allergy Upset Verified 03/24/25 04:53 Stomach hydrocodone (From Vicodin) Allergy Upset Verified 03/24/25 04:53 Stomach Social History household members: spouse Smoking Status: Never smoker alcohol intake: never substance use type: does not use ROS ROS ED Constitutional Constitutional ED: Denies chills or fever(s) Eyes Eyes: Denies change in vision or diplopia ENT ENT ED: Denies rhinorrhea or sore throat Cardiovascular Cardiovascular: Denies chest pain or palpitations Respiratory/Chest Respiratory/Chest: Denies cough or dyspnea Gastrointestinal Gastrointestinal: Reports abdominal pain and nausea; Denies diarrhea or vomiting Genitourinary Genitourinary ED: Denies dysuria or hematuria Musculoskeletal Musculoskeletal: Reports back pain; Denies neck pain Integumentary Denies abscess or rash Neurologic Neurologic: Denies headache(s), paresthesias or weakness Psychiatric Psychiatric: Denies anxiety or suicidal thoughts EXAM Physical Exam Const Vital Signs: 03/24/25 04:54 Temperature 98.3 F Temperature Source Temporal Pulse Rate 112 H Respiratory Rate 18 Blood Pressure 158/112 H Blood Pressure Mean 127 Pulse Ox 98 Oxygen Delivery Method Room Air Positive well nourished and well developed General Appearance ED: well developed and NAD HEENT Reports moist mucous membranes normocephalic and atraumatic Eyes PERRL and EOMs intact bilaterally Neck full ROM and supple Resp normal respiratory effort and clear to auscultation bilaterally Cardio regular rate, regular rhythm and no murmurs GI non-tender and non-distended Auscultation: normoactive bowel sounds Palpation: soft Back/Spine no CVA tenderness General Back: other FROM Extremity normal to inspection General Extremety ED: Negative for edema, pulses abnormal or tenderness General Extremity: Negative for edema or pulses abnormal Neuro oriented x3, CN's II-XII intact bilaterally and no sensory deficits noted Sensorium / Orientation: awake and alert Motor Exam: strength 5/5 throughout Skin no rashes or lesions noted and no wounds MDM MDM MDM Narrative Medical decision making narrative: I reviewed the patient's ED chart from 4 days ago, his CT resulted showing no ureterolithiasis or obstructive uropathy and resolution of the stone in the ureter on the right, and no nephrolithiasis. I discussed this with the patient and he seemed confused as this is contrary to what he was told, but I also reviewed the images, and I agree with this interpretation that there are some renal cysts but no evidence of nephrolithiasis, hydronephrosis, or ureterolithiasis. He states he was taking oxycodone but after an hour and a half he would still be having severe pain so he stopped taking that and he stopped taking NSAIDs because his creatinine was elevated. He has not been able to follow-up yet it is Tuesday morning/Tuesday night. He states his urine is discolored and a little orange (more content not included)... Normal [facility] Eosinophil percentageOrdered By: Stanley Emanuel on 03-24-2025 Eosinophils/100 WBC (Bld) 1.6 % 0-5 [facility] Erythrocyte distribution wid th ratioOrdered By: Stanley Emanuel on 03-24-2025 Erythrocyte distribution width (RBC) [Ratio] 12.2 % 11.6-14.6 [facility] Erythrocyte distribution wid th standard deviationOrdered By: Stanley Emanuel on 03-24-2025 Erythrocyte distribution width (RBC) [Ratio] 39.4 fl 35.1-43.9 [facility] Glomerular filtration rate ( GFR) estimation/1.73 sq m using serum, plasma, or whole bOrdered By: Stanley Emanuel on 03-24-2025 GFR/1.73 sq M.predicted among non-blacks MDRD (S/P/Bld) [Vol rate/Area] 50 mL/min/{1.73_m2} Low >60 [facility] Comment on above: mL/min/1.73m2 CKD-EP I Creatinine Equation (2020) Hematocrit Auto (Bld) [Volum e fraction]Ordered By: Satnley Emanuel on 03-24-2025 Hematocrit (Bld) [Volume fraction] 43.8 % 40-54 [facility] Hemoglobin measurementOrdere d By: Stanley Emanuel on 03-24-2025 Hemoglobin (Bld) [Mass/Vol] 15.0 g/dL 13.0-16.5 [facility] Immature granulocytes/100 WB C Auto (Bld)Ordered By: Stanley Emanuel on 03-24-2025 Immature granulocytes/100 WBC (Bld) 0.100 % 0.0-0.9 [facility] Comment on above: IG% - Immature Granu locytes (promyelocytes, myelocytes and metamyelocytes) > 1% indicates that a LEFT SHIFT is Present. Ketones Test strip Ql (U)Ord ered By: Stanley Emanuel on 03-24-2025 Ketones Ql (U) 50 mg/dl High Negative [facility] MCV (mean corpuscular volume ) determinationOrdered By: Stanley Emanuel on 03-24-2025 MCV (RBC) [Entitic vol] 88.1 fL 80-94 [facility] Mean corpuscular hemoglobin (MCH) determinationOrdered By: Stanley Emanuel 03-24-2025 MCH (RBC) [Entitic mass] 30.2 pg 27.0-32.0 [facility] Mean corpuscular hemoglobin concentration (MCHC) determinationOrdered By: Stanley Emanuel on 03-24-2025 MCHC (RBC) [Mass/Vol] 34.2 g/dL 32-36 [facility] Mean platelet volume determi nationOrdered By: Stanley Emanuel on 03-24-2025 Platelet mean volume (Bld) [Entitic vol] 9.9 fL 6.2-12.0 [facility] Microscopic analysis of urin e for red blood cells (RBC)Ordered By: Stanley Emanuel on 03-24-2025 Microscopic analysis of urine for red blood cells (RBC) 0-5 SEEN /hpf 0-5 [facility] Monocyte percentageOrdered B y: tSanley Emanuel on 03-24-2025 Monocytes/100 WBC (Bld) 10.3 % High 0-10 [facility] Mucus LM Ql (Urine sed)Order ed By: Stanley Emanuel on 03-24-2025 Mucus Ql (Urine sed) 0 SEEN /hpf [facility] Neutrophil percentageOrdered By: Stanley Emanuel on 03-24-2025 Neutrophils/100 WBC (Bld) 77.6 % High 47-70 [facility] Nitrite Test strip Ql (U)Ord ered By: Stanley Emanuel on 03-24-2025 Nitrite Ql (U) Negative Negative [facility] Nucleated red blood cell per centageOrdered By: Stanley Emanuel on 03-24-2025 Nucleated RBC/100 WBC (Bld) [Ratio] 0 % 0-5 [facility] Platelet countOrdered By: Addison Emanuel on 03-24-2025 Platelets (Bld) [#/Vol] 238 10*3/uL 150-450 [facility] Potassium measurement (mass/ volume)Ordered By: Stanley Emanuel on 03-24-2025 Potassium (Unsp spec) [Mass/Vol] 4.0 mmol/L 3.3-5.1 [facility] Protein Test strip Ql (U)Ord ered By: Stanley Emanuel on 03-24-2025 Protein Ql (U) 100 mg/dl High Negative [facility] RBC Auto (Bld) [#/Vol]Ordere d By: Stanley Emanuel on 03-24-2025 RBC (Bld) [#/Vol] 4.97 10*6/uL 4.6-6.2 [facility] Serum creatinine measurement (mass/volume)Ordered By: Stanley Emanuel on 03-24-2025 Creatinine [Mass/Vol] 1.66 mg/dL High 0.70-1.20 [facility] Serum glucose measurement (m ass/volume)Ordered By: Stanley Emanuel on 03-24-2025 Glucose [Mass/Vol] 116 mg/dL High 70-99 [facility] Serum or plasma calcium dayana urement (mass/volume)Ordered By: Stanley Emanuel on 03-24-2025 Calcium [Mass/Vol] 9.2 mg/dL 7.6-11.0 [facility] Serum or plasma urea nitroge n measurement (mass/volume)Ordered By: Stanley Emanuel on 03-24-2025 Urea nitrogen [Mass/Vol] 16 mg/dL 4-19 [facility] Sodium levelOrdered By: Davis Emanuel on 03-24-2025 Sodium [Moles/Vol] 137 mmol/L 133-145 [facility] Squamous epithelial cells de tection in urine sediment by light microscopyOrdered By: Stanley Emanuel on 03-24-2025 Epithelial cells.squamous LM Ql (Urine sed) 0 SEEN /hpf 0-5 [facility] Urinalysis, Completeon 03-24 BACTERIA RARE Normal None Seen [facility] Comment on above: Order Comment: CLEAN CATCH Performed By: #### M 100.2200 #### [facility] [address] [place], [place], [id number] RBC 0-5 SEEN Normal 0-5 [facility] Comment on above: Order Comment: CLEAN CATCH Performed By: #### M 100.2200 #### [facility] [address] [place], [address] WBC 0-5 SEEN Normal 0-5 [facility] Comment on above: Order Comment: CLEAN CATCH Performed By: #### M 100.2200 #### [facility] [address] [place], [address] EPI,SQUAMOUS 0 SEEN Normal 0-5 [facility] Comment on above: Order Comment: CLEAN CATCH Performed By: #### M 100.2200 #### [facility] [address] [place], [address] Mucus Ql (Urine sed) 0 SEEN Normal [facility] Comment on above: Order Comment: CLEAN CATCH Performed By: #### M 100.2200 #### [facility] [address] [place], [address] Urine clarityOrdered By: Daisy Emanuel on 03-24-2025 Clarity (U) Clear Clear [facility] Urine color determinationOrd ered By: Stanley Emanuel on 03-24-2025 Color (U) Yellow Yellow [facility] Urine cultureOrdered By: Daisy Emanuel on 03-24-2025 Bacteria identified Cx Nom (U) Culture exhibits no growth. [facility] Urine glucose detectionOrder ed By: Stanley Emanuel on 03-24-2025 Glucose Ql (U) Normal mg/dl Normal [facility] Urine leukocyte esterase det ection by dipstickOrdered By: Stanley Emanuel on 03-24-2025 Leukocyte esterase Test strip Ql (U) 100 /ul High Negative [facility] Urine pHOrdered By: Stanley Emanuel on 03-24-2025 pH (U) 6.0 [pH] 5.0 - 8.0 [facility] Urine sediment bacteria coun t by microscopy (number/high power field)Ordered By: Stanley Emanuel on 03-24-2025 Bacteria LM.HPF (Urine sed) [#/Area] RARE /hpf None Seen [facility] Urine specific gravity measu rementOrdered By: Stanley Emanuel on 03-24-2025 Specific gravity (U) [Rel density] 1.020 1.002-1.030 [facility] Urine urobilinogen measureme ntOrdered By: Stanley Emaneul on 03-24-2025 Urobilinogen Ql (U) Normal mg/dl Normal [facility] White blood cell (WBC) count Ordered By: Stanley Emanuel on 03-24-2025 WBC (Bld) [#/Vol] 8.7 10*3/uL 4.4-11.0 [facility] White blood cell countOrdere d By: Stanley Emanuel on 03-24-2025 White blood cell count 0-5 SEEN /hpf 0-5 [facility] Abdomen/Pelvis without Conto n 03-20-2025 Abdomen/Pelvis without Cont [facility] Services [address] [place] [address] Abdomen/Pelvis without Cont MR#: [id number] Acct: [id number] Name: BRITTA SUTHERLAND Rep #: [id number] : 1975 M 49 From: Mo Rajan MD PCP: Care Physician,No Primary Status: REG ER Study: Abdomen/Pelvis without Cont Date of Exam: 03/05 02/27 Exam# [id number] Ordering Dr: Williams Rodriguez MD EXAM: CT [...] 2. Hepatomegaly with fatty infiltration. Reading Location: [facility] CC: Dr. Williams Rodriguez MD; No Primary Care Physician Account Resolution Analyst: Signed Normal [facility] Absolute lymphocyte countOrd ered By: Williamsjr Rodriguez on 03-20-2025 Lymphocytes Auto (Unsp spec) [#/Vol] 0.76 10*3/uL Low 0.83-4.51 [facility] Absolute neutrophil countOrd ered By: [facility]25 Neutrophils (Bld) [#/Vol] 6.6 10*3/uL 2.0-7.7 [facility] Anion gap in Serum or Plasma Ordered By: Williamsjr Rodriguez on 03-20-2025 Anion gap [Moles/Vol] 10 mmol/L 5-15 [facility] Automated lymphocyte count a s percentage of total leukocytesOrdered By: Williams Rodriguez on 03-20-2025 Lymphocytes/100 WBC Auto (Unsp spec) 9.1 % Low 19-41 [facility] BUN/creatinine ratioOrdered By: Williamsjr Rodriguez on 03-20-2025 Urea nitrogen/Creatinine [Mass ratio] 10.7 mg/mg 10-20 [facility] Basic Metabolic Profile (BMP )on 03-20-2025 BUN/CRE 10.7 RATIO Normal 10-20 [facility] Comment on above: Performed By: #### M 100.2199 #### [facility] [address], [address] Calcium [Mass/Vol] 8.5 mg/dL Normal 7.6-11.0 [facility] Comment on above: Performed By: #### M 100.2199 #### [facility] [address] [place], [address] Chloride [Moles/Vol] 102 mmol/L Normal 98-108 [facility] Comment on above: Performed By: #### M 100.2199 #### [facility] [address] [place], [address] CO2 [Moles/Vol] 25.2 mmol/L Normal 21.0-32.0 [facility] Comment on above: Performed By: #### M 100.2200 #### [facility] [address] [place], [address] Creatinine [Mass/Vol] 1.79 mg/dL High 0.70-1.20 [facility] Comment on above: Performed By: #### M 100.2200 #### [facility] [address] [place], [address] ECRCL 54.19 ml/min Normal 50-250 [facility] Comment on above: Performed By: #### M 100.2200 #### [facility] [address] [place], [address] GAP 10 Normal 5-15 [facility] Comment on above: Performed By: #### M 100.2200 #### [facility] [address] [place], [address] GFR/1.73 sq M.predicted among non-blacks MDRD (S/P/Bld) [Vol rate/Area] 46 mL/min/{1.73_m2} Low >60 [facility] Comment on above: Result Comment: mL/m in/1.73m2 CKD-EPI Creatinine Equation (2020) Performed By: #### M 100.2200 #### [facility] [address] [place], [address] Glucose [Mass/Vol] 113 mg/dL High 70-99 [facility] Comment on above: Performed By: #### M 100.2200 #### [facility] [address] [place], [address] Potassium [Moles/Vol] 4.1 mmol/L Normal 3.3-5.1 [facility] Comment on above: Performed By: #### M 100.2200 #### [facility] [address] [place], [address] Sodium [Moles/Vol] 138 mmol/L Normal 133-145 [facility] Comment on above: Performed By: #### M 100.2200 #### [facility] [address] [place], [address] Urea nitrogen [Mass/Vol] 19 mg/dL Normal 4-19 [facility] Comment on above: Performed By: #### M 100.2200 #### [facility] [address] [place], [address] Basophil percentageOrdered B y: Williams Rodriguez on 03-20-2025 Basophils/100 WBC (Bld) 0.5 % 0-1 [facility] Bilirubin Test strip Ql (U)O rdered By: Williams Rodriguez on 03-20-2025 Bilirubin Ql (U) Negative Negative [facility] CBC W/Diff, Automatedon 03-05-2024 Absolute Lymph 0.76 X10 3/uL Low 0.83-4.51 [facility] Comment on above: Performed By: #### M 100.2200 #### [facility] [address] [place], [address] Absolute Neut 6.6 X10 3/uL Normal 2.0-7.7 [facility] Comment on above: Performed By: #### M 100.2200 #### [facility] [address] [place], [address] Basophils/100 WBC (Bld) 0.5 % Normal 0-1 [facility] Comment on above: Performed By: #### M 100.2200 #### [facility] [address] [place], [address] Eosinophils/100 WBC (Bld) 2.0 % Normal 0-5 [facility] Comment on above: Performed By: #### M 100.2200 #### [facility] [address] [place], [address] Erythrocyte distribution width (RBC) [Ratio] 12.3 % Normal 11.6-14.6 [facility] Comment on above: Performed By: #### M 100.2200 #### [facility] [address] [place], [address] Hematocrit (Bld) [Volume fraction] 45.1 % Normal 40-54 [facility] Comment on above: Performed By: #### M 100.2200 #### [facility] [address] [place], [address] Hemoglobin (Bld) [Mass/Vol] 15.5 g/dL Normal 13.0-16.5 [facility] Comment on above: Performed By: #### M 100.2200 #### [facility] [address] [place], [address] IG% 0.400 Normal 0.0-0.9 [facility] Comment on above: Result Comment: IG% - Immature Granulocytes (promyelocytes, myelocytes and metamyelocytes) > 1% indicates that a LEFT SHIFT is Present. Performed By: #### M 100.2200 #### [facility] [address] [place], [address] Lymphocytes/100 WBC (Bld) 9.1 % Low 19-41 [facility] Comment on above: Performed By: #### M 100.2200 #### [facility] [address] [place], [address] MCH (RBC) [Entitic mass] 30.1 pg Normal 27.0-32.0 [facility] Comment on above: Performed By: #### M 100.2200 #### [facility] [address] [place], [address] MCHC (RBC) [Mass/Vol] 34.4 g/dL Normal 32-36 [facility] Comment on above: Performed By: #### M 100.2200 #### [facility] [address] [place], [address] MCV (RBC) [Entitic vol] 87.6 fL Normal 80-94 [facility] Comment on above: Performed By: #### M 100.2200 #### [facility] [address] [place], [address] Monocytes/100 WBC (Bld) 9.8 % Normal 0-10 [facility] Comment on above: Performed By: #### M 100.2200 #### [facility] [address] [place], [address] Neutrophils/100 WBC (Bld) 78.2 % High 47-70 [facility] Comment on above: Performed By: #### M 100.2200 #### [facility] [address] [place], [address] Nucleated RBC (Bld) [#/Vol] 0 10*3/uL Normal 0-5 [facility] Comment on above: Performed By: #### M 100.2200 #### [facility] [address] [place], [address] Platelet mean volume (Bld) [Entitic vol] 9.9 fL Normal 6.2-12.0 [facility] Comment on above: Performed By: #### M 100.2200 #### [facility] [address] [place], [address] Platelets (Bld) [#/Vol] 205 10*3/uL Normal 150-450 [facility] Comment on above: Performed By: #### M 100.2200 #### [facility] [address] [place], [address] RBC (Bld) [#/Vol] 5.15 10*6/uL Normal 4.6-6.2 [facility] Comment on above: Performed By: #### M 100.2200 #### [facility] [address] [place], [address] RDW SD 39.5 fl Normal 35.1-43.9 [facility] Comment on above: Performed By: #### M 100.2200 #### [facility] [address] [place], [address] WBC (Bld) [#/Vol] 8.4 10*3/uL Normal 4.4-11.0 [facility] Comment on above: Performed By: #### M 100.2200 #### [facility] [address] [place], [address] Carbon dioxide, total [Moles /volume] in Central venous bloodOrdered By: Williams Rodriguez on 03-20-2025 CO2 [Moles/Vol] 25.2 mmol/L 21.0-32.0 [facility] Chloride assayOrdered By: Dangelo Rodriguez on 03-20-2025 Chloride [Moles/Vol] 102 mmol/L 98-108 [facility] Emergency Department Summary on 03-20-2025 Emergency Department Summary [facility] Medical Records Department [address] [place] [address] Emergency Department Summary 03/20/25 MR#: [id number] Acct: [id number] Name: BRITTA SUTHERLAND Rep #: [id number] : 1975 49 From: Williams Rodriguez MD [...] Differential diagnosis (more content not included)... Normal [facility] Eosinophil percentageOrdered By: [facility] on 03-20-2025 Eosinophils/100 WBC (Bld) 2.0 % 0-5 [facility] Erythrocyte distribution wid th ratioOrdered By: [facility] on 03-20-2025 Erythrocyte distribution width (RBC) [Ratio] 12.3 % 11.6-14.6 [facility] Erythrocyte distribution wid th standard deviationOrdered By: [facility] on 03-20-2025 Erythrocyte distribution width (RBC) [Ratio] 39.5 fl 35.1-43.9 [facility] Glomerular filtration rate ( GFR) estimation/1.73 sq m using serum, plasma, or whole bOrdered By: Williams Rodriguez on 03-20-2025 GFR/1.73 sq M.predicted among non-blacks MDRD (S/P/Bld) [Vol rate/Area] 46 mL/min/{1.73_m2} Low >60 [facility] Comment on above: mL/min/1.73m2 CKD-EP I Creatinine Equation (2020) Hematocrit Auto (Bld) [Volum e fraction]Ordered By: Williams Rodriguez on 03-20-2025 Hematocrit (Bld) [Volume fraction] 45.1 % 40-54 [facility] Hemoglobin measurementOrdere d By: Williams Rodriguez on 03-20-2025 Hemoglobin (Bld) [Mass/Vol] 15.5 g/dL 13.0-16.5 [facility] Immature granulocytes/100 WB C Auto (Bld)Ordered By: Williams Rodriguez 03-20-2025 Immature granulocytes/100 WBC (Bld) 0.400 % 0.0-0.9 [facility] Comment on above: IG% - Immature Granu locytes (promyelocytes, myelocytes and metamyelocytes) > 1% indicates that a LEFT SHIFT is Present. Ketones Test strip Ql (U)Ord ered By: Williams Rodriguez on 03-20-2025 Ketones Ql (U) Negative Negative [facility] MCV (mean corpuscular volume ) determinationOrdered By: Williams Rodriguez 03-20-2025 MCV (RBC) [Entitic vol] 87.6 fL 80-94 [facility] Mean corpuscular hemoglobin (MCH) determinationOrdered By: Williams Rodriguez 03-20-2025 MCH (RBC) [Entitic mass] 30.1 pg 27.0-32.0 [facility] Mean corpuscular hemoglobin concentration (MCHC) determinationOrdered By: Williamsjr Rodriguez 03-20-2025 MCHC (RBC) [Mass/Vol] 34.4 g/dL 32-36 [facility] Mean platelet volume determi nationOrdered By: Williams Rodriguez 03-20-2025 Platelet mean volume (Bld) [Entitic vol] 9.9 fL 6.2-12.0 [facility] Microscopic analysis of urin e for red blood cells (RBC)Ordered By: Williams Rodriguez on 03-20-2025 Microscopic analysis of urine for red blood cells (RBC) 0-5 SEEN /hpf 0-5 [facility] Monocyte percentageOrdered B y: Williams Rodriguez on 03-20-2025 Monocytes/100 WBC (Bld) 9.8 % 0-10 [facility] Mucus LM Ql (Urine sed)Order ed By: Williams Rodriguez on 03-20-2025 Mucus Ql (Urine sed) 0 SEEN /hpf [facility] Neutrophil percentageOrdered By: Williams Rodriguez on 03-20-2025 Neutrophils/100 WBC (Bld) 78.2 % High 47-70 [facility] Nitrite Test strip Ql (U)Ord ered By: Williams Rodriguez on 03-20-2025 Nitrite Ql (U) Negative Negative [facility] Nucleated red blood cell per centageOrdered By: Williams Rodriguez on 03-20-2025 Nucleated RBC/100 WBC (Bld) [Ratio] 0 % 0-5 [facility] Platelet countOrdered By: Dangelo Rodriguez on 03-20-2025 Platelets (Bld) [#/Vol] 205 10*3/uL 150-450 [facility] Potassium measurement (mass/ volume)Ordered By: Williams Rodriguez on 03-20-2025 Potassium (Unsp spec) [Mass/Vol] 4.1 mmol/L 3.3-5.1 [facility] Protein Test strip Ql (U)Ord ered By: Williams Rodriguez on 03-20-2025 Protein Ql (U) 15 mg/dl High Negative [facility] RBC Auto (Bld) [#/Vol]Ordere d By: Williams Rodriguez on 03-20-2025 RBC (Bld) [#/Vol] 5.15 10*6/uL 4.6-6.2 [facility] Serum creatinine measurement (mass/volume)Ordered By: Williams Rodriguez on 03-20-2025 Creatinine [Mass/Vol] 1.79 mg/dL High 0.70-1.20 [facility] Serum glucose measurement (m ass/volume)Ordered By: Williams Rodriguez on 03-20-2025 Glucose [Mass/Vol] 113 mg/dL High 70-99 [facility] Serum or plasma calcium dayana urement (mass/volume)Ordered By: Williams Rodriguez on 03-20-2025 Calcium [Mass/Vol] 8.5 mg/dL 7.6-11.0 [facility] Serum or plasma urea nitroge n measurement (mass/volume)Ordered By: Williams Rodriguez on 03-20-2025 Urea nitrogen [Mass/Vol] 19 mg/dL 4-19 [facility] Sodium levelOrdered By: Williams Rodriguez on 03-20-2025 Sodium [Moles/Vol] 138 mmol/L 133-145 [facility] Squamous epithelial cells de tection in urine sediment by light microscopyOrdered By: Williams Rodriguez on 03-20-2025 Epithelial cells.squamous LM Ql (Urine sed) 0 SEEN /hpf 0-5 [facility] Urinalysis, Completeon 03-20 RBC 0-5 SEEN Normal 0-5 [facility] Comment on above: Order Comment: CLEAN CATCH Performed By: #### L 400.0001 #### [facility] [address] [place], [address] WBC 0-5 SEEN Normal 0-5 [facility] Comment on above: Order Comment: CLEAN CATCH Performed By: #### L 400.0001 #### [facility] [address] [place], [address] BACTERIA 0 SEEN Normal None Seen [facility] Comment on above: Order Comment: CLEAN CATCH Performed By: #### L 400.0001 #### [facility] [address] [place], [address] EPI,SQUAMOUS 0 SEEN Normal 0-5 [facility] Comment on above: Order Comment: CLEAN CATCH Performed By: #### L 400.0001 #### [facility] [address] [place], [address] Mucus Ql (Urine sed) 0 SEEN Normal [facility] Comment on above: Order Comment: CLEAN CATCH Performed By: #### L 400.0001 #### [facility] [address] [place], [address] Urine clarityOrdered By: Williams Rodriguez on 03-20-2025 Clarity (U) Clear Clear [facility] Urine color determinationOrd ered By: Williams Rodriguez on 03-20-2025 Color (U) Yellow Yellow [facility] Urine glucose detectionOrder ed By: Williams Rodriguez on 03-20-2025 Glucose Ql (U) Normal mg/dl Normal [facility] Urine leukocyte esterase det ection by dipstickOrdered By: Williams Rodriguez on 03-20-2025 Leukocyte esterase Test strip Ql (U) Negative Negative [facility] Urine pHOrdered By: Williams Freddy norris on 03-20-2025 pH (U) 6.0 [pH] 5.0 - 8.0 [facility] Urine sediment bacteria coun t by microscopy (number/high power field)Ordered By: Williamsjr Rodriguez on 03-20-2025 Bacteria LM.HPF (Urine sed) [#/Area] 0 /[HPF] None Seen [facility] Urine specific gravity measu rementOrdered By: [facility] on 03-20-2025 Specific gravity (U) [Rel density] 1.015 1.002-1.030 [facility] Urine urobilinogen measureme ntOrdered By: Williamsjr Rodriguez on 03-20-2025 Urobilinogen Ql (U) Normal mg/dl Normal [facility] White blood cell (WBC) count Ordered By: Williams Rodriguez on 03-20-2025 WBC (Bld) [#/Vol] 8.4 10*3/uL 4.4-11.0 [facility] White blood cell countOrdere d By: Williams Rodriguez on 03-20-2025 White blood cell count 0-5 SEEN /hpf 0-5 [facility] Abdomen/Pelvis without Conto n 02-16-2025 Abdomen/Pelvis without Cont [facility] Imaging Services [address] [place], [place] [address] Abdomen/Pelvis without Cont MR#: [id number] Acct: [id number] Name: BRITTA SUTHERLAND Rep #: [id number] : 1975 M 49 From: Vane Stokes PCP: Care Physician,No Primary Status: REG ER Study: Abdomen/Pelvis without Cont Date of Exam: 02/03 12/28 Exam# [id number] Ordering Dr: Hector Chacko MD PROCEDURE: ABDOMEN/PELVIS [...] mesenteric stranding may reflect panniculitis. Reading Location: [facility] CC: Dr. Hector Chacko MD; No Primary Care Physician Account Resolution Analyst: Signed Normal [facility] Absolute lymphocyte countOrd ered By: ED PROVIDER on 02-16-2025 Lymphocytes Auto (Unsp spec) [#/Vol] 0.40 10*3/uL Low 0.83-4.51 [facility] Absolute neutrophil countOrd ered By: ED PROVIDER on 02-16-2025 Neutrophils (Bld) [#/Vol] 10.5 10*3/uL High 2.0-7.7 [facility] Anion gap in Serum or Plasma Ordered By: Hector Chacko on 02-16-2025 Anion gap [Moles/Vol] 15 mmol/L 5- [facility] Automated lymphocyte count a s percentage of total leukocytesOrdered By: ED PROVIDER on 02-16-2025 Lymphocytes/100 WBC Auto (Unsp spec) 3.5 % Low - [facility] BUN/creatinine ratioOrdered By: Hector Chacko on 02-16-2025 Urea nitrogen/Creatinine [Mass ratio] 12.3 mg/mg 10- [facility] Basophil percentageOrdered B y: ED PROVIDER on 02-16-2025 Basophils/100 WBC (Bld) 0.4 % 0-1 [facility] Bilirubin Test strip Ql (U)O rdered By: Hector Chacko on 02-16-2025 Bilirubin Ql (U) Negative Negative [facility] Bilirubin, totalOrdered By: Hector Chacko on 02-16-2025 Bilirubin [Mass/Vol] 0.75 mg/dL 0.00-1.30 [facility] CBC W/Diff, Automatedon 02-03 Absolute Lymph 0.40 X10 3/uL Low 0.83-4.51 [facility] Comment on above: Performed By: #### L 500.4050, L100.0100 #### [facility] [address] [place], [address] Absolute Neut 10.5 X10 3/uL High 2.0-7.7 [facility] Comment on above: Performed By: #### L 500.4050, L100.0100 #### [facility] [address] [place], [address] Basophils/100 WBC (Bld) 0.4 % Normal 0-1 [facility] Comment on above: Performed By: #### L 500.4050, L100.0100 #### [facility] [address] [place], [address] Eosinophils/100 WBC (Bld) 0.0 % Normal 0-5 [facility] Comment on above: Performed By: #### L 500.4050, L100.0100 #### [facility] [address] [place], [address] Erythrocyte distribution width (RBC) [Ratio] 12.3 % Normal 11.6-14.6 [facility] Comment on above: Performed By: #### L 500.4050, L100.0100 #### [facility] [address] [place], [address] Hematocrit (Bld) [Volume fraction] 48.3 % Normal 40-54 [facility] Comment on above: Performed By: #### L 500.4050, L100.0100 #### [facility] [address] [place], [address] Hemoglobin (Bld) [Mass/Vol] 17.0 g/dL High 13.0-16.5 [facility] Comment on above: Performed By: #### L 500.4050, L100.0100 #### [facility] [address] [place], [address] IG% 0.100 Normal 0.0-0.9 [facility] Comment on above: Result Comment: IG% - Immature Granulocytes (promyelocytes, myelocytes and metamyelocytes) > 1% indicates that a LEFT SHIFT is Present. Performed By: #### L 500.4050, L100.0100 #### [facility] [address] [place], [address] Lymphocytes/100 WBC (Bld) 3.5 % Low 19-41 [facility] Comment on above: Performed By: #### L 500.4050, L100.0100 #### [facility] [address] [place], [address] MCH (RBC) [Entitic mass] 30.4 pg Normal 27.0-32.0 [facility] Comment on above: Performed By: #### L 500.4050, L100.0100 #### [facility] [address] [place], [address] MCHC (RBC) [Mass/Vol] 35.2 g/dL Normal 32-36 [facility] Comment on above: Performed By: #### L 500.4050, L100.0100 #### [facility] [address] [place], [address] MCV (RBC) [Entitic vol] 86.4 fL Normal 80-94 [facility] Comment on above: Performed By: #### L 500.4050, L100.0100 #### [facility] [address] [place], [address] Monocytes/100 WBC (Bld) 3.8 % Normal 0-10 [facility] Comment on above: Performed By: #### L 500.4050, L100.0100 #### [facility] [address] [place], [address] Neutrophils/100 WBC (Bld) 92.2 % High 47-70 [facility] Comment on above: Performed By: #### L 500.4050, L100.0100 #### [facility] [address] [place], [address] Nucleated RBC (Bld) [#/Vol] 0 10*3/uL Normal 0-5 [facility] Comment on above: Performed By: #### L 500.4050, L100.0100 #### [facility] [address] [place], [address] Platelet mean volume (Bld) [Entitic vol] 10.1 fL Normal 6.2-12.0 [facility] Comment on above: Performed By: #### L 500.4050, L100.0100 #### [facility] [address] [place], [address] Platelets (Bld) [#/Vol] 241 10*3/uL Normal 150-450 [facility] Comment on above: Performed By: #### L 500.4050, L100.0100 #### [facility] [address] [place], [address] RBC (Bld) [#/Vol] 5.59 10*6/uL Normal 4.6-6.2 [facility] Comment on above: Performed By: #### L 500.4050, L100.0100 #### [facility] [address] [place], [address] RDW SD 39.2 fl Normal 35.1-43.9 [facility] Comment on above: Performed By: #### L 500.4050, L100.0100 #### [facility] [address] [place], [address] WBC (Bld) [#/Vol] 11.4 10*3/uL High 4.4-11.0 [facility] Comment on above: Performed By: #### L 500.4050, L100.0100 #### [facility] [address] [place], [address] Carbon dioxide, total [Moles /volume] in Central venous bloodOrdered By: Hector Chacko on 02-16-2025 CO2 [Moles/Vol] 22.7 mmol/L 21.0-32.0 [facility] Chloride assayOrdered By: Delonte Chacko on 02-16-2025 Chloride [Moles/Vol] 99 mmol/L 98-108 [facility] Comprehensive Metabolic Prof ilon 02-16-2025 Albumin [Mass/Vol] 4.6 g/dL Normal 3.5-5.0 [facility] Comment on above: Performed By: #### L 500.4050, L100.0100 #### [facility] [address] [place], [address] Albumin/Globulin [Mass ratio] 1.5 {ratio} Normal 0.9-2.4 [facility] Comment on above: Performed By: #### L 500.4050, L100.0100 #### [facility] [address] [place], [address] ALK PHOS 107 U/L Normal 40-129 [facility] Comment on above: Performed By: #### L 500.4050, L100.0100 #### [facility] [address] [place], [address] ALT [Catalytic activity/Vol] 18 U/L Normal <=46 [facility] Comment on above: Performed By: #### L 500.4050, L100.0100 #### [facility] [address] [place], [address] AST [Catalytic activity/Vol] 31 U/L Normal <=37 [facility] Comment on above: Performed By: #### L 500.4050, L100.0100 #### [facility] [address] [place], [address] Bilirubin [Mass/Vol] 0.75 mg/dL Normal 0.00-1.30 [facility] Comment on above: Performed By: #### L 500.4050, L100.0100 #### [facility] [address] [place], [address] BUN/CRE 12.3 RATIO Normal 10-20 [facility] Comment on above: Performed By: #### L 500.4050, L100.0100 #### [facility] [address] [place], [address] Calcium [Mass/Vol] 8.9 mg/dL Normal 7.6-11.0 [facility] Comment on above: Performed By: #### L 500.4050, L100.0100 #### [facility] [address] [place], [address] Chloride [Moles/Vol] 99 mmol/L Normal 98-108 [facility] Comment on above: Performed By: #### L 500.4050, L100.0100 #### [facility] [address] [place], [address] CO2 [Moles/Vol] 22.7 mmol/L Normal 21.0-32.0 [facility] Comment on above: Performed By: #### L 500.4050, L100.0100 #### [facility] [address] [place], [address] Creatinine [Mass/Vol] 1.38 mg/dL High 0.70-1.20 [facility] Comment on above: Performed By: #### L 500.4050, L100.0100 #### [facility] [address] [place], [address] ECRCL 70.29 ml/min Normal 50-250 [facility] Comment on above: Performed By: #### L 500.4050, L100.0100 #### [facility] [address] [place], [address] GAP 15 Normal 5-15 [facility] Comment on above: Performed By: #### L 500.4050, L100.0100 #### [facility] [address] [place], [address] GFR/1.73 sq M.predicted among non-blacks MDRD (S/P/Bld) [Vol rate/Area] 62 mL/min/{1.73_m2} Normal >60 [facility] Comment on above: Result Comment: mL/m in/1.73m2 CKD-EPI Creatinine Equation (2020) Performed By: #### L 500.4050, L100.0100 #### [facility] [address] [place], [address] Globulin (S) [Mass/Vol] 3.1 g/dL Normal 2.2-4.2 [facility] Comment on above: Performed By: #### L 500.4050, L100.0100 #### [facility] [address] [place], [address] Glucose [Mass/Vol] 138 mg/dL High 70-99 [facility] Comment on above: Performed By: #### L 500.4050, L100.0100 #### [facility] [address] [place], [address] Potassium [Moles/Vol] 4.1 mmol/L Normal 3.3-5.1 [facility] Comment on above: Performed By: #### L 500.4050, L100.0100 #### [facility] [address] [place], [address] Sodium [Moles/Vol] 137 mmol/L Normal 133-145 [facility] Comment on above: Performed By: #### L 500.4050, L100.0100 #### [facility] [address] [place], [address] T PROT 7.7 g/dL Normal 5.9-8.4 [facility] Comment on above: Performed By: #### L 500.4050, L100.0100 #### [facility] [address] [place], [address] Urea nitrogen [Mass/Vol] 17 mg/dL Normal 4-19 [facility] Comment on above: Performed By: #### L 500.4050, L100.0100 #### [facility] [address] [place], [address] Emergency Department Summary on 02-16-2025 Emergency Department Summary [facility] Medical Records Department [address] [place] [address] Emergency Department Summary 02/16/25 MR#: [id number] Acct: [id number] Name: BRITTA SUTHERLAND Rep #: [id number] : 1975 49 From: Hector Chacko MD [...] hours ago, he experienced right flank pain. [place] like his pain was moving downward. He [...] denies any hematuria, no fevers or chills. [facility] Medical History Kidney stones Knee fracture, [...] Return instruct (more content not included)... Normal [facility] Eosinophil percentageOrdered By: ED PROVIDER on 02-16-2025 Eosinophils/100 WBC (Bld) 0.0 % 0-5 [facility] Erythrocyte distribution wid th ratioOrdered By: ED PROVIDER on 02-16-2025 Erythrocyte distribution width (RBC) [Ratio] 12.3 % 11.6-14.6 [facility] Erythrocyte distribution wid th standard deviationOrdered By: ED PROVIDER on 02-16-2025 Erythrocyte distribution width (RBC) [Ratio] 39.2 fl 35.1-43.9 [facility] Glomerular filtration rate ( GFR) estimation/1.73 sq m using serum, plasma, or whole bOrdered By: Hector Chacko on 02-16-2025 GFR/1.73 sq M.predicted among non-blacks MDRD (S/P/Bld) [Vol rate/Area] 62 mL/min/{1.73_m2} >60 [facility] Comment on above: mL/min/1.73m2 CKD-EP I Creatinine Equation (2020) Hematocrit Auto (Bld) [Volum e fraction]Ordered By: ED PROVIDER on 02-16-2025 Hematocrit (Bld) [Volume fraction] 48.3 % 40-54 [facility] Hemoglobin measurementOrdere d By: ED PROVIDER on 02-16-2025 Hemoglobin (Bld) [Mass/Vol] 17.0 g/dL High 13.0-16.5 [facility] Immature granulocytes/100 WB C Auto (Bld)Ordered By: ED PROVIDER on 02-16-2025 Immature granulocytes/100 WBC (Bld) 0.100 % 0.0-0.9 [facility] Comment on above: IG% - Immature Granu locytes (promyelocytes, myelocytes and metamyelocytes) > 1% indicates that a LEFT SHIFT is Present. Ketones Test strip Ql (U)Ord ered By: Hector Chacko on 02-16-2025 Ketones Ql (U) 150 mg/dl Abnormal Negative [facility] Comment on above: CRITICAL VALUE *H Laboratory - Chemistry and C hemistry - challengeOrdered By: Hector Chacko on 02-16-2025 AST [Catalytic activity/Vol] 31 U/L <38 [facility] MCV (mean corpuscular volume ) determinationOrdered By: ED PROVIDER on 02-16-2025 MCV (RBC) [Entitic vol] 86.4 fL 80-94 [facility] Mean corpuscular hemoglobin (MCH) determinationOrdered By: ED PROVIDER on 02-16-2025 MCH (RBC) [Entitic mass] 30.4 pg 27.0-32.0 [facility] Mean corpuscular hemoglobin concentration (MCHC) determinationOrdered By: ED PROVIDER on 02-16-2025 MCHC (RBC) [Mass/Vol] 35.2 g/dL 32-36 [facility] Mean platelet volume determi nationOrdered By: ED PROVIDER on 02-16-2025 Platelet mean volume (Bld) [Entitic vol] 10.1 fL 6.2-12.0 [facility] Microscopic analysis of urin e for red blood cells (RBC)Ordered By: Hector Chacko on 02-16-2025 Microscopic analysis of urine for red blood cells (RBC) 0 SEEN /hpf 0-5 [facility] Monocyte percentageOrdered B y: ED PROVIDER on 02-16-2025 Monocytes/100 WBC (Bld) 3.8 % 0-10 [facility] Mucus LM Ql (Urine sed)Order ed By: Hector Chacko on 02-16-2025 Mucus Ql (Urine sed) 0 SEEN /hpf [facility] Neutrophil percentageOrdered By: ED PROVIDER on 02-16-2025 Neutrophils/100 WBC (Bld) 92.2 % High 47-70 [facility] Nitrite Test strip Ql (U)Ord ered By: Hector Chacko on 02-16-2025 Nitrite Ql (U) Negative Negative [facility] Nucleated red blood cell per centageOrdered By: ED PROVIDER on 02-16-2025 Nucleated RBC/100 WBC (Bld) [Ratio] 0 % 0-5 [facility] Platelet countOrdered By: ED PROVIDER on 02-16-2025 Platelets (Bld) [#/Vol] 241 10*3/uL 150-450 [facility] Potassium measurement (mass/ volume)Ordered By: Hector Chacko on 02-16-2025 Potassium (Unsp spec) [Mass/Vol] 4.1 mmol/L 3.3-5.1 [facility] Protein Test strip Ql (U)Ord ered By: Hector Chacko on 02-16-2025 Protein Ql (U) 100 mg/dl High Negative [facility] RBC Auto (Bld) [#/Vol]Ordere d By: ED PROVIDER on 02-16-2025 RBC (Bld) [#/Vol] 5.59 10*6/uL 4.6-6.2 [facility] Serum creatinine measurement (mass/volume)Ordered By: Hector Chacko on 02-16-2025 Creatinine [Mass/Vol] 1.38 mg/dL High 0.70-1.20 [facility] Serum globulin measurementOr dered By: Hector Chacko on 02-16-2025 Globulin (S) [Mass/Vol] 3.1 g/dL 2.2-4.2 [facility] Serum glucose measurement (m ass/volume)Ordered By: Hector Chacko on 02-16-2025 Glucose [Mass/Vol] 138 mg/dL High 70-99 [facility] Serum or plasma alanine roper otransferase (ALT) measurementOrdered By: Hector Chacko on 02-16-2025 ALT [Catalytic activity/Vol] 18 U/L <47 [facility] Serum or plasma albumin dayana urement (mass/volume)Ordered By: Hector Chacko on 02-16-2025 Albumin [Mass/Vol] 4.6 g/dL 3.5-5.0 [facility] Serum or plasma albumin/glob ulin mass ratioOrdered By: Hector Chacko on 02-16-2025 Albumin/Globulin [Mass ratio] 1.5 {ratio} 0.9-2.4 [facility] Serum or plasma alkaline juli sphatase measurementOrdered By: Hector Chacko on 02-16-2025 ALP [Catalytic activity/Vol] 107 U/L 40-129 [facility] Serum or plasma calcium dayana urement (mass/volume)Ordered By: Hector Chacko on 02-16-2025 Calcium [Mass/Vol] 8.9 mg/dL 7.6-11.0 [facility] Serum or plasma urea nitroge n measurement (mass/volume)Ordered By: Hector Chacko on 02-16-2025 Urea nitrogen [Mass/Vol] 17 mg/dL 4-19 [facility] Sodium levelOrdered By: Hector Chacko on 02-16-2025 Sodium [Moles/Vol] 137 mmol/L 133-145 [facility] Squamous epithelial cells de tection in urine sediment by light microscopyOrdered By: Hector Chacko on 02-16-2025 Epithelial cells.squamous LM Ql (Urine sed) 0 SEEN /hpf 0-5 [facility] Total proteinOrdered By: Preeti Chacko on 02-16-2025 Protein [Mass/Vol] 7.7 g/dL 5.9-8.4 [facility] Urinalysis, Completeon 02-16 BACTERIA 0 SEEN Normal None Seen [facility] Comment on above: Order Comment: CRITI ADY VALUE CALLED TO bladimir kwong 02/16/25 Yaniv8 Erin Michaels. RESULTS READ BACK BY same. DRONE SOFTWARE DEVELOPMENT ENGINEER TO SPECIFY Performed By: #### L 400.0001 #### [facility] [address] [place], [place], [id number] EPI,SQUAMOUS 0 SEEN Normal 0-5 [facility] Comment on above: Order Comment: CRITI ADY VALUE CALLED TO bladimir kwong 02/16/25 1218 Erin Michaels. RESULTS READ BACK BY same. DRONE SOFTWARE DEVELOPMENT ENGINEER TO SPECIFY Performed By: #### L 400.0001 #### [facility] [address] [place], [place], [address] Mucus Ql (Urine sed) 0 SEEN Normal [facility] Comment on above: Order Comment: CRITI ADY VALUE CALLED TO bladimir kwong 02/16/25 1218 Erin Michaels. RESULTS READ BACK BY same. DRONE SOFTWARE DEVELOPMENT ENGINEER TO SPECIFY Performed By: #### L 400.0001 #### [facility] [address] [place], [address] RBC 0 SEEN Normal 0-5 [facility] Comment on above: Order Comment: CRITI ADY VALUE CALLED TO [facility] 02/16/25 1218 Erin Michaels. RESULTS READ BACK BY same. DRONE SOFTWARE DEVELOPMENT ENGINEER TO SPECIFY Performed By: #### L 400.0001 #### [facility] [address] [place], [address] WBC 0 SEEN Normal 0-5 [facility] Comment on above: Order Comment: CRITI ADY VALUE CALLED TO [facility] 02/16/25 1218 Erin Brando. RESULTS READ BACK BY same. DRONE SOFTWARE DEVELOPMENT ENGINEER TO SPECIFY Performed By: #### L 400.0001 #### [facility] [address] [place], [address] Urine clarityOrdered By: Preeti Chacko on 02-16-2025 Clarity (U) Clear Clear [facility] Urine color determinationOrd ered By: Hector Chacko on 02-16-2025 Color (U) Yellow Yellow [facility] Urine glucose detectionOrder ed By: Hector Chacko on 02-16-2025 Glucose Ql (U) 50 mg/dl High Normal [facility] Urine leukocyte esterase det ection by dipstickOrdered By: Hector Chacko on 02-16-2025 Leukocyte esterase Test strip Ql (U) Negative Negative [facility] Urine pHOrdered By: Hector dahl on 02-16-2025 pH (U) 6.0 [pH] 5.0 - 8.0 [facility] Urine sediment bacteria coun t by microscopy (number/high power field)Ordered By: Hector Chacko on 02-16-2025 Bacteria LM.HPF (Urine sed) [#/Area] 0 /[HPF] None Seen [facility] Urine specific gravity measu rementOrdered By: Hector Chacko on 02-16-2025 Specific gravity (U) [Rel density] 1.020 1.002-1.030 [facility] Urine urobilinogen measureme ntOrdered By: Hector Chacko on 02-16-2025 Urobilinogen Ql (U) Normal mg/dl Normal [facility] White blood cell (WBC) count Ordered By: ED PROVIDER on 02-16-2025 WBC (Bld) [#/Vol] 11.4 10*3/uL High 4.4-11.0 [facility] White blood cell countOrdere d By: Hector Chacko on 02-16-2025 White blood cell count 0 SEEN /hpf 0-5 [facility] CNPNon 11-07-2023 CNPN Telephone ([facility]) -------- BRITTA SUTHERLAND ([id number]) 1975 M Date Time Provider Department 11/07/23 SUSAN FLOYD [facility] During your visit today, we recorded the following information about you: Radha Mario 11/07/2023 5:22 PM Signed 1st attempt to reschedule Britta's 11/22/23 Dr. Floyd appointment, I left a voicemail and sent a Jambot message. Please note: He is not a new patient, he is established, and if he needs to discuss refills for asthma medications, he can see Annamaria sooner than Dr. Floyd's next available appointment, if he wishes. Indio Donnelly 11/09/2023 8:58 AM Signed 2nd attempt left Indio Gil 11/11/2023 9:43 AM Signed 3rd attempt,left Allergies As of Date: 11/07/2023 Noted Allergy [...] RELIEF) 50 mcg/actuation nasal spray Use 1 [place] in each nostril once daily. Problem List As Of Date 11/07/2023 Noted Resolved Throat Tightness [R09.89] 04/24/2012 Left knee pain [M25.562] 04/24/2012 Bodies, loose, joint, knee [M23.40] 05/26/2012 2012 Degenerative arthritis of left knee [M17.12] 06/07/2012 Encounter for sterilization [Z30.2] 12/29/2017 Encounter Status:Closed by INDIO TIAN on 11/09/23 Normal [facility] Absolute lymphocyte counton 05-28-2022 Lymphocytes Auto (Unsp spec) [#/Vol] 1.07 10*3/uL 0.83-4.51 [facility] Work Phone: Basophil percentageon 2021 Basophil percentage 0-5 SEEN /hpf 0-5 [facility] Work Phone: Basophils/100 WBC (Bld) 0.8 % 0-1 [facility] Work Phone: Chloride [Moles/Vol] 104 mmol/L 98-107 [facility]: Eosinophils/100 WBC (Bld) 3.8 % 0-5 [facility] Work Phone: [phone] Glucose [Mass/Vol] 117 mg/dL 74-106 [facility] Work Phone: Comment on above: Fasting Glucose resu lt from 100 to 125 mg/dL suggests IMPAIRED HOMEOSTASIS per A.D.A. criteria. Neutrophils (Bld) [#/Vol] 4.3 10*3/uL 2.0-7.7 [facility] Work Phone: Neutrophils/100 WBC (Bld) 67.1 % 47-70 [facility] Work Phone: Potassium [Moles/Vol] 3.7 mmol/L 3.5-5.1 [facility] Work Phone: Sodium [Moles/Vol] 139 mmol/L 136-145 [facility] Work Phone: WBC (Bld) [#/Vol] 6.3 10*3/uL 4.4-11.0 [facility] Work Phone: Bilirubin Test strip Ql (U)o n 05-28-2022 Bilirubin Ql (U) Negative Negative [facility] Work Phone: Blood erythrocytes count (nu mber/volume)on 05-28-2022 RBC (Bld) [#/Vol] 5.25 10*6/uL 4.6-6.2 [facility] Work Phone: Blood hemoglobin measurement (mass/volume)on 05-28-2022 Hemoglobin (Bld) [Mass/Vol] 16.0 g/dL 13.0-16.5 [facility] Work Phone: Blood lymphocytes/100 leukoc yteson 05-28-2022 Lymphocytes/100 WBC (Bld) 16.9 % 19-41 [facility] Work Phone: Blood monocytes/100 leukocyt eson 05-28-2022 Monocytes/100 WBC (Bld) 11.2 % 0-10 [facility] Work Phone: Blood platelet mean volumeon 05-28-2022 Platelet mean volume (Bld) [Entitic vol] 9.9 fL 6.2-12.0 [facility] Work Phone: Determination of erythrocyte mean corpuscular volume (MCV)on 05-28-2022 MCV (RBC) [Entitic vol] 89.5 fL 80-94 [facility] Work Phone: Hematocrit Auto (Bld) [Volum e fraction]on 05-28-2022 Hematocrit (Bld) [Volume fraction] 47.0 % 40-54 [facility] Work Phone: Ketones Test strip Ql (U)on 05-28-2022 Ketones Ql (U) 150 mg/dl Negative [facility] Work Phone: Comment on above: CRITICAL VALUE *[id number] Jakob Toribio.RESULTS READ BACK BY SAME. Laboratory - Chemistry and C hemistry - challengeon 05-28-2022 CO2 [Moles/Vol] 27.0 mmol/L 21.0-32.0 [facility] Work Phone: Urea nitrogen/Creatinine [Mass ratio] 11.4 mg/mg 10-20 [facility] Work Phone: Laboratory - Hematology and Cell countson 05-28-2022 Erythrocyte distribution width (RBC) [Entitic vol] 41.7 fL 35.1-43.9 [facility] Work Phone: Erythrocyte distribution width (RBC) [Ratio] 12.7 % 11.6-14.6 [facility] Work Phone: Immature granulocytes/100 WBC (Bld) 0.200 % 0.0-0.9 [facility] Work Phone: Comment on above: IG% - Immature Granu locytes (promyelocytes, myelocytes and metamyelocytes) > 1% indicates that a LEFT SHIFT is Present. MCH (RBC) [Entitic mass] 30.5 pg 27.0-32.0 [facility] Work Phone: Nucleated RBC/100 WBC (Bld) [Ratio] 0 % 0-5 [facility] Work Phone: MCHC Auto (RBC) [Mass/Vol]on 05-28-2022 MCHC (RBC) [Mass/Vol] 34.0 g/dL 32-36 [facility] Work Phone: Mucus LM Ql (Urine sed)on Mucus Ql (Urine sed) 0 SEEN /hpf [facility] Work Phone: Nitrite Test strip Ql (U)on 05-28-2022 Nitrite Ql (U) Negative Negative [facility] Work Phone: No Panel Informationon 05-28 Estimated Creatinine Clearance Calc 71.60 ml/min [facility] Work Phone: Estimated GFR (MDRD) Amer 70 mL/min >60 [facility] Work Phone: Comment on above: GFR Calc Estimated GFR (MDRD) Non-Af Amer 58 mL/min >60 [facility] Work Phone: Comment on above: Non- GFR Calc Platelets bldon 05-28-2022 Platelets (Bld) [#/Vol] 250 10*3/uL 150-450 [facility] Work Phone: Protein Test strip Ql (U)on 05-28-2022 Protein Ql (U) 100 mg/dl Negative [facility] Work Phone: Serum or plasma calcium dayana urement (mass/volume)on 05-28-2022 Calcium [Mass/Vol] 8.8 mg/dL 8.5-10.1 [facility] Work Phone: Serum or plasma creatinine m easurement (mass/volume)on 05-28-2022 Creatinine [Mass/Vol] 1.40 mg/dL 0.70-1.30 [facility] Work Phone: Comment on above: The validity of the calculated GFR & GFRAA in patients over 70 years has not been determined. Clinical correlation is essential. Serum or plasma urea nitroge n measurement (mass/volume)on 05-28-2022 Urea nitrogen [Mass/Vol] 16 mg/dL 7-18 [facility] Work Phone: Squamous epithelial cells de tection in urine sediment by light microscopyon 05-28-2022 Epithelial cells.squamous LM Ql (Urine sed) 0 SEEN /hpf 0-5 [facility] Work Phone: Thin prep Papanicolaou smear with manual screeningon 05-28-2022 Thin prep Papanicolaou smear with manual screening 8 5-15 [facility] Work Phone: Urine blood detectionon 05-07 RBC Ql (U) 150 /ul Negative [facility] Work Phone: RBC Ql (U) 0-5 SEEN /hpf 0-5 [facility] Work Phone: Urine clarityon 05-28-2022 Clarity (U) Clear Clear [facility] Work Phone: Urine color determinationon 05-28-2022 Color (U) Yellow Yellow [facility] Work Phone: Urine glucose detectionon Glucose Ql (U) Normal mg/dl Normal [facility] Work Phone: Urine leukocyte esterase det ection by dipstickon 05-28-2022 Leukocyte esterase Test strip Ql (U) Negative Negative [facility] Work Phone: Urine pHon 05-28-2022 pH (U) 5.0 [pH] 5.0 - 8.0 [facility] Work Phone: Urine sediment bacteria coun t by microscopy (number/high power field)on 05-28-2022 Bacteria LM.HPF (Urine sed) [#/Area] 0 /[HPF] None Seen [facility] Work Phone: Urine sediment fine granular cast count by microscopy (number/low power field)on 05-28-2022 Fine Granular Casts LM.LPF (Urine sed) [#/Area] 0-5 SEEN /lpf 0-5 [facility] Work Phone: Urine specific gravity measu rementon 05-28-2022 Specific gravity (U) [Rel density] 1.025 1.002-1.030 [facility] Work Phone: Urobilinogen Auto test strip Ql (U)on 05-28-2022 Urobilinogen Ql (U) Normal mg/dl Normal [facility] Work Phone: CNPSveta 07-31-2018 CNPN Telephone (UROLAE) Kike SUTHERLAND ([id number]) 1975 MDate Time Provider Epeugxqhif33/26/18 REY BELL During your visit today, we recorded [...] for sterilization [Z30.2] INVALID FOR* Status:Closed by REY BELL on 07/31/18 [facility] Eh 05-11-2018 CNPN Telephone (AKURFL) Kike SUTHERLAND ([id number]) 1975 MDate Time Provider Department05/11/18 REY BELL During your visit today, we recorded the following information about you:Nick Jewel [facility] 05/11/2018 1:53 PM Signedpts called, she would like to know if he is ejaculating to much and that'swhy he still has some sperm showing?Please adviseChrisalex Bell DO, MBA 05/11/2018 2:09 PM SignedNo it is not from ejaculating too muchWe will have to wait the full 6 months from the vasectomy before making anydecisions or changesChrisalex Holloway [facility] 05/11/2018 4:18 PM SignedSpoke to pts and advised.Nick Jewel CmaAllergies As of Date: 05/11/2018 Noted Allergy ReactionHYDROCODONE-ACET AMINOPHEN 11/29/2017 8 - GI UpsetDate Reviewed: 12/29/2017Reviewed by: Vilma Souza [facility] - Fully AssessedReason for Visit: question [...] for sterilization [Z30.2] INVALID FOR* Status:Closed by REY BELL on 05/11/18 [facility] Eh 05-09-2018 CNPN Telephone (MICHAEL) Kike SUTHERLAND ([id number]) 1975 MDate Time Provider Department05/09/18 REY BELL During your visit today, we recorded the following information about you:Nick Holloway [facility] 05/09/2018 8:51 AM Signed----- Message from Rey Bell sent at 05/09/2018 1:26 AM EDT -----Patient still has sperm present but they are not motile. I believe he is ok,but I will check with my colleagues in fertility department. Please let himknowDeirdre Holloway [facility] 05/09/2018 9:19 AM SignedSpoke to pts and advised dr bell will speak with a fertilityspecialist that he knows and find out why sperm are still there.We will get back with them as soon as possible.Nick Holloway [facility] 05/09/2018 4:31 PM SignedSpoke to , advised that you will call her this evening.Thanks,Nick Bell DO, MBA 05/10/2018 9:24 AM AddendumI spoke to fertility dept [place] recommend a repeat post as specimen in 6 months according to AUApostvasectomy guidelinesVasectomy was on 12/29/17.Will need to have recheck on or after 06/30/18 (6 months post vasectomy)The ideal result is <100,000 non-motile sperm on post vasectomy specimenI spoke to the patient's and the patient last night, recommendation is tocontinue protection/precautions at this time.Rey Bell DO, MBAJayram Krishnan, DO, MBA 05/10/2018 9:24 AM SignedAddended by: REY BELL on: 05/10/2018 09:24 AM Modules accepted: OrdersAllergies As of Date: 05/09/2018 Noted Allergy ReactionHYDROCODONE-ACET AMINOPHEN 11/29/2017 8 - GI UpsetDate Reviewed: 12/29/2017Reviewed by: Vilma Souza CMA - Fully AssessedReason for Visit: Results [95]Primary Visit Diagnosis:Encounter for sterilization [Z30.2]Order(s):POST VASEC SCREEN [SQSEPOST] Order #: [id number]: 1 FUTUREPrescriptions as of 05/09/2018 Sig: NAPHAZOLINE 0.025 %-PHENIRAMI* Use 1 Drop in both eyes every* Patient not taking: Reported on 10/31/2017Problem List As Of Date 05/09/2018 Noted Resolved Throat Tightness [R68.89] INVALID FOR* Left knee pain [M25.562] INVALID FOR* Bodies, loose, joint, knee [M23.40] INVALID FOR*2012 Degenerative arthritis of left knee [M17.12] INVALID FOR* Encounter for sterilization [Z30.2] INVALID FOR* Status:Closed by NICK HOLLOWAY CMA on 05/09/18 [facility] Eh [facility]-04-2018 [facility] Kike SUTHERLAND ([id number]) 1975 MDate Time Provider Department05/04/18 REY BELL During your visit today, we recorded the following information about you:Dora Ojeda Cma 05/04/2018 1:33 PM SignedPt called asking for semen analysis results from 05/01/18 - Pt went took lab -results in Elayne Bell DO, MBA 05/04/2018 3:43 PM SignedNo motile sperm seen. He has sperm present, but they are not motileTherefore he is clearedElizabrandie Huerta Cma 05/05/2018 8:38 AM SignedPt called the office. Notified.Mayuri Huerta CmaAllergies As of Date: 05/04/2018 Noted Allergy ReactionHYDROCODONE-ACET AMINOPHEN 11/29/2017 8 - GI UpsetDate Reviewed: 12/29/2017Reviewed by: Vilma Souza [employer] - Fully AssessedReason for Visit: Results [95]Prescriptions [...] for sterilization [Z30.2] INVALID FOR* Status:Closed by REY BELL on 05/04/18 [facility] Vital Signs Date Time Vital Sign Value Performing Clinician Cecilia burdick 03-29-2025 15:29-0400 Body height 182.88 cm No Primary Care Physician [facility] 03-29-2025 15:29-0400 Body mass index (BMI) [Ratio] 23.4 kg/m2 No Primary Care Physician [facility] 03-29-2025 15:29-0400 Body temperature 96.9 [degF] No Primary Care Physician [facility] 03-29-2025 15:29-0400 Body weight 78.47 kg No Primary Care Physician [facility] 03-29-2025 15:29-0400 Diastolic blood pressure 74 mm[Hg] No Primary Care Physician [facility] 03-29-2025 15:29-0400 Heart rate 95 /min No Primary Care Physician [facility] 03-29-2025 15:29-0400 Respiratory rate 16 /min No Primary Care Physician [facility] 03-29-2025 15:29-0400 SaO2% (BldA) [Mass fraction] 98 % No Primary Care Physician [facility] 03-29-2025 15:29-0400 Systolic blood pressure 126 mm[Hg] No Primary Care Physician [facility] 03-24-2025 07:14-0400 Body temperature 98.1 [degF] No Primary Care Physician [facility] 03-24-2025 07:14-0400 Diastolic blood pressure 99 mm[Hg] No Primary Care Physician [facility] 03-24-2025 07:14-0400 Heart rate 86 /min No Primary Care Physician [facility] 03-24-2025 07:14-0400 Respiratory rate 18 /min No Primary Care Physician [facility] 03-24-2025 07:14-0400 SaO2% (BldA) [Mass fraction] 99 % No Primary Care Physician [facility] 03-24-2025 07:14-0400 Systolic blood pressure 146 mm[Hg] No Primary Care Physician [facility] 03-24-2025 04:54-0400 Body height 182.88 cm No Primary Care Physician [facility] 03-24-2025 04:54-0400 Body mass index (BMI) [Ratio] 23.9 kg/m2 No Primary Care Physician [facility] 03-24-2025 04:54-0400 Body weight 80.1 kg No Primary Care Physician [facility] 03-20-2025 10:47-0400 Body temperature 98.1 [degF] No Primary Care Physician [facility] 03-20-2025 10:47-0400 Diastolic blood pressure 94 mm[Hg] No Primary Care Physician [facility] 03-20-2025 10:47-0400 Heart rate 84 /min No Primary Care Physician [facility] 03-20-2025 10:47-0400 Respiratory rate 16 /min No Primary Care Physician [facility] 03-20-2025 10:47-0400 SaO2% (BldA) [Mass fraction] 100 % No Primary Care Physician [facility] 03-20-2025 10:47-0400 Systolic blood pressure 136 mm[Hg] No Primary Care Physician [facility] 03-20-2025 07:33-0400 Body height 182.88 cm No Primary Care Physician [facility] 03-20-2025 07:33-0400 Body mass index (BMI) [Ratio] 24.5 kg/m2 No Primary Care Physician [facility] 03-20-2025 07:33-0400 Body weight 81.87 kg No Primary Care Physician [facility] 02-16-2025 14:17-0400 Body temperature 98.2 [degF] No Primary Care Physician [facility] 02-16-2025 14:17-0400 Diastolic blood pressure 78 mm[Hg] No Primary Care Physician [facility] 02-16-2025 14:17-0400 Heart rate 72 /min No Primary Care Physician [facility] 02-16-2025 14:17-0400 Respiratory rate 16 /min No Primary Care Physician [facility] 02-16-2025 14:17-0400 SaO2% (BldA) [Mass fraction] 97 % No Primary Care Physician [facility] 02-16-2025 14:17-0400 Systolic blood pressure 145 mm[Hg] No Primary Care Physician [facility] 02-16-2025 10:32-0400 Body height 182.88 cm No Primary Care Physician [facility] 02-16-2025 10:32-0400 Body mass index (BMI) [Ratio] 24.5 kg/m2 No Primary Care Physician [facility] 02-16-2025 10:32-0400 Body weight 82.1 kg No Primary Care Physician [facility] 08-06-2022 14:41-0500 Body height 182.9 cm Annamaria Magallon ACCOUNT ENGINEER.[employer]MIC[employer] Work Phone: [facility] 08-06-2022 14:41-0500 Body temperature 97.7 [degF] Annamaria Sherita ACCOUNT ENGINEER.CHEMICALS DIST[employer]ER Work Phone: [facility] 08-06-2022 14:41-0500 Body weight 78.16 kg Annamaria Sherita ACCOUNT ENGINEER.[employer]MICALS DIST[employer] Work Phone: [facility] 08-06-2022 14:41-0500 Diastolic blood pressure 92 mm[Hg] Annamaria Sherita ACCOUNT ENGINEER.[employer]MIC[employer] DIST[employer]ER Work Phone: [facility] 08-06-2022 14:41-0500 Heart rate 100 /min Annamaria Sherita ACCOUNT ENGINEER.CHEMICALS DIST[employer]ER Work Phone: [facility] 08-06-2022 14:41-0500 SaO2% (BldA) [Mass fraction] 95 % Annamaria Sherita ACCOUNT ENGINEER.CHEMICALS DISTILLER Work Phone: [facility] 08-06-2022 14:41-0500 Systolic blood pressure 127 mm[Hg] Annamaria SheritaRankin.CHEMICALS DISTILLER Work Phone: [facility] 05-28-2022 08:58-0400 Diastolic blood pressure 92 mm[Hg] [facility] Work Phone: 05-28-2022 08:58-0400 Respiratory rate 16 /min [facility] Work Phone: 05-28-2022 08:58-0400 SaO2% (BldA) [Mass fraction] 98 % [facility] Work Phone: 05-28-2022 08:58-0400 Systolic blood pressure 140 mm[Hg] [facility] Work Phone: 05-28-2022 07:08-0400 Body height 182.88 cm [facility] Work Phone: 05-28-2022 07:08-0400 Body mass index (BMI) [Ratio] 23.8 kg/m2 [facility] Work Phone: 05-28-2022 07:08-0400 Body temperature 97.4 [degF] [facility] Work Phone: 05-28-2022 07:08-0400 Body weight 79.83 kg [facility] Work Phone: 05-28-2022 07:08-0400 Heart rate 105 /min [facility] Work Phone: Encounters Encounter Date Encounter Type Care Provider Facility Start: 03-29-2025 End: 03-29-2025 Patient encounter procedure Estelita GARCIA -[facility] Work Phone: Start: 03-29-2025 End: 03-29-2025 ambulatory No Primary Care Physician -[facility] Start: 03-24-2025 End: 03-24-2025 Emergency department patient visit No Primary Care Physician -Emergency Department Work Phone: Start: 03-20-2025 End: 03-20-2025 Emergency department patient visit No Primary Care Physician -Emergency Department Work Phone: Start: 02-16-2025 End: 02-16-2025 Emergency department patient visit No Primary Care Physician -Emergency Department Work Phone: Start: 11-07-2023 Telephone encounter Susan Floyd DO Work Phone: Family Medicine Comment on above: Appointment Start: 12-19-2022 Refill Susan Floyd DO Work Phone: [facility] Comment on above: Refill Request Start: 10-07-2022 Telephone encounter Susan Floyd DO Work Phone: Family Medicine [employer] Comment on above: Medication Problem Start: 08-06-2022 End: 08-06-2022 Patient encounter procedure Annamaria Magallon ACCOUNT ENGINEERArbenCHEMICALS DISTILLER Work Phone: Family Medicine Comment on above: Wheezing (Primary Dx ); Sinus congestion; Encounter to establish care Start: 06-03-2022 End: 06-03-2022 ambulatory [facility] Work Phone: Start: 06-03-2022 End: 06-03-2022 Patient encounter procedure [facility]Laboratory, Specimen Start: 05-28-2022 End: 05-28-2022 Emergency department patient visit [facility] Procedures Date Procedure Procedure Detail Performing Clinician Start: 03-24-2025 Urine culture No Primar y Care Physician Start: 03-24-2025 Urnls dip stick/tabl et reagent auto microscopy No Primary Care Physician Start: 03-24-2025 Estimated creatinine clearance No Primary Care Physician Start: 03-20-2025 Estimated creatinine clearance No Primary [...] Treatment Date Care Activity Detail Author Start: 03-24-2025 Bacteria identified in Urine by Culture Urine Culture [facility] Start: 03-24-2025 [facility] Start: 03-24-2025 [facility] Start: 03-20-2025 [facility] Start: 02-16-2025 [facility] Start: 09-05-2023 Depression Assessment Depression Assessment [facility] Start: 05-06-2023 Influenza vaccination [facility] Start: 09-05-2022 DEPRESSION ASSESSMENT DEPRESSION ASSESSMENT [facility] Start: 05-06-2022 Influenza vaccination INFLUENZA (#1) [facility] Start: 09-05-2021 DEPRESSION ASSESSMENT DEPRESSION ASSESSMENT [facility] Start: 2019 COLOGUARD (FIT-DNA) COLOGUARD (FIT-DNA) [facility] Start: 2019 Colonoscopy COLONOSCOPY [facility] Start: 2019 COLORECTAL CANCER SCREENING COLORECTAL CANCER SCREENING [facility] Start: [address] COLONOGRAPHY [facility] Start: 2019 DIABETES SCREEN DIABETES SCREEN [facility] Start: 2019 Diabetes Screening Diabetes Screening [facility] Start: 2019 FECAL OCCULT BLOOD FECAL OCCULT BLOOD [facility] Start: 2019 Screening for malignant neoplasm of colon [facility] Start: 2019 SIGMOIDOSCOPY SIGMOIDOSCOPY [facility] Start: 2009 Lipid panel Lipid Screening [facility] Start: 2009 LIPID SCREEN LIPID SCREEN [facility] Start: 1993 Urine microalbumin profile [facility] Start: 1992 HEPATITIS C SCREENING HEPATITIS C SCREENING [facility] Start: 1992 Hepatitis C screening Hepatitis C Screening [facility] Start: 1992 HIV SCREENING HIV SCREENING [facility] Start: 1992 HIV screening HIV Screening [facility] Start: 02-14-1975 COVID-19 VACCINE (#1) COVID-19 VACCINE (#1) [facility] Start: 1975 HEPATITIS B (1 of 3 - 3-dose series) HEPATITIS B (1 of 3 - 3-dose series) [facility] Start: 1974 Hepatitis B Vaccine (1 of 3 - 3-dose series) Hepatitis B Vaccine (1 of 3 - 3-dose series) [facility] Calculus analysis [facility] Work Phone: Measurement of weigh t of calculus [facility] Work Phone: Origin of Stone [facility] Work Phone: Patient Education [facility] Work Phone: Patient referral [facility] Work Phone: Specimen color determination [facility] Work Phone: Urine culture [facility] Immunizations Immunization Date Immunization Notes Care Provider Armando villalobos 10-31-2017 influenza virus vacc ine, unspecified formulation Susan Floyd DO Work Phone: [facility] Payers Date Payer Category Payer Private Health Insurance [id number] 2025 Self-pay [id number] 2015 Unknown [employer] BL[employer] CARD PPO OOS [id number] 2015-Present [phone] [address] [place] [address] PPO [id number] Unknown [id number] Unknown [id number] Unknown [id number] Unknown [id number] Social History Date Type Detail Facility Start: 05-28-2022 Tobacco smoking status NHIS Unknown if ever smoked [facility] Work Phone: Start: 1975 Sex Assigned At Male [facility] Start: 04-11-2012 End: 03-29-2025 Tobacco smoking status NHIS Never smoked tobacco [facility] Start: 04-11-2012 Tobacco use and exposure Smokeless tobacco non-user [facility] Start: 08-06-2022 End: 09-20-2022 Alcohol intake Current non-drinker of alcohol (finding) [facility] Start: 08-06-2022 History SDOH Alcohol Frequency 1 [facility] Start: 08-06-2022 History SDOH Alcohol Std Drinks 0 [facility] Start: 08-06-2022 History SDOH Social Connections Phone 2 [facility] Start: 08-06-2022 History SDOH Social Connections Get Together 3 [facility] Start: 08-06-2022 History SDOH Physical Activity MPS 4 [facility] Start: 08-06-2022 History SDOH Financial 5 [facility] Start: 1975 Sex Assigned At Not on file [facility] Start: 07-27-2022 End: 08-06-2022 Exposure to SARS-CoV-2 (event) Not sure [facility] Start: 08-05-2022 End: 09-19-2022 History of Social function [facility] Start: 08-05-2022 End: 09-19-2022 Social connection and isolation panel [facility] Do you belong to any clubs or organizations such as mandaeism groups, unions, fraternal or athletic groups, or school groups? No [facility] Are you now , , , , never or living with a partner? [facility] How often to you hav e a drink containing alcohol? Never [facility] How many standard dr inks containing alcohol do you have on a typical day? Patient does not drink [facility] Do you feel stress - tense, restless, nervous, or anxious, or unable to sleep at night because your mind is troubled all the time - these days [OSQ] Only a little [facility] (I/We) worried wheth er (my/our) food would run out before (I/we) got money to buy more. Never true [facility] Sexual Orientation Heterosexual (finding) [facility] Clinical Notes 05-26-2012 to 03-20-2025 Telephone Encounter - Indio Tian - 11/09/2023 8:58 AM ESTTelephone Encounter - Radha Mario - 11/07/2023 5:21 PM ESTAddendum Note - Susan Floyd DO - 10/07/2022 1:40 PM EST Note Date & Type Note Facility 03-20-2025 Discharge summary [facility] 03-20-2025 Radiology Diagnostic study note [facility] Imaging Services [address] [place], [place] [address] Abdomen/Pelvis without Cont MR#: [id number] Acct: [id number] Name: BRITTA SUTHERLAND Rep #: [id number] : 1975 M 49 From: Renata Rajan MD PCP: Care Physician,No Primary Status: REG ER Study:Abdomen/Pelvis without Cont Date of Exa m: 03/20/25 Exam# [id number] Ordering Dr: Dangelo Rodriguez MD EXAM: CT [...] 2. Hepatomegaly with fatty infiltration. Reading Location: [facility] CC: Dr. Williams Rodriguez MD; No Primary Care Physician ~ Account Resolution Analyst: Signed [facility] 02-16-2025 Radiology Diagnostic study note [facility] Imaging Services [address] [place] [address] Abdomen/Pelvis without Cont MR#: [id number] Acct: [id number] Name: BRITTA SUTHERLAND Rep #: [id number] : 1975 M 49 From: Kemi Bonilla MD PCP: Care Physician,No Primary Status: REG ER Study:Abdomen/Pelvis without Cont Date of Exa m: 02/16/25 Exam# [id number] Ordering Dr: Hector Chacko MD PROCEDURE: ABDOMEN/PELVIS [...] mesenteric stranding may reflect panniculitis. Reading Location: [id number] CC: Dr. Hector Chacko MD; No Primary Care Physician ~ Account Resolution Analyst: Signed [facility] 11-09-2023 Miscellaneous Notes 2nd attempt left vm 1st attempt to reschedule Britta's 11/22/23 Dr. Floyd appointment, I left a voicemail and sent a FANCRU message. Please note: He is not a new patient, he is established, and if he needs to discuss refills for asthma medications, he can see Annamaria sooner than Dr. Floyd's next available appointment, if he wishes. Radha Mario documented in this encounter [facility] 10-07-2022 Miscellaneous Notes Addended by: SUSAN FLOYD on: 10/07/2022 01:40 PM Modules accepted: Orders Not sure if symbicort is cheaper but I called it in calling the QVAR is too expensive, is there an alternative that can be sent in? Thanks documented in this encounter [facility] 08-06-2022 History of Present illness Narrative Images from the original note were not included. This note was created using [place] [employer]. Subjective Britta Sutherland is a 46 year old male. Patient presents with: Establish Care: Cough, wheezing, SOB, congestion Sinus congestion and wheezing for the last 6 months Continually worsened over the past 6 months Mother has "same problems", she has been diagnosed with allergies and [...] by the patient and the spouse. No bone grinder was used. Review of Systems Constitutional: Negative [...] normal. No congestion or rhinorrhea. Mouth/Throat: Lips: [place]. Mouth: Mucous membranes are moist. Pharynx: Oropharynx [...] or worsening symptoms. Terrance Russ TEACHING PROVIDER (Physician/PA/ACCOUNT ENGINEER) NOTE OF PERSONAL INVOLVEMENT IN CARE: I have personally seen and examined the patient and performed the medical decision-making components. I have reviewed the Advanced Practice Registered Nurse (ACCOUNT ENGINEER) Student's documentation and verified the findings in the note as written. Any additions or changes are noted in bold/italics. Signature: Annamaria Magallon CNP Date: 08/06/2022 Time: 4:11 PM documented in this encounter [facility] 05-26-2012 History of Past i llness Narrative Problem Noted Date Resolved Date Bodies, loose, joint, knee 05/26/201208/16 documented as of this encounter (statuses as of 08/06/2022) [facility] History of Past illness Narrative* Problem Noted Date Resolved Date Bodies, loose, joint, knee 05/26/201208/16 documented as of this encounter (statuses as of 10/07/2022) [facility] History of Past illness Narrative* Problem Noted Date Resolved Date Bodies, loose, joint, knee 05/26/201208/16 documented as of this encounter (statuses as of 12/20/2022) [facility] History of Past illness Narrative* Problem Noted Date Diagnosed Date Resolved Date Bodies, loose, joint, knee 05/26/2012 1 10/17/2011 documented as of this encounter (statuses as of 11/09/2023) [facility] Williams Rodriguez [facility] Note Date/Time March 20, 2025 10:2 7am [facility] Medical Records Department [address] [place] [address] Emergency Department Summary 03/20/25 MR#: [id number] Acct: [id number] Name: BRITTA SUTHERLAND Rep #:[id number] : 1975 49 From: Williams Rodriguez MD [...] 78.2 H Lymph % (Auto) 9.1 L [place] % (Auto) 9.8 Eos % (Auto) 2.0 [...] Clarity Clear Urine pH 6.0 Ur Specific [place] 1.015 Urine Protein 15 H Urine Glucose [...] 2. Hepatomegaly with fatty infiltration. Reading Location: [facility] Review of CT reveals bilateral renal calculi. [...] stones and obstructing ureteral stone. Print Language: Armenian Disposition Disposition: Home, Self Care What to do if you have Problems For any increased pain, shortness of breath, bleeding, nausea or vomiting, chestpain, or any unexpected problems, contact your Primary Care Provider. Call [facility] ([phone]) or report to the closest Emergency Room. Call 911 if necessary. 03/20/25 1027 <Electronically signed by Williams Rodriguez MD> Cosigner Signature (if applicable): CC: No Primary Care Physician ~ Signed [facility] Work Phone: Evaluation noteNo assessment information available [facility] Work Phone: Evaluation note* Diagnosis Wheezing- Primary Sinus congestion Other diseases of nasal cavity and sinuses Encounter to establish care Other reasons for seeking consultation [facility] Diagnosis Wheezing [facility] Additional Instructions Return if you have a temperature greater than 100, unable to eat or drink anything or pain is not controlled by medication prescribed. Do not take any ibuprofen or Aleve because your creatinine is elevated. You are referred to Dr. Drake because you do not have a doctor and needs your blood pressure reassessed and additional blood work.[facility] Work Phone: Hospital Discharge instructions Additional Instructions Medication as directed. Follow-up with urology within the next week. Return to the emergency department with fever, inability to take medications, increased pain while on medication, new or worsening symptoms.[facility] Work Phone: Hospital Discharge instructionsAdditional Instructions You need to follow-up with Dr. Woods to evaluate your blood pressure and kidney function. You are referred to Dr. Brown for follow-up regarding your kidney stones and obstructing ureteral stone.[facility] Work Phone: Reason for referral (narrative)No reason for referral information availableWMercy [facility] Work Phone: Summary Purpose Family History No Family History Records Found Relationship Condition Age at Onset Recorded Date/T marquita Not Specified Arthritis Unknown Cerebrovascular accident (CVA) Unknown Asthma Unknown Advance Directives No Advanced Directives Records Found Advance Directive Response Recorded Date/ Time Living Will No May 28, 2022 7:11am Power of Front Edger No May 7:11am Advance Directive Response Recorded Date/ Time Do you have a Healthcare Power of Front Edger? No February 16, 2025 12:00pm Advance Directive Response Recorded Date/ Time Do you have a Healthcare Power of Front Edger? No February 16, 2025 12:00pm Do you have a Healthcare Power of Front Edger? No March 20, 2025 7:59am Advance Directive Response Recorded Date/ Time Do you have a Healthcare Power of Front Edger? No February 16, 2025 12:00pm Do you have a Healthcare Power of Front Edger? No March 20, 2025 7:59am Do you have a Healthcare Power of Front Edger? No March 24, 2025 4:58am Chief Complaint and Reason for Visit Chief Complaint flank pain Chief Complaint Admit Date FLANK February 16, 2025 10:3 1am Chief Complaint Admit Date FLANK February 16, 2025 10:3 1am flank March 20, 2025 7:33 am Chief Complaint Admit Date FLANK February 16, 2025 10:3 1am flank March 20, 2025 7:33 am flank pain March 24, 2025 4:53 am Chief Complaint Admit Date FLANK February 16, 2025 10:3 1am flank March 20, 2025 7:33 am flank pain March 24, 2025 4:53 am [facility] FOLLOW [facility] - EST IN March 29, 2 025 3:07pm Additional Source Comments (unrecognized sect ion and content) No Status Records FoundNo Status Records FoundNo Status Records Found INFORMATION SOURCE (unrecogn ized section and content) DATE CREATED AUTHOR 08/14/2018 [facility] DATE CREATED AUTHOR AUTHOR'S ORGANIZ ATION 11/12/2023 [facility] DATE CREATED AUTHOR AUTHOR'S ORGANIZ ATION 04/01/2025 [facility] Goals (unrecognized section and content) Goals may [...] or prosecute any alcohol or drug abuse patient.[facility] the event this information is protected by the Federal Confidentiality of Alcohol and Drug Abuse Patient Records regulations: The Federal rules restrict any use of the information to criminally investigate or prosecute any alcohol or drug abuse patient.[facility] the event this information is protected by the Federal Confidentiality of Alcohol and Drug Abuse Patient Records regulations: The Federal rules restrict any use of the information to criminally investigate or prosecute any alcohol or drug abuse patient.[facility] the event this information is protected by the Federal Confidentiality of Alcohol and Drug Abuse Patient Records regulations: The Federal rules restrict any use of the information to criminally investigate or prosecute any alcohol or drug abuse patient.[facility] Reason for Visit (unrecogniz ed section and content) Reason Comments Establish Care Cough, wheezing, SOB , congestion Reason Comments Medication Problem Reason Comments Refill Request Reason Comments Appointment Care Teams (unrecognized sec tion and content) Top Cager Relationship Specialty Start Date End Date Susan Floyd DO [address] [place] [address] [place] [address] PCP - General Family Medicine 11/07/23 Team [...] March 20, 2025 End: March 20, 2025 Team Status: Inactive Member Role/Relationship Status Dates No Primary Care Physician Primary Care Provider Active Start: March 24, 2025 End: March 24, 2025 Dr. Stanley Emanuel MD Emergency Provider Active Start: March 24, 2025 End: March 24, 2025 Team Status: Inactive Member Role/Relationship Status Dates No Primary Care Physician Primary Care Provider Active Start: March 20, 2025 End: March 20, 2025 Dr. Williams Rodriguez MD Attending Provider Active Sta rt: March 20, 2025 End: March 20, 2025 Dr. Williams Rodriguez MD Emergency Provider Active Sta rt: March 20, 2025 End: March 20, 2025 Team Status: Inactive Member Role/Relationship Status Dates No Primary Care Physician Primary Care Provider Active Start: March 29, 2025 End: March 29, 2025 No Primary Care Physician Referring Provider Active Start: March 29, 2025 End: March 29, 2025 JOSE Martínez Attending Provider Active Start: March 29, 2025 End: March 29, 2025 FOR RECORDS PERTAINING TO PATIENTS WHO [...] BE BASED ON THE PRIMARY CLINICAL RECORDS. [facility]. provides no warranty or guarantee of the accuracy or completeness of information in this document.
[2025-06-20 18:26] LABS: AST(SGOT) 20 U/L (<=37); Alanine Aminotransfer ALT/SGPT 10 U/L (<=46); Albumin, Serum 4.1 g/dL (3.5-5.0); Alkaline Phosphatase 82 U/L (40-129); Anion Gap 9 (5-15); BUN 17 mg/dL (4-19); BUN/Creat Ratio 15.8 RATIO (10-20); Calcium,Total 9.0 mg/dL (7.6-11.0); Carbon Dioxide 27.3 mmol/L (21.0-32.0); Chloride 104 mmol/L (98-108); Globulin 2.9 g/dL (2.2-4.2); Glucose 100 mg/dL (70-99); Potassium 4.3 mmol/L (3.3-5.1)
== END | disposition home or self-care (01) ==
LOC: MTLAB 16:13
PROVIDERS: Referring Provider Nurse Practitioner Family; Visit Provider Nurse Practitioner Family
DX: R94.4 Abnormal results of kidney function studies (principal)
CPT/HCPCS: 36415; 80053